=== PATIENT | female | born 1940 | race Caucasian/White ===

== ENCOUNTER 2017-02-16 09:29 | Emergency (ER) | payer MEDICARE, OTHER ==
[~2017-02-16] VITALS: Ht 162.6 cm; Wt 69.8 kg
[~2017-02-16 09:29] MED LIST: ACID CONTROL75 MG; ALLOPURINOL100 MG PO; ASPIRIN EC325 MG PO; ASPIRIN EC81 MG PO; ASPIRIN325 MG PO; AUGMENTIN 875-1 EACH PO; BACLOFEN10 MG PO; BENAZEPRIL HCL20 MG PO; BENAZEPRIL HCL40 MG PO; BENTYL10 MG PO; CALCIUM 600 +1 EAC7 PO; CALCIUM MAGNES1 EAC1 PO; CALCIUM-MAG-ZI1 EACH PO; CALCIUM500 MG PO; CARAFATE1 GM/10 ML; CARVEDILOL25 MG PO; CIPRO500 MG PO; CLONIDINE HCL0.1 MG PO; COREG25 MG PO; DIGOX125 MCG PO; ELIQUIS5 MG PO; FLAGYL500 MG PO; FLONASE2 SPRAY NS; FUROSEMIDE20 MG PO; FUROSEMIDE40 MG PO; HYDROCHLOROTHIA25 MG PO; HYDROCODON-ACE1 EA10 PO; HYDROCODON-ACE1 EA11 PO; JANUVIA100 MG PO; KLOR-CON 1010 MEQ PO; KLOR-CON M2020 MEQ PO; LOTENSIN40 MG PO; LOVASTATIN20 MG PO; MAGNESIUM400 MG PO; METFORMIN HCL1000 MG PO; NEOMYCIN-POLY-7.5 ML AD; NITROGLYCERIN0.4 MG SL; NORCO 5-325 TA1 EACH PO; POTASSIUM CHLO20 ME1 PO; PROBIOTIC1 EAC7 PO; PROTONIX40 MG PO; SERTRALINE HCL25 MG PO; SERTRALINE HCL50 MG PO; VANCOMYCIN HCL125 MG PO; VERAPAMIL ER120 MG PO; VERAPAMIL ER180 MG PO; VERAPAMIL ER240 M1 PO; VERAPAMIL HCL120 MG PO; VERAPAMIL HCL80 MG PO; VICODIN 5-5001 EACH PO; [UNRECOGNIZED DRUG - OTHER] PO
[2017-02-16] MEDS ORDERED: LASIX20 MG PO (09:41)
[2017-02-16] MEDS ORDERED: LOVASTATIN10 MG PO (09:41)
--- NOTE | 2017-02-16 12:28 | EKG ---
[facility] [address] [facility] [address] [place] [address] Signed Marked sinus bradycardia Abnormal ECG When compared with ECG of 11-JAN-2017 11:04, Sinus rhythm has replaced Atrial fibrillation Confirmed by LISA GARDNER MD ([id number]) on 02/16/2017 12:28:09 PM Electronically Signed By: LISA GARDNER MD 02/16/17 1228 PATIENT NAME: DIANELYS POLLARD Electrocardiogram DATE OF : 44 PHYSICIAN: LISA GARDNER MD REPORT #: [id number] REPORT IS CONFIDENTIAL AND NOT TO BE RELEASED WITHOUT AUTHORIZATION
== END 2017-02-16 11:41 | disposition home or self-care (01) ==
LOC: ED 09:29
DX: R07.9 Chest pain, unspecified (principal); I10 Essential (primary) hypertension; E11.9 Type 2 diabetes mellitus without complications; I48.91 Unspecified atrial fibrillation; K52.89 Other specified noninfective gastroenteritis and colitis; Z90.49 Acquired absence of other specified parts of digestive tract; Z90.710 Acquired absence of both cervix and uterus; Z88.2 Allergy status to sulfonamides; Z88.5 Allergy status to narcotic agent; Z88.1 Allergy status to other antibiotic agents; Z88.8 Allergy status to other drugs, medicaments and biological substances; Z79.899 Other long term (current) drug therapy; Z79.2 Long term (current) use of antibiotics; Z79.84 Long term (current) use of oral hypoglycemic drugs
CPT/HCPCS: 71010; 80053; 84484; 85025; 85610; 93005; 93010; 96361; 96374; 99284; J2405; J7030

== ENCOUNTER 2017-07-26 19:20 | Emergency (ER) | payer MEDICARE, OTHER ==
[~2017-07-26] VITALS: Ht 162.6 cm; Wt 69.9 kg
[~2017-07-26 19:20] MED LIST changes: +LASIX20 MG PO; +LOVASTATIN10 MG PO
[2017-07-26] MEDS ORDERED: PREDNISONE20 MG PO (21:12)
[2017-07-26] MEDS ORDERED: PROVENTIL HFA6.7 GM INH (21:12)
== END 2017-07-26 21:23 | disposition home or self-care (01) ==
LOC: ED 19:20
DX: T54.1X1A Toxic effect of other corrosive organic compounds, accidental (unintentional), initial encounter (principal); J68.0 Bronchitis and pneumonitis due to chemicals, gases, fumes and vapors; I10 Essential (primary) hypertension; E11.9 Type 2 diabetes mellitus without complications; I48.91 Unspecified atrial fibrillation; Z90.49 Acquired absence of other specified parts of digestive tract; Z90.710 Acquired absence of both cervix and uterus; Z88.2 Allergy status to sulfonamides; Z88.5 Allergy status to narcotic agent; Z88.1 Allergy status to other antibiotic agents; Z88.8 Allergy status to other drugs, medicaments and biological substances; Z79.84 Long term (current) use of oral hypoglycemic drugs; Z79.899 Other long term (current) drug therapy
CPT/HCPCS: 71010; 94640; 99283; J7512

== ENCOUNTER 2017-09-12 10:20 | Emergency (ER) | payer MEDICARE, OTHER ==
[~2017-09-12] VITALS: Ht 157.5 cm; Wt 150.0 kg
[~2017-09-12 10:20] MED LIST changes: +PREDNISONE20 MG PO; +PROVENTIL HFA6.7 GM INH
[2017-09-12] MEDS ORDERED: COREG12.5 MG PO (12:03)
[2017-09-12] MEDS ORDERED: COREG6.25 MG PO (12:03)
--- NOTE | 2017-09-12 14:30 | EKG ---
[facility] [address] [facility] [place] [address] Signed Atrial fibrillation with slow ventricular response Abnormal ECG When compared with ECG of 16-FEB-2017 09:46, Atrial fibrillation has replaced Sinus rhythm Confirmed by LISA GARDNER MD ([id number]) on 09/12/2017 2:30:38 PM Electronically Signed By: LISA GARDNER MD 09/12/17 1430 PATIENT NAME: DIANELYS POLLARD Electrocardiogram DATE OF : 44 PHYSICIAN: LISA GARDNER MD REPORT #: [id number] REPORT IS CONFIDENTIAL AND NOT TO BE RELEASED WITHOUT AUTHORIZATION
== END 2017-09-12 12:16 | disposition home or self-care (01) ==
LOC: ED 10:20
DX: R00.1 Bradycardia, unspecified (principal); I10 Essential (primary) hypertension; E11.9 Type 2 diabetes mellitus without complications; I48.91 Unspecified atrial fibrillation; Z88.2 Allergy status to sulfonamides; Z88.5 Allergy status to narcotic agent; Z88.1 Allergy status to other antibiotic agents; Z88.8 Allergy status to other drugs, medicaments and biological substances; Z79.899 Other long term (current) drug therapy; Z79.52 Long term (current) use of systemic steroids; Z79.84 Long term (current) use of oral hypoglycemic drugs
CPT/HCPCS: 71045; 80053; 83880; 84484; 85025; 85610; 85730; 93005; 93010; 99284; J7030

== ENCOUNTER 2017-11-24 04:56 | Emergency (ER) | payer MEDICARE, OTHER ==
[~2017-11-24] VITALS: Ht 157.5 cm; Wt 72.1 kg
--- OUTSIDE RECORDS SUMMARY | ~2017-11-24 | XMS | Encounter Summary ---
Demographics + + + | Address | [address] | | | [place] [address] | + + + | Home Phone | | + + + | Preferred Language | Unknown | + + + | Marital Status | | + + + | Taoist Affiliation | Unknown | + + + | Race | Unknown | + + + | Ethnic Group | Unknown | + + + Author + + + | Author | [employer] | + + + | Organization | [facility] | + + + | Address | Unknown | + + + | Phone | Unavailable | + + + Support + + +---------+ + | Name | Relationship | Address | Phone | + + +---------+ + | Migel Doll | ECON | Unknown | | + + +---------+ + | Masha Massey | ECON | Unknown | | + + +---------+ + | Marivel Richard | ECON | Unknown | | + + +---------+ + Care Team Providers + +------+ + | Care Collar Tailor Name | Role | Phone | + +------+ + | Ld John DO | PCP | | + +------+ + Reason for Visit +--------+ + | Reason | Comments | +--------+ + | Other | EKG | +--------+ + Encounter Details +--------+ + + + + | Date | Type | Department | Care Team | Description | +--------+ + + + + | 10/25/ | Documentati | [facility] | [facility] | Other (EKG) | | 2017 | on Only | Cardiology Rolanda | TYRESE Hickman | | | | | [address] | | | | | | [place] | | | | | | [address] | | | | | | [phone] | | | +--------+ + + + + Social History + +-------+ +--------+------+ | Tobacco Use | Types | Packs/Day | Years | Date | | | | | Used | | + +-------+ +--------+------+ | Never Smoker | | | | | + +-------+ +--------+------+ + +---+---+---+ | Smokeless Tobacco: | | | | | Never Used | | | | + +---+---+---+ + + + | Sex Assigned at | Date Recorded | | | | + + + | Not on file | | + + + as of this encounter Plan of Treatment +--------+---------+ + + + | Date | Type | Specialty | Care Team | Description | +--------+---------+ + + + | 12/05/ | Office | Cardiology | Jonatan Patel, | | | 2017 | Visit | | MD Tomás Salamanca | | | | | | Dr [address], | | | | | | [place] [address] | | | | | | [phone] | | | | | | | | +--------+---------+ + + + as of this encounter Visit Diagnoses Not on filein this encounter"
--- OUTSIDE RECORDS SUMMARY | ~2017-11-24 | XMS | Encounter Summary ---
Demographics + + + | Address | [address] | | | [place] [address] | + + + | Home Phone | | + + + | Preferred Language | Unknown | + + + | Marital Status | | + + + | Sabianism Affiliation | Unknown | + + + | Race | Unknown | + + + | Ethnic Group | Unknown | + + + Author + + + | Author | [employer] | + + + | Organization [...] + + +---------+ + | Marivel Richard ECON | Unknown | | + + +---------+ + Care Team Providers + +------+ + | Care Big Data Hadoop Developer Name | Role | Phone | + +------+ + | Ld John DO | PCP | | + +------+ + Encounter Details +--------+ + + + + | Date | Type | Department | Care Team | Description | +--------+ + + + + | 10/12/ | Telephone | [facility] | [facility] Multani | | | 2018 | | Cardiology Rolanda Hickman CMA | | | | | [address] | | | | | | [place] | | | | | | [address] | | | | | | [phone] | | | +--------+ + + + [...] | | | | | | [place] [address] | | | | | | [phone] | | | | | | | | +--------+---------+ + + + as of this encounter Visit Diagnoses Not on filein this encounter"
--- OUTSIDE RECORDS SUMMARY | ~2017-11-24 | XMS | Encounter Summary ---
Demographics + + + | Address | [address] | | | [place] [address] | + + + | Home Phone | | + + + | Preferred Language | Unknown | + + + | Marital Status | | + + + | Sabianism Affiliation | Unknown | + + + | Race | Unknown | + + + | Ethnic Group | Unknown | + + + Author + + + | Author | [employer] | + + + | Organization [...] Team Providers + +------+ + | Care Department Clerk Name | Role | Phone | + [...] [place] | | | | | | [address] | | | | | | [phone] | | | +--------+ + + + [...] | | | | | | [place] [address] | | | | | | [phone] | | | | | | | | +--------+---------+ + + + as of this encounter Visit Diagnoses Not on filein this encounter"
--- OUTSIDE RECORDS SUMMARY | ~2017-11-24 | XMS | Encounter Summary ---
Demographics + + + | Address | [address] | | | [place] [address] | + + + | Home Phone | | + + + | Preferred Language | Unknown | + + + | Marital Status | | + + + | Rastafari Affiliation | Unknown | + + + | Race | Unknown | + + + | Ethnic Group | Unknown | + + + Author + + + | Author | [employer] | + + + | Organization [...] Team Providers + +------+ + | Care Freelance Photographer Name | Role | Phone | + +------+ + | Vibha Bustos DO | PCP | | + +------+ + Reason for Visit + + + | Reason | Comments | + + + | Atrial Fibrillation | | + + + Encounter Details +--------+---------+ + + + | Date | Type | Department | Care Team | Description | +--------+---------+ + + + | 10/24/ | Office | [facility] | Jonatan Snell, | Essential | | 2018 | Visit | Cardiology [place] | [address] | hypertension | | | | [address] | [address] Fern[address], | (Primary Dx); | | | | [address] | [place] [address] | Paroxysmal atrial | | | | [place] [address] | [phone] | fibrillation (HCC); | | | | [phone] | | Mixed hyperlipidemia | +--------+---------+ + + + Social History + +-------+ [...] + + + as of this encounter Last Filed Vital Signs + + + + | Vital Sign | Reading | Time Taken | + + + + | Blood Pressure | 128/76 | 10/24/2017 1:29 PM PDT | + + + + | Pulse | 81 | 10/24/2017 1:29 PM PDT | + + + + | Temperature | - | - | + + + + | Respiratory Rate | - | - | + + + + | Oxygen Saturation | 97% | 10/24/2017 1:29 PM PDT | + + + + | Inhaled Oxygen | - | - | | Concentration | | | + + + + | Weight | 71.4 kg (157 lb 4.8 | 10/24/2017 1:29 PM PDT | | | oz) | | + + + + | Height | 156.2 cm (5' 1.5") | 10/24/2017 1:29 PM PDT | + + + + | Body Mass Index | 29.24 | 10/24/2017 1:29 PM PDT | + + + + in this encounter Progress Notes Jonatan Snell MD - 10/24/2017 1:30 PM PDTFormatting of this note may be different fro m the original. Date of visit: 10/24/2017 Primary Care Physician: VIBHA BUSTOS CHIEF COMPLAINT: Chief Complaint Patient presents with Atrial Fibrillation HISTORY OF PRESENT ILLNESS: La Nena is 77 y.o. here for follow-up visit. Earlier than scheduled. Has been complaining of upper respiratory tract infection probably viral. Has productive co ugh with dry sputum. Denies any fever or chills. Patient called The office complaining of shortness of breath and now he knows his most last secondary to her flu like symptoms. But pressure has been fairly controlled. Previously was evaluated in September 2017 in [facility] secondary to lightheadedn ess. Patient did check her pulse at home and was running between 30-40 and 50. EKG was done and [facility] and showed atrial fibrillation with controlled ventricular rat e. At that time her carvedilol dose was decreased from 25 mg bid to 18.5 mg bid. Patient has history of paroxysmal atrial fibrillation. Has been trying to walk. Her activity is limited by severe back pain she had a prior back s urgery. On anticoagulation with Apixaban and tolerating that well. Past medical history, SH, FH, and medications were reviewed in the chart. Medications: Outpatient Encounter Prescriptions as of 10/24/2017 Medication Sig Dispense Refill allopurinol (ZYLOPRIM) 100 MG tablet Take 100 mg by mouth daily. apixaban (ELIQUIS) 5 MG tablet Take 5 mg by mouth 2 (two) times daily. benazepril (LOTENSIN) 40 MG tablet Take 40 mg by mouth daily. carvedilol (COREG) 25 MG tablet Take 12.5 mg by mouth 2 (two) times daily with meals. furosemide (LASIX) 40 MG tablet Take 1 tablet by mouth 2 (two) times daily. (Patient sherri becerra differently: Take 40 mg by mouth daily.) 60 tablet 11 loperamide (IMODIUM) 2 MG capsule Take 2 mg by mouth 4 (four) times daily as needed for Diarrhea. lovastatin (MEVACOR) 20 MG tablet Take 20 mg by mouth nightly. nitroGLYCERIN (NITROSTAT) 0.[address] 1 tablet under the tongue every 5 (fiv e) minutes as needed for Chest pain. 25 tablet 11 Mrockwaqlhzvi-QAOY-Nsnzbyqcbvq (MUCINEX SINUS-MAX PO) Take by mouth as needed. potassium chloride SA (K-DUR,KLOR-CON) 20 MEQ tablet Take 1 tablet by mouth 2 (two) kuldip es daily. 60 tablet 11 Probiotic Product (PROBIOTIC ACIDOPHILUS) CAPS Take by mouth. sertraline (ZOLOFT) 50 MG tablet Take 50 mg by mouth daily. sitagliptan (JANUVIA) 100 MG tablet Take 100 mg by mouth every morning. carvedilol (COREG) 6.25 MG tablet Take 6.25 mg by mouth 2 (two) times daily with meals. metFORMIN (GLUCOPHAGE) 1000 MG tablet Take 1,000 mg by mouth 2 (two) times daily with m eals. [DISCONTINUED] hydrALAZINE (APRESOLINE) 50 MG tablet Take 1 tablet by mouth 2 (two) kuldip es daily. (Patient not taking: Reported on 10/24/2017) 60 tablet 2 No facility-administered encounter medications on file as of 10/24/2017. Allergies Allergies Allergen Reactions Codeine Hives Macrobid [Nitrofurantoin] Hives and Rash Motrin [Ibuprofen] Hives Sulfa Antibiotics Anaphylaxis REVIEW OF SYSTEMS: Constitutional: Positive for minimal fatigue. HEENT: Negative for nosebleeds, ear discharge, nasal congestion or soar throat. Eyes: Negative for visual disturbance, redness, or secretion. Respiratory: Positive for cough and wheezing. Cardiovascular: As HPI. Gastrointestinal: Negative for nausea, vomiting, diarrhea, abdominal pain and blood in stoo l. Genitourinary: Negative for dysuria or hematuria. Musculoskeletal: chronic back pain. Skin: Negative for rash. Neurological: Negative for dizziness. No numbness. No recent falls. No slurred speech. Hematological: No significant bruising. Psychiatric/Behavioral: No depression or anxiety. PHYSICAL EXAM Vital Signs: BP 128/76 (BP Location: Left upper arm, Patient Position: Sitting) | Pulse 81 | Ht 1.562 m (5' 1.5") | Wt 71.4 kg (157 lb 4.8 oz) | SpO2 97% | BMI 29.24 kg/m GENERAL APPEARANCE: Alert, oriented, cooperative, no distress, appears stated age. HEENT: Extraocular movements were intact. No jaundice. Pupiles round and reactive. NECK: No JVD, lymphadenopathy. Carotid upstrokes normal. No carotid bruit heard. CARDIAC: Regular rhythm and rate. There is normal S1 and S2. Soft systolic murmur on the left lower sternal border. CHEST: Normal effort, minimally expiratory wheezing. ABDOMEN: Soft.No tenderness or guarding. No palpable organs. Active bowel sounds. EXTREMITIES: No lower extremities edema, cyanosis or clubbing. NEURO: Alert and oriented times three with no focal deficit. Cranial nerves are grossly no rmal. SKIN: Warm and dry. No rash. Psych: Normal affect and mood. DATA 02/21/2017 WBC 6.3, hemoglobin 11.5, platelets 304, sodium 135, potassium 3.8, chloride 98, bicarbonat e 25, BUN 17, creatinine 1.13. GFR 47. Glucose 57, AST 14, AST 10, alk phos 59, hemoglobin A1c 5.7, TSH 4.0. Total cholesterol 128 , triglycerides 150, HDL 55, LDL 43. Lab Results Component Value Date/Time NA 138 08/28/2016 12:25 PM K 4.3 08/28/2016 12:25 PM CO2 21 08/28/2016 12:25 PM BUN 14 08/28/2016 12:25 PM CREATININE 1.01 08/28/2016 12:25 PM No results found for: WBC, HGB, HCT, MCV, PLT Lab Results Component Value Date CHOL 180 08/28/2016 TRIG 165 (A) 08/28/2016 HDL 53.6 08/28/2016 LDL 93 08/28/2016 GLUF 121 (A) 08/28/2016 EC01/22/2017 Last Cath: Last US carotid: Last Echo,October 30, 2016 Normal LV size and function EF 6065%. Grade 1 diastolic dysfunction. Mild left ventricular hypertrophy. Mild enlarged RV with normal systolic function. Mild tricuspid regurgitation with mild pulmonary hypertension. 08/13/2015: Borderline concentric LVH, biplane LVEF 66%, mild LAE, trace AI, mild MR, trace TR, trace P I, est systolic PAP 27-32mmHg. Last Stress Test, ([facility]): 6:52min Migel, no chest pain, ECG (-) for ischemia, occ PVC's, Hardy Treadmill Score 7, low risk. ASSESSMENT: Patient is 77 y.o. female with the following medical problems. 1. Paroxysmal atrial fibrillation currently in normal sinus rhythm. CHADSVASc score of 4 on anticoagulation. 2. Upper respiratory tract infection. 3. Episodes of bradycardia that were symptomatic. 4. Hypertension currently blood pressures fairly controlled. 5. Diastolic dysfunction is more euvolemic at this time. 6. History of diarrhea secondary to C. difficile. Plan: Patient symptoms are likely secondary to upper respiratory infection. She has mild expirato ry wheezing and productive cough however no fever or chills. 1. An tenuous furosemide 40 mg once daily. 2. Previously stop verapamil and now will continue with carvedilol 25 mg bid. 3. Continue with benazepril 40 mg po q day. 4. Continue with anticoagulation with Apixaban. 5. Continue with daily walks. 6. Follow-up in 6 months or earlier if needed. *This report has been prepared using a voice recognition system. The report was reviewed fo r accuracy, however, sound-alike word errors, addition and/or deletions may occur. If there is any question about this report please contact me. Jonatan Snell MD, MPHin this encounter Plan of Treatment +--------+---------+ + + + | Date | Type | Specialty | Care Team | Description | +--------+---------+ + + + | 12/05/ | Office | Cardiology | Jonatan Snell, | | | 2017 | Visit | | MD Tom[facility] | | | | | | Dr Fernandez, | | | | | | [place] [address] | | | | | | [phone] | | | | | | | | +--------+---------+ + + + as of this encounter Visit Diagnoses + + | Diagnosis | + + | Essential hypertension - Primary | + + | Unspecified essential hypertension | + + | Paroxysmal atrial fibrillation (HCC) | + + | Atrial fibrillation | + + | Mixed hyperlipidemia | + +
--- OUTSIDE RECORDS SUMMARY | ~2017-11-24 | XMS | Encounter Summary ---
Demographics + + + | Address | [address] | | | [place] [address] | + + + | Home Phone | | + + + | Preferred Language | Unknown | + + + | Marital Status | | + + + | Presybeterian Affiliation | Unknown | + + + | Race | Unknown | + + + | Ethnic Group | Unknown | + + + Author + + + | Author | [employer] | + + + | Organization [...] Team Providers + +------+ + | Care Brazing Machine Operator Automatic Name | Role | Phone | + +------+ + | Ld John DO | PCP | | + +------+ + Reason for Visit +--------+ + | Reason | Comments | +--------+ + | Other | [facility] | +--------+ + Encounter Details +--------+ + + + + | Date | Type | Department | Care Team | Description | +--------+ + + + + | 10/25/ | [facility] | [facility] | [facility] | Other ([facility] | | 2017 | on Only | Cardiology Rol[facility] | TYRESE Hickman | x-ray) | | | | [address] | | | | | | [place] | | | | | | [address] | | | | | | [phone] | | | +--------+ + + + [...] | | | | | | [place] [address] | | | | | | [phone] | | | | | | | | +--------+---------+ + + + as of this encounter Visit Diagnoses Not on filein this encounter"
--- OUTSIDE RECORDS SUMMARY | ~2017-11-24 | XMS | Clinical Summary ---
Demographics + + + | Address | [address] [place] [address] | | | [place] [address] | + + + | Home Phone | | + + + | Preferred Language | Unknown | + + + | Marital Status | | + + + | Zoroastrianism Affiliation | Unknown | + + + | Race | Unknown | + + + | Ethnic Group | Unknown | + + + Author + + + | Author | [employer] | + + + | Organization [...] Team Providers + +------+ + | Care Executive Sales Manager Name | Role | Phone | + +------+ + | Ld John DO | PP | | + +------+ + Allergies + + + + + + | Active Allergy | Reactions | Severity | Noted | Comments | | | | | Date | | + + + + + + | Codeine | Hives | High | 08/11/19 | | | | | | 16 | | + + + + + + | Nitrofurantoin | Hives, Rash | High | 08/11/19 | | | | | | 16 | | + + + + + + | Ibuprofen | Hives | High | 08/11/19 | | | | | | 16 | | + + + + + + | Sulfa Antibiotics | Anaphylaxis | High | 08/11/19 | | | | | | 16 | | + + + + + + Current Medications + + +--------+---------+------+------+-------+ | Prescription | Sig. | Disp. | Refills | Star | End | Statu | | | | | | t | Date | s | | | | | | Date | | | + + +--------+---------+------+------+-------+ | sitagliptan | Take 100 mg by mouth | | | | | Activ | | (JANUVIA) 100 MG | every morning. | | | | | e | | tablet | | | | | | | + + +--------+---------+------+------+-------+ | allopurinol | Take 100 mg by mouth | | | | | Activ | | (ZYLOPRIM) 100 MG | daily. | | | | | e | | tablet | | | | | | | + + +--------+---------+------+------+-------+ | sertraline | Take 50 mg by mouth | | | | | Activ | | (ZOLOFT) 50 MG | daily. | | | | | e | | tablet | | | | | | | + + +--------+---------+------+------+-------+ | benazepril | Take 40 mg by mouth | | | | | Activ | | (LOTENSIN) 40 MG | daily. | | | | | e | | tablet | | | | | | | + + +--------+---------+------+------+-------+ | metFORMIN | Take 1,000 mg by | | | | | Activ | | (GLUCOPHAGE) 1000 MG | mouth 2 (two) times | | | | | e | | tablet | daily with meals. | | | | | | + + +--------+---------+------+------+-------+ | apixaban (ELIQUIS) | Take 5 mg by mouth 2 | | | | | Activ | | 5 MG tablet | (two) times daily. | | | | | e | + + +--------+---------+------+------+-------+ | carvedilol (COREG) | Take 12.5 mg by | | | | | Activ | | 25 MG tablet | mouth 2 (two) times | | | | | e | | | daily with meals. | | | | | | + + +--------+---------+------+------+-------+ | loperamide | Take 2 mg by mouth 4 | | | | | Activ | | (IMODIUM) 2 MG | (four) times daily | | | | | e | | capsule | as needed for | | | | | | | | Diarrhea. | | | | | | + + +--------+---------+------+------+-------+ | Probiotic Product | Take by mouth. | | | | | Activ | | (PROBIOTIC | | | | | | e | | ACIDOPHILUS) CAPS | | | | | | | + + +--------+---------+------+------+-------+ | furosemide (LASIX) | Take 1 tablet by | 60 | 11 | 09/1 | 09/1 | Activ | | 40 MG tablet | mouth 2 (two) times | tablet | | 2/20 | 2/20 | e | | | daily. | | | 17 | 18 | | + + +--------+---------+------+------+-------+ | potassium chloride | Take 1 tablet by | 60 | 11 | 09/1 | | Activ | | SA ([place]) | mouth 2 (two) times | tablet | | 2/20 | | e | | 20 MEQ tablet | daily. | | | 17 | | | + + +--------+---------+------+------+-------+ | nitroGLYCERIN | Place 1 tablet under | 25 | 11 | 01/1 | | Activ | | (NITROSTAT) 0.4 MG | the tongue every 5 | tablet | | 7/20 | | e | | SL tablet | (five) minutes as | | | 18 | | | | | needed for Chest | | | | | | | | pain. | | | | | | + + +--------+---------+------+------+-------+ | carvedilol (COREG) | Take 6.25 mg by | | | | | Activ | | 6.25 MG tablet | mouth 2 (two) times | | | | | e | | | daily with meals. | | | | | | + + +--------+---------+------+------+-------+ | lovastatin | Take 20 mg by mouth | | | | | Activ | | (MEVACOR) 20 MG | nightly. | | | | | e | | tablet | | | | | | | + + +--------+---------+------+------+-------+ | | Take by mouth as | | | | | Activ | | Zypfxagenwlqb-IXWD-C | needed. | | | | | e | | uaifenesin (MUCINEX | | | | | | | | SINUS-MAX PO) | | | | | | | + + +--------+---------+------+------+-------+ | | Take 1 tablet by | 30 | 1 | 11/04 | 11/04 | Activ | | hydrochlorothiazide | mouth daily. | tablet | | 02/22 | 02/22 | e | | (HYDRODIURIL) 12.5 | | | | 18 | 19 | | | MG tablet | | | | | | | + + +--------+---------+------+------+-------+ Active Problems + + + | Problem | Noted Date | + + + | Spondylolisthesis | 09/13/2016 | + + + | Essential hypertension | 08/11/2015 | + + + + + | Last Assessment & Plan: Hypertension, controlled, continue | | current meds at current dose (benazepril, clonidine, furosemide, | | verapamil). Labs, 10/13/2015: K: 4.3, BUN/Cr: 19/1.0 (GFR 53), | | glu: 115 WBC: 7.1, H/H: 12.5/39.0, plt: | | 319 | + + + + + | HLD (hyperlipidemia) | 08/11/2015 | + + + + + | Last Assessment & Plan: History hyperlipidemia, continue | | current meds at current dose (lovastatin). | + + + + + | Paroxysmal atrial fibrillation (HCC) | 08/11/2015 | + + + + + | Last Assessment & Plan: P Jonnie fib, CHADS2 Score 2 (HTN, DM), | | currently in sinus rhythm. 75yo WF, with history of | | atrial fibrillation. Since last visit emergency room, no | | recurrent palpitations. She continues to be modestly active, no | | significant shortness of breath or chest discomfort. Her | | echocardiogram shows preserved ejection fraction. Her recent | | stress test was benign, low risk. Labs reviewed. Patient given | | reassurance, she is encouraged to get into a regular exercise | | routine. Tolerating medications. No changes in therapy at this | | time. Will follow clinically.Hx CABG: noHx PCI/stent: noHx | | ICD/Pacemaker: noLast Cath: naLast Echo, 08/13/2015: borderline | | concentric LVH, biplane LVEF 66%, mild LAE, trace AI, mild MR, | | trace TR, trace PI, est systolic PAP 27-32mmHg.Last Stress Test, | | ([facility]): 6:52min Migel, no chest pain, ECG (-) | | for ischemia, occ PVC's, Hardy Treadmill Score 7, low risk.ECG, | | 07/20/2015: sinus rhythm, 79bpm, PRWP. | + + + + + | Type 2 diabetes mellitus (HCC) | 08/06/2008 | + + + Resolved Problems + + + + | Problem | Noted | Resolved | | | Date | Date | + + + + | Diarrhea | 08/21/19 | | | | 17 | 7 | + + + + Encounters +--------+ + + + + | Date | Type | Specialty | Care Team | Description | +--------+ + + + + | 11/20/ | Telephone | | [facility] | | | 2017 | | | TYRESE Hickman | | +--------+ + + + + | 11/20/ | Refill | | Jonatan Patel, | | | 2017 | | | MD | | +--------+ + + + + | 11/20/ | Documentati | | Christina Zayas Only | | 2017 | on Only | | SHASHI Ovalle | | +--------+ + + + + | 10/25/ | Documentati | | [facility] | Other ([facility] | 2017 | on Only | | J, DRYWALL STRIPPER | Records) | +--------+ + + + + | 10/25/ | Documentati | | [facility] | Other ([facility] | 2017 | on Only | | J, TYRESE | x-ray) | +--------+ + + + + | 10/25/ | Documentati | | [facility]ena [facility]ani | Other ([facility]) | | 2018 | on Only | | TYRESE Hickman | | +--------+ + + + + | 10/24/ | Office | | Jonatan Patel, | Essential | | 2018 | Visit | | MD | hypertension | | | | | | (Primary Dx); | | | | | | Paroxysmal atrial | | | | | | fibrillation (HCC); | | | | | | Mixed hyperlipidemia | +--------+ + + + + | 10/18/ | Telephone | | [facility]ena [facility] | | | 2018 | | | TYRESE Hickman | | +--------+ + + + + | 10/16/ | Documentati | | Selena Multani | Other ([facility] | | 2018 | on Only | | TYRESE Hickman | records) | +--------+ + + + + | 10/12/ | Telephone | | [facility] | | | 2017 | | | TYRESE Hickman | | +--------+ + + + + | 10/09/ | Office | | Jonatan Patel, | Paroxysmal atrial | | 2017 | Visit | | MD | fibrillation (HCC) | | | | | | (Primary Dx); | | | | | | Essential | | | | | | hypertension; Mixed | | | | | | hyperlipidemia | +--------+ + + + + from Last 3 Months Immunizations + + + + | Name | Dates Previously Given | Next Due | + + + + | Influenza, | 06/13/2017 | | | Injectable, Mdck, | | | | Preservative Free, | | | | Quadrivalent | | | + + + + Family History + + +------+ + | Medical History | Relation | Name | Comments | + + +------+ + | Cancer | Mother | | | + + +------+ + + +------+ + + | Relation | Name | Status | Comments | + +------+ + + | Father | | | MVA | | | | (Age | | | | | 72) | | + +------+ + + | Mother | | | Leukemia | | | | (Age | | | | | 43) | | + +------+ + + Social History + +-------+ +--------+------+ [...] on file | | + + + Last Filed Vital Signs + + + [...] + + + | Respiratory Rate | 18 | 08/21/2016 1:47 PM PST | + + + + | Oxygen [...] PM PDT | + + + + Plan of Treatment +--------+---------+ + + + | Date | Type | Specialty | Care Team | Description | +--------+---------+ + + + | 12/05/ | Office | | Jonatan Patel, | | | 2018 | Visit | | MD Tomás Salamanca | | | | | | Dr [address], | | | | | | [place] [address] | | | | | | [phone] | | | | | | | | +--------+---------+ + + + + + + + + | Health Maintenance | Due Date | Last Done | Comments | + + + + + | Diabetic Eye Exam | | | | | | 2 | | | + + + + + | Diabetic Foot Exam | | | | | | 2 | | | + + + + + | Hemoglobin A1c | | | | | | 2 | | | + + + + + | Microalbumin | | | | | Screening | 2 | | | + + + + + | Vaccine: | | | | | Dtap/Tdap/Td (1 - | 1 | | | | Tdap) | | | | + + + + + | Colon Cancer | | | | | Screening | 2 | | | | (Colonoscopy) | | | | + + + + + | DEXA SCAN SCREENING | | | | | | 7 | | | + + + + + | Vaccine: | | | | | Pneumococcal 65+ | 7 | | | | Low/Medium Risk (1 | | | | | of 2 - PCV13) | | | | + + + + + | Vaccine: Influenza | Completed | 06/13/2017 | | + + + + + Results Not on filefrom Last 3 Months Insurance + +--------+ +--------+-------+ + | Payer | Benefi | Subscriber | Type | Phone | Address | | | t Plan | ID | | | | | | / | | | | | | | Group | | | | | + +--------+ +--------+-------+ + | [place] - PREMIERCARE | [place]-PRE | xxxxxxxxxx | Medica | | | | FAMILY | [place] | | re | | | | | RE | | | | | | | FAMILY | | | | | + +--------+ +--------+-------+ + | MEDICARE | MEDICA | xxxxxxxxxx | | | [address] | | | RE | | | | [place] [phone] | | | IP-OP | | | | | + +--------+ +--------+-------+ + | COMMERCIAL OTHER | COMMER | [id number] | | | | | | CIAL | | | | | | | GENERI | | | | | | | C PLAN | | | | | + +--------+ +--------+-------+ + + +--------+ +--------+ + + | Guarantor Name | Accoun | Relation to | Date | Phone | Billing Address | | | t Type | Patient | of | | | | | | | | | | + +--------+ +--------+ + + | DIANELYS DOLL | Person | Self [birth year] | Home: | [address] | | | al/Fam | | 1940 | [phone] | [place] | | | [place] | | | [phone] | [phone] | + +--------+ +--------+ + +
--- OUTSIDE RECORDS SUMMARY | ~2017-11-24 | XMS | Encounter Summary ---
Demographics + + + | Address | [address] | | | [place] [address] | + + + | Home Phone | | + + + | Preferred Language | Unknown | + + + | Marital Status | | + + + | Voodoo Affiliation | Unknown | + + + | Race | Unknown | + + + | Ethnic Group | Unknown | + + + Author + + + | Author | [employer] | + + + | Organization | [facility] | + + + | Address | Unknown | + + + | Phone | Unavailable | + + + Support + + +---------+ + | Name | Relationship | Address | Phone | + + +---------+ + | Migel Doll | ECON | Unknown | | + + +---------+ + | Masah Massey | ECON | Unknown | | + + +---------+ + | Marivel Richard | ECON | Unknown | | + + +---------+ + Care Team Providers + +------+ + | Care Bottle House Cleaners Supervisor Name | Role | Phone | + +------+ + | Ld John DO | PCP | | + +------+ + Reason for Visit +--------+ + | Reason | Comments | +--------+ + | Other | [facility] Records | +--------+ + Encounter Details +--------+ + + + + | Date | Type | Department | Care Team | Description | +--------+ + + + + | 10/25/ | Henry | [facility] | Selean Multani | Other ([facility] | | 2018 | on Only | Cardiology Rolanda | TYRESE Hickman | Records) | | | | [address] | | | | | | [place] | | | | | | [address] | | | | | | [phone] | | | +--------+ + + + [...] | | | | | | [place] [address] | | | | | | [phone] | | | | | | | | +--------+---------+ + + + as of this encounter Visit Diagnoses Not on filein this encounter"
--- OUTSIDE RECORDS SUMMARY | ~2017-11-24 | XMS | Encounter Summary ---
Demographics + + + | Address | [address] | | | [place] [address] | + + + | Home Phone | | + + + | Preferred Language | Unknown | + + + | Marital Status | | + + + | Roman Catholic Affiliation | Unknown | + + + | Race | Unknown | + + + | Ethnic Group | Unknown | + + + Author + + + | Author | [employer] | + + + | Organization [...] Team Providers + +------+ + | Care Lease Analyst Name | Role | Phone | + [...] [place] | | | | | | [address] | | | | | | [phone] | | | +--------+ + + + [...] | | | | | | [place] [address] | | | | | | [phone] | | | | | | | | +--------+---------+ + + + as of this encounter Visit Diagnoses Not on filein this encounter"
--- OUTSIDE RECORDS SUMMARY | ~2017-11-24 | XMS | Clinical Summary ---
Demographics + + + | Address | [address] | | | [place] [address] | + + + | Home Phone | | + + + | Preferred Language | Unknown | + + + | Marital Status | | + + + | Protestant Affiliation | 1077 | + + + | Race | Unknown | + + + | Ethnic Group | Unknown | + + + Author + + + | Author | [facility] | | | and [place] | + + + | Organization | [facility] | | | and [place] | + + + | Address | Unknown | + + + | Phone | Unavailable | + + + Support + + +---------+ + | Name | Relationship | Address | Phone | + + +---------+ + | Migel Doll | ECON | Unknown | | + + +---------+ + | Michelle Richard | ECON | Unknown | | + + +---------+ + Care Team Providers + +------+ + | Care Drug Abuse Technician Name | Role | Phone | + +------+ + | Ld John DO | PP | | + +------+ + Allergies + + + + + + | Active Allergy | Reactions | Severity | Noted | Comments | | | | | Date | | + + + + + + | Codeine | Rash | Low | 09/13/19 | | | | | | 17 | | + + + + + + | Diltiazem | Rash | Low | 02/08/20 | | | | | | 17 | | + + + + + + | Ibuprofen | Rash | Low | 02/08/20 | | | | | | 17 | | + + + + + + | Nitrofuran | Rash | Low | 02/08/20 | | | Derivatives | | | 17 | | + + + + + + | Nitrofurantoin | Rash | Low | 02/08/20 | | | | | | 17 | | + + + + + + | Sulfa Antibiotics | Rash | Low | 02/08/20 | | | | | | 17 | | + + + + + + Current Medications + + +-------+---------+------+------+-------+ | Prescription | Sig. | Disp. | Refills | Star | End | Statu | | | | | | t | Date | s | | | | | | Date | | | + + +-------+---------+------+------+-------+ | | Take 1 tablet by | | | | | Activ | | HYDROcodone-acetamin | mouth EVERY 4 TO 6 | | | | | e | | ophen (NORCO) | HOURS NEEDED. | | | | | | | 7.5-325 mg per | | | | | | | | tablet | | | | | | | + + +-------+---------+------+------+-------+ | allopurinol | Take 1 tablet by | | | | | Activ | | (ZYLOPRIM) 100 mg | mouth Daily. | | | | | e | | tablet | | | | | | | + + +-------+---------+------+------+-------+ | apixaban (ELIQUIS) | Take 1 tablet by | | | | | Activ | | 5 mg tablet | mouth 2 times daily. | | | | | e | + + +-------+---------+------+------+-------+ | benazepril | Take 1 tablet by | | | | | Activ | | (LOTENSIN) 40 MG | mouth every morning. | | | | | e | | tablet | | | | | | | + + +-------+---------+------+------+-------+ | | Take 1 tablet by | | | | | Activ | | Lzuskgx-Pqvfobuvo-Im | mouth Daily. | | | | | e | | nadia Parker | | | | | | | | 400-166.7-133.3 | | | | | | | | MG-MG-UNIT TABS | | | | | | | + + +-------+---------+------+------+-------+ | carvedilol (COREG) | Take 1 tablet by | | | | | Activ | | 25 mg tablet | mouth 2 times daily. | | | | | e | + + +-------+---------+------+------+-------+ | metFORMIN | Take 1 tablet by | | | | | Activ | | (GLUCOPHAGE) 1000 MG | mouth 2 times daily | | | | | e | | tablet | (with breakfast & | | | | | | | | dinner). | | | | | | + + +-------+---------+------+------+-------+ | potassium chloride | Take 1 tablet by | | | | | Activ | | (KLOR-CON M20) 20 | mouth 2 times daily. | | | | | e | | mEq ER tablet | | | | | | | + + +-------+---------+------+------+-------+ | nitroglycerin | | | | | | Activ | | (NITROSTAT) 0.4 mg | | | | | | e | | SL tablet | | | | | | | + + +-------+---------+------+------+-------+ | sertraline | Take 1 tablet by | | | | | Activ | | (ZOLOFT) 50 mg | mouth Daily. | | | | | e | | tablet | | | | | | | + + +-------+---------+------+------+-------+ | SITagliptin | Take 100 mg by mouth | | | | | Activ | | (JANUVIA) 100 mg | Daily. | | | | | e | | tablet | | | | | | | + + +-------+---------+------+------+-------+ | Cyanocobalamin | Inject 1 mL as | | | | | Activ | | (VITAMIN B-12 IJ) | directed Every 30 | | | | | e | | | days. | | | | | | + + +-------+---------+------+------+-------+ | verapamil (CALAN) | Take 80 mg by mouth | | | | | Activ | | 80 mg tablet | 3 times daily. | | | | | e | + + +-------+---------+------+------+-------+ | loperamide | Take 2 mg by mouth 4 | | | | | Activ | | (IMODIUM) 2 mg | times daily as | | | | | e | | capsule | needed for Diarrhea. | | | | | | + + +-------+---------+------+------+-------+ | Probiotic Product | Take by mouth 2 | | | | | Activ | | ([employer] ADV PROBIOTIC | times daily. | | | | | e | | GUMMIES) CHEW | | | | | | | + + +-------+---------+------+------+-------+ | furosemide (LASIX) | Take 20 mg by mouth | | | | | Activ | | 20 mg tablet | 2 times daily. | | | | | e | + + +-------+---------+------+------+-------+ | lovastatin | Take 20 mg by mouth | | | | | Activ | | (MEVACOR) 20 mg | nightly. | | | | | e | | tablet | | | | | | | + + +-------+---------+------+------+-------+ Active Problems + + + | Problem | Noted Date | + + + | Generalized abdominal pain | 12/28/2016 | + + + | Diarrhea | 12/28/2016 | + + + | Acid reflux | 12/28/2016 | + + + | Vitamin B12 deficiency without anemia | 09/13/2016 | + + + | Upper respiratory tract infection | 09/13/2016 | + + + | Spondylolisthesis | 09/13/2016 | + + + | Type 2 diabetes mellitus (HCC) | 08/06/2008 | + + + | Tachycardia | 08/06/2008 | + + + Family History + + +------+ + | Medical History | Relation | Name | Comments | + + +------+ + | Coronary artery | Other | | | | disease | | | | + + +------+ + | Diabetes | Other | | | + + +------+ + | Lung cancer | Other | | | + + +------+ + | Other (see comment) | Other | | Respiratory Disease/Respiratory Disease | + + +------+ + | Stroke | Other | | | + + +------+ + + +------+ + + | Relation | Name | Status | Comments | + +------+ + + | Father | | | | + +------+ + + | Mother | | | | + +------+ + + | Other | | | | + +------+ + + Social [...] | | | + +---+---+---+ + + +---------+ + | Alcohol Use | Drinks/We | oz/Week | Comments | | | ek | | | + + +---------+ + | No | 0 | 0.0 | | | | Standard | | | | | drinks or | | | | | | | | | | equivalen | | | | | t | | | + + +---------+ + + + + | Sex Assigned at | Date Recorded | | | | + + + | Not on file | | + + + Last Filed Vital Signs + + + + | Vital Sign | Reading | Time Taken | + + + + | Blood Pressure | 112/70 | 02/01/20171140 PDT | + + + + | Pulse | 71 | 02/01/20171140 PDT | + + + + | Temperature | 37.3 C (99.1 F) | 02/01/20171140 PDT | + + + + | Respiratory Rate | 18 | 02/01/20171140 PDT | + + + + | Oxygen Saturation | 98% | 02/01/20171140 PDT | + + + + | Inhaled Oxygen | - | - | | Concentration | | | + + + + | Weight | 69.9 kg (154 lb) | 02/01/20171140 PDT | + + + + | Height | 154.9 cm (5' 1") | 02/01/20171140 PDT | + + + + | Body Mass Index | 29.1 | 02/01/20171140 PDT | + + + + Plan of Treatment + + + + + | Health Maintenance | Due Date | Last Done | Comments | + + + + + | Diabetic Eye Exam | | | | | (Bi-Annually) | 0 | | | + + + + + | Diabetic Foot Exam | | | | | | 0 | | | + + + + + | Vaccine: | | | | | Dtap/Tdap/Td (1 - | 1 | | | | Tdap) | | | | + + + + + | Vaccine: Zoster (#1) | | | | | | 2 | | | + + + + + | Vaccine: | | | | | Pneumococcal 65+ | 7 | | | | Low/Medium Risk (1 | | | | | of 2 - PCV13) | | | | + + + + + | Hemoglobin A1c Q3 | | 07/20/2016 | | | Months | 7 | | | + + + + + | Vaccine: Influenza | | | | | (Season Ended) | 8 | | | + + + + + | COLON CANCER | | 12/29/2016 | | | SCREENING | 7 | | | | (COLONOSCOPY EVERY | | | | | 10 YEARS 50-75) | | | | + + + + + Results Not on filefrom Last 3 Months Insurance + +--------+ +--------+ +---------+ | Payer | Benefi | Subscriber | Type | Phone | Address | | | t Plan | ID | | | | | | / | | | | | | | Group | | | | | + +--------+ +--------+ +---------+ | MEDICARE | MEDICA | xxxxxxxxxx | Medica | [phone] | | | RE | | re | [phone] | | | | PART A | | | | | | | AND B | | | | | + +--------+ +--------+ +---------+ | INDIVIDUAL ASSURANCE | INDIVI | xxxxxxx | Indemn | | | | COMPANY | DUAL | | ity | | | | | ASSURA | | | | | | | NCE [place] | | | | | | | MDCR | | | | | | | SUPPL | | | | | + +--------+ +--------+ +---------+ + +--------+ +--------+ + + | Guarantor Name | Accoun | Relation to | Date | Phone | Billing Address | | | t Type | Patient | of | | | | | | | | | | + +--------+ +--------+ + + | DIANELYS DOLL | Person | Self [birth year] | Home: | [address] | | | al/Fam | | 1940 | [phone] | [place] [address] | | | [place] | | | [phone] | | + +--------+ +--------+ + +
--- OUTSIDE RECORDS SUMMARY | ~2017-11-24 | XMS | Encounter Summary ---
Demographics + + + | Address | [address] | | | [place] [address] | + + + | Home Phone | | + + + | Preferred Language | Unknown | + + + | Marital Status | | + + + | Anabaptism Affiliation | Unknown | + + + | Race | Unknown | + + + | Ethnic Group | Unknown | + + + Author + + + | Author | [facility] [employer] [facility] | + + + | [...] Team Providers + +------+ + | Care Vat Washer Name | Role | Phone | + +------+ + | Ld John DO | PCP | | + +------+ + Encounter Details +--------+--------+ + + + | Date | Type | Department | Care Team | Description | +--------+--------+ + + + | 11/20/ | Refill | [facility] | Jonatan Patel, | | | 2018 | | [place] | [address] | | | | | [address] | [address], | | | | | [place], [place] | [place] [address] | | | | | [address] | [phone] | | | | | [phone] | | | +--------+--------+ + + + Social History + +-------+ [...] | | | | | | [place] [address] | | | | | | [phone] | | | | | | | | +--------+---------+ + + + as of this encounter Visit Diagnoses Not on filein this encounter"
--- OUTSIDE RECORDS SUMMARY | ~2017-11-24 | XMS | Clinical Summary ---
Demographics + + + | Address | [address] | | | [place] [address] | + + + | Home Phone | | + + + | Preferred Language | Unknown | + + + | Marital Status | | + + + | Advent Affiliation | 1077 | + + + | Race | Unknown | + + + | Ethnic Group | Unknown | + + + Author + + + | Author | [facility] | | | and [place] | + + + | Organization | [facility] | | | and [...] Team Providers + +------+ + | Care Band Edger Name | Role | Phone | + [...] | | | | Activ | | Awvmbex-Nrrzvdfql-Zm | mouth Daily. | | | | [...] | [birth year] | Home: | [address] | | | al/Fam | | 1940 | [phone] | [place] [address] | | | [place] | | | [phone] | | + +--------+ +--------+ + +
--- OUTSIDE RECORDS SUMMARY | ~2017-11-24 | XMS | Encounter Summary ---
Demographics + + + | Address | [address] | | | [place] [address] | + + + | Home Phone | | + + + | Preferred Language | Unknown | + + + | Marital Status | | + + + | Synagogue Affiliation | Unknown | + + + | Race | Unknown | + + + | Ethnic Group | Unknown | + + + Author + + + | Author | [employer] | + + + | Organization [...] Team Providers + +------+ + | Care Skid Adzer Name | Role | Phone | + +------+ + | Ld [place] DO | PCP | | + +------+ + Reason for Visit +--------+ + | Reason | Comments | +--------+ + | Other | [facility] records | +--------+ + Encounter Details +--------+ + + + + | Date | Type | Department | Care Team | Description | +--------+ + + + + | 10/16/ | [facility] | [facility] | Selena Multani | Other ([facility] | | 2018 | on Only | Cardiology Moe | TYRESE Hickman | records) | | | | [address] | | | | | | [place] | | | | | | [address] | | | | | | [phone] | | | +--------+ + + + [...] Cardiology | Jonatan Patel, | | | 2018 | Visit | | MD Tomás Salamanca | | | | | | Dr Fernandez, | | | | | | [place] [address] | | | | | | [phone] | | | | | | | | +--------+---------+ + + + as of this encounter Visit Diagnoses Not on filein this encounter"
--- OUTSIDE RECORDS SUMMARY | ~2017-11-24 | XMS | Encounter Summary ---
Demographics + + + | Address | [address] | | | [place] [address] | + + + | Home Phone | | + + + | Preferred Language | Unknown | + + + | Marital Status | | + + + | Adventist Affiliation | Unknown | + + + | Race | Unknown | + + + | Ethnic Group | Unknown | + + + Author + + + | Author | [facility] [employer] | + + + | Organization [...] Team Providers + +------+ + | Care Gas Plumbing Inspector Name | Role | Phone | + [...] + + | 10/24/ | Office | [facility] | Jonatan Snell, | Essential | | 2018 | Visit | Cardiology [place] | [address] | hypertension | | | | [address] | Dr Fernandez, | (Primary Dx); | | | | [address] | [place] [address] | Paroxysmal atrial | | | | [place] [address] | [phone] | fibrillation (HCC); | | | | [phone] | | Mixed hyperlipidemia | +--------+---------+ + [...] Previously was evaluated in September 2017 in [facility] secondary to lightheadedn ess. Patient did check her pulse at home and was running between 30-40 and 50. EKG was done and [place] and showed atrial fibrillation with controlled ventricular [...] needed for Chest pain. 25 tablet 11 Whslmtnvbrldl-JCHA-Agafaaniplv (MUCINEX SINUS-MAX PO) Take by mouth as [...] | | | | | | [place] [address] | | | | | | [phone] | | | | | | | [...]
--- OUTSIDE RECORDS SUMMARY | ~2017-11-24 | XMS | Encounter Summary ---
Demographics + + + | Address | [address] | | | [place] [address] | + + + | Home Phone | | + + + | Preferred Language | Unknown | + + + | Marital Status | | + + + | Episcopal Affiliation | Unknown | + + + | Race | Unknown | + + + | Ethnic Group | Unknown | + + + Author + + + | Author | [facility] [employer] | + + + | Organization [...] Team Providers + +------+ + | Care Animal Bounty Hunter Name | Role | Phone | + [...] 10/25/ | Henry | [facility] | Selena Multani | Other ([facility] | | 2018 | on Only | Cardiology Rolanda | TYRESE Hickman | Records) | | | | [address] | | | | | | [place] | | | | | | [address] | | | | | | [phone] | | | +--------+ + + + [...] | | | | | | [place] [address] | | | | | | [phone] | | | | | | | | +--------+---------+ + + + as of this encounter Visit Diagnoses Not on filein this encounter"
--- OUTSIDE RECORDS SUMMARY | ~2017-11-24 | XMS | Encounter Summary ---
Demographics + + + | Address | [address] | | | [place] [address] | + + + | Home Phone | | + + + | Preferred Language | Unknown | + + + | Marital Status | | + + + | Episcopalian Affiliation | Unknown | + + + | Race | Unknown | + + + | Ethnic Group | Unknown | + + + Author + + + | Author | [facility] [employer] | + + + | [...] Team Providers + +------+ + | Care Cosmetologist Name | Role | Phone | + +------+ + | Ld [place] DO | PCP | | + +------+ + Encounter Details +--------+ + + + + | Date | Type | Department | Care Team | Description | +--------+ + + + + | 10/18/ | Telephone | [facility] | Selena Multani | | | 2018 | | Cardiology Ashlyn Hickman CMA | | | | | [address] | | | | | | [address] | | | | | | [place] [address] | | | | | | [phone] | | | +--------+ + + + [...] | | | | | | [place] [address] | | | | | | [phone] | | | | | | | | +--------+---------+ + + + as of this encounter Visit Diagnoses Not on filein this encounter"
--- OUTSIDE RECORDS SUMMARY | ~2017-11-24 | XMS | Encounter Summary ---
Demographics + + + | Address | [address] | | | [place] [address] | + + + | Home Phone | | + + + | Preferred Language | Unknown | + + + | Marital Status | | + + + | Restoration Affiliation | Unknown | + + + | Race | Unknown | + + + | Ethnic Group | Unknown | + + + Author + + + | Author | [facility] [employer] | + + + | Organization [...] Team Providers + +------+ + | Care Tobacco Blender Name | Role | Phone | + +------+ + | Ld [place] DO | PCP | | + +------+ + Reason for Visit + + + | Reason | Comments | + + + | Labs Only | | + + + Encounter Details +--------+ + + + + | Date | Type | Department | Care Team | Description | +--------+ + + + + | 11/20/ | Documentati | [facility] | Marquez, | Labs Only | | 2018 | on Only | Cardiology Rolanda | SHASHI Ovalle | | | | | [address] | | | | | | [place] | | | | | | [address] | | | | | | [phone] | | | +--------+ + + + [...] 12/05/ | Office | Cardiology | Jonatan Paetl, | | | 2017 | Visit | | MD Tomás Salamanca | | | | | | Dr Fernandez, | | | | | | [place] [address] | | | | | | [phone] | | | | | | | | +--------+---------+ + + + as of this encounter Visit Diagnoses Not on filein this encounter"
--- OUTSIDE RECORDS SUMMARY | ~2017-11-24 | XMS | Encounter Summary ---
Demographics + + + | Address | [address] | | | [place] [address] | + + + | Home Phone | | + + + | Preferred Language | Unknown | + + + | Marital Status | | + + + | Adventism Affiliation | Unknown | + + + | Race | Unknown | + + + | Ethnic Group | Unknown | + + + Author + + + | Author | [employer] [employer] | + + + | Organization [...] Team Providers + +------+ + | Care Speech Pathology Supervisor Name | Role | Phone | + +------+ + | Ld [place] DO | PCP | | + +------+ + Encounter Details +--------+ + + + + | Date | Type | Department | Care Team | Description | +--------+ + + + + | 11/20/ | Telephone | [facility] | Selena Multani | | | 2018 | | Cardiology Moe Hickman CMA | | | | | [address] | | | | | | [place] | | | | | | [address] | | | | | | [phone] | | | +--------+ + + + [...] | | | | | | [place] [address] | | | | | | [phone] | | | | | | | | +--------+---------+ + + + as of this encounter Visit Diagnoses Not on filein this encounter"
--- OUTSIDE RECORDS SUMMARY | ~2017-11-24 | XMS | Encounter Summary ---
Demographics + + + | Address | [address] | | | [place] [address] | + + + | Home Phone | | + + + | Preferred Language | Unknown | + + + | Marital Status | | + + + | Episcopalian Affiliation | Unknown | + + + | Race | Unknown | + + + | Ethnic Group | Unknown | + + + Author + + + | Author | [employer] | + + + | Organization [...] Team Providers + +------+ + | Care Inspector Outside Steam Distribution Name | Role | Phone | + [...] Description | +--------+---------+ + + + | 10/09/ | Office | [facility] | Jonatan Snell, | Paroxysmal atrial | | 2018 | Visit | Cardiology Moe | [address] | fibrillation (HCC) | | | | [address] | Dr Fernandez, | (Primary Dx); | | | | [place] | [place] [address] | Essential | | | | [address] | [phone] | hypertension; Mixed | | | | [phone] | | hyperlipidemia | +--------+---------+ + + + Social [...] + + + | Blood Pressure | 136/70 | 10/09/2017 4:02 PM PST | + + + + | Pulse | 73 | 10/09/2017 4:02 PM PST | + + + + | Temperature | - | - | + + + + | Respiratory Rate | - | - | + + + + | Oxygen Saturation | 97% | 10/09/2017 4:02 PM PST | + + + + | Inhaled Oxygen | - | - | | Concentration | | | + + + + | Weight | 71.5 kg (157 lb 9.6 | 10/09/2017 4:02 PM PST | | | oz) | | + + + + | Height | 154.9 cm (5' 1") | 10/09/2017 4:02 PM PST | + + + + | Body Mass Index | 29.78 | 10/09/2017 4:02 PM PST | + + + + in this encounter Progress Notes Jonatan Snell MD - 10/09/2017 4:00 PM PSTFormatting of this note may be different fro m the original. Date of visit: 10/09/2017 Primary Care Physician: VIBHA BUSTOS CHIEF COMPLAINT: Chief Complaint Patient presents with Atrial Fibrillation HISTORY OF PRESENT ILLNESS: La Nena is 77 y.o. here for follow-up visit. Was evaluated in September 2017 in [facility] secondary to lightheadedness. Xander mclaughlin did check her pulse at home and was running between 30-40 and 50. EKG was done and [place] and showed atrial fibrillation with controlled ventricular rat e. At that time her carvedilol dose was decreased from 25 mg bid to 18.5 mg bid. Has been mo nitoring her blood pressure at home and has been elevated lately. Patient has history of paroxysmal atrial fibrillation. Has been trying to walk. Her activity is limited by severe back pain she had a prior back s urgery. On anticoagulation with Apixaban and tolerating that well. Past medical history, SH, FH, and medications were reviewed in the chart. Medications: Outpatient Encounter Prescriptions as of 10/09/2017 Medication Sig Dispense Refill allopurinol (ZYLOPRIM) 100 MG tablet Take 100 mg by mouth daily. apixaban (ELIQUIS) 5 MG tablet Take 5 mg by mouth 2 (two) times daily. benazepril (LOTENSIN) 40 MG tablet Take 40 mg by mouth daily. carvedilol (COREG) 25 MG tablet Take 12.5 mg by mouth 2 (two) times daily with meals. carvedilol (COREG) 6.25 MG tablet Take 6.25 mg by mouth 2 (two) times daily with meals. furosemide (LASIX) 40 MG tablet Take 1 tablet by mouth 2 (two) times daily. 60 tablet 1 1 lovastatin (MEVACOR) 20 MG tablet Take 20 mg by mouth nightly. metFORMIN (GLUCOPHAGE) 1000 MG tablet Take 1,000 mg by mouth 2 (two) times daily with m eals. nitroGLYCERIN (NITROSTAT) 0.[address] 1 tablet under the tongue every 5 (fiv e) minutes as needed for Chest pain. 25 tablet 11 potassium chloride SA (K-DUR,KLOR-CON) 20 MEQ tablet Take 1 tablet by mouth 2 (two) kuldip es daily. 60 tablet 11 Probiotic Product (PROBIOTIC ACIDOPHILUS) CAPS Take by mouth. sertraline (ZOLOFT) 50 MG tablet Take 50 mg by mouth daily. sitagliptan (JANUVIA) 100 MG tablet Take 100 mg by mouth every morning. [DISCONTINUED] verapamil (CALAN) 80 MG tablet Take 80 mg by mouth 2 (two) times daily. hydrALAZINE (APRESOLINE) 50 MG tablet Take 1 tablet by mouth 2 (two) times daily. 60 ta blet 2 loperamide (IMODIUM) 2 MG capsule Take 2 mg by mouth 4 (four) times daily as needed for Diarrhea. No facility-administered encounter medications on file as of 10/09/2017. Allergies Allergies Allergen Reactions Codeine Hives Macrobid [Nitrofurantoin] Hives and Rash Motrin [Ibuprofen] Hives Sulfa Antibiotics Anaphylaxis Diltiazem Rash REVIEW OF SYSTEMS: Constitutional: Positive for minimal fatigue. HEENT: Negative for nosebleeds, ear discharge, nasal congestion or soar throat. Eyes: Negative for visual disturbance, redness, or secretion. Respiratory: Negative for cough, sputum production, hemoptysis, wheezing. Cardiovascular: As HPI. Gastrointestinal: Negative for nausea, vomiting, diarrhea, abdominal pain and blood in stoo l. Genitourinary: Negative for dysuria or hematuria. Musculoskeletal: chronic back pain. Skin: Negative for rash. Neurological: Negative for dizziness. No numbness. No recent falls. No slurred speech. Hematological: No significant bruising. Psychiatric/Behavioral: No depression or anxiety. PHYSICAL EXAM Vital Signs: BP 136/70 (BP Location: Left upper arm, Patient Position: Sitting) | Pulse 73 | Ht 1.549 m (5' 1") | Wt 71.5 kg (157 lb 9.6 oz) | SpO2 97% | BMI 29.78 kg/m GENERAL APPEARANCE: Alert, oriented, cooperative, no distress, appears stated age. HEENT: Extraocular movements were intact. No jaundice. Pupiles round and reactive. NECK: No JVD, lymphadenopathy. Carotid upstrokes normal. No carotid bruit heard. CARDIAC: Regular rhythm and rate. There is normal S1 and S2. Soft systolic murmur on the left lower sternal border CHEST: Normal bilateral symmetrical chest excursion.ackles or wheezing. No evidence of dull ness. ABDOMEN: Soft.No tenderness or guarding. No palpable [...] CHADSVASc score of 4 on anticoagulation. 2. Episodes of bradycardia that were symptomatic. 3. Hypertension currently blood pressures still elevated. 4. Diastolic dysfunction is more euvolemic at this time. 5. History of diarrhea secondary to C. difficile. Plan: 1. At this time continue with furosemide 40 mg bid, will be decreasing to 40 once a day. 2. *Verapamil and add hydralazine 50 mg bid. 3. Continue with carvedilol 18.5 mg bid. 4. Continue with anticoagulation with Apixaban. 5. [...] Cardiology | Jonatan Snell, | | | 2018 | Visit | | MD Tomás Salamanca | | | | | | Dr Fernandez, | | | | | | [place] [address] | | | | | | [phone] | | | | | | | | +--------+---------+ + + + as of this encounter Visit Diagnoses + + | Diagnosis | + + | Paroxysmal atrial fibrillation (HCC) - Primary | + + | Atrial fibrillation | + + | Essential hypertension | + + | Unspecified essential hypertension | + + | Mixed hyperlipidemia | + +
--- OUTSIDE RECORDS SUMMARY | ~2017-11-24 | XMS | Encounter Summary ---
Demographics + + + | Address | [address] | | | [place] [address] | + + + | Home Phone | | + + + | Preferred Language | Unknown | + + + | Marital Status | | + + + | Sikhism Affiliation | Unknown | + + + | Race | Unknown | + + + | Ethnic Group | Unknown | + + + Author + + + | Author | [facility] [employer] | + + + | Organization [...] Team Providers + +------+ + | Care Visual Education Director Name | Role | Phone | + [...] [place] | | | | | | [address] | | | | | | [phone] | | | +--------+ + + + [...] | | | | | | [place] [address] | | | | | | [phone] | | | | | | | | +--------+---------+ + + + as of this encounter Visit Diagnoses Not on filein this encounter"
--- OUTSIDE RECORDS SUMMARY | ~2017-11-24 | XMS | Encounter Summary ---
Demographics + + + | Address | [address] | | | [place] [address] | + + + | Home Phone | | + + + | Preferred Language | Unknown | + + + | Marital Status | | + + + | Restorationist Affiliation | Unknown | + + + | Race | Unknown | + + + | Ethnic Group | Unknown | + + + Author + + + | Author | [facility] [employer] | + + + | [...] Team Providers + +------+ + | Care Form Tamper Operator Name | Role | Phone | + [...] | | | | | [place] [address] | | | | | | [phone] | | | +--------+ + + + [...] | | | | | | [place] [address] | | | | | | [phone] | | | | | | | | +--------+---------+ + + + as of this encounter Visit Diagnoses Not on filein this encounter"
--- OUTSIDE RECORDS SUMMARY | ~2017-11-24 | XMS | Encounter Summary ---
Demographics + + + | Address | [address] | | | [place] [address] | + + + | Home Phone | | + + + | Preferred Language | Unknown | + + + | Marital Status | | + + + | Muslim Affiliation | Unknown | + + + | Race | Unknown | + + + | Ethnic Group | Unknown | + + + Author + + + | Author | [facility] [employer] | + + + | Organization [...] Team Providers + +------+ + | Care Category Development Analyst Name | Role | Phone | [...] [place] | | | | | | [address] | | | | | | [phone] | | | +--------+ + + + [...] | | | | | | [place] [address] | | | | | | [phone] | | | | | | | | +--------+---------+ + + + as of this encounter Visit Diagnoses Not on filein this encounter"
--- OUTSIDE RECORDS SUMMARY | ~2017-11-24 | XMS | Encounter Summary ---
Demographics + + + | Address | [address] | | | [place] [address] | + + + | Home Phone | | + + + | Preferred Language | Unknown | + + + | Marital Status | | + + + | Judaism Affiliation | Unknown | + + + | Race | Unknown | + + + | Ethnic Group | Unknown | + + + Author + + + | Author | [facility] [employer] | + + + | Organization [...] Team Providers + +------+ + | Care Scrap Collector Name | Role | Phone | + [...] [place] | | | | | | [address] | | | | | | [phone] | | | +--------+ + + + [...] | | | | | | [place] [address] | | | | | | [phone] | | | | | | | | +--------+---------+ + + + as of this encounter Visit Diagnoses Not on filein this encounter"
--- OUTSIDE RECORDS SUMMARY | ~2017-11-24 | XMS | Encounter Summary ---
Demographics + + + | Address | [address] | | | [place] [address] | + + + | Home Phone | | + + + | Preferred Language | Unknown | + + + | Marital Status | | + + + | Sabianist Affiliation | Unknown | + + + | Race | Unknown | + + + | Ethnic Group | Unknown | + + + Author + + + | Author | [facility] [employer] | + + + | Organization [...] Team Providers + +------+ + | Care Training Associate Name | Role | Phone | + [...] + + | 10/09/ | Office | [facility] | Jonatan Snell, | Paroxysmal atrial | | 2018 | Visit | Cardiology Moe | [address] | fibrillation (HCC) | | | | [address] | Dr Fernandez, | (Primary Dx); | | | | [place] | [place] [address] | Essential | | | | [address] | [phone] | hypertension; Mixed | | | | [phone] | | hyperlipidemia | +--------+---------+ + + [...] visit. Was evaluated in September 2017 in [facility] secondary to lightheadedness. Xander mclaughlin did check her pulse at home and was running between 30-40 and 50. EKG was done and [place] and showed atrial fibrillation with controlled ventricular [...] | | | | | | [place] [address] | | | | | | [phone] | | | | | | | [...]
--- OUTSIDE RECORDS SUMMARY | ~2017-11-24 | XMS | Encounter Summary ---
Demographics + + + | Address | [address] | | | [place] [address] | + + + | Home Phone | | + + + | Preferred Language | Unknown | + + + | Marital Status | | + + + | Sabianist Affiliation | Unknown | + + + | Race | Unknown | + + + | Ethnic Group | Unknown | + + + Author + + + | Author | [facility] [employer] | + + + | Organization [...] Team Providers + +------+ + | Care Head Host/Hostess Name | Role | Phone | + [...] Dr Fernandez, | | | | | [place], [place] | [place] [address] | | | | | [address] | [phone] | | | | | [phone] | | | +--------+--------+ + + + [...] | | | | | | [place] [address] | | | | | | [phone] | | | | | | | | +--------+---------+ + + + as of this encounter Visit Diagnoses Not on filein this encounter"
--- OUTSIDE RECORDS SUMMARY | ~2017-11-24 | XMS | Clinical Summary ---
Demographics + + + | Address | [address] [place] [address] | | | [place] [address] | + + + | Home Phone | | + + + | Preferred Language | Unknown | + + + | Marital Status | | + + + | Taoism Affiliation | Unknown | + + + | Race | Unknown | + + + | Ethnic Group | Unknown | + + + Author + + + | Author | [facility] [employer] | + + + | Organization [...] Team Providers + +------+ + | Care Watchstander Name | Role | Phone | + [...] | | | | Activ | | [id number] | needed. | | | | | [...] 2017 | on Only | | J, LODGE OFFICER | Records) | +--------+ + + + + | 10/25/ | Documentati | | Selena Multani | Other ([facility] | 2017 | on Only | | J, TYRESE | x-ray) | +--------+ + + + + | 10/25/ | Documentati | | Selena Multani | Other ([facility]) | | 2018 | on Only | [...] Documentati | | Selena Multani | Other ([facility] | | 2018 | on [...] | | | | | | [place] [address] | | | | | | [phone] | | | | | | | [...] | [id number] | | | [address] | | | RE | | | | [place] [address] | | | IP-OP | | | [...] | [birth year] | Home: | [address] | | | al/Fam | | 1940 | [phone] | [place] | | | [place]ardo | | | [address][birth year] | [address] | + +--------+ +--------+ + +
--- OUTSIDE RECORDS SUMMARY | ~2017-11-24 | XMS | Encounter Summary ---
Demographics + + + | Address | [address] | | | [place] [address] | + + + | Home Phone | | + + + | Preferred Language | Unknown | + + + | Marital Status | | + + + | Tenriism Affiliation | Unknown | + + + | Race | Unknown | + + + | Ethnic Group | Unknown | + + + Author + + + | Author | [facility] [employer] | + + + | [...] Team Providers + +------+ + | Care Experience Planning Strategist Name | Role | Phone | + [...] + | 11/20/ | Documentati | [facility] [place] | [facility], | Labs Only | | 2018 | on Only | Cardiology Rolanda | SHASHI Ovalle | | | | | [address] | | | | | | [place] | | | | | | [address] | | | | | | [phone] | | | +--------+ + + + [...] | | | | | | [place] [address] | | | | | | [phone] | | | | | | | | +--------+---------+ + + + as of this encounter Visit Diagnoses Not on filein this encounter"
[~2017-11-24 04:56] MED LIST changes: +COREG12.5 MG PO; +COREG6.25 MG PO
[2017-11-24] MEDS ORDERED: SYMBICORT 80-10.2 GM INH ×2 (05:19→05:23)
[2017-11-24] MEDS ORDERED: HYDROCHLOROTH12.5 M1 PO (05:21)
[2017-11-24] MEDS ORDERED: CORICIDIN COLD1 EACH PO (05:22)
== END 2017-11-24 06:15 | disposition home or self-care (01) ==
LOC: ED 04:56
DX: I11.0 Hypertensive heart disease with heart failure (principal); I50.9 Heart failure, unspecified; E11.9 Type 2 diabetes mellitus without complications; Z88.2 Allergy status to sulfonamides; Z88.5 Allergy status to narcotic agent; Z79.899 Other long term (current) drug therapy
CPT/HCPCS: 99282

== ENCOUNTER 2019-10-04 19:03 | Emergency (ER) | payer MEDICARE, OTHER ==
[~2019-10-04] VITALS: Ht 157.5 cm; Wt 75.7 kg
[~2019-10-04 19:03] MED LIST changes: +CORICIDIN COLD1 EACH PO; +HYDROCHLOROTH12.5 M1 PO; +SYMBICORT 80-10.2 GM INH
--- OUTSIDE RECORDS SUMMARY | 2019-10-04 19:06 | XMS ---
PreManage Notification: DIANELYS POLLARD Security Head Mva Reactor Operator Events No recent Security Events currently on file CRITERIA MET - [facility] - 2 Visits in 30 Days CARE PROVIDERS VIBHA BUSTOS Primary Care 08/06/2009-Current PHONE: Unknown Other Current PHONE: Unknown [facility] has no Care Guidelines for this patient. [place] VISIT COUNT (12 MO.) Enid Matamoros [address] TOTAL 2 NOTE: Visits indicate total known visits. ED/UCC VISIT TRACKING (12 MO.) 10/04/2019 19:04 CARROL [place] TYPE: Emergency COMPLAINT: - SHORTNESS OF BREATH 09/23/2019 13:52 Enid LOPEZ TYPE: Emergency COMPLAINT: - ARM PAIN - PAIN IN LEFT ARM DIAGNOSES: 0. Pain in left arm 1. Pain in left arm 3. Palpitations 4. Unspecified atrial fibrillation 5. longterm (current) use of anticoagulants INPATIENT VISIT TRACKING (12 MO.) No inpatient visits to display in this time frame [email or web address]
[2019-10-04] MEDS ORDERED: AMLODIPINE BESYL5 MG PO (19:26)
[2019-10-04] MEDS ORDERED: OMEPRAZOLE20 MG PO (20:09)
--- NOTE | 2019-10-05 13:10 | EKG ---
[facility] [address] [place] [address] Signed Atrial fibrillation Low voltage QRS Cannot rule out Anterior infarct , age undetermined Abnormal ECG When compared with ECG of 12-SEP-2017 10:42, Minimal criteria for Anterior infarct are now present Confirmed by LISA GARDNER MD ([id number]) on 10/05/2019 1:10:24 PM Electronically Signed By: LISA GARDNER MD 10/05/19 1310 PATIENT NAME: DIANELYS POLLARD Electrocardiogram DATE OF : 44 PHYSICIAN: LISA GARDNER MD REPORT #: [id number] REPORT IS CONFIDENTIAL AND NOT TO BE RELEASED WITHOUT AUTHORIZATION
== END 2019-10-04 20:50 | disposition home or self-care (01) ==
LOC: ED 19:03
DX: R07.9 Chest pain, unspecified (principal); E11.9 Type 2 diabetes mellitus without complications; I11.0 Hypertensive heart disease with heart failure; I48.91 Unspecified atrial fibrillation; I50.9 Heart failure, unspecified; Z88.2 Allergy status to sulfonamides; Z88.5 Allergy status to narcotic agent; Z79.899 Other long term (current) drug therapy
CPT/HCPCS: 71045; 80053; 83735; 84484; 85025; 93005; 93010; 96374; 96375; 99285-25; C9113; J2405

== ENCOUNTER 2020-02-22 12:29 | Emergency (ER) | payer MEDICARE, OTHER ==
[~2020-02-22] VITALS: Ht 157.5 cm; Wt 77.1 kg
[~2020-02-22 12:29] MED LIST changes: +AMLODIPINE BESYL5 MG PO; +OMEPRAZOLE20 MG PO
--- OUTSIDE RECORDS SUMMARY | 2020-02-22 12:32 | XMS ---
PreManage Notification: DIANELYS POLLARD Security Form Drafter Events No recent Security Events currently on file CRITERIA MET - [facility] - Has Care Guidelines CARE PROVIDERS There are no care providers on record at this time. [place] has no Care Guidelines for this patient. Care History Medical/Surgical 10/06/2019 [facility] - Patient is currently established with [facility]. If patient is seen in the ED during business hours. Please contact CHWs at [facility]. Care Recommendation: If this patient has had 5 or more Emergency Department visits in the last 12 months.\T\nbsp; Patient will require education on the scope and purpose of the ED as an acute care provider not a Primary Care Provider and should not be utilized for chronic conditions.\T\nbsp; These are guidelines and the provider should exercise clinical judgment when providing care. E.D. VISIT COUNT (12 MO.) 1 Enid Matamoros HChucky 2 [facility] TOTAL 3 NOTE: Visits indicate total known visits. ED/UCC VISIT TRACKING (12 MO.) 02/22/2020 12:30 [facility] TYPE: Emergency COMPLAINT: - CHEST PAIN, NAUSEA, 10/04/2019 19:04 [facility] TYPE: Emergency COMPLAINT: - SHORTNESS OF BREATH DIAGNOSES: - Chest pain, unspecified - Allergy status to narcotic agent status - Other meterman (current) drug therapy - Type 2 diabetes mellitus without complications - Allergy status to sulfonamides status - Hypertensive heart disease with heart failure - Heart failure, unspecified - Unspecified atrial fibrillation 09/23/2019 13:52 En[place] LOPEZ TYPE: Emergency COMPLAINT: - ARM PAIN - PAIN IN LEFT ARM DIAGNOSES: 0. Pain in left arm 1. Pain in left arm 3. Palpitations 4. Unspecified atrial fibrillation 5. shelter (current) use of anticoagulants INPATIENT VISIT TRACKING (12 MO.) No inpatient visits to display in this time frame [email or web address]
[2020-02-22] MEDS ORDERED: TORSEMIDE20 MG PO (12:51)
[2020-02-22] MEDS ORDERED: POTASSIUM CHLO10 MEQ PO (12:51)
[2020-02-22] MEDS ORDERED: FAMOTIDINE40 MG PO (12:57)
--- NOTE | 2020-02-23 10:20 | EKG ---
[facility] [address] [facility] [facility] [place], [place] [address] Signed Atrial fibrillation Low voltage QRS Cannot rule out Anteroseptal infarct (cited on or before 04-OCT-2019) Abnormal ECG When compared with ECG of 04-OCT-2019 19:10, No significant change was found Confirmed by TORSTEN ZIEGLER MD ([id number]) on 02/23/2020 10:20:05 AM Electronically Signed By: TORSTEN ZIEGLER MD 02/23/20 1020 PATIENT NAME: DIANELYS POLLARD Electrocardiogram DATE OF : 44 PHYSICIAN: TORSTEN ZIEGLER MD REPORT #: [id number] REPORT IS CONFIDENTIAL AND NOT TO BE RELEASED WITHOUT AUTHORIZATION
== END 2020-02-22 16:15 | disposition home or self-care (01) ==
LOC: ED 12:29
DX: K21.9 Gastro-esophageal reflux disease without esophagitis (principal); I11.0 Hypertensive heart disease with heart failure; I50.9 Heart failure, unspecified; E11.9 Type 2 diabetes mellitus without complications; I48.91 Unspecified atrial fibrillation; Z88.2 Allergy status to sulfonamides; Z88.5 Allergy status to narcotic agent; Z88.6 Allergy status to analgesic agent; Z88.0 Allergy status to penicillin; Z88.8 Allergy status to other drugs, medicaments and biological substances; Z79.899 Other long term (current) drug therapy; Z79.01 Long term (current) use of anticoagulants
CPT/HCPCS: 71045; 80053; 83735; 84484; 85025; 93005; 93010; 96374; 99285-25; J2405

== ENCOUNTER 2020-07-26 20:06 | Emergency (ER) | payer MEDICARE, OTHER ==
[~2020-07-26] VITALS: Ht 157.5 cm; Wt 77.1 kg
[~2020-07-26 20:06] MED LIST changes: +FAMOTIDINE40 MG PO; +POTASSIUM CHLO10 MEQ PO; +TORSEMIDE20 MG PO
--- OUTSIDE RECORDS SUMMARY | 2020-07-26 20:10 | XMS ---
PreManage Notification: DIANELYS POLLARD Security Dispensing And Measuring Optician Events No recent Security Events currently on file CRITERIA MET - [facility] - Has Care Guidelines CARE PROVIDERS There are no care providers on record at this time. [place] has no Care Guidelines for this patient. Care History Medical/Surgical 10/06/2019 [facility] - Patient is currently established with [facility]. If patient is seen in the ED during business hours. Please contact CHWs at [facility]. Care Recommendation: If this patient has had [...] E.D. VISIT COUNT (12 MO.) 1 Enid Tee 3 [facility] TOTAL 4 NOTE: Visits indicate total known visits. 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 - Gastro-esophageal reflux disease without esophagitis - Hypertensive heart disease with heart failure - Allergy status to other drugs, medicaments and biological substances - Allergy status to analgesic agent - Other terminologist (current) drug therapy - Chest pain, unspecified - Type 2 diabetes mellitus without complications - Heart failure, unspecified - Allergy status to penicillin - Unspecified atrial fibrillation - Allergy status to narcotic agent - Allergy status to sulfonamides 10/04/2019 19:04 [facility] [place] TYPE: Emergency COMPLAINT: - SHORTNESS OF BREATH DIAGNOSES: - Chest pain, unspecified - Allergy status to narcotic agent - Other [facility] (current) drug therapy - Type 2 diabetes mellitus without complications - Allergy status to sulfonamides - Hypertensive heart disease with heart failure - Heart failure, unspecified - Unspecified atrial fibrillation 09/23/2019 13:52 [place] LOPEZ TYPE: Emergency COMPLAINT: - ARM PAIN - PAIN IN LEFT ARM DIAGNOSES: 0. Pain in left arm 1. Pain in left arm 3. Palpitations 4. Unspecified atrial fibrillation 5. intermediate (current) use of anticoagulants INPATIENT VISIT TRACKING (12 MO.) No inpatient visits to display in this time frame [email or web address]
[2020-07-26] MEDS ORDERED: SPIRONOLACTONE25 MG PO (20:24)
--- NOTE | 2020-07-26 21:35 | EKG ---
[facility] [address] [facility] [place] [address] Signed Atrial fibrillation Low voltage QRS Cannot rule out Anterior infarct (cited on or before 04-OCT-2019) Abnormal ECG When compared with ECG of 22-FEB-2020 12:38, QT has shortened Confirmed by TORSTEN ZIEGLER MD ([id number]) on 07/26/2020 9:35:41 PM Electronically Signed By: TORSTEN ZIEGLER MD 07/26/20 2135 PATIENT NAME: DIANELYS POLLARD Electrocardiogram DATE OF : 44 PHYSICIAN: TORSTEN ZIEGLER MD REPORT #: [id number] REPORT IS CONFIDENTIAL AND NOT TO BE RELEASED WITHOUT AUTHORIZATION
== END 2020-07-26 23:28 | disposition home or self-care (01) ==
LOC: ED 20:06
DX: R07.89 Other chest pain (principal); E11.9 Type 2 diabetes mellitus without complications; I48.91 Unspecified atrial fibrillation; I50.9 Heart failure, unspecified; I11.0 Hypertensive heart disease with heart failure; Z88.2 Allergy status to sulfonamides; Z88.5 Allergy status to narcotic agent; Z88.0 Allergy status to penicillin; Z79.899 Other long term (current) drug therapy
CPT/HCPCS: 71045; 80053; 83735; 83880; 84484; 85025; 85610; 85730; 93005; 93010; 96374; 96375; 99285-25; C9803; J1885; J2405; U0003

== ENCOUNTER 2020-08-04 13:38 | Inpatient (IN) | payer MEDICARE, OTHER ==
[~2020-08-04] VITALS: Ht 157.5 cm; Wt 80.0 kg
[~2020-08-04 13:38] MED LIST changes: -LOVASTATIN10 MG PO; +SPIRONOLACTONE25 MG PO
--- OUTSIDE RECORDS SUMMARY | 2020-08-04 13:42 | XMS ---
PreManage Notification: DIANELYS POLLARD Security Cane Stripper Events No recent Security Events currently on file CRITERIA MET - [facility] - Has Care Guidelines - [facility] - 2 Visits in 30 Days CARE PROVIDERS EDGAR SALGUERO [facility] 07/27/2020-Current PHONE: [phone] [place] has no Care Guidelines for this patient. Care History Medical/Surgical 10/06/2019 [facility] - Patient is currently established with [facility]. If patient is seen in the ED during business hours. Please contact CHWs at [facility]. Care Recommendation: If this patient has had [...] VISIT COUNT (12 MO.) 1 Enid Tee 4 [facility] TOTAL 5 NOTE: Visits indicate total known visits. ED/UCC VISIT TRACKING (12 MO.) 08/04/2020 13:40 [facility] [place] TYPE: Emergency COMPLAINT: - CHEST PAIN, WHEEZING, WEAKNESS 07/26/2020 20:07 [facility] [place] TYPE: Emergency COMPLAINT: - CHEST PAIN DIAGNOSES: - Other intermediate frame tender (current) drug therapy - Allergy status to penicillin - Heart failure, unspecified - Allergy status to sulfonamides - Unspecified atrial fibrillation - Allergy status to narcotic agent - Type 2 diabetes mellitus without complications - Hypertensive heart disease with heart failure - Other chest pain 02/22/2020 12:30 [facility] TYPE: Emergency COMPLAINT: - CHEST PAIN, NAUSEA, DIAGNOSES: - intermediate frame tender (current) use of anticoagulants - Gastro-esophageal reflux disease without esophagitis - Hypertensive heart disease with heart failure - Allergy status to other drugs, medicaments and biological substances - Allergy status to analgesic agent - Other intermediate frame tender (current) drug therapy - Chest pain, unspecified - Type 2 diabetes mellitus without complications - Heart failure, unspecified - Allergy status to penicillin - Unspecified atrial fibrillation - Allergy status to narcotic agent - Allergy status to sulfonamides 10/04/2019 19:04 CARROL Folyd TYPE: Emergency COMPLAINT: - SHORTNESS OF BREATH DIAGNOSES: - Chest pain, unspecified - Allergy status to narcotic agent - Other intermediate frame tender (current) drug therapy - Type 2 diabetes mellitus without complications - Allergy status to sulfonamides - Hypertensive heart disease with heart failure - Heart failure, unspecified - Unspecified atrial fibrillation 09/23/2019 13:52 [place] LOEPZ TYPE: Emergency COMPLAINT: - ARM PAIN - PAIN IN LEFT ARM DIAGNOSES: 0. Pain in left arm 1. Pain in left arm 3. Palpitations 4. Unspecified atrial fibrillation 5. long-term (current) use of anticoagulants INPATIENT VISIT TRACKING (12 MO.) No inpatient visits to display in this time frame [email or web address]
[2020-08-04] MEDS ORDERED: SUCRALFATE1 GM/10 ML PO (15:46)
[2020-08-04] MEDS ORDERED: OMEPRAZOLE40 MG PO (15:46)
--- NOTE | 2020-08-04 21:17 | EKG ---
[facility] [address] [facility] [place], [place] [address] Signed Atrial fibrillation Low voltage QRS Cannot rule out Anterior infarct (cited on or before 04-OCT-2019) Abnormal ECG When compared with ECG of 26-JUL-2020 20:14, No significant change was found Confirmed by NATY DELEON DO ([id number]) on 08/04/2020 9:17:00 PM Electronically Signed By: NATY DELEON DO 08/04/20 2117 PATIENT NAME: DIANELYS POLLARD Electrocardiogram DATE OF : 44 PHYSICIAN: NATY DELEON DO REPORT #: [id number] REPORT IS CONFIDENTIAL AND NOT TO BE RELEASED WITHOUT AUTHORIZATION
[2020-08-05] MEDS ORDERED: POTASSIUM CHLO10 ME1 PO (07:26)
[2020-08-05] MEDS ORDERED: BETAMETHASONE V15 GM TOP (07:27)
[2020-08-05] MEDS ORDERED: GABAPENTIN300 MG PO (07:28)
[2020-08-05] MEDS ORDERED: ALDACTONE25 MG PO (07:29)
[2020-08-05] MEDS ORDERED: OMEPRAZOLE20 MG PO (07:31)
[2020-08-05] MEDS ORDERED: TORSEMIDE20 MG PO (07:32)
[2020-08-06] MEDS ORDERED: CARVEDILOL6.25 MG PO (10:41)
[2020-08-06] MEDS ORDERED: NYSTATIN100000 UN1 PO (10:41)
[2020-08-06] MEDS ORDERED: BENAZEPRIL HCL10 MG PO (10:42)
== END 2020-08-06 12:35 | disposition home or self-care (01) | DRG 641 ==
LOC: ED 13:38 → CCU 20:25 → MS 08-05 12:29
PROVIDERS: ADMIT Student in an Organized Health Care Education/Training Program; ATTEND Student in an Organized Health Care Education/Training Program
DX: E87.1 Hypo-osmolality and hyponatremia (principal); B37.81 Candidal esophagitis; Z20.828 Contact with and (suspected) exposure to other viral communicable diseases; I48.91 Unspecified atrial fibrillation; I11.0 Hypertensive heart disease with heart failure; I50.9 Heart failure, unspecified; E79.0 Hyperuricemia without signs of inflammatory arthritis and tophaceous disease; Z79.01 Long term (current) use of anticoagulants; Z79.899 Other long term (current) drug therapy; Z88.2 Allergy status to sulfonamides; Z88.5 Allergy status to narcotic agent; Z88.0 Allergy status to penicillin; Z88.1 Allergy status to other antibiotic agents
CPT/HCPCS: 36415; 71045; 80048; 80053; 81001; 83735; 83935; 84100; 84295; 84300; 84484; 85025; 93005; 93010; 96374; 99284-25; C9803; J2405; J3475; J7030; J7040; J7070; J7131; U0003

== ENCOUNTER 2020-08-21 10:11 | Emergency (ER) | payer MEDICARE, OTHER ==
[~2020-08-21] VITALS: Ht 165.1 cm; Wt 73.4 kg
[~2020-08-21 10:11] MED LIST changes: +ALDACTONE25 MG PO; +BENAZEPRIL HCL10 MG PO; +BETAMETHASONE V15 GM TOP; +CARVEDILOL6.25 MG PO; +GABAPENTIN300 MG PO; +NYSTATIN100000 UN1 PO; +OMEPRAZOLE40 MG PO; +POTASSIUM CHLO10 ME1 PO; +SUCRALFATE1 GM/10 ML PO
--- OUTSIDE RECORDS SUMMARY | 2020-08-21 10:16 | XMS ---
PreManage Notification: DIANELYS POLLARD Security Sand Miller Events No recent Security Events currently on file CRITERIA MET - [facility] - Has Care Guidelines - [facility] - 2 Visits in 30 Days CARE PROVIDERS EDGAR SALGUERO [facility] 07/27/2020-Current PHONE: [phone] [place] has no Care Guidelines for this patient. Care History Medical/Surgical 10/06/2019 [facility] - Patient is currently established with [...] VISIT COUNT (12 MO.) 1 Enid Matamoros Chucky 5 [facility] TOTAL 6 NOTE: Visits indicate total known visits. ED/UCC VISIT TRACKING (12 MO.) 08/21/2020 10:[address] [facility] [facility] [place] TYPE: Emergency COMPLAINT: - URINE PROBLEMS AND DIARRHEA 08/04/2020 13:[address] [facility] [place] TYPE: Emergency COMPLAINT: - CHEST PAIN, WHEEZING, WEAKNESS 07/26/2020 20:07 [facility] [place] TYPE: Emergency COMPLAINT: - CHEST PAIN DIAGNOSES: - Other penitentiary (current) drug therapy - Allergy status to penicillin - Heart failure, unspecified - Allergy status to sulfonamides - Unspecified atrial fibrillation - Contact with and (suspected) exposure to other viral communicable diseases - Allergy status to narcotic agent - Type 2 diabetes mellitus without complications - Hypertensive heart disease with heart failure - Allergy status to sulfonamides - Other chest pain - Allergy status to narcotic agent 02/22/2020 12:30 [facility] [place] TYPE: Emergency COMPLAINT: - CHEST PAIN, NAUSEA, DIAGNOSES: - detention (current) use of anticoagulants - Gastro-esophageal reflux disease without esophagitis - Hypertensive heart disease with heart failure - Allergy status to other drugs, medicaments and biological substances - Allergy status to analgesic agent - Other long term care phlebotomist (current) drug therapy - Chest pain, unspecified - Type 2 diabetes mellitus without complications - Heart failure, unspecified - Allergy status to penicillin - Unspecified atrial fibrillation - Allergy status to narcotic agent - Allergy status to sulfonamides 10/04/2019 19:04 [facility] [place] TYPE: Emergency COMPLAINT: - SHORTNESS OF BREATH DIAGNOSES: - Chest pain, unspecified - Allergy status to narcotic agent - Other long term care phlebotomist (current) drug therapy - Type 2 diabetes mellitus without complications - Allergy status to sulfonamides - Hypertensive heart disease with heart failure - Heart failure, unspecified - Unspecified atrial fibrillation 09/23/2019 13:52 [place] LOPEZ TYPE: Emergency COMPLAINT: - ARM PAIN - PAIN IN LEFT ARM DIAGNOSES: 0. Pain in left arm 1. Pain in left arm 3. Palpitations 4. Unspecified atrial fibrillation 5. 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
[2020-08-21] MEDS ORDERED: METRONIDAZOLE500 MG PO (10:29)
[2020-08-21] MEDS ORDERED: SPIRONOLACTONE25 MG PO (10:29)
[2020-08-21] MEDS ORDERED: COREG25 MG PO (10:30)
[2020-08-21] MEDS ORDERED: NORVASC5 MG PO (10:30)
[2020-08-21] MEDS ORDERED: CEPHALEXIN500 MG PO (11:52)
[2020-08-21] MEDS ORDERED: VANCOMYCIN HCL125 MG PO (11:52)
== END 2020-08-21 12:11 | disposition home or self-care (01) ==
LOC: ED 10:11
DX: N39.0 Urinary tract infection, site not specified (principal); A04.72 Enterocolitis due to Clostridium difficile, not specified as recurrent; E11.9 Type 2 diabetes mellitus without complications; I48.91 Unspecified atrial fibrillation; I50.9 Heart failure, unspecified; I11.0 Hypertensive heart disease with heart failure; Z88.2 Allergy status to sulfonamides; Z88.5 Allergy status to narcotic agent; Z88.8 Allergy status to other drugs, medicaments and biological substances; Z88.0 Allergy status to penicillin; Z79.899 Other long term (current) drug therapy
CPT/HCPCS: 80053; 81001; 85025; 96374; 99283-25; J2405; J7040

== ENCOUNTER 2020-08-30 06:00 | Emergency (ER) | payer MEDICARE, OTHER ==
[~2020-08-30] VITALS: Ht 157.5 cm; Wt 73.5 kg
[~2020-08-30 06:00] MED LIST changes: +CEPHALEXIN500 MG PO; +METRONIDAZOLE500 MG PO; +NORVASC5 MG PO
--- OUTSIDE RECORDS SUMMARY | 2020-08-30 06:04 | XMS ---
PreManage Notification: DIANELYS POLLARD Security First Sampler Events No recent Security Events currently on file CRITERIA MET - [facility] - Has Care Guidelines - [facility] - 2 Visits in 30 Days CARE PROVIDERS EDGAR AZAR [facility] 07/27/2020-Current PHONE: [phone] [place]isset has no Care Guidelines for this patient. Care History Medical/Surgical 08/23/2020 [facility] Patient has scheduled visit with Dr. Azar on 08/26/2020. 10/06/2019 [facility] - Patient is currently established with [facility]. If patient is seen in the ED during business hours. Please contact CHWs at [facility]. Care Recommendation: If this patient [...] care. E.D. VISIT COUNT (12 MO.) 1 [place] Villatorocharlene H. 6 CARR[facility] Garcia TOTAL 7 NOTE: Visits indicate total known visits. ED/UCC VISIT TRACKING (12 MO.) 08/30/2020 06:01 [facility] [place] TYPE: Emergency COMPLAINT: - DIZZINESS 08/21/2020 10:13 [facility] [place] TYPE: Emergency COMPLAINT: - URINE PROBLEMS AND DIARRHEA DIAGNOSES: - Allergy status to narcotic agent - Heart failure, unspecified - Allergy status to penicillin - Type 2 diabetes mellitus without complications - Enterocolitis due to Clostridium difficile, not specified as recurrent - Unspecified atrial fibrillation - Allergy status to sulfonamides - Other medical terminologist (current) drug therapy - Urinary tract infection, site not specified - Hypertensive heart disease with heart failure - Frequency of micturition - Allergy status to other drugs, medicaments and biological substances 08/04/2020 13:40 [facility] [place] TYPE: Emergency COMPLAINT: - CHEST PAIN, WHEEZING, WEAKNESS 07/26/2020 20:07 [facility] [place] TYPE: Emergency COMPLAINT: - CHEST PAIN DIAGNOSES: - Other group home (current) drug therapy - Allergy status to [...] COMPLAINT: - CHEST PAIN, NAUSEA, DIAGNOSES: - care home (current) use of anticoagulants - Gastro-esophageal reflux disease without esophagitis - Hypertensive heart disease with heart failure - Allergy status to other drugs, medicaments and biological substances - Allergy status to analgesic agent - Other group home (current) drug therapy - Chest pain, unspecified - Type 2 diabetes mellitus without complications - Heart failure, unspecified - Allergy status to penicillin - Unspecified atrial fibrillation - Allergy status to narcotic agent - Allergy status to sulfonamides 10/04/2019 19:04 [facility] TYPE: Emergency COMPLAINT: - SHORTNESS OF BREATH DIAGNOSES: - Chest pain, unspecified - Allergy status to narcotic agent - Other medical terminologist (current) drug therapy - Type 2 diabetes mellitus without complications - Allergy status to sulfonamides - Hypertensive heart disease with heart failure - Heart failure, unspecified - Unspecified atrial fibrillation 09/23/2019 13:52 [place] LOPEZ TYPE: Emergency COMPLAINT: - ARM PAIN - PAIN IN LEFT ARM DIAGNOSES: 0. Pain in left arm 1. Pain in left arm 3. Palpitations 4. Unspecified atrial fibrillation 5. 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 INPATIENT VISIT TRACKING (12 MO.) 08/04/2020 20:25 [facility] [place] TYPE: Medical Surgical COMPLAINT: - HYPONATREMIA DIAGNOSES: - Other medical terminologist (current) drug therapy - Hyperuricemia without signs of inflammatory arthritis and tophaceous disease - Candidal esophagitis - Hypertensive heart disease with heart failure - Hypo-osmolality and hyponatremia - Allergy status to narcotic agent - Allergy status to sulfonamides - Unspecified atrial fibrillation - Contact with and (suspected) exposure to other viral communicable diseases - 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
[2020-08-30] MEDS ORDERED: SODIUM CHLORIDE1 GM PO (09:01)
[2020-08-30] MEDS ORDERED: MEDI-MECLIZINE25 MG PO (09:01)
--- NOTE | 2020-08-31 12:06 | EKG ---
[facility] [address] [facility] [place], [place] [address] Signed Atrial fibrillation Low voltage QRS Cannot rule out Anterior infarct (cited on or before 04-OCT-2019) Abnormal ECG When compared with ECG of 04-AUG-2020 16:15, No significant change was found Confirmed by LISA GARDNER MD ([id number]) on 08/31/2020 12:06:10 PM Electronically Signed By: LISA GARDNER MD 08/31/20 1206 PATIENT NAME: DIANELYS POLLARD Electrocardiogram DATE OF : 44 PHYSICIAN: LISA GARDNER MD REPORT #: [id number] REPORT IS CONFIDENTIAL AND NOT TO BE RELEASED WITHOUT AUTHORIZATION
== END 2020-08-30 09:14 | disposition home or self-care (01) ==
LOC: ED 06:00
DX: E87.1 Hypo-osmolality and hyponatremia (principal); R35.0 Frequency of micturition; I10 Essential (primary) hypertension; E11.9 Type 2 diabetes mellitus without complications; I48.91 Unspecified atrial fibrillation; I50.9 Heart failure, unspecified; Z88.2 Allergy status to sulfonamides; Z88.5 Allergy status to narcotic agent; Z79.899 Other long term (current) drug therapy
CPT/HCPCS: 80053; 81001; 84484; 85025; 93005; 93010; 96374; 99284-25; J2405; J7030

== ENCOUNTER 2020-10-20 17:37 | Emergency (ER) | payer MEDICARE, OTHER ==
[~2020-10-20] VITALS: Ht 157.5 cm; Wt 73.5 kg
[~2020-10-20 17:37] MED LIST changes: +MEDI-MECLIZINE25 MG PO; +SODIUM CHLORIDE1 GM PO
--- OUTSIDE RECORDS SUMMARY | 2020-10-20 17:40 | XMS ---
PreManage Notification: DIANELYS POLLARD Security Mattress Spring Encaser Events No recent Security Events currently on file CRITERIA MET - [facility] - Has Care Guidelines CARE PROVIDERS EDGAR AZAR [facility] 07/27/2020-Current PHONE: [phone] Lisset has no Care Guidelines for this patient. Care History Medical/Surgical 08/23/2020 [facility] Patient has scheduled visit with Dr. Azar on 08/26/2020. 10/06/2019 [facility] - Patient is currently established with [facility]. If patient is seen in the ED during business hours. Please contact CHWs at [facility]. Care Recommendation: If this patient has had [...] providing care. E.D. VISIT COUNT (12 MO.) [address] TOTAL 6 NOTE: Visits indicate total known visits. ED/UCC VISIT TRACKING (12 MO.) 10/20/2020 17:38 [facility] [place] TYPE: Emergency COMPLAINT: - HEART PALPITATIONS, LIGHTHEADED 08/30/2020 06:01 [facility] [place] TYPE: Emergency COMPLAINT: - DIZZINESS DIAGNOSES: - Essential (primary) hypertension - Allergy status to narcotic agent - Frequency of micturition - Allergy status to sulfonamides - Unspecified atrial fibrillation - Other senior living (current) drug therapy - Dizziness and giddiness - Heart failure, unspecified - Type 2 diabetes mellitus without complications - Hypo-osmolality and hyponatremia 08/21/2020 10:13 [facility] [place] TYPE: Emergency COMPLAINT: - URINE PROBLEMS AND DIARRHEA DIAGNOSES: - Allergy status to narcotic agent - Heart failure, unspecified - Allergy status to penicillin - Type 2 diabetes mellitus without complications - Enterocolitis due to Clostridium difficile, not specified as recurrent - Unspecified atrial fibrillation - Allergy status to sulfonamides - Other senior living (current) drug therapy - Urinary tract infection, site not specified - Hypertensive heart disease with heart failure - Frequency of micturition - Allergy status to other drugs, medicaments and biological substances 08/04/2020 13:40 [facility] [place] TYPE: Emergency COMPLAINT: - CHEST PAIN, WHEEZING, WEAKNESS 07/26/2020 20:07 [facility] [place] TYPE: Emergency COMPLAINT: - CHEST PAIN DIAGNOSES: - Other senior living (current) drug therapy - Allergy status to [...] Allergy status to narcotic agent 02/22/2020 12:30 [facility] [place] TYPE: Emergency COMPLAINT: - CHEST PAIN, NAUSEA, DIAGNOSES: - alf (current) use of anticoagulants - Gastro-esophageal reflux disease without esophagitis - Hypertensive heart disease with heart failure - Allergy status to other drugs, medicaments and biological substances - Allergy status to analgesic agent - Other senior living (current) drug therapy - Chest pain, unspecified - Type 2 diabetes mellitus without complications - Heart failure, unspecified - Allergy status to penicillin - Unspecified atrial fibrillation - Allergy status to narcotic agent - Allergy status to sulfonamides INPATIENT VISIT TRACKING (12 MO.) 08/04/2020 20:25 [facility] [place] TYPE: Medical Surgical COMPLAINT: - HYPONATREMIA DIAGNOSES: - Other senior living (current) drug therapy - Hyperuricemia without signs of inflammatory arthritis and tophaceous disease - Candidal esophagitis - Hypertensive heart disease with heart failure - Hypo-osmolality and hyponatremia - Allergy status to narcotic agent - Allergy status to narcotic agent - Allergy status to sulfonamides - Allergy status to other antibiotic agents - Allergy status to sulfonamides - Unspecified atrial fibrillation - Contact with and (suspected) exposure to other viral communicable diseases - alf (current) use of anticoagulants - Allergy status to other antibiotic agents - Heart failure, unspecified - Allergy status to penicillin [email or web address]
[2020-10-20] MEDS ORDERED: OXYBUTYNIN CHLO15 MG PO (17:52)
[2020-10-20] MEDS ORDERED: BETAMETHASONE V15 GM TOP (17:53)
--- NOTE | 2020-10-21 07:37 | EKG ---
[facility] [address] [facility] [place] [address] Signed Atrial fibrillation with premature ventricular or aberrantly conducted complexes Low voltage QRS Cannot rule out Anterior infarct (cited on or before 04-OCT-2019) Abnormal ECG When compared with ECG of 30-AUG-2020 06:18, Serial changes of Anterior infarct present Confirmed by TORSTEN ZIEGLER MD ([id number]) on 10/21/2020 7:36:45 AM Electronically Signed By: TORSTEN ZIEGLER MD 10/21/20 0737 PATIENT NAME: DIANELYS POLLARD Electrocardiogram DATE OF : 44 PHYSICIAN: TORSTEN ZIEGLER MD REPORT #: [id number] REPORT IS CONFIDENTIAL AND NOT TO BE RELEASED WITHOUT AUTHORIZATION
== END 2020-10-20 21:50 | disposition home or self-care (01) ==
LOC: ED 17:37
DX: R00.2 Palpitations (principal); E87.1 Hypo-osmolality and hyponatremia; I11.0 Hypertensive heart disease with heart failure; E11.9 Type 2 diabetes mellitus without complications; I48.91 Unspecified atrial fibrillation; I50.9 Heart failure, unspecified; Z88.2 Allergy status to sulfonamides; Z88.5 Allergy status to narcotic agent; Z88.8 Allergy status to other drugs, medicaments and biological substances; Z88.0 Allergy status to penicillin; Z79.899 Other long term (current) drug therapy
CPT/HCPCS: 80048; 81001; 84484; 85025; 93005; 93010; 99285-25; J7040; U0003

== ENCOUNTER 2021-03-15 15:54 | Emergency (ER) | payer MEDICARE, OTHER ==
[~2021-03-15] VITALS: Ht 157.5 cm; Wt 73.8 kg
[~2021-03-15 15:54] MED LIST changes: +OXYBUTYNIN CHLO15 MG PO
--- OUTSIDE RECORDS SUMMARY | 2021-03-15 15:58 | XMS ---
PreManage Notification: DIANELYS POLLARD Security Machine Silk Screen Printer Events No recent Security Events currently on file CRITERIA MET - [facility] - Has Care Guidelines CARE PROVIDERS EDGAR AZAR [facility] 07/27/2020-Current PHONE: [phone] [place] has no Care Guidelines for this patient. Care History Medical/Surgical 08/23/2020 [facility] Patient has scheduled visit with Dr. Azar on 08/26/2020. 10/06/2019 [facility] - Patient is currently established with [facility]. If patient is seen in the ED during business hours. Please contact CHWs at [facility]. Care Recommendation: If this patient [...] care. E.D. VISIT COUNT (12 MO.) 6 [facility] Garcia TOTAL 6 NOTE: Visits indicate total known visits. ED/UCC VISIT TRACKING (12 MO.) 03/15/2021 15:55 [facility] [place] TYPE: Emergency COMPLAINT: - CHEST PAIN 10/20/2020 17:38 [facility] [place] TYPE: Emergency COMPLAINT: - HEART PALPITATIONS DIAGNOSES: - Allergy status to narcotic agent - Palpitations - Allergy status to other drugs, medicaments and biological substances - Dizziness and giddiness - Allergy status to penicillin - Heart failure, unspecified - Unspecified atrial fibrillation - Other mcfp (current) drug therapy - Type 2 diabetes mellitus without complications - Palpitations - Allergy status to sulfonamides - Hypertensive heart disease with heart failure - Hypo-osmolality and hyponatremia 08/30/2020 06:01 [facility] [place] TYPE: Emergency COMPLAINT: - DIZZINESS DIAGNOSES: - Essential (primary) hypertension - Allergy status to narcotic agent - Frequency of micturition - Allergy status to sulfonamides - Unspecified atrial fibrillation - Other buttermaker helper (current) drug therapy - Dizziness and giddiness - Heart failure, unspecified - Type 2 diabetes mellitus without complications - Hypo-osmolality and hyponatremia 08/21/2020 10:13 [facility] [place] TYPE: Emergency COMPLAINT: - URINE PROBLEMS AND DIARRHEA DIAGNOSES: - Allergy status to narcotic agent - Heart failure, unspecified - Allergy status to penicillin - Type 2 diabetes mellitus without complications - Enterocolitis due to Clostridium difficile, not specified as recurrent - Unspecified atrial fibrillation - Allergy status to sulfonamides - Other buttermaker helper (current) drug therapy - Urinary tract infection, site not specified - Hypertensive heart disease with heart failure - Frequency of micturition - Allergy status to other drugs, medicaments and biological substances 08/04/2020 13:40 [facility] [place] TYPE: Emergency COMPLAINT: - CHEST PAIN, WHEEZING, WEAKNESS 07/26/2020 20:07 [facility] [place] TYPE: Emergency COMPLAINT: - CHEST PAIN DIAGNOSES: - Other mcfp (current) drug therapy - Allergy status to [...] pain - Allergy status to narcotic agent INPATIENT VISIT TRACKING (12 MO.) 08/04/2020 20:25 [facility] [place] TYPE: Medical Surgical COMPLAINT: - HYPONATREMIA DIAGNOSES: - Other mcfp (current) drug therapy - Hyperuricemia without signs [...] exposure to other viral communicable diseases - half-way (current) use of anticoagulants - Allergy status to other antibiotic agents - Heart failure, unspecified - Allergy status to penicillin [email or web address]
--- NOTE | 2021-03-15 18:46 | EKG ---
[facility] [address] [facility] [place], [place] [address] Signed Atrial fibrillation Low voltage QRS Cannot rule out Anterior infarct (cited on or before 04-OCT-2019) Abnormal ECG When compared with ECG of 20-OCT-2020 17:47, Nonspecific T wave abnormality now evident in Anterior leads Confirmed by NATY DELEON DO ([id number]) on 03/15/2021 6:46:45 PM Electronically Signed By: NATY DELEON DO 03/15/21 1846 PATIENT NAME: DIANELYS POLLARD Electrocardiogram DATE OF : 44 PHYSICIAN: NATY DELEON DO REPORT #: [id number] REPORT IS CONFIDENTIAL AND NOT TO BE RELEASED WITHOUT AUTHORIZATION
== END 2021-03-15 18:33 | disposition home or self-care (01) ==
LOC: ED 15:54
DX: K21.9 Gastro-esophageal reflux disease without esophagitis (principal); I11.0 Hypertensive heart disease with heart failure; I50.9 Heart failure, unspecified; E11.9 Type 2 diabetes mellitus without complications; I48.91 Unspecified atrial fibrillation; Z88.2 Allergy status to sulfonamides; Z88.5 Allergy status to narcotic agent; Z88.8 Allergy status to other drugs, medicaments and biological substances; Z79.899 Other long term (current) drug therapy
CPT/HCPCS: 71045; 80053; 83735; 84484; 85025; 93005; 93010; 99285-25

== ENCOUNTER 2021-05-24 18:13 | Emergency (ER) | payer MEDICARE, OTHER ==
[~2021-05-24] VITALS: Ht 157.5 cm; Wt 70.3 kg
--- OUTSIDE RECORDS SUMMARY | 2021-05-24 18:33 | XMS ---
PreManage Notification: DIANELYS POLLARD Security Photo Editor Events No recent Security Events currently on file CRITERIA MET - [facility] - Has Care Guidelines CARE PROVIDERS EDGAR AZAR [facility] 07/27/2020-Current PHONE: [phone] [place] has no Care Guidelines for this patient. Care History Medical/Surgical 08/23/2020 [facility] Patient has scheduled visit with Dr. Azar on 08/26/2020. 10/06/2019 [facility] - Patient is currently established with [facility]. If patient is seen in the ED during business hours. Please contact CHWs at [facility]. Care Recommendation: If this patient has had [...] providing care. E.D. VISIT COUNT (12 MO.) [address] [facility] TOTAL 7 NOTE: Visits indicate total known visits. ED/UCC VISIT TRACKING (12 MO.) 05/24/2021 18:14 [facility] [place] TYPE: Emergency COMPLAINT: - CHEST PAIN 03/15/2021 15:55 [facility] [place] TYPE: Emergency COMPLAINT: - CHEST PAIN DIAGNOSES: - Allergy status to other drugs, medicaments and biological substances - Type 2 diabetes mellitus without complications - Allergy status to narcotic agent - Heart failure, unspecified - Allergy status to sulfonamides - Hypertensive heart disease with heart failure - Unspecified atrial fibrillation - Other assisted (current) drug therapy - Gastro-esophageal reflux disease without esophagitis - Other chest pain 10/20/2020 17:38 [facility] [place] TYPE: Emergency COMPLAINT: - HEART PALPITATIONS DIAGNOSES: - Allergy status to narcotic agent - Palpitations - Allergy status to other drugs, medicaments and biological substances - Dizziness and giddiness - Allergy status to penicillin - Heart failure, unspecified - Unspecified atrial fibrillation - Other assisted (current) drug therapy - Type 2 diabetes [...] sulfonamides - Unspecified atrial fibrillation - Other assisted (current) drug therapy - Dizziness and giddiness [...] - Allergy status to sulfonamides - Other rodent exterminator (current) drug therapy - Urinary tract infection, site not specified - Hypertensive heart disease with heart failure - Frequency of micturition - Allergy status to other drugs, medicaments and biological substances 08/04/2020 13:40 [facility] [place] TYPE: Emergency COMPLAINT: - CHEST PAIN, WHEEZING, WEAKNESS 07/26/2020 20:07 [facility] [place] TYPE: Emergency COMPLAINT: - CHEST PAIN DIAGNOSES: - Other rodent exterminator (current) drug therapy - Allergy status to [...] Surgical COMPLAINT: - HYPONATREMIA DIAGNOSES: - Other rodent exterminator (current) drug therapy - Hyperuricemia without signs [...] exposure to other viral communicable diseases - prison (current) use of anticoagulants - Allergy status to other antibiotic agents - Heart failure, unspecified - Allergy status to penicillin [email or web address]
--- NOTE | 2021-05-26 18:13 | EKG ---
[facility] [address] [facility] [place] [address] Signed Atrial fibrillation Low voltage QRS Septal infarct (cited on or before 04-OCT-2019) Abnormal ECG When compared with ECG of 15-MAR-2021 16:06, Questionable change in initial forces of Anterior leads Nonspecific T wave abnormality no longer evident in Anterior leads Confirmed by LISA GARDNER MD ([id number]) on 05/26/2021 6:13:13 PM Electronically Signed By: LISA GARDNER MD 05/26/211812 PATIENT NAME: DIANELYS POLLARD Electrocardiogram DATE OF : 44 PHYSICIAN: LISA GARDNER MD REPORT #: [id number] REPORT IS CONFIDENTIAL AND NOT TO BE RELEASED WITHOUT AUTHORIZATION
== END 2021-05-24 21:11 | disposition home or self-care (01) ==
LOC: ED 18:13
DX: I48.20 Chronic atrial fibrillation, unspecified (principal); K21.9 Gastro-esophageal reflux disease without esophagitis; E11.9 Type 2 diabetes mellitus without complications; I11.0 Hypertensive heart disease with heart failure; I50.9 Heart failure, unspecified; Z88.2 Allergy status to sulfonamides; Z88.5 Allergy status to narcotic agent; Z88.6 Allergy status to analgesic agent; Z88.0 Allergy status to penicillin; Z88.8 Allergy status to other drugs, medicaments and biological substances; Z79.01 Long term (current) use of anticoagulants; Z79.899 Other long term (current) drug therapy
CPT/HCPCS: 70450; 71045; 80053; 83735; 84484; 85025; 93005; 93010; 99285-25

== ENCOUNTER 2021-05-27 21:46 | Emergency (ER) | payer MEDICARE, OTHER ==
[~2021-05-27] VITALS: Ht 152.4 cm; Wt 73.0 kg
--- OUTSIDE RECORDS SUMMARY | 2021-05-27 21:48 | XMS ---
PreManage Notification: DIANELYS POLLARD Security Road Freight Conductor Events No recent Security Events currently on file CRITERIA MET - [facility] - 2 Visits in 30 Days - [facility] - Has Care Guidelines CARE PROVIDERS EDGAR AZAR [facility] 07/27/2020-Current PHONE: [phone] [place] has no Care Guidelines for this patient. Care History Medical/Surgical 05/25/2021 [facility] Patient advised by PCP, Dr. Azar, to go to ER for chest pain. Follow visit on 06/02/2021. 08/23/2020 [facility] Patient has scheduled visit with Dr. Azar on 08/26/2020. 10/06/2019 [facility] - Patient is currently established with [facility]. If patient is seen in the ED during business hours. Please contact CHWs at [facility]. Care Recommendation: If this patient has [...] providing care. E.D. VISIT COUNT (12 MO.) 8 C[facility] Lieberman. TOTAL 8 NOTE: Visits indicate total known visits. ED/UCC VISIT TRACKING (12 MO.) 05/27/2021 21:47 [facility] [place] TYPE: Emergency COMPLAINT: - VAGINAL BLEEDING,RECTAL BLEEDING 05/24/2021 18:14 [facility] [place] TYPE: Emergency COMPLAINT: - CHEST PAIN DIAGNOSES: - Allergy status to analgesic agent - assisted (current) use of anticoagulants - Allergy status to sulfonamides - Heart failure, unspecified - Type 2 diabetes mellitus without complications - Allergy status to penicillin - Gastro-esophageal reflux disease without esophagitis - Other fdc (current) drug therapy - Hypertensive heart disease with heart failure - Allergy status to narcotic agent - Allergy status to other drugs, medicaments and biological substances - Other chest pain - Chronic atrial fibrillation, unspecified 03/15/2021 15:55 [facility] [place] TYPE: Emergency COMPLAINT: - CHEST PAIN DIAGNOSES: - Allergy status to other drugs, medicaments and biological substances - Type 2 diabetes mellitus without complications - Allergy status to narcotic agent - Heart failure, unspecified - Allergy status to sulfonamides - Hypertensive heart disease with heart failure - Unspecified atrial fibrillation - Other oil heaterman (current) drug therapy - Gastro-esophageal reflux disease without esophagitis - Other chest pain 10/20/2020 17:38 [facility] [place] TYPE: Emergency COMPLAINT: - HEART PALPITATIONS DIAGNOSES: - Allergy status to narcotic agent - Palpitations - Allergy status to other drugs, medicaments and biological substances - Dizziness and giddiness - Allergy status to penicillin - Heart failure, unspecified - Unspecified atrial fibrillation - Other fdc (current) drug therapy - Type 2 diabetes [...] sulfonamides - Unspecified atrial fibrillation - Other oil heaterman (current) drug therapy - Dizziness and giddiness [...] - Allergy status to sulfonamides - Other oil heaterman (current) drug therapy - Urinary tract infection, site not specified - Hypertensive heart disease with heart failure - Frequency of micturition - Allergy status to other drugs, medicaments and biological substances 08/04/2020 13:40 [facility] [place] TYPE: Emergency COMPLAINT: - CHEST PAIN, WHEEZING, WEAKNESS 07/26/2020 20:07 [facility] [place] TYPE: Emergency COMPLAINT: - CHEST PAIN DIAGNOSES: - Other oil heaterman (current) drug therapy - Allergy status to [...] Surgical COMPLAINT: - HYPONATREMIA DIAGNOSES: - Other fdc (current) drug therapy - Hyperuricemia without signs [...] exposure to other viral communicable diseases - terminologist (current) use of anticoagulants - Allergy status to other antibiotic agents - Heart failure, unspecified - Allergy status to penicillin [email or web address]
[2021-05-27] MEDS ORDERED: CIPRO500 MG PO (22:14)
[2021-05-27] MEDS ORDERED: COREG25 MG PO (22:14)
[2021-05-27] MEDS ORDERED: ANUSOL-HC25 MG PR (23:56)
== END 2021-05-28 00:20 | disposition home or self-care (01) ==
LOC: ED 21:46
DX: N39.0 Urinary tract infection, site not specified (principal); I11.0 Hypertensive heart disease with heart failure; I50.9 Heart failure, unspecified; E11.9 Type 2 diabetes mellitus without complications; I48.91 Unspecified atrial fibrillation; Z88.2 Allergy status to sulfonamides; Z88.8 Allergy status to other drugs, medicaments and biological substances; Z88.5 Allergy status to narcotic agent; Z88.0 Allergy status to penicillin; Z88.1 Allergy status to other antibiotic agents; Z79.899 Other long term (current) drug therapy
CPT/HCPCS: 80048; 84443; 85025; 99284

== ENCOUNTER 2021-08-06 16:30 | Emergency (ER) | payer MEDICARE, OTHER ==
[~2021-08-06] VITALS: Ht 152.4 cm; Wt 73.0 kg
[~2021-08-06 16:30] MED LIST changes: +ANUSOL-HC25 MG PR
--- OUTSIDE RECORDS SUMMARY | 2021-08-06 16:32 | XMS ---
PreManage Notification: DIANELYS POLLARD Security Site Promotion Agent Events No recent Security Events currently on file CRITERIA MET - [facility] - Has Care Guidelines CARE PROVIDERS EDGAR AZAR [facility] 07/27/2020-Current PHONE: [phone] [place] has no Care Guidelines for this patient. Care History Medical/Surgical 05/25/2021 [facility] Patient advised by PCP, Dr. Azar, to go to ER for chest pain. Follow visit on 06/02/2021. 08/23/2020 [facility] Patient has scheduled visit with Dr. Azar on 08/26/2020. 10/06/2019 [facility] - Patient is currently established with [facility]. If patient is seen in the ED during business hours. Please contact CHWs at [facility]. Care Recommendation: If this patient has [...] care. E.D. VISIT COUNT (12 MO.) [address] [facility] TOTAL 7 NOTE: Visits indicate total known visits. ED/UCC VISIT TRACKING (12 MO.) 08/06/2021 16:31 [facility] [place] TYPE: Emergency COMPLAINT: - DIARRHEA, VOMITING,NAUSEA 05/27/2021 21:47 [facility] [place] TYPE: Emergency COMPLAINT: - VAGINAL BLEEDING,RECTAL BLEEDING DIAGNOSES: - Allergy status to other antibiotic agents - Allergy status to penicillin - Allergy status to other drugs, medicaments and biological substances - Allergy status to sulfonamides - Allergy status to narcotic agent - Unspecified atrial fibrillation - Urinary tract infection, site not specified - Other half-way (current) drug therapy - Hypertensive heart disease with heart failure - Type 2 diabetes mellitus without complications - Heart failure, unspecified 05/24/2021 18:14 [facility] [place] TYPE: Emergency COMPLAINT: - CHEST PAIN DIAGNOSES: - Allergy status to analgesic agent - care home (current) use of anticoagulants - Allergy status to sulfonamides - Heart failure, unspecified - Type 2 diabetes mellitus without complications - Allergy status to penicillin - Gastro-esophageal reflux disease without esophagitis - Other intermodal customer service (current) drug therapy - Hypertensive heart disease [...] failure - Unspecified atrial fibrillation - Other intermodal customer service (current) drug therapy - Gastro-esophageal reflux disease without esophagitis - Other chest pain 10/20/2020 17:38 [facility] [place] TYPE: Emergency COMPLAINT: - HEART PALPITATIONS DIAGNOSES: - Allergy status to narcotic agent - Palpitations - Allergy status to other drugs, medicaments and biological substances - Dizziness and giddiness - Allergy status to penicillin - Heart failure, unspecified - Unspecified atrial fibrillation - Other half-way (current) drug therapy - Type 2 diabetes [...] sulfonamides - Unspecified atrial fibrillation - Other intermodal customer service (current) drug therapy - Dizziness and giddiness [...] - Allergy status to sulfonamides - Other half-way (current) drug therapy - Urinary tract infection, site not specified - Hypertensive heart disease with heart failure - Frequency of micturition - Allergy status to other drugs, medicaments and biological substances INPATIENT VISIT TRACKING (12 MO.) No inpatient visits to display in this time frame [email or web address]
[2021-08-06] MEDS ORDERED: ZOFRAN4 MG PO (23:42)
== END 2021-08-07 00:21 | disposition home or self-care (01) ==
LOC: ED 16:30
DX: K52.9 Noninfective gastroenteritis and colitis, unspecified (principal); I11.0 Hypertensive heart disease with heart failure; I50.9 Heart failure, unspecified; E11.9 Type 2 diabetes mellitus without complications; Z88.2 Allergy status to sulfonamides; Z88.5 Allergy status to narcotic agent; Z88.0 Allergy status to penicillin; Z88.8 Allergy status to other drugs, medicaments and biological substances; Z79.899 Other long term (current) drug therapy
CPT/HCPCS: 80048; 80053; 81001; 83690; 83735; 85025; 85610; 96374; 99284-25; A9270; J2405; J7040

== ENCOUNTER 2021-10-30 12:38 | Emergency (ER) | payer MEDICARE, OTHER ==
[~2021-10-30] VITALS: Ht 152.4 cm; Wt 73.0 kg
--- NOTE | ~2021-10-30 | EKG ---
[facility] [address] [facility] [place], [place] [address] Draft EK completed, results pending confirmation PATIENT NAME: DIANELYS POLLARD Electrocardiogram DATE OF : 44 PHYSICIAN: PRELIMINARY REPORT #: [id number] REPORT IS CONFIDENTIAL AND NOT TO BE RELEASED WITHOUT AUTHORIZATION
[~2021-10-30 12:38] MED LIST changes: +ZOFRAN4 MG PO
--- OUTSIDE RECORDS SUMMARY | 2021-10-30 12:40 | XMS ---
PreManage Notification: DIANELYS POLLARD Security Residential Program Director Events No recent Security Events currently on file CRITERIA MET - [facility] - Has Care Guidelines CARE PROVIDERS EDGAR SALGUERO [facility] 07/27/2020-Current PHONE: [phone] [place] has no Care Guidelines for this patient. Care History Medical/Surgical 08/09/2021 [facility] Patient spoke with Clinic nurse item repair manager, Patricio Valladares, on 08/05/2021 about nausea and diarrhea. Reported feeling better. Next follow up with PCP is 202105/25/2021 [facility] Patient advised by PCP, Dr. Salguero, to go to ER for chest pain. Follow visit on 06/02/2021. 08/23/2020 [facility] Patient has scheduled visit with Dr. Salguero on 08/26/2020. E.D. VISIT COUNT (12 MO.) 5 [facility]. TOTAL 5 NOTE: Visits indicate total known visits. ED/UCC VISIT TRACKING (12 MO.) 10/30/2021 12:[address] [facility] [place] TYPE: Emergency COMPLAINT: - IRREGULAR HEART BEAT 08/06/2021 16:31 [facility] [place] TYPE: Emergency COMPLAINT: - DIARRHEA, VOMITING,NAUSEA DIAGNOSES: - Other terminal computer operator (current) drug therapy - Allergy status to penicillin - Allergy status to narcotic agent - Noninfective gastroenteritis and colitis, unspecified - Type 2 diabetes mellitus without complications - Allergy status to other drugs, medicaments and biological substances - Diarrhea, unspecified - Allergy status to sulfonamides - Hypertensive heart disease with heart failure - Heart failure, unspecified 05/27/2021 21:47 [facility] [place] TYPE: Emergency COMPLAINT: - VAGINAL BLEEDING,RECTAL BLEEDING DIAGNOSES: - Allergy status to other antibiotic agents - Allergy status to penicillin - Allergy status to other drugs, medicaments and biological substances - Allergy status to sulfonamides - Allergy status to narcotic agent - Unspecified atrial fibrillation - Urinary tract infection, site not specified - Other intermediate (current) drug therapy - Hypertensive heart disease [...] Gastro-esophageal reflux disease without esophagitis - Other intermediate (current) drug therapy - Hypertensive heart disease [...] failure - Unspecified atrial fibrillation - Other terminal computer operator (current) drug therapy - Gastro-esophageal reflux disease without esophagitis - Other chest pain INPATIENT VISIT TRACKING (12 MO.) No inpatient visits to display in this time frame [email or web address]
== END 2021-10-30 17:41 | disposition home or self-care (01) ==
LOC: ED 12:38
DX: I48.91 Unspecified atrial fibrillation (principal); E87.6 Hypokalemia; E83.42 Hypomagnesemia; I10 Essential (primary) hypertension; E11.9 Type 2 diabetes mellitus without complications; I11.0 Hypertensive heart disease with heart failure; I50.9 Heart failure, unspecified; Z88.2 Allergy status to sulfonamides; Z88.5 Allergy status to narcotic agent; Z88.0 Allergy status to penicillin; Z88.8 Allergy status to other drugs, medicaments and biological substances; Z79.899 Other long term (current) drug therapy; Z79.01 Long term (current) use of anticoagulants
CPT/HCPCS: 36415; 71045; 80053; 83735; 83880; 84484; 85025; 93005; 93010; 96374; 99285-25; A9270; J3475

== ENCOUNTER 2022-03-08 00:25 | Emergency (ER) | payer MEDICARE, OTHER ==
[~2022-03-08] VITALS: Ht 152.4 cm; Wt 70.7 kg
--- OUTSIDE RECORDS SUMMARY | 2022-03-08 00:32 | XMS ---
PreManage Notification: DIANELYS POLLARD Security Insurance Verification Clerk Events No recent Security Events currently on file CRITERIA MET - [facility] - Has Care Guidelines CARE PROVIDERS EDGAR SALGUERO [facility] 07/27/2020-Current PHONE: Unknown [place] has no Care Guidelines for this patient. Care History Medical/Surgical 08/09/2021 [facility] Patient spoke with Clinic nurse ranch manager, Patricio Valladares, on 08/05/2021 about nausea and diarrhea. Reported feeling better. Next follow up with PCP is 202105/25/2021 [facility] Patient advised by PCP, Dr. Salguero, to go to ER for chest pain. Follow visit on 06/02/2021. 08/23/2020 [facility] Patient has scheduled visit with Dr. Salguero on 08/26/2020. E.D. VISIT COUNT (12 MO.) 6 [facility]. TOTAL 6 NOTE: Visits indicate total known visits. ED/UCC VISIT TRACKING (12 MO.) 03/08/2022 00:[address] [facility] [place] TYPE: Emergency COMPLAINT: - LLIGHT HEADED 10/30/2021 12:[address] [facility] [place] TYPE: Emergency COMPLAINT: - IRREGULAR HEART BEAT DIAGNOSES: - Allergy status to other drugs, medicaments and biological substances - Type 2 diabetes mellitus without complications - Hypokalemia - Hypomagnesemia - Allergy status to penicillin - Palpitations - Other longterm (current) drug therapy - Allergy status to sulfonamides - Allergy status to narcotic agent - Hypertensive heart disease with heart failure - Heart failure, unspecified - Essential (primary) hypertension - long term (current) use of anticoagulants - Unspecified atrial fibrillation 08/06/2021 16:31 [facility] [place] TYPE: Emergency COMPLAINT: - DIARRHEA, VOMITING,NAUSEA DIAGNOSES: - Other extermination supervisor (current) drug therapy - Allergy status to [...] tract infection, site not specified - Other extermination supervisor (current) drug therapy - Hypertensive heart disease with heart failure - Type 2 diabetes mellitus without complications - Heart failure, unspecified 05/24/2021 18:14 [facility] [place] TYPE: Emergency COMPLAINT: - CHEST PAIN DIAGNOSES: - Allergy status to analgesic agent - long-term (current) use of anticoagulants - Allergy status to sulfonamides - Heart failure, unspecified - Type 2 diabetes mellitus without complications - Allergy status to penicillin - Gastro-esophageal reflux disease without esophagitis - Other longterm (current) drug therapy - Hypertensive heart disease with heart failure - Allergy status to narcotic agent - Allergy status to other drugs, medicaments and biological substances - Other chest pain - Chronic atrial fibrillation, unspecified 03/15/2021 15:[address] [facility] [place] TYPE: Emergency COMPLAINT: - CHEST PAIN DIAGNOSES: - Allergy status to other drugs, medicaments and biological substances - Type 2 diabetes mellitus without complications - Allergy status to narcotic agent - Heart failure, unspecified - Allergy status to sulfonamides - Hypertensive heart disease with heart failure - Unspecified atrial fibrillation - Other extermination supervisor (current) drug therapy - Gastro-esophageal reflux disease without esophagitis - Other chest pain INPATIENT VISIT TRACKING (12 MO.) No inpatient visits to display in this time frame [email or web address]
[2022-03-08] MEDS ORDERED: MECLIZINE HCL25 MG PO (02:11)
--- NOTE | 2022-03-08 20:40 | EKG ---
[facility] [address] [facility] [place] [address] Signed Atrial fibrillation Low voltage QRS Cannot rule out Anterior infarct (cited on or before 04-OCT-2019) Abnormal ECG When compared with ECG of 30-OCT-2021 13:04, Nonspecific T wave abnormality, improved in Inferior leads Nonspecific T wave abnormality no longer evident in Lateral leads QT has lengthened Confirmed by LISA GARDNER MD ([id number]) on 03/08/2022 8:40:22 PM Electronically Signed By: LISA GARDNER MD 03/08/222039 PATIENT NAME: DIANELYS POLLARD Electrocardiogram DATE OF : 44 PHYSICIAN: LISA GARDNER MD REPORT #: [id number] REPORT IS CONFIDENTIAL AND NOT TO BE RELEASED WITHOUT AUTHORIZATION
== END 2022-03-08 02:35 | disposition home or self-care (01) ==
LOC: ED 00:25
DX: I11.0 Hypertensive heart disease with heart failure (principal); I50.9 Heart failure, unspecified; R42 Dizziness and giddiness; I48.91 Unspecified atrial fibrillation; E11.9 Type 2 diabetes mellitus without complications; Z88.2 Allergy status to sulfonamides; Z88.5 Allergy status to narcotic agent; Z88.8 Allergy status to other drugs, medicaments and biological substances; Z88.0 Allergy status to penicillin; Z79.899 Other long term (current) drug therapy
CPT/HCPCS: 36415; 70450; 80053; 81001; 83880; 85025; 93005; 93010; 96374; 99284-25; A9270; J2405

== ENCOUNTER 2022-09-27 19:46 | Emergency (ER) | payer MEDICARE, OTHER ==
[~2022-09-27] VITALS: Ht 152.4 cm; Wt 68.5 kg
[~2022-09-27 19:46] MED LIST changes: +MECLIZINE HCL25 MG PO
--- OUTSIDE RECORDS SUMMARY | 2022-09-27 19:48 | XMS ---
PreManage Notification: DIANELYS POLLARD Security Exhaust And Muffler Fitter Events No recent Security Events currently on file CRITERIA MET - PDMP - [facility] - Has Care Guidelines CARE PROVIDERS TO[place] Emergency Medicine Current PHONE: [phone] EDGAR AZAR [facility] 07/27/2020-Current PHONE: Unknown Lisset has no Care Guidelines for this patient. Care History Medical/Surgical 08/09/2021 [facility] Patient spoke with Clinic nurse software project manager, Patricio Valladares, on 08/05/2021 about nausea and diarrhea. Reported feeling better. Next follow up with PCP is 202105/25/2021 [facility] Patient advised by PCP, Dr. Azar, to go to ER for chest pain. Follow visit on 06/02/2021. 08/23/2020 [facility] Patient has scheduled visit with Dr. Azar on 08/26/2020. E.D. VISIT COUNT (12 MO.) 3 [facility] TOTAL 3 NOTE: Visits indicate total known visits. ED/UCC VISIT TRACKING (12 MO.) 09/27/2022 19:47 [facility] [place] TYPE: Emergency COMPLAINT: - DIFFICULTY BREATHING 03/08/2022 00:25 [facility] [place] TYPE: Emergency COMPLAINT: - LIGHT HEADED DIAGNOSES: - Allergy status to sulfonamides - Dizziness and giddiness - Type 2 diabetes mellitus without complications - Hypertensive heart disease with heart failure - Unspecified atrial fibrillation - Allergy status to other drugs, medicaments and biological substances - Allergy status to penicillin - Heart failure, unspecified - Allergy status to narcotic agent - Other shelter (current) drug therapy 10/30/2021 12:39 [facility] Floyd TYPE: Emergency COMPLAINT: - IRREGULAR HEART BEAT DIAGNOSES: - Hypokalemia - Hypertensive heart disease with heart failure - Allergy status to other drugs, medicaments and biological substances - Allergy status to sulfonamides - Palpitations - longterm (current) use of anticoagulants - Hypomagnesemia - Heart failure, unspecified - Type 2 diabetes mellitus without complications - Allergy status to narcotic agent - Other emt intermediate (current) drug therapy - Unspecified atrial fibrillation - Allergy status to penicillin - Essential (primary) hypertension INPATIENT VISIT TRACKING (12 MO.) 04/17/2022 11:49 [place] TYPE: Surgical Services DIAGNOSES: - Unilateral primary osteoarthritis, right knee [email or web address]
[2022-09-27] MEDS ORDERED: JARDIANCE25 MG PO (23:33)
== END 2022-09-28 01:54 | disposition home or self-care (01) ==
LOC: ED 19:46
DX: J20.9 Acute bronchitis, unspecified (principal); I11.0 Hypertensive heart disease with heart failure; I50.9 Heart failure, unspecified; E11.9 Type 2 diabetes mellitus without complications; I48.91 Unspecified atrial fibrillation; Z20.822 Contact with and (suspected) exposure to COVID-19; Z88.2 Allergy status to sulfonamides; Z88.5 Allergy status to narcotic agent; Z88.6 Allergy status to analgesic agent; Z88.0 Allergy status to penicillin; Z88.7 Allergy status to serum and vaccine; Z79.899 Other long term (current) drug therapy; Z79.01 Long term (current) use of anticoagulants
CPT/HCPCS: 36415; 71046; 80053; 81003; 83690; 85025; 87502; 99284-25; U0003

== ENCOUNTER 2022-10-05 12:36 | Emergency (ER) | payer MEDICARE, OTHER ==
[~2022-10-05] VITALS: Ht 152.4 cm; Wt 67.5 kg
[~2022-10-05 12:36] MED LIST changes: +JARDIANCE25 MG PO
--- OUTSIDE RECORDS SUMMARY | 2022-10-05 12:38 | XMS ---
PreManage Notification: DIANELYS POLLARD Security Apparel Embroidery Digitizer Events No recent Security Events currently on file CRITERIA MET - PDMP - [facility] - Has Care Guidelines - [facility] - 2 Visits in 30 Days CARE PROVIDERS TOYA [place] Emergency [facility] Current PHONE: [phone] EDGAR AZAR [facility] 07/27/2020-Current PHONE: Unknown Lisset has no Care Guidelines for this patient. Care History Medical/Surgical 08/09/2021 [facility] Patient spoke with Clinic nurse fleet manager/dispatch, Patricio Valladares, on 08/05/2021 about nausea and diarrhea. Reported feeling better. Next follow up with PCP is 202105/25/2021 [facility] Patient advised by PCP, Dr. Azar, to go to ER for chest pain. Follow visit on 06/02/2021. 08/23/2020 [facility] Patient has scheduled visit with Dr. Azar on 08/26/2020. E.D. VISIT COUNT (12 MO.) [address] [facility] TOTAL 4 NOTE: Visits indicate total known visits. ED/UCC VISIT TRACKING (12 MO.) 10/05/2022 12:[address] [facility] [place] TYPE: Emergency COMPLAINT: - ABD PAIN, CHEST PAIN, DEHYDRATED, DIARRHEA 09/27/2022 19:47 [facility] [place] TYPE: Emergency COMPLAINT: - DIFFICULTY BREATHING DIAGNOSES: - Allergy status to serum and vaccine - Hypertensive heart disease with heart failure - Allergy status to narcotic agent - Acute bronchitis, unspecified - intermediate school teacher (current) use of anticoagulants - Allergy status to sulfonamides - Heart failure, unspecified - Allergy status to analgesic agent - Contact with and (suspected) exposure to COVID-19 - Unspecified atrial fibrillation - Other terminal system operator (current) drug therapy - Type 2 diabetes mellitus without complications - Allergy status to penicillin - Cough, unspecified 03/08/2022 00:25 [facility] [place] TYPE: Emergency COMPLAINT: - LIGHT HEADED DIAGNOSES: - Allergy status to other drugs, medicaments and biological substances - Allergy status to penicillin - Heart failure, unspecified - Allergy status to narcotic agent - Other assisted (current) drug therapy - Allergy status to sulfonamides - Dizziness and giddiness - Type 2 diabetes mellitus without complications - Hypertensive heart disease with heart failure - Unspecified atrial fibrillation 10/30/2021 12:39 [facility] [place] TYPE: Emergency COMPLAINT: - IRREGULAR HEART BEAT DIAGNOSES: - FDC (current) use of anticoagulants - Hypomagnesemia - Heart failure, unspecified - Type 2 diabetes mellitus without complications - Allergy status to narcotic agent - Other terminal system operator (current) drug therapy - Unspecified atrial fibrillation - Allergy status to penicillin - Essential (primary) hypertension - Hypokalemia - Hypertensive heart disease with heart failure - Allergy status to other drugs, medicaments and biological substances - Allergy status to sulfonamides - Palpitations INPATIENT VISIT TRACKING (12 MO.) 04/17/2022 11:[address] Christa LOPEZ TYPE: Surgical Services DIAGNOSES: - Unilateral primary osteoarthritis, right knee [id number]
[2022-10-05] MEDS ORDERED: VANCOMYCIN HCL125 MG PO (13:02)
[2022-10-05] MEDS ORDERED: AZITHROMYCIN250 MG PO (13:03)
[2022-10-05] MEDS ORDERED: DICLOFENAC SOD100 G1 TOP (13:03)
[2022-10-05] MEDS ORDERED: BENAZEPRIL HCL20 MG PO (13:04)
[2022-10-05] MEDS ORDERED: VENTOLIN HFA18 GM INH (14:13)
--- NOTE | 2022-10-07 13:28 | EKG ---
[facility] [address] [place] [address] Signed Atrial fibrillation Septal infarct (cited on or before 04-OCT-2019) Abnormal ECG When compared with ECG of 08-MAR-2022 01:08, No significant change was found Confirmed by LISA GARDNER MD ([id number]) on 10/07/2022 1:28:18 PM Electronically Signed By: LISA GARDNER MD 10/07/22 1328 PATIENT NAME: DIANELYS POLLARD Electrocardiogram DATE OF : 44 PHYSICIAN: LISA GARDNER MD REPORT #: [id number] REPORT IS CONFIDENTIAL AND NOT TO BE RELEASED WITHOUT AUTHORIZATION
== END 2022-10-05 14:29 | disposition home or self-care (01) ==
LOC: ED 12:36
DX: J20.9 Acute bronchitis, unspecified (principal); I11.0 Hypertensive heart disease with heart failure; E11.9 Type 2 diabetes mellitus without complications; I48.91 Unspecified atrial fibrillation; I50.9 Heart failure, unspecified; Z88.8 Allergy status to other drugs, medicaments and biological substances; Z88.5 Allergy status to narcotic agent; Z88.0 Allergy status to penicillin; Z88.2 Allergy status to sulfonamides; Z79.899 Other long term (current) drug therapy
CPT/HCPCS: 36415; 71045; 80053; 81003; 83690; 83880; 84484; 85025; 87502; 93005; 93010; 94640; 96361; 96374; 99285-25; J2930; J7121; U0003

== ENCOUNTER 2022-10-27 21:54 | Emergency (ER) | payer MEDICARE, OTHER ==
[~2022-10-27] VITALS: Ht 152.4 cm; Wt 70.4 kg
[~2022-10-27 21:54] MED LIST changes: +AZITHROMYCIN250 MG PO; +DICLOFENAC SOD100 G1 TOP; +VENTOLIN HFA18 GM INH
--- OUTSIDE RECORDS SUMMARY | 2022-10-27 21:57 | XMS ---
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 Care History Medical/Surgical 08/09/2021 [facility] Patient spoke with Clinic nurse commercial account manager, Patricio Valladares, on 08/05/2021 about nausea and diarrhea. Reported feeling better. Next follow up with PCP is 202105/25/2021 [facility] Patient advised by PCP, Dr. Azar, to go to ER for chest pain. Follow visit on 06/02/2021. 08/23/2020 [facility] Patient has scheduled visit with Dr. Azar on 08/26/2020. E.D. VISIT COUNT (12 MO.) [address] [facility] TOTAL 5 NOTE: Visits indicate total known visits. ED/UCC VISIT TRACKING (12 MO.) 10/27/2022 21:54 [facility] [place] TYPE: Emergency COMPLAINT: - DIFFICULTY BREATHING 10/05/2022 12:37 [facility] [place] TYPE: Emergency COMPLAINT: - ABD PAIN, CHEST PAIN, DEHYDRATED, DIARRHEA DIAGNOSES: - Unspecified abdominal pain - Allergy status to penicillin - Unspecified atrial fibrillation - Allergy status to narcotic agent - Allergy status to sulfonamides - Allergy status to other drugs, medicaments and biological substances - Hypertensive heart disease with heart failure - Type 2 diabetes mellitus without complications - Acute bronchitis, unspecified - Other intermediate teacher (current) drug therapy - Heart failure, unspecified - Contact with and (suspected) exposure to COVID-19 09/27/2022 19:47 [facility] [place] TYPE: Emergency COMPLAINT: - DIFFICULTY BREATHING DIAGNOSES: - Cough, unspecified - Allergy status to serum and vaccine - Hypertensive heart disease with heart failure - Allergy status to narcotic agent - Acute bronchitis, unspecified - intermediate (current) use of anticoagulants - Allergy status to sulfonamides - Heart failure, unspecified - Allergy status to analgesic agent - Contact with and (suspected) exposure to COVID-19 - Unspecified atrial fibrillation - Other detention (current) drug therapy - Type 2 diabetes mellitus without complications - Allergy status to penicillin 03/08/2022 00:25 [facility] [place] TYPE: Emergency COMPLAINT: - LIGHT HEADED DIAGNOSES: - Unspecified atrial fibrillation - Allergy status to other drugs, medicaments and biological substances - Allergy status to penicillin - Heart failure, unspecified - Allergy status to narcotic agent - Other intermediate teacher (current) drug therapy - Allergy status to sulfonamides - Dizziness and giddiness - Type 2 diabetes mellitus without complications - Hypertensive heart disease with heart failure 10/30/2021 12:39 [facility] [place] TYPE: Emergency COMPLAINT: - IRREGULAR HEART BEAT DIAGNOSES: - Palpitations - intermodal customer service (current) use of anticoagulants - Hypomagnesemia - Heart failure, unspecified - Type 2 diabetes mellitus without complications - Allergy status to narcotic agent - Other detention (current) drug therapy - Unspecified atrial fibrillation - Allergy status to penicillin - Essential (primary) hypertension - Hypokalemia - Hypertensive heart disease with heart failure - Allergy status to other drugs, medicaments and biological substances - Allergy status to sulfonamides INPATIENT VISIT TRACKING (12 MO.) 04/17/2022 11:[address] Christa LOPEZ TYPE: Surgical Services DIAGNOSES: - Unilateral primary osteoarthritis, right knee [id number]
== END 2022-10-27 23:11 | disposition home or self-care (01) ==
LOC: ED 21:54
DX: R06.02 Shortness of breath (principal); I11.0 Hypertensive heart disease with heart failure; I50.9 Heart failure, unspecified; E11.9 Type 2 diabetes mellitus without complications; I48.91 Unspecified atrial fibrillation; Z88.5 Allergy status to narcotic agent; Z88.8 Allergy status to other drugs, medicaments and biological substances; Z88.0 Allergy status to penicillin; Z88.2 Allergy status to sulfonamides; Z79.899 Other long term (current) drug therapy
CPT/HCPCS: 36415; 71046; 80053; 83880; 85025; 99285-25

== ENCOUNTER 2022-12-01 11:51 | Emergency (ER) | payer MEDICARE, OTHER ==
[~2022-12-01] VITALS: Ht 152.4 cm; Wt 69.4 kg
--- OUTSIDE RECORDS SUMMARY | 2022-12-01 11:54 | XMS ---
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 - Has Care Guidelines CARE PROVIDERS TOYA [facility] Medicine Current PHONE: [phone] EDGAR AZAR [facility] 07/27/2020-Current PHONE: Unknown Lisset has no Care Guidelines for this patient. Care History Medical/Surgical 08/09/2021 [facility] Patient spoke with Clinic nurse manager fast food, Patricio Valladares, on 08/05/2021 about nausea and diarrhea. Reported feeling better. Next follow up with PCP is 202105/25/2021 [facility] Patient advised by PCP, Dr. Azar, to go to ER for chest pain. Follow visit on 06/02/2021. 08/23/2020 [facility] Patient has scheduled visit with Dr. Azar on 08/26/2020. E.D. VISIT COUNT (12 MO.) 5 [facility] Garcia TOTAL 5 NOTE: Visits indicate total known visits. ED/UCC VISIT TRACKING (12 MO.) 12/01/2022 11:52 [facility] [place] TYPE: Emergency COMPLAINT: - HEART RATE ISSUE 10/27/2022 21:54 [facility] [place] TYPE: Emergency COMPLAINT: - DIFFICULTY BREATHING DIAGNOSES: - Allergy status to narcotic agent - Allergy status to other drugs, medicaments and biological substances - Allergy status to penicillin - Allergy status to sulfonamides - Heart failure, unspecified - Hypertensive heart disease with heart failure - Other long term care pharmacist (current) drug therapy - Shortness of breath - Type 2 diabetes mellitus without complications - Unspecified atrial fibrillation 10/05/2022 12:37 [facility] [place] TYPE: Emergency COMPLAINT: - ABD PAIN, CHEST PAIN, DEHYDRATED, DIARRHEA DIAGNOSES: - Acute bronchitis, unspecified - Allergy status to narcotic agent - Allergy status to other drugs, medicaments and biological substances - Allergy status to penicillin - Allergy status to sulfonamides - Contact with and (suspected) exposure to COVID-19 - Heart failure, unspecified - Hypertensive heart disease with heart failure - Other intermediate (current) drug therapy - Type 2 diabetes mellitus without complications - Unspecified abdominal pain - Unspecified atrial fibrillation 09/27/2022 19:47 [facility] [place] TYPE: Emergency COMPLAINT: - DIFFICULTY BREATHING DIAGNOSES: - Acute bronchitis, unspecified - Allergy status to analgesic agent - Allergy status to narcotic agent - Allergy status to penicillin - Allergy status to serum and vaccine - Allergy status to sulfonamides - Contact with and (suspected) exposure to COVID-19 - Cough, unspecified - Heart failure, unspecified - Hypertensive heart disease with heart failure - residential (current) use of anticoagulants - Other long term care pharmacist (current) drug therapy - Type 2 diabetes mellitus without complications - Unspecified atrial fibrillation 03/08/2022 00:25 [facility] [place] TYPE: Emergency COMPLAINT: - LIGHT HEADED DIAGNOSES: - Allergy status to narcotic agent - Allergy status to other drugs, medicaments and biological substances - Allergy status to penicillin - Allergy status to sulfonamides - Dizziness and giddiness - Heart failure, unspecified - Hypertensive heart disease with heart failure - Other intermediate (current) drug therapy - Type 2 diabetes mellitus without complications - Unspecified atrial fibrillation INPATIENT VISIT TRACKING (12 MO.) 04/17/2022 11:49 [place] TYPE: Surgical Services DIAGNOSES: - Unilateral primary osteoarthritis, right knee [id number]
[2022-12-01] MEDS ORDERED: METHOCARBAMOL750 MG PO (13:38)
[2022-12-01 14:00] VITALS: BP 122/68
--- NOTE | 2022-12-03 16:42 | EKG ---
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
== END 2022-12-01 14:00 | disposition home or self-care (01) ==
LOC: ED 11:51
DX: M79.605 Pain in left leg (principal); M79.604 Pain in right leg; E11.9 Type 2 diabetes mellitus without complications; I11.0 Hypertensive heart disease with heart failure; I50.9 Heart failure, unspecified; Z88.2 Allergy status to sulfonamides; Z88.5 Allergy status to narcotic agent; Z88.8 Allergy status to other drugs, medicaments and biological substances; Z88.0 Allergy status to penicillin; Z79.899 Other long term (current) drug therapy; Z79.01 Long term (current) use of anticoagulants
CPT/HCPCS: 36415; 80053; 83735; 85025; 93005; 93010; 99283-25

== ENCOUNTER 2023-01-12 19:43 | Emergency (ER) | payer MEDICARE, OTHER ==
[~2023-01-12] VITALS: Ht 152.4 cm; Wt 69.4 kg
[~2023-01-12 19:43] MED LIST changes: +METHOCARBAMOL750 MG PO
--- OUTSIDE RECORDS SUMMARY | 2023-01-12 19:46 | XMS ---
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 - Has Care Guidelines CARE PROVIDERS TOYA [place] Emergency Medicine Current PHONE: [phone] EDGAR AZAR [facility] 07/27/2020-Current PHONE: Unknown Lisset has no Care Guidelines for this patient. Care History Medical/Surgical 08/09/2021 [facility] Patient spoke with Clinic nurse clinical applications manager, Patricio Valladares, on 08/05/2021 about nausea and diarrhea. Reported feeling better. Next follow up with PCP is 202105/25/2021 [facility] Patient advised by PCP, Dr. Azar, to go to ER for chest pain. Follow visit on 06/02/2021. 08/23/2020 [facility] Patient has scheduled visit with Dr. Azar on 08/26/2020. E.D. VISIT COUNT (12 MO.) [address] [facility] TOTAL 6 NOTE: Visits indicate total known visits. ED/UCC VISIT TRACKING (12 MO.) 01/12/2023 19:45 [facility] [place] TYPE: Emergency COMPLAINT: - BACK PAIN 12/01/2022 11:52 [facility] [place] TYPE: Emergency COMPLAINT: - HEART RATE ISSUE DIAGNOSES: - Allergy status to narcotic agent - Allergy status to other drugs, medicaments and biological substances - Allergy status to penicillin - Allergy status to sulfonamides - Heart failure, unspecified - Hypertensive heart disease with heart failure - senior living (current) use of anticoagulants - Other exterminator termite (current) drug therapy - Pain in left leg - Pain in right leg - Type 2 diabetes mellitus without complications 10/27/2022 21:54 [facility] [place] TYPE: Emergency COMPLAINT: - DIFFICULTY BREATHING DIAGNOSES: - Allergy status to narcotic agent - Allergy status to other drugs, medicaments and biological substances - Allergy status to penicillin - Allergy status to sulfonamides - Heart failure, unspecified - Hypertensive heart disease with heart failure - Other exterminator termite (current) drug therapy - Shortness of breath [...] heart disease with heart failure - Other exterminator termite (current) drug therapy - Type 2 diabetes [...] Hypertensive heart disease with heart failure - extermination inspector (current) use of anticoagulants - Other skilled nursing (current) drug therapy - Type 2 diabetes [...] heart disease with heart failure - Other exterminator termite (current) drug therapy - Type 2 diabetes mellitus without complications - Unspecified atrial fibrillation INPATIENT VISIT TRACKING (12 MO.) 04/17/2022 11:49 Rachel LOPEZ TYPE: Surgical Services DIAGNOSES: - Unilateral primary osteoarthritis, right knee [email or web address]
[2023-01-12] MEDS ORDERED: HYDROCODON-ACE1 EA10 PO (21:26)
[2023-01-12 21:55] VITALS: BP 132/69
== END 2023-01-12 21:55 | disposition home or self-care (01) ==
LOC: ED 19:43
DX: M48.061 Spinal stenosis, lumbar region without neurogenic claudication (principal); I11.0 Hypertensive heart disease with heart failure; I50.9 Heart failure, unspecified; E11.9 Type 2 diabetes mellitus without complications; I48.91 Unspecified atrial fibrillation; Z79.01 Long term (current) use of anticoagulants; Z79.899 Other long term (current) drug therapy; Z88.2 Allergy status to sulfonamides; Z88.5 Allergy status to narcotic agent; Z88.0 Allergy status to penicillin; Z88.8 Allergy status to other drugs, medicaments and biological substances
CPT/HCPCS: 36415; 80053; 81003; 84443; 85025; 85651; 86140; 99283; A9270

== ENCOUNTER 2023-02-14 20:37 | Emergency (ER) | payer MEDICARE, OTHER ==
[~2023-02-14] VITALS: Ht 152.4 cm; Wt 74.8 kg
--- OUTSIDE RECORDS SUMMARY | ~2023-02-14 | XMS | Continuity of Care Document ---
Demographics + + + | Address | [address] | | | [place] [address] | + + + | Preferred Language | Unknown | + + + | Marital Status | | + + + | Mosque Affiliation | Unknown | + + + | Race | White | + + + | Ethnic Group | Not or | + + + Author + + + | Author | [facility] | + + + | Organization | [facility] | + + + | Address | [address] | | | [place] [address] | + + + | Phone | | + + + Care Team Providers + + + + | Care Hoop Maker Machine Name | Role | Phone | + + + + Unavailable | Unavailable | + + + + Unavailable | Unavailable | + + + + Allergies and Intolerances + + + + + + | date | description | facility | reaction | severity | + + + + + + | (no date) | Codeine | [facility] | (no reaction) | (no severity) | [facility] | | | + + + + + + | (no date) | codeine | [facility] | (no reaction) | (no severity) | [facility] | | | + + + + + + | (no date) | Rash | [facility] | (no reaction) | (no severity) | [facility] | | | + + + + + + | (no date) | Diltiazem | [facility] | (no reaction) | (no severity) | [facility] | | | + + + + + + | (no date) | diltiazem | [facility] | (no reaction) | (no severity) | [facility] | | | + + + + + + | (no date) | Diltiazem | [facility] | (no reaction) | (no severity) | | [facility] | | | + + + + + + | (no date) | Ibuprofen | [facility] | (no reaction) | (no severity) | | [facility] | | | + + + + + + | (no date) | Codeine | [facility] | (no reaction) | (no severity) | | [facility] | | | + + + + + + | (no date) | Ibuprofen | [facility] | (no reaction) | (no severity) | | [facility] | | | + + + + + + | (no date) | ibuprofen | [facility] | (no reaction) | (no severity) | | [facility] | | | + + + + + + | (no date) | Diltiazem | [facility] | (no reaction) | (no severity) | | [facility] | | | + + + + + + | (no date) | amoxicillin | [facility] | (no reaction) | (no severity) | | | trihydrate | | | | + + + + + + | (no date) | Sulfa | [facility] | (no reaction) | (no severity) | | | (Sulfonamide | | | | | | Antibiotics) | | | | + + + + + + | (no date) | codeine | [facility] | (no reaction) | (no severity) | + + + + + + | (no date) | ibuprofen | [facility] | (no reaction) | (no severity) | + + + + + + | (no date) | diltiazem | [facility] | (no reaction) | (no severity) | + + + + + + | (no date) | Codeine | [facility] | (no reaction) | (no severity) | | [facility] | | | + + + + + + | (no date) | Ibuprofen | [facility] | (no reaction) | (no severity) | | [facility] | | | + + + + + + Encounters No information. Functional Status No information. Immunizations No information. Medications + + + + | date | description | facility | + + + + | 2022-02-11 00:00 | CALCIUM CARB/MAG OXIDE/VIT | [facility] | | | D3 | | + + + + | 2022-03-10 00:00 | CALCIUM CARB/MAG OXIDE/VIT | [facility] | | | D3 | | + + + + | 2022-09-28 00:00 | CALCIUM CARB/MAG OXIDE/VIT | [facility] | | | D3 | | + + + + | 2022-10-05 00:00 | CALCIUM CARB/MAG OXIDE/VIT | [facility] | | | D3 | | + + + + | 2022-10-27 00:00 | CALCIUM CARB/MAG OXIDE/VIT | [facility] | | | D3 | | + + + + | 2022-12-01 00:00 | CALCIUM CARB/MAG OXIDE/VIT | [facility] | | | D3 | | + + + + | 2023-01-12 00:00 | CALCIUM CARB/MAG OXIDE/VIT | [facility] | | | D3 | | + + + + | 2023-01-30 00:00 | CALCIUM CARB/MAG OXIDE/VIT | [facility] | | | D3 | | + + + + | 2021-08-06 00:00 | ONDANSETRON HCL | [facility] | + + + + | 2022-02-11 00:00 | DIGOXIN | [facility] | + + + + | 2022-03-10 00:00 | DIGOXIN | [facility] | + + + + | 2022-09-28 00:00 | DIGOXIN | [facility] | + + + + | 2022-10-05 00:00 | DIGOXIN | [facility] | + + + + | 2022-10-27 00:00 | DIGOXIN | [facility] | + + + + | 2022-12-01 00:00 | DIGOXIN | [facility] | + + + + | 2023-01-12 00:00 | DIGOXIN | [facility] | + + + + | 2023-01-30 00:00 | DIGOXIN | [facility] | + + + + | 2022-02-11 00:00 | BUDESONIDE/FORMOTEROL | [facility] | | | FUMARATE | | + + + + | 2022-03-10 00:00 | BUDESONIDE/FORMOTEROL | [facility] | | | FUMARATE | | + + + + | 2022-09-28 00:00 | BUDESONIDE/FORMOTEROL | [facility] | | | FUMARATE | | + + + + | 2022-10-05 00:00 | BUDESONIDE/FORMOTEROL | [facility] | | | FUMARATE | | + + + + | 2022-10-27 00:00 | BUDESONIDE/FORMOTEROL | [facility] | | | FUMARATE | | + + + + | 2022-12-01 00:00 | BUDESONIDE/FORMOTEROL | [facility] | | | FUMARATE | | + + + + | 2023-01-12 00:00 | BUDESONIDE/FORMOTEROL | [facility] | | | FUMARATE | | + + + + | 2023-01-30 00:00 | BUDESONIDE/FORMOTEROL | [facility] | | | FUMARATE | | + + + + | 2021-05-27 00:00 | HYDROCORTISONE ACETATE | [facility] | + + + + | 2022-02-11 00:00 | APIXABAN | [facility] | + + + + | 2022-03-10 00:00 | APIXABAN | [facility] | + + + + | 2022-09-28 00:00 | APIXABAN | [facility] | + + + + | 2022-10-05 00:00 | APIXABAN | [facility] | + + + + | 2022-10-27 00:00 | APIXABAN | [facility] | + + + + | 2022-12-01 00:00 | APIXABAN | [facility] | + + + + | 2023-01-12 00:00 | APIXABAN | [facility] | + + + + | 2023-01-30 00:00 | APIXABAN | [facility] | + + + + | 2022-09-28 00:00 | EMPAGLIFLOZIN | [facility] | + + + + | 2022-10-05 00:00 | EMPAGLIFLOZIN | [facility] | + + + + | 2022-10-27 00:00 | EMPAGLIFLOZIN | [facility] | + + + + | 2022-12-01 00:00 | EMPAGLIFLOZIN | [facility] | + + + + | 2023-01-12 00:00 | EMPAGLIFLOZIN | [facility] | + + + + | 2023-01-30 00:00 | EMPAGLIFLOZIN | [facility] | + + + + | 2022-02-11 00:00 | Bacillus Coagulans | [facility] | + + + + | 2022-03-10 00:00 | Bacillus Coagulans | [facility] | + + + + | 2022-09-28 00:00 | Bacillus Coagulans | [facility] | + + + + | 2022-10-05 00:00 | Bacillus Coagulans | [facility] | + + + + | 2022-10-27 00:00 | Bacillus Coagulans | [facility] | + + + + | 2022-12-01 00:00 | Bacillus Coagulans | [facility] | + + + + | 2023-01-12 00:00 | Bacillus Coagulans | [facility] | + + + + | 2023-01-30 00:00 | Bacillus Coagulans | [facility] | + + + + | 2022-02-11 00:00 | FLUTICASONE PROPIONATE 50 | [facility] | | | MCG | | + + + + | 2022-03-10 00:00 | FLUTICASONE PROPIONATE 50 | [facility] | | | MCG | | + + + + | 2022-09-28 00:00 | FLUTICASONE PROPIONATE 50 | [facility] | | | MCG | | + + + + | 2022-10-05 00:00 | FLUTICASONE PROPIONATE 50 | [facility] | | | MCG | | + + + + | 2022-10-27 00:00 | FLUTICASONE PROPIONATE 50 | [facility] | | | MCG | | + + + + | 2022-12-01 00:00 | FLUTICASONE PROPIONATE 50 | [facility] | | | MCG | | + + + + | 2023-01-12 00:00 | FLUTICASONE PROPIONATE 50 | [facility] | | | MCG | | + + + + | 2023-01-30 00:00 | FLUTICASONE PROPIONATE 50 | [facility] | | | MCG | | + + + + | 2022-02-11 00:00 | POTASSIUM CHLORIDE | [facility] | + + + + | 2022-03-10 00:00 | POTASSIUM CHLORIDE | [facility] | + + + + | 2022-09-28 00:00 | POTASSIUM CHLORIDE | [facility] | + + + + | 2022-10-05 00:00 | POTASSIUM CHLORIDE | [facility] | + + + + | 2022-10-27 00:00 | POTASSIUM CHLORIDE | [facility] | + + + + | 2022-12-01 00:00 | POTASSIUM CHLORIDE | [facility] | + + + + | 2023-01-12 00:00 | POTASSIUM CHLORIDE | [facility] | + + + + | 2023-01-30 00:00 | POTASSIUM CHLORIDE | [facility] | + + + + | 2022-02-11 00:00 | POTASSIUM CHLORIDE | [facility] | + + + + | 2022-03-10 00:00 | POTASSIUM CHLORIDE | [facility] | + + + + | 2022-09-28 00:00 | POTASSIUM CHLORIDE | [facility] | + + + + | 2022-10-05 00:00 | POTASSIUM CHLORIDE | [facility] | + + + + | 2022-10-27 00:00 | POTASSIUM CHLORIDE | [facility] | + + + + | 2022-12-01 00:00 | POTASSIUM CHLORIDE | [facility] | + + + + | 2023-01-12 00:00 | POTASSIUM CHLORIDE | [facility] | + + + + | 2023-01-30 00:00 | POTASSIUM CHLORIDE | [facility] | + + + + | 2022-02-11 00:00 | ALLOPURINOL | [facility] | + + + + | 2022-03-10 00:00 | ALLOPURINOL | [facility] | + + + + | 2022-09-28 00:00 | ALLOPURINOL | [facility] | + + + + | 2022-10-05 00:00 | ALLOPURINOL | [facility] | + + + + | 2022-10-27 00:00 | ALLOPURINOL | [facility] | + + + + | 2022-12-01 00:00 | ALLOPURINOL | [facility] | + + + + | 2023-01-12 00:00 | ALLOPURINOL | [facility] | + + + + | 2023-01-30 00:00 | ALLOPURINOL | [facility] | + + + + | 2022-02-11 00:00 | AMLODIPINE BESYLATE | [facility] | + + + + | 2022-03-10 00:00 | AMLODIPINE BESYLATE | [facility] | + + + + | 2022-09-28 00:00 | AMLODIPINE BESYLATE | [facility] | + + + + | 2022-10-05 00:00 | AMLODIPINE BESYLATE | [facility] | + + + + | 2022-10-27 00:00 | AMLODIPINE BESYLATE | [facility] | + + + + | 2022-12-01 00:00 | AMLODIPINE BESYLATE | [facility] | + + + + | 2023-01-12 00:00 | AMLODIPINE BESYLATE | [facility] | + + + + | 2023-01-30 00:00 | AMLODIPINE BESYLATE | [facility] | + + + + | 2022-02-11 00:00 | BACLOFEN | [facility] | + + + + | 2022-03-10 00:00 | BACLOFEN | [facility] | + + + + | 2022-09-28 00:00 | BACLOFEN | [facility] | + + + + | 2022-10-05 00:00 | BACLOFEN | [facility] | + + + + | 2022-10-27 00:00 | BACLOFEN | [facility] | + + + + | 2022-12-01 00:00 | BACLOFEN | [facility] | + + + + | 2023-01-12 00:00 | BACLOFEN | [facility] | + + + + | 2023-01-30 00:00 | BACLOFEN | [facility] | + + + + | 2022-02-11 00:00 | BETAMETHASONE VALERATE | [facility] | + + + + | 2022-03-10 00:00 | BETAMETHASONE VALERATE | [facility] | + + + + | 2022-09-28 00:00 | BETAMETHASONE VALERATE | [facility] | + + + + | 2022-10-05 00:00 | BETAMETHASONE VALERATE | [facility] | + + + + | 2022-10-27 00:00 | BETAMETHASONE VALERATE | [facility] | + + + + | 2022-12-01 00:00 | BETAMETHASONE VALERATE | [facility] | + + + + | 2023-01-12 00:00 | BETAMETHASONE VALERATE | [facility] | + + + + | 2023-01-30 00:00 | BETAMETHASONE VALERATE | [facility] | + + + + | 2022-02-11 00:00 | LOVASTATIN | [facility] | + + + + | 2022-03-10 00:00 | LOVASTATIN | [facility] | + + + + | 2022-09-28 00:00 | LOVASTATIN | [facility] | + + + + | 2022-10-05 00:00 | LOVASTATIN | [facility] | + + + + | 2022-10-27 00:00 | LOVASTATIN | [facility] | + + + + | 2022-12-01 00:00 | LOVASTATIN | [facility] | + + + + | 2023-01-12 00:00 | LOVASTATIN | [facility] | + + + + | 2023-01-30 00:00 | LOVASTATIN | [facility] | + + + + | 2022-12-01 00:00 | METHOCARBAMOL | [facility] | + + + + | 2022-02-11 00:00 | NITROGLYCERIN | [facility] | + + + + | 2022-03-10 00:00 | NITROGLYCERIN | [facility] | + + + + | 2022-09-28 00:00 | NITROGLYCERIN | [facility] | + + + + | 2022-10-05 00:00 | NITROGLYCERIN | [facility] | + + + + | 2022-10-27 00:00 | NITROGLYCERIN | [facility] | + + + + | 2022-12-01 00:00 | NITROGLYCERIN | [facility] | + + + + | 2023-01-12 00:00 | NITROGLYCERIN | [facility] | + + + + | 2023-01-30 00:00 | NITROGLYCERIN | [facility] | + + + + | 2019-10-04 00:00 | OMEPRAZOLE | [facility] | + + + + | 2022-02-11 00:00 | TORSEMIDE | [facility] | + + + + | 2022-03-10 00:00 | TORSEMIDE | [facility] | + + + + | 2022-09-28 00:00 | TORSEMIDE | [facility] | + + + + | 2022-10-05 00:00 | TORSEMIDE | [facility] | + + + + | 2022-10-27 00:00 | TORSEMIDE | [facility] | + + + + | 2022-12-01 00:00 | TORSEMIDE | [facility] | + + + + | 2023-01-12 00:00 | TORSEMIDE | [facility] | + + + + | 2023-01-30 00:00 | TORSEMIDE | [facility] | + + + + | 2022-02-11 00:00 | ASPIRIN | [facility] | + + + + | 2022-03-10 00:00 | ASPIRIN | [facility] | + + + + | 2022-09-28 00:00 | ASPIRIN | [facility] | + + + + | 2022-10-05 00:00 | ASPIRIN | [facility] | + + + + | 2022-10-27 00:00 | ASPIRIN | [facility] | + + + + | 2022-12-01 00:00 | ASPIRIN | [facility] | + + + + | 2023-01-12 00:00 | ASPIRIN | [facility] | + + + + | 2023-01-30 00:00 | ASPIRIN | [facility] | + + + + | 2022-02-11 00:00 | HYDROCHLOROTHIAZIDE | [facility] | + + + + | 2022-03-10 00:00 | HYDROCHLOROTHIAZIDE | [facility] | + + + + | 2022-09-28 00:00 | HYDROCHLOROTHIAZIDE | [facility] | + + + + | 2022-10-05 00:00 | HYDROCHLOROTHIAZIDE | [facility] | + + + + | 2022-10-27 00:00 | HYDROCHLOROTHIAZIDE | [facility] | + + + + | 2022-12-01 00:00 | HYDROCHLOROTHIAZIDE | [facility] | + + + + | 2023-01-12 00:00 | HYDROCHLOROTHIAZIDE | [facility] | + + + + | 2023-01-30 00:00 | HYDROCHLOROTHIAZIDE | [facility] | + + + + | 2020-08-06 00:00 | CARVEDILOL | [facility] | + + + + | 2022-02-11 00:00 | CARVEDILOL | [facility] | + + + + | 2022-03-10 00:00 | CARVEDILOL | [facility] | + + + + | 2022-09-28 00:00 | CARVEDILOL | [facility] | + + + + | 2022-10-05 00:00 | CARVEDILOL | [facility] | + + + + | 2022-10-27 00:00 | CARVEDILOL | [facility] | + + + + | 2022-12-01 00:00 | CARVEDILOL | [facility] | + + + + | 2023-01-12 00:00 | CARVEDILOL | [facility] | + + + + | 2023-01-30 00:00 | CARVEDILOL | [facility] | + + + + | 2022-02-11 00:00 | OMEPRAZOLE | [facility] | + + + + | 2022-03-10 00:00 | OMEPRAZOLE | [facility] | + + + + | 2022-09-28 00:00 | OMEPRAZOLE | [facility] | + + + + | 2022-10-05 00:00 | OMEPRAZOLE | [facility] | + + + + | 2022-10-27 00:00 | OMEPRAZOLE | [facility] | + + + + | 2022-12-01 00:00 | OMEPRAZOLE | [facility] | + + + + | 2023-01-12 00:00 | OMEPRAZOLE | [facility] | + + + + | 2023-01-30 00:00 | OMEPRAZOLE | [facility] | + + + + | 2022-02-11 00:00 | FUROSEMIDE | [facility] | + + + + | 2022-03-10 00:00 | FUROSEMIDE | [facility] | + + + + | 2022-09-28 00:00 | FUROSEMIDE | [facility] | + + + + | 2022-10-05 00:00 | FUROSEMIDE | [facility] | + + + + | 2022-10-27 00:00 | FUROSEMIDE | [facility] | + + + + | 2022-12-01 00:00 | FUROSEMIDE | [facility] | + + + + | 2023-01-12 00:00 | FUROSEMIDE | [facility] | + + + + | 2023-01-30 00:00 | FUROSEMIDE | [facility] | + + + + | 2022-02-11 00:00 | SPIRONOLACTONE | [facility] | + + + + | 2022-03-10 00:00 | SPIRONOLACTONE | [facility] | + + + + | 2022-09-28 00:00 | SPIRONOLACTONE | [facility] | + + + + | 2022-10-05 00:00 | SPIRONOLACTONE | [facility] | + + + + | 2022-10-27 00:00 | SPIRONOLACTONE | [facility] | + + + + | 2022-12-01 00:00 | SPIRONOLACTONE | [facility] | + + + + | 2023-01-12 00:00 | SPIRONOLACTONE | [facility] | + + + + | 2023-01-30 00:00 | SPIRONOLACTONE | [facility] | + + + + | 2022-02-11 00:00 | NEOMYCIN/POLYMYXIN B | [facility] | | | SULF/HC | | + + + + | 2022-03-10 00:00 | NEOMYCIN/POLYMYXIN B | [facility] | | | SULF/HC | | + + + + | 2022-09-28 00:00 | NEOMYCIN/POLYMYXIN B | [facility] | | | SULF/HC | | + + + + | 2022-10-05 00:00 | NEOMYCIN/POLYMYXIN B | [facility] | | | SULF/HC | | + + + + | 2022-10-27 00:00 | NEOMYCIN/POLYMYXIN B | [facility] | | | SULF/HC | | + + + + | 2022-12-01 00:00 | NEOMYCIN/POLYMYXIN B | [facility] | | | SULF/HC | | + + + + | 2023-01-12 00:00 | NEOMYCIN/POLYMYXIN B | [facility] | | | SULF/HC | | + + + + | 2023-01-30 00:00 | NEOMYCIN/POLYMYXIN B | [facility] | | | SULF/HC | | + + + + | 2013-09-09 00:00 | CIPROFLOXACIN HCL | [facility] | + + + + | 2022-02-11 00:00 | CIPROFLOXACIN HCL | [facility] | + + + + | 2022-03-10 00:00 | CIPROFLOXACIN HCL | [facility] | + + + + | 2022-09-28 00:00 | CIPROFLOXACIN HCL | [facility] | + + + + | 2022-10-05 00:00 | CIPROFLOXACIN HCL | [facility] | + + + + | 2022-10-27 00:00 | CIPROFLOXACIN HCL | [facility] | + + + + | 2022-12-01 00:00 | CIPROFLOXACIN HCL | [facility] | + + + + | 2023-01-12 00:00 | CIPROFLOXACIN HCL | [facility] | + + + + | 2023-01-30 00:00 | CIPROFLOXACIN HCL | [facility] | + + + + | 2013-09-09 00:00 | METRONIDAZOLE | [facility] | + + + + | 2022-02-11 00:00 | METRONIDAZOLE | [facility] | + + + + | 2022-03-10 00:00 | METRONIDAZOLE | [facility] | + + + + | 2022-09-28 00:00 | METRONIDAZOLE | [facility] | + + + + | 2022-10-05 00:00 | METRONIDAZOLE | [facility] | + + + + | 2022-10-27 00:00 | METRONIDAZOLE | [facility] | + + + + | 2022-12-01 00:00 | METRONIDAZOLE | [facility] | + + + + | 2023-01-12 00:00 | METRONIDAZOLE | [facility] | + + + + | 2023-01-30 00:00 | METRONIDAZOLE | [facility] | + + + + | 2022-02-11 00:00 | SUCRALFATE | [facility] | + + + + | 2022-03-10 00:00 | SUCRALFATE | [facility] | + + + + | 2022-09-28 00:00 | SUCRALFATE | [facility] | + + + + | 2022-10-05 00:00 | SUCRALFATE | [facility] | + + + + | 2022-10-27 00:00 | SUCRALFATE | [facility] | + + + + | 2022-12-01 00:00 | SUCRALFATE | [facility] | + + + + | 2023-01-12 00:00 | SUCRALFATE | [facility] | + + + + | 2023-01-30 00:00 | SUCRALFATE | [facility] | + + + + | 2022-02-11 00:00 | ASPIRIN | [facility] | + + + + | 2022-03-10 00:00 | ASPIRIN | [facility] | + + + + | 2022-09-28 00:00 | ASPIRIN | [facility] | + + + + | 2022-10-05 00:00 | ASPIRIN | [facility] | + + + + | 2022-10-27 00:00 | ASPIRIN | [facility] | + + + + | 2022-12-01 00:00 | ASPIRIN | [facility] | + + + + | 2023-01-12 00:00 | ASPIRIN | [facility] | + + + + | 2023-01-30 00:00 | ASPIRIN | [facility] | + + + + | 2017-09-12 00:00 | CARVEDILOL | [facility] | + + + + | 2017-09-12 00:00 | CARVEDILOL | [facility] | + + + + | 2022-02-11 00:00 | CARVEDILOL | [facility] | + + + + | 2022-03-10 00:00 | CARVEDILOL | [facility] | + + + + | 2022-09-28 00:00 | CARVEDILOL | [facility] | + + + + | 2022-10-05 00:00 | CARVEDILOL | [facility] | + + + + | 2022-10-27 00:00 | CARVEDILOL | [facility] | + + + + | 2022-12-01 00:00 | CARVEDILOL | [facility] | + + + + | 2023-01-12 00:00 | CARVEDILOL | [facility] | + + + + | 2023-01-30 00:00 | CARVEDILOL | [facility] | + + + + | 2022-02-11 00:00 | AMLODIPINE BESYLATE | [facility] | + + + + | 2022-03-10 00:00 | AMLODIPINE BESYLATE | [facility] | + + + + | 2022-09-28 00:00 | AMLODIPINE BESYLATE | [facility] | + + + + | 2022-10-05 00:00 | AMLODIPINE BESYLATE | [facility] | + + + + | 2022-10-27 00:00 | AMLODIPINE BESYLATE | [facility] | + + + + | 2022-12-01 00:00 | AMLODIPINE BESYLATE | [facility] | + + + + | 2023-01-12 00:00 | AMLODIPINE BESYLATE | [facility] | + + + + | 2023-01-30 00:00 | AMLODIPINE BESYLATE | [facility] | + + + + | 2022-02-11 00:00 | MAGNESIUM OXIDE | [facility] | + + + + | 2022-03-10 00:00 | MAGNESIUM OXIDE | [facility] | + + + + | 2022-09-28 00:00 | MAGNESIUM OXIDE | [facility] | + + + + | 2022-10-05 00:00 | MAGNESIUM OXIDE | [facility] | + + + + | 2022-10-27 00:00 | MAGNESIUM OXIDE | [facility] | + + + + | 2022-12-01 00:00 | MAGNESIUM OXIDE | [facility] | + + + + | 2023-01-12 00:00 | MAGNESIUM OXIDE | [facility] | + + + + | 2023-01-30 00:00 | MAGNESIUM OXIDE | [facility] | + + + + | 2022-02-11 00:00 | CALCIUM CARBONATE | [facility] | + + + + | 2022-03-10 00:00 | CALCIUM CARBONATE | [facility] | + + + + | 2022-09-28 00:00 | CALCIUM CARBONATE | [facility] | + + + + | 2022-10-05 00:00 | CALCIUM CARBONATE | [facility] | + + + + | 2022-10-27 00:00 | CALCIUM CARBONATE | [facility] | + + + + | 2022-12-01 00:00 | CALCIUM CARBONATE | [facility] | + + + + | 2023-01-12 00:00 | CALCIUM CARBONATE | [facility] | + + + + | 2023-01-30 00:00 | CALCIUM CARBONATE | [facility] | + + + + | 2014-05-19 00:00 | PANTOPRAZOLE SODIUM | [facility] | + + + + | 2022-02-11 00:00 | ASPIRIN | [facility] | + + + + | 2022-03-10 00:00 | ASPIRIN | [facility] | + + + + | 2022-09-28 00:00 | ASPIRIN | [facility] | + + + + | 2022-10-05 00:00 | ASPIRIN | [facility] | + + + + | 2022-10-27 00:00 | ASPIRIN | [facility] | + + + + | 2022-12-01 00:00 | ASPIRIN | [facility] | + + + + | 2023-01-12 00:00 | ASPIRIN | [facility] | + + + + | 2023-01-30 00:00 | ASPIRIN | [facility] | + + + + | 2022-10-05 00:00 | AZITHROMYCIN | [facility] | + + + + | 2022-10-27 00:00 | AZITHROMYCIN | [facility] | + + + + | 2020-08-21 00:00 | CEPHALEXIN | [facility] | + + + + | 2022-02-11 00:00 | FUROSEMIDE | [facility] | + + + + | 2022-03-10 00:00 | FUROSEMIDE | [facility] | + + + + | 2022-09-28 00:00 | FUROSEMIDE | [facility] | + + + + | 2022-10-05 00:00 | FUROSEMIDE | [facility] | + + + + | 2022-10-27 00:00 | FUROSEMIDE | [facility] | + + + + | 2022-12-01 00:00 | FUROSEMIDE | [facility] | + + + + | 2023-01-12 00:00 | FUROSEMIDE | [facility] | + + + + | 2023-01-30 00:00 | FUROSEMIDE | [facility] | + + + + | 2022-02-11 00:00 | METRONIDAZOLE | [facility] | + + + + | 2022-03-10 00:00 | METRONIDAZOLE | [facility] | + + + + | 2022-09-28 00:00 | METRONIDAZOLE | [facility] | + + + + | 2022-10-05 00:00 | METRONIDAZOLE | [facility] | + + + + | 2022-10-27 00:00 | METRONIDAZOLE | [facility] | + + + + | 2022-12-01 00:00 | METRONIDAZOLE | [facility] | + + + + | 2023-01-12 00:00 | METRONIDAZOLE | [facility] | + + + + | 2023-01-30 00:00 | METRONIDAZOLE | [facility] | + + + + | 2020-08-06 00:00 | NYSTATIN | [facility] | + + + + | 2017-07-26 00:00 | predniSONE | [facility] | + + + + | 2022-02-11 00:00 | RANITIDINE HCL | [facility] | + + + + | 2022-03-10 00:00 | RANITIDINE HCL | [facility] | + + + + | 2022-09-28 00:00 | RANITIDINE HCL | [facility] | + + + + | 2022-10-05 00:00 | RANITIDINE HCL | [facility] | + + + + | 2022-10-27 00:00 | RANITIDINE HCL | [facility] | + + + + | 2022-12-01 00:00 | RANITIDINE HCL | [facility] | + + + + | 2023-01-12 00:00 | RANITIDINE HCL | [facility] | + + + + | 2023-01-30 00:00 | RANITIDINE HCL | [facility] | + + + + | 2022-02-11 00:00 | SERTRALINE HCL | [facility] | + + + + | 2022-03-10 00:00 | SERTRALINE HCL | [facility] | + + + + | 2022-09-28 00:00 | SERTRALINE HCL | [facility] | + + + + | 2022-10-05 00:00 | SERTRALINE HCL | [facility] | + + + + | 2022-10-27 00:00 | SERTRALINE HCL | [facility] | + + + + | 2022-12-01 00:00 | SERTRALINE HCL | [facility] | + + + + | 2023-01-12 00:00 | SERTRALINE HCL | [facility] | + + + + | 2023-01-30 00:00 | SERTRALINE HCL | [facility] | + + + + | 2020-08-30 00:00 | SODIUM CHLORIDE | [facility] | + + + + | 2022-02-11 00:00 | SPIRONOLACTONE | [facility] | + + + + | 2022-03-10 00:00 | SPIRONOLACTONE | [facility] | + + + + | 2022-09-28 00:00 | SPIRONOLACTONE | [facility] | + + + + | 2022-10-05 00:00 | SPIRONOLACTONE | [facility] | + + + + | 2022-10-27 00:00 | SPIRONOLACTONE | [facility] | + + + + | 2022-12-01 00:00 | SPIRONOLACTONE | [facility] | + + + + | 2023-01-12 00:00 | SPIRONOLACTONE | [facility] | + + + + | 2023-01-30 00:00 | SPIRONOLACTONE | [facility] | + + + + | 2022-02-11 00:00 | SUCRALFATE | [facility] | + + + + | 2022-03-10 00:00 | SUCRALFATE | [facility] | + + + + | 2022-09-28 00:00 | SUCRALFATE | [facility] | + + + + | 2022-10-05 00:00 | SUCRALFATE | [facility] | + + + + | 2022-10-27 00:00 | SUCRALFATE | [facility] | + + + + | 2022-12-01 00:00 | SUCRALFATE | [facility] | + + + + | 2023-01-12 00:00 | SUCRALFATE | [facility] | + + + + | 2023-01-30 00:00 | SUCRALFATE | [facility] | + + + + | 2020-08-21 00:00 | VANCOMYCIN HCL | [facility] | + + + + | 2022-02-11 00:00 | VANCOMYCIN HCL | [facility] | + + + + | 2022-03-10 00:00 | VANCOMYCIN HCL | [facility] | + + + + | 2022-09-28 00:00 | VANCOMYCIN HCL | [facility] | + + + + | 2022-10-05 00:00 | VANCOMYCIN HCL | [facility] | + + + + | 2022-10-27 00:00 | VANCOMYCIN HCL | [facility] | + + + + | 2022-12-01 00:00 | VANCOMYCIN HCL | [facility] | + + + + | 2023-01-12 00:00 | VANCOMYCIN HCL | [facility] | + + + + | 2023-01-30 00:00 | VANCOMYCIN HCL | [facility] | + + + + | 2022-02-11 00:00 | POTASSIUM CHLORIDE | [facility] | + + + + | 2022-03-10 00:00 | POTASSIUM CHLORIDE | [facility] | + + + + | 2022-09-28 00:00 | POTASSIUM CHLORIDE | [facility] | + + + + | 2022-10-05 00:00 | POTASSIUM CHLORIDE | [facility] | + + + + | 2022-10-27 00:00 | POTASSIUM CHLORIDE | [facility] | + + + + | 2022-12-01 00:00 | POTASSIUM CHLORIDE | [facility] | + + + + | 2023-01-12 00:00 | POTASSIUM CHLORIDE | [facility] | + + + + | 2023-01-30 00:00 | POTASSIUM CHLORIDE | [facility] | + + + + | 2022-02-11 00:00 | SITAGLIPTIN PHOSPHATE | [facility] | + + + + | 2022-03-10 00:00 | SITAGLIPTIN PHOSPHATE | [facility] | + + + + | 2022-09-28 00:00 | SITAGLIPTIN PHOSPHATE | [facility] | + + + + | 2022-10-05 00:00 | SITAGLIPTIN PHOSPHATE | [facility] | + + + + | 2022-10-27 00:00 | SITAGLIPTIN PHOSPHATE | [facility] | + + + + | 2022-12-01 00:00 | SITAGLIPTIN PHOSPHATE | [facility] | + + + + | 2023-01-12 00:00 | SITAGLIPTIN PHOSPHATE | [facility] | + + + + | 2023-01-30 00:00 | SITAGLIPTIN PHOSPHATE | [facility] | + + + + | 2017-07-26 00:00 | ALBUTEROL SULFATE MDI | [facility] | | | (HFA) | | + + + + | 2022-10-05 00:00 | Diclofenac Sodium | [facility] | + + + + | 2022-10-27 00:00 | Diclofenac Sodium | [facility] | + + + + | 2022-12-01 00:00 | Diclofenac Sodium | [facility] | + + + + | 2023-01-12 00:00 | Diclofenac Sodium | [facility] | + + + + | 2023-01-30 00:00 | Diclofenac Sodium | [facility] | + + + + | 2022-02-11 00:00 | HYDROCODONE | [facility] | | | BIT/ACETAMINOPHEN | | + + + + | 2022-03-10 00:00 | HYDROCODONE | [facility] | | | BIT/ACETAMINOPHEN | | + + + + | 2022-09-28 00:00 | HYDROCODONE | [facility] | | | BIT/ACETAMINOPHEN | | + + + + | 2022-10-05 00:00 | HYDROCODONE | [facility] | | | BIT/ACETAMINOPHEN | | + + + + | 2022-10-27 00:00 | HYDROCODONE | [facility] | | | BIT/ACETAMINOPHEN | | + + + + | 2022-12-01 00:00 | HYDROCODONE | [facility] | | | BIT/ACETAMINOPHEN | | + + + + | 2023-01-12 00:00 | HYDROCODONE | [facility] | | | BIT/ACETAMINOPHEN | | + + + + | 2023-01-29 00:00 | HYDROCODONE | [facility] | | | BIT/ACETAMINOPHEN | | + + + + | 2023-01-30 00:00 | HYDROCODONE | [facility] | | | BIT/ACETAMINOPHEN | | + + + + | 2013-08-17 00:00 | HYDROCODONE | [facility] | | | BIT/ACETAMINOPHEN | | + + + + | 2022-10-05 00:00 | ALBUTEROL SULFATE | [facility] | + + + + | 2022-02-11 00:00 | METFORMIN HCL | [facility] | + + + + | 2022-03-10 00:00 | METFORMIN HCL | [facility] | + + + + | 2022-09-28 00:00 | METFORMIN HCL | [facility] | + + + + | 2022-10-05 00:00 | METFORMIN HCL | [facility] | + + + + | 2022-10-27 00:00 | METFORMIN HCL | [facility] | + + + + | 2022-12-01 00:00 | METFORMIN HCL | [facility] | + + + + | 2023-01-12 00:00 | METFORMIN HCL | [facility] | + + + + | 2023-01-30 00:00 | METFORMIN HCL | [facility] | + + + + | 2022-02-11 00:00 | OXYBUTYNIN CHLORIDE | [facility] | + + + + | 2022-03-10 00:00 | OXYBUTYNIN CHLORIDE | [facility] | + + + + | 2022-09-28 00:00 | OXYBUTYNIN CHLORIDE | [facility] | + + + + | 2022-10-05 00:00 | OXYBUTYNIN CHLORIDE | [facility] | + + + + | 2022-10-27 00:00 | OXYBUTYNIN CHLORIDE | [facility] | + + + + | 2022-12-01 00:00 | OXYBUTYNIN CHLORIDE | [facility] | + + + + | 2023-01-12 00:00 | OXYBUTYNIN CHLORIDE | [facility] | + + + + | 2023-01-30 00:00 | OXYBUTYNIN CHLORIDE | [facility] | + + + + | 2022-02-11 00:00 | CLONIDINE HCL | [facility] | + + + + | 2022-03-10 00:00 | CLONIDINE HCL | [facility] | + + + + | 2022-09-28 00:00 | CLONIDINE HCL | [facility] | + + + + | 2022-10-05 00:00 | CLONIDINE HCL | [facility] | + + + + | 2022-10-27 00:00 | CLONIDINE HCL | [facility] | + + + + | 2022-12-01 00:00 | CLONIDINE HCL | [facility] | + + + + | 2023-01-12 00:00 | CLONIDINE HCL | [facility] | + + + + | 2023-01-30 00:00 | CLONIDINE HCL | [facility] | + + + + | 2022-02-11 00:00 | VERAPAMIL HCL | [facility] | + + + + | 2022-03-10 00:00 | VERAPAMIL HCL | [facility] | + + + + | 2022-09-28 00:00 | VERAPAMIL HCL | [facility] | + + + + | 2022-10-05 00:00 | VERAPAMIL HCL | [facility] | + + + + | 2022-10-27 00:00 | VERAPAMIL HCL | [facility] | + + + + | 2022-12-01 00:00 | VERAPAMIL HCL | [facility] | + + + + | 2023-01-12 00:00 | VERAPAMIL HCL | [facility] | + + + + | 2023-01-30 00:00 | VERAPAMIL HCL | [facility] | + + + + | 2022-02-11 00:00 | VERAPAMIL HCL | [facility] | + + + + | 2022-03-10 00:00 | VERAPAMIL HCL | [facility] | + + + + | 2022-09-28 00:00 | VERAPAMIL HCL | [facility] | + + + + | 2022-10-05 00:00 | VERAPAMIL HCL | [facility] | + + + + | 2022-10-27 00:00 | VERAPAMIL HCL | [facility] | + + + + | 2022-12-01 00:00 | VERAPAMIL HCL | [facility] | + + + + | 2023-01-12 00:00 | VERAPAMIL HCL | [facility] | + + + + | 2023-01-30 00:00 | VERAPAMIL HCL | [facility] | + + + + | 2022-02-11 00:00 | VERAPAMIL HCL | [facility] | + + + + | 2022-03-10 00:00 | VERAPAMIL HCL | [facility] | + + + + | 2022-09-28 00:00 | VERAPAMIL HCL | [facility] | + + + + | 2022-10-05 00:00 | VERAPAMIL HCL | [facility] | + + + + | 2022-10-27 00:00 | VERAPAMIL HCL | [facility] | + + + + | 2022-12-01 00:00 | VERAPAMIL HCL | [facility] | + + + + | 2023-01-12 00:00 | VERAPAMIL HCL | [facility] | + + + + | 2023-01-30 00:00 | VERAPAMIL HCL | [facility] | + + + + | 2020-08-06 00:00 | BENAZEPRIL HCL | [facility] | + + + + | 2022-02-11 00:00 | BENAZEPRIL HCL | [facility] | + + + + | 2022-03-10 00:00 | BENAZEPRIL HCL | [facility] | + + + + | 2022-09-28 00:00 | BENAZEPRIL HCL | [facility] | + + + + | 2022-10-05 00:00 | BENAZEPRIL HCL | [facility] | + + + + | 2022-10-27 00:00 | BENAZEPRIL HCL | [facility] | + + + + | 2022-12-01 00:00 | BENAZEPRIL HCL | [facility] | + + + + | 2023-01-12 00:00 | BENAZEPRIL HCL | [facility] | + + + + | 2023-01-30 00:00 | BENAZEPRIL HCL | [facility] | + + + + | 2022-02-11 00:00 | BENAZEPRIL HCL | [facility] | + + + + | 2022-03-10 00:00 | BENAZEPRIL HCL | [facility] | + + + + | 2022-09-28 00:00 | BENAZEPRIL HCL | [facility] | + + + + | 2022-10-05 00:00 | BENAZEPRIL HCL | [facility] | + + + + | 2022-10-27 00:00 | BENAZEPRIL HCL | [facility] | + + + + | 2022-12-01 00:00 | BENAZEPRIL HCL | [facility] | + + + + | 2023-01-12 00:00 | BENAZEPRIL HCL | [facility] | + + + + | 2023-01-30 00:00 | BENAZEPRIL HCL | [facility] | + + + + | 2020-08-30 00:00 | MECLIZINE HCL | [facility] | + + + + | 2022-03-08 00:00 | MECLIZINE HCL | [facility] | + + + + Problems + + + + | date | description | facility | + + + + | 2014-05-19 00:00 | Abdominal pain | [facility] | + + + + | 2015-07-20 00:00 | Paroxysmal atrial | [facility] | | | fibrillation | | + + + + | 2015-07-24 00:00 | Benign hypertension | [facility] | + + + + | 2015-09-28 00:00 | Low back pain | [facility] | + + + + | 2016-07-13 00:00 | Gastrointestinal | [facility] | | | hemorrhage | | + + + + | 2016-11-01 00:00 | Adverse reaction to drug | [facility] | + + + + | 2016-11-02 00:00 | Adverse reaction to drug | [facility] | + + + + | 2017-01-11 00:00 | Diastolic congestive heart | [facility] | | | failure | | + + + + | 2017-02-16 00:00 | Nonspecific chest pain | [facility] | + + + + | 2017-07-26 00:00 | Acute bronchitis due to | [facility] | | | chemical | | + + + + | 2017-09-12 00:00 | Bradycardia | [facility] | + + + + | 2020-02-22 00:00 | Chest pain due to | [facility] | | | gastrointestinal reflux | | | | disease | | + + + + | 2020-08-04 00:00 | Hyponatremia | [facility] | + + + + | 2020-08-21 00:00 | Colitis due to | [facility] | | | Clostridioides difficile | | + + + + | 2020-08-21 00:00 | Urinary tract infection | [facility] | + + + + | 2020-08-30 00:00 | Increased frequency of | [facility] | | | urination | | + + + + | 2020-08-30 00:00 | Dizziness | [facility] | + + + + | 2020-10-20 00:00 | Palpitations | [facility] | + + + + | 2021-03-15 00:00 | Gastroesophageal reflux | [facility] | | | disease | | + + + + | 2021-03-15 00:00 | Chest pain | [facility] | + + + + | 2021-05-24 00:00 | Chronic atrial | [facility] | | | fibrillation | | + + + + | 2021-05-24 00:00 | Atrial fibrillation | [facility] | + + + + | 2021-05-24 00:00 | Chronic gastroesophageal | [facility] | | | reflux disease | | + + + + | 2021-08-06 00:00 | Gastroenteritis | [facility] | + + + + | 2021-10-30 00:00 | Hypomagnesemia | [facility] | + + + + | 2021-10-30 00:00 | Hypokalemia | [facility] | + + + + | 2022-03-08 00:00 | Congestive heart failure | [facility] | + + + + | 2022-03-08 00:00 | Vertigo | [facility] | + + + + | 2022-08-11 13:55 | UNILATERAL PRIMARY | [facility] | | | OSTEOARTHRITIS, RIGHT KNEE | | + + + + | 2022-08-11 13:55 | UNSP ROTATR-CUFF | [facility] | | | TEAR/RUPTR OF LEFT | | | | SHOULDER, NOT | | + + + + | 2022-09-28 00:00 | Acute bronchitis | [facility] | + + + + | 2022-12-01 00:00 | Pain in both lower | [facility] | | | extremities | | + + + + | 2022-12-08 11:00 | PAIN IN LEFT SHOULDER | [facility] | + + + + | 2022-12-08 11:00 | SPINAL STENOSIS, 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 CLA | | + + + + | 2022-12-08 11:00 | MUSCLE WEAKNESS | [facility] | | | (GENERALIZED) | | + + + + | 2023-01-04 09:56 | PAIN IN LEFT SHOULDER | [facility] | + + + + | 2023-01-04 09:56 | SPINAL STENOSIS, 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 | | | | CLAUDICATION | | + + + + | 2023-01-04 09:56 | MUSCLE WEAKNESS | [facility] | | | (GENERALIZED) | | + + + + | 2023-01-12 00:00 | Spinal stenosis of lumbar | [facility] | | | region at multiple levels | | + + + + | 2023-01-12 19:45 | 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[facility] | | | WITHOUT COMPLICATIONS | | + + + + | 2023-01-12 19:45 | HYPERTENSIVE HEART DISEASE | [facility] | | | WITH HEART FAILURE | | + + + + | 2023-01-12 19:45 | UNSPECIFIED ATRIAL | [facility] | | | FIBRILLATION | | + + + + | 2023-01-12 19:45 | HEART FAILURE, UNSPECIFIED | [facility] | | | | | + + + + | 2023-01-12 19:45 | SPINAL STENOSIS, 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 WITHOUT NEUROGENIC | | + + + + | 2023-01-12 19:45 | LOW BACK PAIN, UNSPECIFIED | [facility] | | | | | + + + + | 2023-01-12 19:45 | HALF-WAY (CURRENT) USE OF | [facility] | | | ANTICOAGULANTS | | + + + + | 2023-01-12 19:45 | OTHER HALF-WAY (CURRENT) | [facility] | | | DRUG THERAPY | | + + + + | 2023-01-12 19:45 | ALLERGY STATUS TO | [facility] | | | PENICILLIN | | + + + + | 2023-01-12 19:45 | ALLERGY STATUS TO | [facility] | | | SULFONAMIDES STATUS | | + + + + | 2023-01-12 19:45 | ALLERGY STATUS TO NARCOTIC | [facility] | | | AGENT STATUS | | + + + + | 2023-01-12 19:45 | ALLERGY STATUS TO OTH | [facility] | | | DRUG/MEDS/BIOL SUBST STATUS | | | | | | + + + + | 2023-01-29 00:00 | Back pain | [facility] | + + + + | 2023-01-29 22:19 | 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[facility] | | | WITHOUT COMPLICATIONS | | + + + + | 2023-01-29 22:19 | HYPERTENSIVE HEART DISEASE | [facility] | | | WITH HEART FAILURE | | + + + + | 2023-01-29 22:19 | UNSPECIFIED ATRIAL | [facility] | | | FIBRILLATION | | + + + + | 2023-01-29 22:19 | HEART FAILURE, UNSPECIFIED | [facility] | | | | | + + + + | 2023-01-29 22:19 | DORSALGIA, UNSPECIFIED | [facility] | + + + + | 2023-01-29 22:19 | HALF-WAY (CURRENT) USE OF | [facility] | | | ANTICOAGULANTS | | + + + + | 2023-01-29 22:19 | OTHER HALF-WAY (CURRENT) | [facility] | | | DRUG THERAPY | | + + + + | 2023-01-29 22:19 | ALLERGY STATUS TO | [facility] | | | SULFONAMIDES STATUS | | + + + + | 2023-01-29 22:19 | ALLERGY STATUS TO NARCOTIC | [facility] | | | AGENT STATUS | | + + + + | 2023-01-29 22:19 | ALLERGY STATUS TO OTH | [facility] | | | DRUG/MEDS/BIOL SUBST STATUS | | | | | | + + + + Procedures No information. Results/Labs +--------+--------+ +---------+--------+---------+ | test | date | facility | value | unit | notes | +--------+--------+ +---------+--------+---------+ + + | Result panel 1 | + + + + + +-------+ + + | | 2021-10-30 | [facility] | 8.7 | (missing) | (missing) | | (unavailable | 13:45 | [facility] | | | | + + + +-------+ + + + + | Result panel 2 | + + + + + +--------+ + + | | 2021-10-30 | [facility] | 4.41 | (missing) | (missing) | | (unavailable | 13:45 | [facility] | | | | + + + +--------+ + + + + | Result panel 3 | + + + + + +--------+ + + | | 2021-10-30 | [facility] | 13.9 | (missing) | (missing) | | (unavailable | 13:45 | [facility] | | | | + + + +--------+ + + + + | Result panel 4 | + + + + + +--------+ + + | | 2021-10-30 | [facility] | 41.9 | (missing) | (missing) | | (unavailable | 13:45 | [facility] | | | | + + + +--------+ + + + + | Result panel 5 | + + + + + +--------+ + + | | 2021-10-30 | [facility] | 94.9 | (missing) | (missing) | | (unavailable | 13:45 | [facility] | | | | + + + +--------+ + + + + | Result panel 6 | + + + + + +--------+ + + | | 2021-10-30 | [facility] | 31.5 | (missing) | (missing) | | (unavailable | 13:45 | [facility] | | | | + + + +--------+ + + + + | Result panel 7 | + + + + + +--------+ + + | | 2021-10-30 | [facility] | 33.2 | (missing) | (missing) | | (unavailable | 13:45 | [facility] | | | | + + + +--------+ + + + + | Result panel 8 | + + + + + +--------+ + + | | 2021-10-30 | [facility] | 13.7 | (missing) | (missing) | | (unavailable | 13:45 | [facility] | | | | + + + +--------+ + + + + | Result panel 9 | + + + + + +-------+ + + | | 2021-10-30 | [facility] | 258 | (missing) | (missing) | | (unavailable | 13:45 [facility] | | | | + + + +-------+ + + + + | Result panel 10 | + + + + + +--------+ + + | | 2021-10-30 | [facility] | 64.4 | (missing) | (missing) | | (unavailable | 13:45 | [facility] | | | | + + + +--------+ + + + + | Result panel 11 | + + + + + +--------+ + + | | 2021-10-30 | [facility] | 22.5 | (missing) | (missing) | | (unavailable | 13:45 | [facility] | | | | + + + +--------+ + + + + | Result panel 12 | + + + + + +-------+ + + | | 2021-10-30 | [facility] | 8.9 | (missing) | (missing) | | (unavailable | 13:45 | [facility] | | | | + + + +-------+ + + + + | Result panel 13 | + + + + + +-------+ + + | | 2021-10-30 | [facility] | 3.6 | (missing) | (missing) | | (unavailable | 13:45 | [facility] | | | | + + + +-------+ + + + + | Result panel 14 | + + + + + +-------+ + + | | 2021-10-30 | [facility] | 0.6 | (missing) | (missing) | | (unavailable | 13:45 | [facility] | | | | + + + +-------+ + + + + | Result panel 15 | + + + + + +-------+---------+ + | | 2021-10-30 | [facility] | 132 | mg/dL | (missing) | | (unavailable | 13:45 | [facility] | | | | + + + +-------+---------+ + + + | Result panel 16 | + + + + + +------+---------+ + | | 2021-10-30 | [facility] | 19 | mg/dL | (missing) | | (unavailable | 13:45 | [facility] | | | | + + + +------+---------+ + + + | Result panel 17 | + + + + + +--------+---------+ + | | 2021-10-30 | [facility] | 1.27 | mg/dL | (missing) | | (unavailable | 13:45 | [facility] | | | | + + + +--------+---------+ + + + | Result panel 18 | + + + + + +---------+ + + | | 2021-10-30 | [facility] | 40.59 | (missing) | (missing) | | (unavailable | 13:45 | [facility] | | | | + + + +---------+ + + + + | Result panel 19 | + + + + + +---------+ + + | | 2021-10-30 | [facility] | 14.96 | (missing) | (missing) | | (unavailable | 13:45 | [facility] | | | | + + + +---------+ + + + + | Result panel 20 | + + + + + +-------+ + + | | 2021-10-30 | [facility] | 137 | (missing) | (missing) | | (unavailable | 13:45 | [facility] | | | | + + + +-------+ + + + + | Result panel 21 | + + + + + +-------+ + + | | 2021-10-30 | [facility] | 3.2 | (missing) | (missing) | | (unavailable | 13:45 | [facility] | | | | + + + +-------+ + + + + | Result panel 22 | + + + + + +------+ + + | | 2021-10-30 | [facility] | 98 | (missing) | (missing) | | (unavailable | 13:45 [facility] | | | | + + + +------+ + + + + | Result panel 23 | + + + + + +------+ + + | | 2021-10-30 | [facility] | 30 | (missing) | (missing) | | (unavailable | 13:45 [facility] | | | | + + + +------+ + + + + | Result panel 24 | + + + + + +--------+ + + | | 2021-10-30 | [facility] | 12.2 | (missing) | (missing) | | (unavailable | 13:45 [facility] | | | | + + + +--------+ + + + + | Result panel 25 | + + + + + +-------+---------+ + | | 2021-10-30 | [facility] | 9.2 | mg/dL | (missing) | | (unavailable | 13:45 | [facility] | | | | + + + +-------+---------+ + + + | Result panel 26 | + + + + + +-------+---------+ + | | 2021-10-30 | [facility] | 1.5 | mg/dL | (missing) | | (unavailable | 13:45 | [facility] | | | | + + + +-------+---------+ + + + | Result panel 27 | + + + + + +-------+ + + | | 2021-10-30 | [facility] | 7.3 | (missing) | (missing) | | (unavailable | 13:45 [facility] | | | | + + + +-------+ + + + + | Result panel 28 | + + + + + +-------+ + + | | 2021-10-30 | [facility] | 3.7 | (missing) | (missing) | | (unavailable | 13:45 [facility] | | | | + + + +-------+ + + + + | Result panel 29 | + + + + + +-------+ + + | | 2021-10-30 | [facility] | 3.6 | (missing) | (missing) | | (unavailable | 13:45 [facility] | | | | + + + +-------+ + + + + | Result panel 30 | + + + + + +--------+ + + | | 2021-10-30 | [facility] | 1.03 | (missing) | (missing) | | (unavailable | 13:45 [facility] | | | | + + + +--------+ + + + + | Result panel 31 | + + + + + +-------+ + + | | 2021-10-30 | [facility] | 0.4 | (missing) | (missing) | | (unavailable | 13:45 [facility] | | | | + + + +-------+ + + + + | Result panel 32 | + + + + + +------+ + + | | 2021-10-30 | [facility] | 19 | (missing) | (missing) | | (unavailable | 13:45 [facility] | | | | + + + +------+ + + + + | Result panel 33 | + + + + + +------+ + + | | 2021-10-30 | [facility] | 22 | (missing) | (missing) | | (unavailable | 13:45 [facility] | | | | + + + +------+ + + + + | Result panel 34 | + + + + + +------+ + + | | 2021-10-30 | [facility] | 72 | (missing) | (missing) | | (unavailable | 13:45 [facility] | | | | + + + +------+ + + + + | Result panel 35 | + + + + + +-------+ + + | | 2021-10-30 | [facility] | 8.4 | (missing) | (missing) | | (unavailable | 13:45 | [facility] | | | | + + + +-------+ + + + + | Result panel 36 | + + + + + +-------+---------+ + | | 2021-10-30 | [facility] | 1.5 | mg/dL | (missing) | | (unavailable | 13:45 | [facility] | | | | + + + +-------+---------+ + + + | Result panel 37 | + + + + + +-------+ + + | | 2021-10-30 | [facility] | 8.4 | (missing) | (missing) | | (unavailable | 13:45 | [facility] | | | | + + + +-------+ + + + + | Result panel 38 | + + + + + +-------+ + + | | 2022-03-08 | [facility] | 8.1 | (missing) | (missing) | | (unavailable | 00:47 | [facility] | | | | + + + +-------+ + + + + | Result panel 39 | + + + + + +--------+ + + | | 2022-03-08 | [facility] | 4.40 | (missing) | (missing) | | (unavailable | 00:47 | [facility] | | | | + + + +--------+ + + + + | Result panel 40 | + + + + + +--------+ + + | | 2022-03-08 | [facility] | 13.8 | (missing) | (missing) | | (unavailable | 00:47 | [facility] | | | | + + + +--------+ + + + + | Result panel 41 | + + + + + +--------+ + + | | 2022-03-08 | [facility] | 41.3 | (missing) | (missing) | | (unavailable | 00:47 | [facility] | | | | + + + +--------+ + + + + | Result panel 42 | + + + + + +--------+ + + | | 2022-03-08 | [facility] | 93.7 | (missing) | (missing) | | (unavailable | 00:47 | [facility] | | | | + + + +--------+ + + + + | Result panel 43 | + + + + + +--------+ + + | | 2022-03-08 | [facility] | 31.3 | (missing) | (missing) | | (unavailable | 00:47 | [facility] | | | | + + + +--------+ + + + + | Result panel 44 | + + + + + +--------+ + + | | 2022-03-08 | [facility] | 33.4 | (missing) | (missing) | | (unavailable | 00:47 | [facility] | | | | + + + +--------+ + + + + | Result panel 45 | + + + + + +--------+ + + | | 2022-03-08 | [facility] | 14.1 | (missing) | (missing) | | (unavailable | 00:47 | [facility] | | | | + + + +--------+ + + + + | Result panel 46 | + + + + + +-------+ + + | | 2022-03-08 | [facility] | 279 | (missing) | (missing) | | (unavailable | 00:47 | [facility] | | | | + + + +-------+ + + + + | Result panel 47 | + + + + + +--------+ + + | | 2022-03-08 | [facility] | 53.8 | (missing) | (missing) | | (unavailable | 00:47 | [facility] | | | | + + + +--------+ + + + + | Result panel 48 | + + + + + +--------+ + + | | 2022-03-08 | [facility] | 32.2 | (missing) | (missing) | | (unavailable | 00:47 | [facility] | | | | + + + +--------+ + + + + | Result panel 49 | + + + + + +-------+ + + | | 2022-03-08 | [facility] | 8.6 | (missing) | (missing) | | (unavailable | 00:47 | [facility] | | | | + + + +-------+ + + + + | Result panel 50 | + + + + + +-------+ + + | | 2022-03-08 | [facility] [facility] | 4.3 | (missing) | (missing) | | (unavailable | 00:47 | [facility] | | | | + + + +-------+ + + + + | Result panel 51 | + + + + + +-------+ + + | | 2022-03-08 | [facility] | 1.1 | (missing) | (missing) | | (unavailable | 00:47 | [facility] | | | | + + + +-------+ + + + + | Result panel 52 | + + + + + +-------+---------+ + | | 2022-03-08 | [facility] | 114 | mg/dL | (missing) | | (unavailable | 00:47 | [facility] | | | + + + +-------+---------+ + + + | Result panel 53 | + + + + + +------+---------+ + | | 2022-03-08 | [facility] | 25 | mg/dL | (missing) | | (unavailable | 00:47 | [facility] | | | + + + +------+---------+ + + + | Result panel 54 | + + + + + +--------+---------+ + | | 2022-03-08 | [facility] | 1.12 | mg/dL | (missing) | | (unavailable | 00:47 | [facility] | | | + + + +--------+---------+ + + + | Result panel 55 | + + + + + +------+ + + | | 2022-03-08 | [facility] | 50 | (missing) | (missing) | | (unavailable | 00:47 | [facility] | | | + + + +------+ + + + + | Result panel 56 | + + + + + +---------+ + + | | 2022-03-08 | [facility] | 22.32 | (missing) | (missing) | | (unavailable | 00:47 | [facility] | | | + + + +---------+ + + + + | Result panel 57 | + + + + + +-------+ + + | | 2022-03-08 | [facility] | 136 | (missing) | (missing) | | (unavailable | 00:47 | [facility] | | | + + + +-------+ + + + + | Result panel 58 | + + + + + +-------+ + + | | 2022-03-08 | [facility] | 3.7 | (missing) | (missing) | | (unavailable | 00:47 | [facility] | | | + + + +-------+ + + + + | Result panel 59 | + + + + + +-------+ + + | | 2022-03-08 | [facility] | 101 | (missing) | (missing) | | (unavailable | 00:47 | [facility] | | | + + + +-------+ + + + + | Result panel 60 | + + + + + +------+ + + | | 2022-03-08 | [facility] | 28 | (missing) | (missing) | | (unavailable | 00:47 | [facility] | | | + + + +------+ + + + + | Result panel 61 | + + + + + +--------+ + + | | 2022-03-08 | [facility] | 10.7 | (missing) | (missing) | | (unavailable | 00:47 | [facility] | | | + + + +--------+ + + + + | Result panel 62 | + + + + + +-------+---------+ + | | 2022-03-08 | [facility] | 8.9 | mg/dL | (missing) | | (unavailable | 00:47 | [facility] | | | + + + +-------+---------+ + + + | Result panel 63 | + + + + + +-------+ + + | | 2022-03-08 | [facility] | 6.9 | (missing) | (missing) | | (unavailable | 00:47 | [facility] | | | + + + +-------+ + + + + | Result panel 64 | + + + + + +-------+ + + | | 2022-03-08 | [facility] | 3.5 | (missing) | (missing) | | (unavailable | 00:47 | [facility] | | | + + + +-------+ + + + + | Result panel 65 | + + + + + +-------+ + + | | 2022-03-08 | [facility] | 3.4 | (missing) | (missing) | | (unavailable | 00:47 | [facility] | | | + + + +-------+ + + + + | Result panel 66 | + + + + + +--------+ + + | | 2022-03-08 | [facility] | 1.03 | (missing) | (missing) | | (unavailable | 00:47 | [facility] | | | + + + +--------+ + + + + | Result panel 67 | + + + + + +-------+ + + | | 2022-03-08 | [facility] | 0.5 | (missing) | (missing) | | (unavailable | 00:47 | [facility] | | | + + + +-------+ + + + + | Result panel 68 | + + + + + +------+ + + | | 2022-03-08 | [facility] | 15 | (missing) | (missing) | | (unavailable | 00:47 | [facility] | | | | + + + +------+ + + + + | Result panel 69 | + + + + + +------+ + + | | 2022-03-08 | [facility] | 16 | (missing) | (missing) | | (unavailable | 00:47 | [facility] | | | + + + +------+ + + + + | Result panel 70 | + + + + + +------+ + + | | 2022-03-08 | [facility] | 65 | (missing) | (missing) | | (unavailable | 00:47 | [facility] | | | + + + +------+ + + + + | Result panel 71 | + + + + + + + + + | | 2022-03-08 | [facility] | YELLOW | (missing) | (missing) | | (unavailable | 00:50 | [facility] | | | | + + + + + + + + + | Result panel 72 | + + + + + +---------+ + + | | 2022-03-08 | [facility] | CLEAR | (missing) | (missing) | | (unavailable | 00:50 | [facility] | | | | + + + +---------+ + + + + | Result panel 73 | + + + + + + + + + | | 2022-03-08 | [facility] | >=1000 | (missing) | (missing) | | (unavailable | 00:50 | [facility] | | | | + + + + + + + + + | Result panel 74 | + + + + + + + + + | | 2022-03-08 | [facility] | NEGATIVE | (missing) | (missing) | | (unavailable | 00:50 | [facility] | | | | + + + + + + + + + | Result panel 75 | + + + + + + + + + | | 2022-03-08 | [facility] | NEGATIVE | (missing) | (missing) | | (unavailable | 00:50 | [facility] | | | | + + + + + + + + + | Result panel 76 | + + + + + + + + + | | 2022-03-08 | [facility] | <=1.005 | (missing) | (missing) | | (unavailable | 00:50 | [facility] | | | | + + + + + + + + + | Result panel 77 | + + + + + + + + + | | 2022-03-08 | [facility] | NEGATIVE | (missing) | (missing) | | (unavailable | 00:50 | [facility] | | | | + + + + + + + + + | Result panel 78 | + + + + + +-------+ + + | | 2022-03-08 | [facility] | 6.0 | (missing) | (missing) | | (unavailable | 00:50 | [facility] | | | | + + + +-------+ + + + + | Result panel 79 | + + + + + + + + + | | 2022-03-08 | [facility] | NEGATIVE | (missing) | (missing) | | (unavailable | 00:50 | [facility] | | | | + + + + + + + + + | Result panel 80 | + + + + + + + + + | | 2022-03-08 | [facility] | NORMAL | (missing) | (missing) | | (unavailable | 00:50 | [facility] | | | | + + + + + + + + + | Result panel 81 | + + + + + + + + + | | 2022-03-08 | [facility] | NEGATIVE | (missing) | (missing) | | (unavailable | 00:50 | [facility] | | | | + + + + + + + + + | Result panel 82 | + + + + + + + + + | | 2022-03-08 | [facility] | NEGATIVE | (missing) | (missing) | | (unavailable | 00:50 | [facility] | | | | + + + + + + + + + | Result panel 83 | + + + + + + + + + | | 2022-09-27 | [facility] | NEGATIVE | (missing) | (missing) | | (unavailable | 22:20:08 | [facility] | | | | + + + + + + + + + | Result panel 84 | + + + + + + + + + | | 2022-09-27 | [facility] | NEGATIVE | (missing) | (missing) | | (unavailable | ::08 | [facility] | | | | + + + + + + + + + | Result panel 85 | + + + + + + + + + | | 2022-09-27 | [facility] | NEGATIVE | (missing) | (missing) | | (unavailable | ::08 | [facility] | | | | + + + + + + + + + | Result panel 86 | + + + + + + + + + | | 2022-09-27 | [facility] | NEGATIVE | (missing) | (missing) | | (unavailable | 22:20:08 | [facility] | | | | + + + + + + + + + | Result panel 87 | + + + + + +--------+ + + | | 2022-09-28 | [facility] | 61.6 | (missing) | (missing) | | (unavailable | 00:45:07 | [facility] | | | + + + +--------+ + + + + | Result panel 88 | + + + + + +--------+ + + | | 2022-09-28 | [facility] | 16.6 | (missing) | (missing) | | (unavailable | 00:45:07 | [facility] | | | + + + +--------+ + + + + | Result panel 89 | + + + + + +--------+ + + | | 2022-09-28 | [facility] | 16.1 | (missing) | (missing) | | (unavailable | 00:45:07 | [facility] | | | + + + +--------+ + + + + | Result panel 90 | + + + + + +-------+ + + | | 2022-09-28 | [facility] | 4.9 | (missing) | (missing) | | (unavailable | 00:45:07 | [facility] | | | + + + +-------+ + + + + | Result panel 91 | + + + + + +-------+ + + | | 2022-09-28 | [facility] | 0.8 | (missing) | (missing) | | (unavailable | 00:45:07 [facility] | | | + + + +-------+ + + + + | Result panel 92 | + + + + + +--------+ + + | | 2022-09-28 | [facility] | 61.6 | (missing) | (missing) | | (unavailable | 00:45:08 | [facility] | | | + + + +--------+ + + + + | Result panel 93 | + + + + + +--------+ + + | | 2022-09-28 | [facility] | 16.6 | (missing) | (missing) | | (unavailable | 00:45:08 | [facility] | | | + + + +--------+ + + + + | Result panel 94 | + + + + + +--------+ + + | | 2022-09-28 | [facility] | 16.1 | (missing) | (missing) | | (unavailable | 00:45:08 [facility] | | | + + + +--------+ + + + + | Result panel 95 | + + + + + +-------+ + + | | 2022-09-28 | [facility] | 4.9 | (missing) | (missing) | | (unavailable | 00:45:08 [facility] | | | + + + +-------+ + + + + | Result panel 96 | + + + + + +-------+ + + | | 2022-09-28 | [facility] | 0.8 | (missing) | (missing) | | (unavailable | 00:45:08 | [facility] | | | + + + +-------+ + + + + | Result panel 97 | + + + + + +-------+ + + | | 2022-09-28 | [facility] | 6.8 | (missing) | (missing) | | (unavailable | 00:45:08 [facility] | | | + + + +-------+ + + + + | Result panel 98 | + + + + + +--------+ + + | | 2022-09-28 | [facility] | 4.36 | (missing) | (missing) | | (unavailable | 00:45:08 [facility] | | | + + + +--------+ + + + + | Result panel 99 | + + + + + +--------+ + + | | 2022-09-28 | [facility] | 13.4 | (missing) | (missing) | | (unavailable | 00:45:08 [facility] | | | + + + +--------+ + + + + | Result panel 100 | + + + + + +--------+ + + | | 2022-09-28 | [facility] | 40.4 | (missing) | (missing) | | (unavailable | 00:45:08 [facility] | | | + + + +--------+ + + + + | Result panel 101 | + + + + + +--------+ + + | | 2022-09-28 | [facility] | 92.5 | (missing) | (missing) | | (unavailable | 00:45:08 [facility] | | | + + + +--------+ + + + + | Result panel 102 | + + + + + +--------+ + + | | 2022-09-28 | [facility] | 30.7 | (missing) | (missing) | | (unavailable | 00:45:08 [facility] | | | + + + +--------+ + + + + | Result panel 103 | + + + + + +--------+ + + | | 2022-09-28 | [facility] | 33.2 | (missing) | (missing) | | (unavailable | 00:45:08 [facility] | | | + + + +--------+ + + + + | Result panel 104 | + + + + + +--------+ + + | | 2022-09-28 | [facility] | 15.3 | (missing) | (missing) | | (unavailable | 00:45:08 [facility] | | | + + + +--------+ + + + + | Result panel 105 | + + + + + +-------+ + + | | 2022-09-28 | [facility] | 214 | (missing) | (missing) | | (unavailable | 00:45:08 [facility] | | | + + + +-------+ + + + + | Result panel 106 | + + + + + +--------+ + + | | 2022-09-28 | [facility] | 61.6 | (missing) | (missing) | | (unavailable | 00:45:08 [facility] | | | + + + +--------+ + + + + | Result panel 107 | + + + + + +--------+ + + | | 2022-09-28 | [facility] | 16.6 | (missing) | (missing) | | (unavailable | 00:45:08 [facility] | | | + + + +--------+ + + + + | Result panel 108 | + + + + + +--------+ + + | | 2022-09-28 | [facility] | 16.1 | (missing) | (missing) | | (unavailable | 00:45:08 [facility] | | | + + + +--------+ + + + + | Result panel 109 | + + + + + +-------+ + + | | 2022-09-28 | [facility] | 4.9 | (missing) | (missing) | | (unavailable | 00:45:08 [facility] | | | + + + +-------+ + + + + | Result panel 110 | + + + + + +-------+ + + | | 2022-09-28 | [facility] | 0.8 | (missing) | (missing) | | (unavailable | 00:45:08 [facility] | | | + + + +-------+ + + + + | Result panel 111 | + + + + + +-------+---------+ + | | 2022-09-28 | [facility] | 117 | mg/dL | (missing) | | (unavailable | 00:45:08 | [facility] | | | + + + +-------+---------+ + + + | Result panel 112 | + + + + + +------+---------+ + | | 2022-09-28 | [facility] | 22 | mg/dL | (missing) | | (unavailable | 00:45:08 [facility] | | | | + + + +------+---------+ + + + | Result panel 113 | + + + + + +--------+---------+ + | | 2022-09-28 | [facility] | 1.18 | mg/dL | (missing) | | (unavailable | 00:45:08 [facility] | | | | + + + +--------+---------+ + + + | Result panel 114 | + + + + + +------+ + + | | 2022-09-28 | [facility] | 47 | (missing) | (missing) | | (unavailable | 00:45:08 [facility] | | | | + + + +------+ + + + + | Result panel 115 | + + + + + +---------+ + + | | 2022-09-28 | [facility] | 18.64 | (missing) | (missing) | | (unavailable | 00:45:08 [facility] | | | | + + + +---------+ + + + + | Result panel 116 | + + + + + +-------+ + + | | 2022-09-28 | [facility] | 139 | (missing) | (missing) | | (unavailable | 00:45:08 | [facility] | | | | + + + +-------+ + + + + | Result panel 117 | + + + + + +-------+ + + | | 2022-09-28 | [facility] | 3.7 | (missing) | (missing) | | (unavailable | 00:45:08 | [facility] | | | | + + + +-------+ + + + + | Result panel 118 | + + + + + +-------+ + + | | 2022-09-28 | [facility] | 103 | (missing) | (missing) | | (unavailable | 00:45:08 | [facility] | | | | + + + +-------+ + + + + | Result panel 119 | + + + + + +------+ + + | | 2022-09-28 | [facility] | 28 | (missing) | (missing) | | (unavailable | 00:45:08 [facility] | | | | + + + +------+ + + + + | Result panel 120 | + + + + + +--------+ + + | | 2022-09-28 | [facility] | 11.7 | (missing) | (missing) | | (unavailable | 00:45:08 [facility] | | | + + + +--------+ + + + + | Result panel 121 | + + + + + +-------+---------+ + | | 2022-09-28 | [facility] | 9.3 | mg/dL | (missing) | | (unavailable | 00:45:08 [facility] | | | | + + + +-------+---------+ + + + | Result panel 122 | + + + + + +-------+ + + | | 2022-09-28 | [facility] | 7.0 | (missing) | (missing) | | (unavailable | 00:45:08 [facility] | | | | + + + +-------+ + + + + | Result panel 123 | + + + + + +-------+ + + | | 2022-09-28 | [facility] | 3.4 | (missing) | (missing) | | (unavailable | 00:45:08 [facility] | | | | + + + +-------+ + + + + | Result panel 124 | + + + + + +-------+ + + | | 2022-09-28 | [facility] | 3.6 | (missing) | (missing) | | (unavailable | 00:45:08 [facility] | | | + + + +-------+ + + + + | Result panel 125 | + + + + + +--------+ + + | | 2022-09-28 | [facility] | 0.94 | (missing) | (missing) | | (unavailable | 00:45:08 [facility] | | | + + + +--------+ + + + + | Result panel 126 | + + + + + +-------+ + + | | 2022-09-28 | [facility] | 0.4 | (missing) | (missing) | | (unavailable | 00:45:08 [facility] | | | | + + + +-------+ + + + + | Result panel 127 | + + + + + +------+ + + | | 2022-09-28 | [facility] | 25 | (missing) | (missing) | | (unavailable | 00:45:08 [facility] | | | | + + + +------+ + + + + | Result panel 128 | + + + + + +------+ + + | | 2022-09-28 | [facility] | 21 | (missing) | (missing) | | (unavailable | 00:45:08 [facility] | | | | + + + +------+ + + + + | Result panel 129 | + + + + + +------+ + + | | 2022-09-28 | [facility] | 77 | (missing) | (missing) | | (unavailable | 00:45:08 [facility] | | | | + + + +------+ + + + + | Result panel 130 | + + + + + +-------+ + + | | 2022-09-28 | [facility] | 113 | (missing) | (missing) | | (unavailable | 00:45:08 | [facility] | | | | + + + +-------+ + + + + | Result panel 131 | + + + + + + + + + | | 2022-09-28 | [facility] | YELLOW | (missing) | (missing) | | (unavailable | 00:50:08 | [facility] | | | | + + + + + + + + + | Result panel 132 | + + + + + +---------+ + + | | 2022-09-28 | [facility] | CLEAR | (missing) | (missing) | | (unavailable | 00:50:08 | [facility] | | | | + + + +---------+ + + + + | Result panel 133 | + + + + + + + + + | | 2022-09-28 | [facility] | >=1000 | (missing) | (missing) | | (unavailable | 00:50:08 | [facility] | | | | + + + + + + + + + | Result panel 134 | + + + + + + + + + | | 2022-09-28 | [facility] | NEGATIVE | (missing) | (missing) | | (unavailable | 00:50:08 | [facility] | | | | + + + + + + + + + | Result panel 135 | + + + + + + + + + | | 2022-09-28 | [facility] | NEGATIVE | (missing) | (missing) | | (unavailable | 00:50:08 | [facility] | | | | + + + + + + + + + | Result panel 136 | + + + + + +---------+ + + | | 2022-09-28 | [facility] | 1.015 | (missing) | (missing) | | (unavailable | 00:50:08 | [facility] | | | | + + + +---------+ + + + + | Result panel 137 | + + + + + + + + + | | 2022-09-28 | [facility] | NEGATIVE | (missing) | (missing) | | (unavailable | 00:50:08 | [facility] | | | | + + + + + + + + + | Result panel 138 | + + + + + +-------+ + + | | 2022-09-28 | [facility] | 5.5 | (missing) | (missing) | | (unavailable | 00:50:08 | [facility] | | | | + + + +-------+ + + + + | Result panel 139 | + + + + + + + + + | | 2022-09-28 | [facility] | NEGATIVE | (missing) | (missing) | | (unavailable | 00:50:08 | [facility] | | | | + + + + + + + + + | Result panel 140 | + + + + + + + + + | | 2022-09-28 | [facility] | NORMAL | (missing) | (missing) | | (unavailable | 00:50:08 | [facility] | | | | + + + + + + + + + | Result panel 141 | + + + + + + + + + | | 2022-09-28 | [facility] | NEGATIVE | (missing) | (missing) | | (unavailable | 00:50:08 | [facility] | | | | + + + + + + + + + | Result panel 142 | + + + + + + + + + | | 2022-09-28 | [facility] | NEGATIVE | (missing) | (missing) | | (unavailable | 00:50:08 | [facility] | | | | + + + + + + + + + | Result panel 143 | + + + + + + + + + | | 2022-10-05 | [facility] | PRESENT | (missing) | (missing) | | (unavailable | 12:55:07 | [facility] | | | | + + + + + + + + + | Result panel 144 | + + + + + + + + + | | 2022-10-05 | [facility] | SEE | (missing) | (missing) | | (unavailable | 12:55:07 [facility] COM[facility] | | | | [facility] | | [facility] | | | | + + + + + + + + + | Result panel 145 | + + + + + +-------+ + + | | 2022-10-05 | [facility] | 116 | (missing) | (missing) | | (unavailable | 12:55:07 | [facility] | | | | + + + +-------+ + + + + | Result panel 146 | + + + + + +-------+ + + | | 2022-10-05 | [facility] | 7.8 | (missing) | (missing) | | (unavailable | 12:55:07 | [facility] | | | | + + + +-------+ + + + + | Result panel 147 | + + + + + +-------+ + + | | 2022-10-05 | [facility] | 7.8 | (missing) | (missing) | | (unavailable | 12:55:08 | [facility] | | | | + + + +-------+ + + + + | Result panel 148 | + + + + + +--------+ + + | | 2022-10-05 | [facility] | 4.87 | (missing) | (missing) | | (unavailable | 12:55:08 | [facility] | | | | + + + +--------+ + + + + | Result panel 149 | + + + + + +--------+ + + | | 2022-10-05 | [facility] | 14.8 | (missing) | (missing) | | (unavailable | 12:55:08 | [facility] | | | | + + + +--------+ + + + + | Result panel 150 | + + + + + +--------+ + + | | 2022-10-05 | [facility] | 45.3 | (missing) | (missing) | | (unavailable | 12:55:08 [facility] | | | | + + + +--------+ + + + + | Result panel 151 | + + + + + +--------+ + + | | 2022-10-05 | [facility] | 92.9 | (missing) | (missing) | | (unavailable | 12:55:08 [facility] | | | | + + + +--------+ + + + + | Result panel 152 | + + + + + +--------+ + + | | 2022-10-05 | [facility] | 30.3 | (missing) | (missing) | | (unavailable | 12:55:08 [facility] | | | | + + + +--------+ + + + + | Result panel 153 | + + + + + +--------+ + + | | 2022-10-05 | [facility] | 32.7 | (missing) | (missing) | | (unavailable | 12:55:08 [facility] | | | | + + + +--------+ + + + + | Result panel 154 | + + + + + +--------+ + + | | 2022-10-05 | [facility] | 15.3 | (missing) | (missing) | | (unavailable | 12:55:08 [facility] | | | | + + + +--------+ + + + + | Result panel 155 | + + + + + +-------+ + + | | 2022-10-05 | [facility] | 257 | (missing) | (missing) | | (unavailable | 12:55:08 | [facility] | | | | + + + +-------+ + + + + | Result panel 156 | + + + + + +------+ + + | | 2022-10-05 | [facility] | 66 | (missing) | (missing) | | (unavailable | 12:55:08 | [facility] | | | | + + + +------+ + + + + | Result panel 157 | + + + + + +------+ + + | | 2022-10-05 | [facility] | 23 | (missing) | (missing) | | (unavailable | 12:55:08 | [facility] | | | | + + + +------+ + + + + | Result panel 158 | + + + + + +-----+ + + | | 2022-10-05 | [facility] | 4 | (missing) | (missing) | | (unavailable | 12:55:08 | [facility] | | | | + + + +-----+ + + + + | Result panel 159 | + + + + + +-----+ + + | | 2022-10-05 | [facility] | 6 | (missing) | (missing) | | (unavailable | 12:55:08 [facility] | | | | + + + +-----+ + + + + | Result panel 160 | + + + + + +-----+ + + | | 2022-10-05 | [facility] | 1 | (missing) | (missing) | | (unavailable | 12:55:08 | [facility] | | | | + + + +-----+ + + + + | Result panel 161 | + + + + + + + + + | | 2022-10-05 | [facility] | PRESENT | (missing) | (missing) | | (unavailable | 12:55:08 | [facility] | | | | + + + + + + + + + | Result panel 162 | + + + + + + + + + | | 2022-10-05 | [facility] | SEE | (missing) | (missing) | | (unavailable | 12:55:08 | [facility] COMMENTS | | | | ) | | [facility] | | | | + + + + + + + + + | Result panel 163 | + + + + + +-------+---------+ + | | 2022-10-05 | [facility] | 141 | mg/dL | (missing) | | (unavailable | 12:55:08 | [facility] | | | | + + + +-------+---------+ + + + | Result panel 164 | + + + + + +------+---------+ + | | 2022-10-05 | [facility] | 19 | mg/dL | (missing) | | (unavailable | 12:55:08 | [facility] | | | | + + + +------+---------+ + + + | Result panel 165 | + + + + + +--------+---------+ + | | 2022-10-05 | [facility] | 1.10 | mg/dL | (missing) | | (unavailable | 12:55:08 [facility] | | | | + + + +--------+---------+ + + + | Result panel 166 | + + + + + +------+ + + | | 2022-10-05 | [facility] | 51 | (missing) | (missing) | | (unavailable | 12:55:08 [facility] | | | | + + + +------+ + + + + | Result panel 167 | + + + + + +---------+ + + | | 2022-10-05 | [facility] | 17.27 | (missing) | (missing) | | (unavailable | 12:55:08 | [facility] | | | | + + + +---------+ + + + + | Result panel 168 | + + + + + +-------+ + + | | 2022-10-05 | [facility] | 136 | (missing) | (missing) | | (unavailable | 12:55:08 | [facility] | | | | + + + +-------+ + + + + | Result panel 169 | + + + + + +-------+ + + | | 2022-10-05 | [facility] | 3.9 | (missing) | (missing) | | (unavailable | 12:55:08 | [facility] | | | | + + + +-------+ + + + + | Result panel 170 | + + + + + +-------+ + + | | 2022-10-05 | [facility] | 100 | (missing) | (missing) | | (unavailable | 12:55:08 | [facility] | | | | + + + +-------+ + + + + | Result panel 171 | + + + + + +------+ + + | | 2022-10-05 | [facility] | 26 | (missing) | (missing) | | (unavailable | 12:55:08 | [facility] | | | | + + + +------+ + + + + | Result panel 172 | + + + + + +--------+ + + | | 2022-10-05 | [facility] | 13.9 | (missing) | (missing) | | (unavailable | 12:55:08 | [facility] | | | | + + + +--------+ + + + + | Result panel 173 | + + + + + +-------+---------+ + | | 2022-10-05 | [facility] | 9.1 | mg/dL | (missing) | | (unavailable | 12:55:08 | [facility] | | | | + + + +-------+---------+ + + + | Result panel 174 | + + + + + +-------+ + + | | 2022-10-05 | [facility] | 7.5 | (missing) | (missing) | | (unavailable | 12:55:08 | [facility] | | | | + + + +-------+ + + + + | Result panel 175 | + + + + + +-------+ + + | | 2022-10-05 | [facility] | 3.5 | (missing) | (missing) | | (unavailable | 12:55:08 | [facility] | | | | + + + +-------+ + + + + | Result panel 176 | + + + + + +-------+ + + | | 2022-10-05 | [facility] | 4.0 | (missing) | (missing) | | (unavailable | 12:55:08 [facility] | | | | + + + +-------+ + + + + | Result panel 177 | + + + + + +--------+ + + | | 2022-10-05 | [facility] | 0.88 | (missing) | (missing) | | (unavailable | 12:55:08 [facility] | | | | + + + +--------+ + + + + | Result panel 178 | + + + + + +-------+ + + | | 2022-10-05 | [facility] | 0.8 | (missing) | (missing) | | (unavailable | 12:55:08 [facility] | | | + + + +-------+ + + + + | Result panel 179 | + + + + + +------+ + + | | 2022-10-05 | [facility] | 16 | (missing) | (missing) | | (unavailable | 12:55:08 [facility] | | | + + + +------+ + + + + | Result panel 180 | + + + + + +------+ + + | | 2022-10-05 | [facility] | 16 | (missing) | (missing) | | (unavailable | 12:55:08 [facility] | | | + + + +------+ + + + + | Result panel 181 | + + + + + +------+ + + | | 2022-10-05 | [facility] | 78 | (missing) | (missing) | | (unavailable | 12:55:08 [facility] | | | + + + +------+ + + + + | Result panel 182 | + + + + + +-------+ + + | | 2022-10-05 | [facility] | 116 | (missing) | (missing) | | (unavailable | 12:55:08 [facility] | | | + + + +-------+ + + + + | Result panel 183 | + + + + + +-------+ + + | | 2022-10-05 | [facility] | 7.8 | (missing) | (missing) | | (unavailable | 12:55:08 [facility] | | | + + + +-------+ + + + + | Result panel 184 | + + + + + + + + + | | 2022-10-05 | [facility] | NEGATIVE | (missing) | (missing) | | (unavailable | 13:11:07 [facility] | | | + + + + + + + + + | Result panel 185 | + + + + + + + + + | | 2022-10-05 | [facility] | NEGATIVE | (missing) | (missing) | | (unavailable | 13:11:07 [facility] | | | + + + + + + + + + | Result panel 186 | + + + + + + + + + | | 2022-10-05 | [facility] | NEGATIVE | (missing) | (missing) | | (unavailable | 13:11:07 [facility] | | | + + + + + + + + + | Result panel 187 | + + + + + + + + + | | 2022-10-05 | [facility] | NEGATIVE | (missing) | (missing) | | (unavailable | 13:11:07 [facility] | | | + + + + + + + + + | Result panel 188 | + + + + + + + + + | | 2022-10-05 | [facility] | NEGATIVE | (missing) | (missing) | | (unavailable | 13:11:08 [facility] | | | + + + + + + + + + | Result panel 189 | + + + + + + + + + | | 2022-10-05 | [facility] | NEGATIVE | (missing) | (missing) | | (unavailable | 13:11:08 [facility] | | | + + + + + + + + + | Result panel 190 | + + + + + + + + + | | 2022-10-05 | [facility] | NEGATIVE | (missing) | (missing) | | (unavailable | 13:11:08 [facility] | | | + + + + + + + + + | Result panel 191 | + + + + + + + + + | | 2022-10-05 | [facility] | NEGATIVE | (missing) | (missing) | | (unavailable | 13:11:08 [facility] | | | + + + + + + + + + | Result panel 192 | + + + + + + + + + | | 2022-10-05 | [facility] | YELLOW | (missing) | (missing) | | (unavailable | 13:48:07 [facility] | | | | + + + + + + + + + | Result panel 193 | + + + + + +---------+ + + | | 2022-10-05 | [facility] | CLEAR | (missing) | (missing) | | (unavailable | 13:48:07 [facility] | | | + + + +---------+ + + + + | Result panel 194 | + + + + + + + + + | | 2022-10-05 | [facility] | >=1000 | (missing) | (missing) | | (unavailable | 13:48:07 [facility] | | | + + + + + + + + + | Result panel 195 | + + + + + + + + + | | 2022-10-05 | [facility] | NEGATIVE | (missing) | (missing) | | (unavailable | 13:48:07 [facility] | | | + + + + + + + + + | Result panel 196 | + + + + + + + + + | | 2022-10-05 | [facility] | NEGATIVE | (missing) | (missing) | | (unavailable | 13:48:07 [facility] | | | + + + + + + + + + | Result panel 197 | + + + + + +---------+ + + | | 2022-10-05 | [facility] | 1.010 | (missing) | (missing) | | (unavailable | 13:48:07 [facility] | | | + + + +---------+ + + + + | Result panel 198 | + + + + + + + + + | | 2022-10-05 | [facility] | NEGATIVE | (missing) | (missing) | | (unavailable | 13:48:07 [facility] | | | + + + + + + + + + | Result panel 199 | + + + + + +-------+ + + | | 2022-10-05 | [facility] | 6.5 | (missing) | (missing) | | (unavailable | 13:48:07 [facility] | | | + + + +-------+ + + + + | Result panel 200 | + + + + + + + + + | | 2022-10-05 | [facility] | NEGATIVE | (missing) | (missing) | | (unavailable | 13:48:07 [facility] | | | + + + + + + + + + | Result panel 201 | + + + + + + + + + | | 2022-10-05 | [facility] | NORMAL | (missing) | (missing) | | (unavailable | 13:48:07 [facility] | | | + + + + + + + + + | Result panel 202 | + + + + + + + + + | | 2022-10-05 | [facility] | NEGATIVE | (missing) | (missing) | | (unavailable | 13:48:07 [facility] | | | + + + + + + + + + | Result panel 203 | + + + + + + + + + | | 2022-10-05 | [facility] | NEGATIVE | (missing) | (missing) | | (unavailable | 13:48:07 [facility] | | | + + + + + + + + + | Result panel 204 | + + + + + + + + + | | 2022-10-05 | [facility] | YELLOW | (missing) | (missing) | | (unavailable | 13:48:08 [facility] | | | + + + + + + + + + | Result panel 205 | + + + + + +---------+ + + | | 2022-10-05 | [facility] | CLEAR | (missing) | (missing) | | (unavailable | 13:48:08 [facility] | | | + + + +---------+ + + + + | Result panel 206 | + + + + + + + + + | | 2022-10-05 | [facility] | >=1000 | (missing) | (missing) | | (unavailable | 13:48:08 [facility] | | | + + + + + + + + + | Result panel 207 | + + + + + + + + + | | 2022-10-05 | [facility] | NEGATIVE | (missing) | (missing) | | (unavailable | 13:48:08 [facility] | | | | + + + + + + + + + | Result panel 208 | + + + + + + + + + | | 2022-10-05 | [facility] | NEGATIVE | (missing) | (missing) | | (unavailable | 13:48:08 [facility] | | | | + + + + + + + + + | Result panel 209 | + + + + + +---------+ + + | | 2022-10-05 | [facility] | 1.010 | (missing) | (missing) | | (unavailable | 13:48:08 [facility] | | | | + + + +---------+ + + + + | Result panel 210 | + + + + + + + + + | | 2022-10-05 | [facility] | NEGATIVE | (missing) | (missing) | | (unavailable | 13:48:08 [facility] | | | + + + + + + + + + | Result panel 211 | + + + + + +-------+ + + | | 2022-10-05 | [facility] | 6.5 | (missing) | (missing) | | (unavailable | 13:48:08 [facility] | | | + + + +-------+ + + + + | Result panel 212 | + + + + + + + + + | | 2022-10-05 | [facility] | NEGATIVE | (missing) | (missing) | | (unavailable | 13:48:08 [facility] | | | + + + + + + + + + | Result panel 213 | + + + + + + + + + | | 2022-10-05 | [facility] | NORMAL | (missing) | (missing) | | (unavailable | 13:48:08 [facility] | | | + + + + + + + + + | Result panel 214 | + + + + + + + + + | | 2022-10-05 | [facility] | NEGATIVE | (missing) | (missing) | | (unavailable | 13:48:08 [facility] | | | + + + + + + + + + | Result panel 215 | + + + + + + + + + | | 2022-10-05 | [facility] | NEGATIVE | (missing) | (missing) | | (unavailable | 13:48:08 [facility] | | | + + + + + + + + + | Result panel 216 | + + + + + +-------+ + + | | 2022-10-27 | [facility] | 5.0 | (missing) | (missing) | | (unavailable | 22:04:07 [facility] | | | + + + +-------+ + + + + | Result panel 217 | + + + + + +--------+ + + | | 2022-10-27 | [facility] | 4.56 | (missing) | (missing) | | (unavailable | :04:07 | [facility] | | | + + + +--------+ + + + + | Result panel 218 | + + + + + +--------+ + + | | 2022-10-27 | [facility] | 14.0 | (missing) | (missing) | | (unavailable | 22::07 | [facility] | | | + + + +--------+ + + + + | Result panel 219 | + + + + + +--------+ + + | | 2022-10-27 | [facility] | 43.1 | (missing) | (missing) | | (unavailable | :04:07 | [facility] | | | + + + +--------+ + + + + | Result panel 220 | + + + + + +--------+ + + | | 2022-10-27 | [facility] | 94.5 | (missing) | (missing) | | (unavailable | 22:04:07 [facility] | | | + + + +--------+ + + + + | Result panel 221 | + + + + + +--------+ + + | | 2022-10-27 | [facility] | 30.6 | (missing) | (missing) | | (unavailable | 22:04:07 [facility] | | | + + + +--------+ + + + + | Result panel 222 | + + + + + +--------+ + + | | 2022-10-27 | [facility] | 32.4 | (missing) | (missing) | | (unavailable | 22:04:07 [facility] | | | + + + +--------+ + + + + | Result panel 223 | + + + + + +--------+ + + | | 2022-10-27 | [facility] | 15.0 | (missing) | (missing) | | (unavailable | 22:04:07 [facility] | | | + + + +--------+ + + + + | Result panel 224 | + + + + + +-------+ + + | | 2022-10-27 | [facility] | 248 | (missing) | (missing) | | (unavailable | 22:04:07 [facility] | | | + + + +-------+ + + + + | Result panel 225 | + + + + + +------+ + + | | 2022-10-27 | [facility] | 64 | (missing) | (missing) | | (unavailable | 22:04:07 [facility] | | | + + + +------+ + + + + | Result panel 226 | + + + + + +------+ + + | | 2022-10-27 | [facility] | 26 | (missing) | (missing) | | (unavailable | 22:04:07 [facility] | | | + + + +------+ + + + + | Result panel 227 | + + + + + +-----+ + + | | 2022-10-27 | [facility] | 3 | (missing) | (missing) | | (unavailable | 22:04:07 [facility] | | | + + + +-----+ + + + + | Result panel 228 | + + + + + +-----+ + + | | 2022-10-27 | [facility] | 3 | (missing) | (missing) | | (unavailable | 22:04:07 [facility] | | | + + + +-----+ + + + + | Result panel 229 | + + + + + +-----+ + + | | 2022-10-27 | [facility] | 1 | (missing) | (missing) | | (unavailable | 22:04:07 [facility] | | | + + + +-----+ + + + + | Result panel 230 | + + + + + +-----+ + + | | 2022-10-27 | [facility] | 3 | (missing) | (missing) | | (unavailable | 22:04:07 [facility] | | | + + + +-----+ + + + + | Result panel 231 | + + + + + +-------+---------+ + | | 2022-10-27 | [facility] | 204 | mg/dL | (missing) | | (unavailable | 22:04:07 [facility] | | | + + + +-------+---------+ + + + | Result panel 232 | + + + + + +------+---------+ + | | 2022-10-27 | [facility] | 26 | mg/dL | (missing) | | (unavailable | 22:04:07 [facility] | | | + + + +------+---------+ + + + | Result panel 233 | + + + + + +--------+---------+ + | | 2022-10-27 | [facility] | 1.15 | mg/dL | (missing) | | (unavailable | 22:04:07 [facility] | | | + + + +--------+---------+ + + + | Result panel 234 | + + + + + +------+ + + | | 2022-10-27 | [facility] | 48 | (missing) | (missing) | | (unavailable | 22:04:07 [facility] | | | + + + +------+ + + + + | Result panel 235 | + + + + + +---------+ + + | | 2022-10-27 | [facility] | 22.60 | (missing) | (missing) | | (unavailable | 22:04:07 [facility] | | | + + + +---------+ + + + + | Result panel 236 | + + + + + +-------+ + + | | 2022-10-27 | [facility] | 142 | (missing) | (missing) | | (unavailable | 22:04:07 [facility] | | | + + + +-------+ + + + + | Result panel 237 | + + + + + +-------+ + + | | 2022-10-27 | [facility] | 3.8 | (missing) | (missing) | | (unavailable | 22:04:07 [facility] | | | + + + +-------+ + + + + | Result panel 238 | + + + + + +-------+ + + | | 2022-10-27 | [facility] | 103 | (missing) | (missing) | | (unavailable | 22:04:07 [facility] | | | + + + +-------+ + + + + | Result panel 239 | + + + + + +------+ + + | | 2022-10-27 | [facility] | 27 | (missing) | (missing) | | (unavailable | 22:04:07 [facility] | | | + + + +------+ + + + + | Result panel 240 | + + + + + +--------+ + + | | 2022-10-27 | [facility] | 15.8 | (missing) | (missing) | | (unavailable | 22:04:07 [facility] | | | + + + +--------+ + + + + | Result panel 241 | + + + + + +-------+---------+ + | | 2022-10-27 | [facility] | 8.7 | mg/dL | (missing) | | (unavailable | 22:04:07 [facility] | | | + + + +-------+---------+ + + + | Result panel 242 | + + + + + +-------+ + + | | 2022-10-27 | [facility] | 6.7 | (missing) | (missing) | | (unavailable | 22:04:07 [facility] | | | + + + +-------+ + + + + | Result panel 243 | + + + + + +-------+ + + | | 2022-10-27 | [facility] | 3.4 | (missing) | (missing) | | (unavailable | ::07 | [facility] | | | | + + + +-------+ + + + + | Result panel 244 | + + + + + +-------+ + + | | 2022-10-27 | [facility] | 3.3 | (missing) | (missing) | | (unavailable | :04:07 [facility] | | | | + + + +-------+ + + + + | Result panel 245 | + + + + + +--------+ + + | | 2022-10-27 | [facility] | 1.03 | (missing) | (missing) | | (unavailable | ::07 | [facility] | | | | + + + +--------+ + + + + | Result panel 246 | + + + + + +-------+ + + | | 2022-10-27 | [facility] | 0.3 | (missing) | (missing) | | (unavailable | ::07 | [facility] | | | | + + + +-------+ + + + + | Result panel 247 | + + + + + +------+ + + | | 2022-10-27 | [facility] | 12 | (missing) | (missing) | | (unavailable | ::07 | [facility] | | | | + + + +------+ + + + + | Result panel 248 | + + + + + +------+ + + | | 2022-10-27 | [facility] | 18 | (missing) | (missing) | | (unavailable | :04:07 | [facility] | | | + + + +------+ + + + + | Result panel 249 | + + + + + +------+ + + | | 2022-10-27 | [facility] | 81 | (missing) | (missing) | | (unavailable | 22:04:07 [facility] | | | + + + +------+ + + + + | Result panel 250 | + + + + + +-------+ + + | | 2022-12-01 | [facility] | 120 | (missing) | (missing) | | (unavailable | 12:03:07 [facility] | | | + + + +-------+ + + + + | Result panel 251 | + + + + + +--------+ + + | | 2022-12-01 | [facility] | 14.0 | (missing) | (missing) | | (unavailable | 12:17:07 [facility] | | | + + + +--------+ + + + + | Result panel 252 | + + + + + +--------+ + + | | 2022-12-01 | [facility] | 41.1 | (missing) | (missing) | | (unavailable | 12:17:07 [facility] | | | + + + +--------+ + + + + | Result panel 253 | + + + + + +--------+ + + | | 2022-12-01 | [facility] | 93.2 | (missing) | (missing) | | (unavailable | 12:17:07 [facility] | | | + + + +--------+ + + + + | Result panel 254 | + + + + + +--------+ + + | | 2022-12-01 | [facility] | 31.8 | (missing) | (missing) | | (unavailable | 12:17:07 [facility] | | | + + + +--------+ + + + + | Result panel 255 | + + + + + +--------+ + + | | 2022-12-01 | [facility] | 34.1 | (missing) | (missing) | | (unavailable | 12:17:07 [facility] | | | + + + +--------+ + + + + | Result panel 256 | + + + + + +--------+ + + | | 2022-12-01 | [facility] | 14.6 | (missing) | (missing) | | (unavailable | 12::07 [facility] | | | + + + +--------+ + + + + | Result panel 257 | + + + + + +-------+ + + | | 2022-12-01 | [facility] | 240 | (missing) | (missing) | | (unavailable | 12:17:07 [facility] | | | + + + +-------+ + + + + | Result panel 258 | + + + + + +------+ + + | | 2022-12-01 | [facility] | 61 | (missing) | (missing) | | (unavailable | 12:17:07 [facility] | | | + + + +------+ + + + + | Result panel 259 | + + + + + +------+ + + | | 2022-12-01 | [facility] | 23 | (missing) | (missing) | | (unavailable | 12:17:07 [facility] | | | | + + + +------+ + + + + | Result panel 260 | + + + + + +-----+ + + | | 2022-12-01 | [facility] | 9 | (missing) | (missing) | | (unavailable | 12:17:07 [facility] | | | | + + + +-----+ + + + + | Result panel 261 | + + + + + +-----+ + + | | 2022-12-01 | [facility] | 2 | (missing) | (missing) | | (unavailable | 12:17:07 [facility] | | | | + + + +-----+ + + + + | Result panel 262 | + + + + + +-----+ + + | | 2022-12-01 | [facility] | 2 | (missing) | (missing) | | (unavailable | 12:17:07 [facility] | | | | + + + +-----+ + + + + | Result panel 263 | + + + + + +-----+ + + | | 2022-12-01 | [facility] | 3 | (missing) | (missing) | | (unavailable | 12:17:07 [facility] | | | | + + + +-----+ + + + + | Result panel 264 | + + + + + +-------+---------+ + | | 2022-12-01 | [facility] | 130 | mg/dL | (missing) | | (unavailable | 12:17:07 [facility] | | | | + + + +-------+---------+ + + + | Result panel 265 | + + + + + +------+---------+ + | | 2022-12-01 | [facility] | 19 | mg/dL | (missing) | | (unavailable | 12:17:07 [facility] | | | | + + + +------+---------+ + + + | Result panel 266 | + + + + + +--------+---------+ + | | 2022-12-01 | [facility] | 0.96 | mg/dL | (missing) | | (unavailable | 12:17:07 [facility] | | | | + + + +--------+---------+ + + + | Result panel 267 | + + + + + +------+ + + | | 2022-12-01 | [facility] | 60 | (missing) | (missing) | | (unavailable | 12:17:07 [facility] | | | | + + + +------+ + + + + | Result panel 268 | + + + + + +---------+ + + | | 2022-12-01 | [facility] | 19.79 | (missing) | (missing) | | (unavailable | 12:17:07 [facility] | | | | + + + +---------+ + + + + | Result panel 269 | + + + + + +-------+ + + | | 2022-12-01 | [facility] | 138 | (missing) | (missing) | | (unavailable | 12:17:07 [facility] | | | | + + + +-------+ + + + + | Result panel 270 | + + + + + +-------+ + + | | 2022-12-01 | [facility] | 3.7 | (missing) | (missing) | | (unavailable | 12:17:07 [facility] | | | | + + + +-------+ + + + + | Result panel 271 | + + + + + +-------+ + + | | 2022-12-01 | [facility] | 102 | (missing) | (missing) | | (unavailable | 12:17:07 [facility] | | | | + + + +-------+ + + + + | Result panel 272 | + + + + + +------+ + + | | 2022-12-01 | [facility] | 26 | (missing) | (missing) | | (unavailable | 12:17:07 [facility] | | | | + + + +------+ + + + + | Result panel 273 | + + + + + +--------+ + + | | 2022-12-01 | [facility] | 13.7 | (missing) | (missing) | | (unavailable | 12:17:07 [facility] | | | | + + + +--------+ + + + + | Result panel 274 | + + + + + +-------+---------+ + | | 2022-12-01 | [facility] | 9.1 | mg/dL | (missing) | | (unavailable | 12:17:07 [facility] | | | | + + + +-------+---------+ + + + | Result panel 275 | + + + + + +-------+---------+ + | | 2022-12-01 | [facility] | 2.1 | mg/dL | (missing) | | (unavailable | | [facility] | | | | + + + +-------+---------+ + + + | Result panel 276 | + + + + + +-------+ + + | | 2022-12-01 | [facility] | 7.1 | (missing) | (missing) | | (unavailable | :07 | [facility] | | | | + + + +-------+ + + + + | Result panel 277 | + + + + + +-------+ + + | | 2022-12-01 | [facility] | 3.6 | (missing) | (missing) | | (unavailable | 12:17:07 [facility] | | | | + + + +-------+ + + + + | Result panel 278 | + + + + + +-------+ + + | | 2022-12-01 | [facility] | 3.5 | (missing) | (missing) | | (unavailable | 12:17:07 [facility] | | | | + + + +-------+ + + + + | Result panel 279 | + + + + + +--------+ + + | | 2022-12-01 | [facility] | 1.03 | (missing) | (missing) | | (unavailable | 12:17:07 [facility] | | | | + + + +--------+ + + + + | Result panel 280 | + + + + + +-------+ + + | | 2022-12-01 | [facility] | 0.6 | (missing) | (missing) | | (unavailable | 12:17:07 [facility] | | | | + + + +-------+ + + + + | Result panel 281 | + + + + + +------+ + + | | 2022-12-01 | [facility] | 23 | (missing) | (missing) | | (unavailable | 12:17:07 [facility] | | | | + + + +------+ + + + + | Result panel 282 | + + + + + +------+ + + | | 2022-12-01 | [facility] | 24 | (missing) | (missing) | | (unavailable | 12:17:07 [facility] | | | | + + + +------+ + + + + | Result panel 283 | + + + + + +------+ + + | | 2022-12-01 | [facility] | 76 | (missing) | (missing) | | (unavailable | 12::07 | [facility] | | | | + + + +------+ + + + + | Result panel 284 | + + + + + +-------+ + + | | 2022-12-01 | [facility] | 4.5 | (missing) | (missing) | | (unavailable | 12:17:07 [facility] | | | | + + + +-------+ + + + + | Result panel 285 | + + + + + +--------+ + + | | 2022-12-01 | [facility] | 4.41 | (missing) | (missing) | | (unavailable | 12:17:07 [facility] | | | | + + + +--------+ + + + + | Result panel 286 | + + + + + + + + + | | 2023-01-12 | [facility] | YELLOW | (missing) | (missing) | | (unavailable | 20:30:07 [facility] | | | | + + + + + + + + + | Result panel 287 | + + + + + +---------+ + + | | 2023-01-12 | [facility] | CLEAR | (missing) | (missing) | | (unavailable | 20:30:07 [facility] | | | | + + + +---------+ + + + + | Result panel 288 | + + + + + + + + + | | 2023-01-12 | [facility] | >=1000 | (missing) | (missing) | | (unavailable | 20:30:07 [facility] | | | | + + + + + + + + + | Result panel 289 | + + + + + + + + + | | 2023-01-12 | [facility] | NEGATIVE | (missing) | (missing) | | (unavailable | 20:30:07 [facility] | | | | + + + + + + + + + | Result panel 290 | + + + + + +---------+ + + | | 2023-01-12 | [facility] | TRACE | (missing) | (missing) | | (unavailable | 20:30:07 [facility] | | | | + + + +---------+ + + + + | Result panel 291 | + + + + + +---------+ + + | | 2023-01-12 | [facility] | 1.020 | (missing) | (missing) | | (unavailable | 20:30:07 [facility] | | | | + + + +---------+ + + + + | Result panel 292 | + + + + + + + + + | | 2023-01-12 | [facility] | NEGATIVE | (missing) | (missing) | | (unavailable | 20:30:07 [facility] | | | | + + + + + + + + + | Result panel 293 | + + + + + +-------+ + + | | 2023-01-12 | [facility] | 5.5 | (missing) | (missing) | | (unavailable | 20:30:07 [facility] | | | | + + + +-------+ + + + + | Result panel 294 | + + + + + +------+ + + | | 2023-01-12 | [facility] | 30 | (missing) | (missing) | | (unavailable | 20:30:07 [facility] | | | | + + + +------+ + + + + | Result panel 295 | + + + + + + + + + | | 2023-01-12 | [facility] | NORMAL | (missing) | (missing) | | (unavailable | 20:30:07 [facility] | | | | + + + + + + + + + | Result panel 296 | + + + + + + + + + | | 2023-01-12 | [facility] | NEGATIVE | (missing) | (missing) | | (unavailable | 20:30:07 [facility] | | | | + + + + + + + + + | Result panel 297 | + + + + + + + + + | | 2023-01-12 | [facility] | NEGATIVE | (missing) | (missing) | | (unavailable | 20:30:07 [facility] | | | | + + + + + + + + + | Result panel 298 | + + + + + + + + + | | 2023-01-12 | [facility] | YELLOW | (missing) | (missing) | | (unavailable | 20:30:07 [facility] | | | | + + + + + + + + + | Result panel 299 | + + + + + +---------+ + + | | 2023-01-12 | [facility] | CLEAR | (missing) | (missing) | | (unavailable | 20:30:07 [facility] | | | | + + + +---------+ + + + + | Result panel 300 | + + + + + + + + + | | 2023-01-12 | [facility] | >=1000 | (missing) | (missing) | | (unavailable | 20:30:07 [facility] | | | | + + + + + + + + + | Result panel 301 | + + + + + + + + + | | 2023-01-12 | [facility] | NEGATIVE | (missing) | (missing) | | (unavailable | 20:30:07 | [facility] | | | | + + + + + + + + + | Result panel 302 | + + + + + +---------+ + + | | 2023-01-12 | [facility] | TRACE | (missing) | (missing) | | (unavailable | 20:30:07 [facility] | | | | + + + +---------+ + + + + | Result panel 303 | + + + + + +---------+ + + | | 2023-01-12 | [facility] | 1.020 | (missing) | (missing) | | (unavailable | 20:30:07 [facility] | | | | + + + +---------+ + + + + | Result panel 304 | + + + + + + + + + | | 2023-01-12 | [facility] | NEGATIVE | (missing) | (missing) | | (unavailable | 20[facility]30:07 [facility] | | | + + + + + + + + + | Result panel 305 | + + + + + +-------+ + + | | 2023-01-12 | [facility] | 5.5 | (missing) | (missing) | | (unavailable | 20:30:07 [facility] | | | + + + +-------+ + + + + | Result panel 306 | + + + + + +------+ + + | | 2023-01-12 | [facility] | 30 | (missing) | (missing) | | (unavailable | 20:30:07 [facility] | | | + + + +------+ + + + + | Result panel 307 | + + + + + + + + + | | 2023-01-12 | [facility] | NORMAL | (missing) | (missing) | | (unavailable | 20:30:07 [facility] | | | + + + + + + + + + | Result panel 308 | + + + + + + + + + | | 2023-01-12 | [facility] | NEGATIVE | (missing) | (missing) | | (unavailable | 20:30:07 [facility] | | | + + + + + + + + + | Result panel 309 | + + + + + + + + + | | 2023-01-12 | [facility] | NEGATIVE | (missing) | (missing) | | (unavailable | 20:30:07 [facility] | | | + + + + + + + + + | Result panel 310 | + + + + + +-----+ + + | | 2023-01-12 | [facility] | 9 | (missing) | (missing) | | (unavailable | 20:36:07 [facility] | | | + + + +-----+ + + + + | Result panel 311 | + + + + + +---------+ + + | | 2023-01-12 | [facility] | 2.278 | (missing) | (missing) | | (unavailable | 20:36:07 [facility] | | | + + + +---------+ + + + + | Result panel 312 | + + + + + + + + + | | 2023-01-12 | [facility] | <0.2 mg/dL | (missing) | (missing) | | (unavailable | 20:36:07 [facility] | | | + + + + + + + + + | Result panel 313 | + + + + + +-------+ + + | | 2023-01-12 | [facility] | 4.9 | (missing) | (missing) | | (unavailable | 20:36:07 [facility] | | | + + + +-------+ + + + + | Result panel 314 | + + + + + +--------+ + + | | 2023-01-12 | [facility] | 4.60 | (missing) | (missing) | | (unavailable | 20:36:07 [facility] | | | + + + +--------+ + + + + | Result panel 315 | + + + + + +--------+ + + | | 2023-01-12 | [facility] | 14.7 | (missing) | (missing) | | (unavailable | 20:36:07 [facility] | | | + + + +--------+ + + + + | Result panel 316 | + + + + + +--------+ + + | | 2023-01-12 | [facility] | 43.3 | (missing) | (missing) | | (unavailable | 20:36:07 [facility] | | | + + + +--------+ + + + + | Result panel 317 | + + + + + +--------+ + + | | 2023-01-12 | [facility] | 94.1 | (missing) | (missing) | | (unavailable | 20:36:07 [facility] | | | + + + +--------+ + + + + | Result panel 318 | + + + + + +--------+ + + | | 2023-01-12 | [facility] | 31.9 | (missing) | (missing) | | (unavailable | 20:36:07 [facility] | | | + + + +--------+ + + + + | Result panel 319 | + + + + + +--------+ + + | | 2023-01-12 | [facility] | 33.9 | (missing) | (missing) | | (unavailable | 20:36:07 [facility] | | | + + + +--------+ + + + + | Result panel 320 | + + + + + +--------+ + + | | 2023-01-12 | [facility] | 13.9 | (missing) | (missing) | | (unavailable | 20:36:07 [facility] | | | + + + +--------+ + + + + | Result panel 321 | + + + + + +-------+ + + | | 2023-01-12 | [facility] | 293 | (missing) | (missing) | | (unavailable | 20:36:07 [facility] | | | + + + +-------+ + + + + | Result panel 322 | + + + + + +--------+ + + | | 2023-01-12 | [facility] | 60.9 | (missing) | (missing) | | (unavailable | 20:36:07 [facility] | | | + + + +--------+ + + + + | Result panel 323 | + + + + + +--------+ + + | | 2023-01-12 | [facility] | 20.6 | (missing) | (missing) | | (unavailable | 20:36:07 [facility] | | | + + + +--------+ + + + + | Result panel 324 | + + + + + +--------+ + + | | 2023-01-12 | [facility] | 13.7 | (missing) | (missing) | | (unavailable | 20[facility]36:07 [facility] | | | + + + +--------+ + + + + | Result panel 325 | + + + + + +-------+ + + | | 2023-01-12 | [facility] | 3.4 | (missing) | (missing) | | (unavailable | 20:36:07 [facility] | | | + + + +-------+ + + + + | Result panel 326 | + + + + + +-------+ + + | | 2023-01-12 | [facility] | 1.4 | (missing) | (missing) | | (unavailable | 20[facility]36:07 [facility] | | | + + + +-------+ + + + + | Result panel 327 | + + + + + +-----+ + + | | 2023-01-12 | [facility] | 9 | (missing) | (missing) | | (unavailable | 20[facility]36:07 [facility] | | | + + + +-----+ + + + + | Result panel 328 | + + + + + +-------+---------+ + | | 2023-01-12 | [facility] | 120 | mg/dL | (missing) | | (unavailable | 20:36:07 [facility] | | | + + + +-------+---------+ + + + | Result panel 329 | + + + + + +------+---------+ + | | 2023-01-12 | [facility] | 13 | mg/dL | (missing) | | (unavailable | 20:36:07 [facility] | | | + + + +------+---------+ + + + | Result panel 330 | + + + + + +--------+---------+ + | | 2023-01-12 | [facility] | 1.08 | mg/dL | (missing) | | (unavailable | 20:36:07 [facility] | | | + + + +--------+---------+ + + + | Result panel 331 | + + + + + +------+ + + | | 2023-01-12 | [facility] | 52 | (missing) | (missing) | | (unavailable | 20:36:07 [facility] | | | + + + +------+ + + + + | Result panel 332 | + + + + + +---------+ + + | | 2023-01-12 | [facility] | 12.03 | (missing) | (missing) | | (unavailable | 20:36:07 [facility] | | | + + + +---------+ + + + + | Result panel 333 | + + + + + +-------+ + + | | 2023-01-12 | [facility] | 138 | (missing) | (missing) | | (unavailable | 20:36:07 [facility] | | | + + + +-------+ + + + + | Result panel 334 | + + + + + +-------+ + + | | 2023-01-12 | [facility] | 3.5 | (missing) | (missing) | | (unavailable | 20:36:07 [facility] | | | + + + +-------+ + + + + | Result panel 335 | + + + + + +-------+ + + | | 2023-01-12 | [facility] | 101 | (missing) | (missing) | | (unavailable | 20:36:07 [facility] | | | + + + +-------+ + + + + | Result panel 336 | + + + + + +------+ + + | | 2023-01-12 | [facility] | 26 | (missing) | (missing) | | (unavailable | 20:36:07 [facility] | | | + + + +------+ + + + + | Result panel 337 | + + + + + +--------+ + + | | 2023-01-12 | [facility] | 14.5 | (missing) | (missing) | | (unavailable | 20:36:07 [facility] | | | + + + +--------+ + + + + | Result panel 338 | + + + + + +-------+---------+ + | | 2023-01-12 | [facility] | 9.0 | mg/dL | (missing) | | (unavailable | 20:36:07 [facility] | | | + + + +-------+---------+ + + + | Result panel 339 | + + + + + +-------+ + + | | 2023-01-12 | [facility] | 7.3 | (missing) | (missing) | | (unavailable | 20:36:07 [facility] | | | + + + +-------+ + + + + | Result panel 340 | + + + + + +-------+ + + | | 2023-01-12 | [facility] | 3.8 | (missing) | (missing) | | (unavailable | 20:36:07 [facility] | | | + + + +-------+ + + + + | Result panel 341 | + + + + + +-------+ + + | | 2023-01-12 | [facility] | 3.5 | (missing) | (missing) | | (unavailable | 20:36:07 [facility] | | | + + + +-------+ + + + + | Result panel 342 | + + + + + +--------+ + + | | 2023-01-12 | [facility] | 1.09 | (missing) | (missing) | | (unavailable | 20:36:07 [facility] | | | + + + +--------+ + + + + | Result panel 343 | + + + + + +-------+ + + | | 2023-01-12 | [facility] | 0.5 | (missing) | (missing) | | (unavailable | 20:36:07 [facility] | | | + + + +-------+ + + + + | Result panel 344 | + + + + + +------+ + + | | 2023-01-12 | [facility] | 25 | (missing) | (missing) | | (unavailable | 20:36:07 [facility] | | | + + + +------+ + + + + | Result panel 345 | + + + + + +------+ + + | | 2023-01-12 | [facility] | 25 | (missing) | (missing) | | (unavailable | 20:36:07 [facility] | | | + + + +------+ + + + + | Result panel 346 | + + + + + +------+ + + | | 2023-01-12 | [facility] | 76 | (missing) | (missing) | | (unavailable | 20:36:07 [facility] | | | + + + +------+ + + + + | Result panel 347 | + + + + + +---------+ + + | | 2023-01-12 | [facility] | 2.278 | (missing) | (missing) | | (unavailable | 20:36:07 [facility] | | | + + + +---------+ + + + + | Result panel 348 | + + + + + + + + + | | 2023-01-12 | [facility] | <0.2 mg/dL | (missing) | (missing) | | (unavailable | 20:36:07 [facility] | | | + + + + + + + + + | Result panel 349 | + + + + + +-------+ + + | | 2023-01-29 | [facility] | 3.4 | (missing) | (missing) | | (unavailable | 23:00:07 [facility] | | | + + + +-------+ + + + + | Result panel 350 | + + + + + +--------+ + + | | 2023-01-29 | [facility] | 47.8 | (missing) | (missing) | | (unavailable | ::07 | [facility] | | | + + + +--------+ + + + + | Result panel 351 | + + + + + +--------+ + + | | 2023-01-29 | [facility] | 25.0 | (missing) | (missing) | | (unavailable | 23::07 [facility] | | | + + + +--------+ + + + + | Result panel 352 | + + + + + +--------+ + + | | 2023-01-29 | [facility] | 17.0 | (missing) | (missing) | | (unavailable | 23::07 [facility] | | | + + + +--------+ + + + + | Result panel 353 | + + + + + +-------+ + + | | 2023-01-29 | [facility] | 8.7 | (missing) | (missing) | | (unavailable | 23:00:07 [facility] | | | + + + +-------+ + + + + | Result panel 354 | + + + + + +-------+ + + | | 2023-01-29 | [facility] | 1.5 | (missing) | (missing) | | (unavailable | 23:00:07 [facility] | | | + + + +-------+ + + + + | Result panel 355 | + + + + + +-------+---------+ + | | 2023-01-29 | [facility] | 109 | mg/dL | (missing) | | (unavailable | 23:00:07 [facility] | | | + + + +-------+---------+ + + + | Result panel 356 | + + + + + +------+---------+ + | | 2023-01-29 | [facility] | 18 | mg/dL | (missing) | | (unavailable | 23:00:07 [facility] | | | + + + +------+---------+ + + + | Result panel 357 | + + + + + +--------+---------+ + | | 2023-01-29 | [facility] | 1.19 | mg/dL | (missing) | | (unavailable | 23:00:07 [facility] | | | + + + +--------+---------+ + + + | Result panel 358 | + + + + + +------+ + + | | 2023-01-29 | [facility] | 46 | (missing) | (missing) | | (unavailable | 23:00:07 [facility] | | | + + + +------+ + + + + | Result panel 359 | + + + + + +---------+ + + | | 2023-01-29 | [facility] | 15.12 | (missing) | (missing) | | (unavailable | 23:00:07 [facility] | | | + + + +---------+ + + + + | Result panel 360 | + + + + + +--------+ + + | | 2023-01-29 | [facility] | 3.70 | (missing) | (missing) | | (unavailable | 23:00:07 [facility] | | | + + + +--------+ + + + + | Result panel 361 | + + + + + +-------+ + + | | 2023-01-29 | [facility] | 137 | (missing) | (missing) | | (unavailable | 23:00:07 [facility] | | | + + + +-------+ + + + + | Result panel 362 | + + + + + +-------+ + + | | 2023-01-29 | [facility] | 4.7 | (missing) | (missing) | | (unavailable | 23::07 [facility] | | | + + + +-------+ + + + + | Result panel 363 | + + + + + +-------+ + + | | 2023-01-29 | [facility] | 103 | (missing) | (missing) | | (unavailable | 23:00:07 [facility] | | | + + + +-------+ + + + + | Result panel 364 | + + + + + +------+ + + | | 2023-01-29 | [facility] | 28 | (missing) | (missing) | | (unavailable | 23:00:07 [facility] | | | + + + +------+ + + + + | Result panel 365 | + + + + + +--------+ + + | | 2023-01-29 | [facility] | 10.7 | (missing) | (missing) | | (unavailable | 23:00:07 [facility] | | | + + + +--------+ + + + + | Result panel 366 | + + + + + +-------+---------+ + | | 2023-01-29 | [facility] | 8.7 | mg/dL | (missing) | | (unavailable | 23:07 [facility] | | | + + + +-------+---------+ + + + | Result panel 367 | + + + + + +-------+---------+ + | | 2023-01-29 | [facility] | 1.8 | mg/dL | (missing) | | (unavailable | 23:00:07 [facility] | | | + + + +-------+---------+ + + + | Result panel 368 | + + + + + +-------+ + + | | 2023-01-29 | [facility] | 6.0 | (missing) | (missing) | | (unavailable | 23::07 [facility] | | | + + + +-------+ + + + + | Result panel 369 | + + + + + +-------+ + + | | 2023-01-29 | [facility] | 3.1 | (missing) | (missing) | | (unavailable | 23:00:07 [facility] | | | + + + +-------+ + + + + | Result panel 370 | + + + + + +-------+ + + | | 2023-01-29 | [facility] | 2.9 | (missing) | (missing) | | (unavailable | 23:00:07 [facility] | | | + + + +-------+ + + + + | Result panel 371 | + + + + + +--------+ + + | | 2023-01-29 | [facility] | 11.5 | (missing) | (missing) | | (unavailable | 23:00:07 [facility] | | | + + + +--------+ + + + + | Result panel 372 | + + + + + +--------+ + + | | 2023-01-29 | [facility] | 1.07 | (missing) | (missing) | | (unavailable | 23:00:07 [facility] | | | + + + +--------+ + + + + | Result panel 373 | + + + + + +-------+ + + | | 2023-01-29 | [facility] | 0.5 | (missing) | (missing) | | (unavailable | 23:00:07 [facility] | | | + + + +-------+ + + + + | Result panel 374 | + + + + + +------+ + + | | 2023-01-29 | [facility] | 22 | (missing) | (missing) | | (unavailable | 23:00:07 [facility] | | | + + + +------+ + + + + | Result panel 375 | + + + + + +------+ + + | | 2023-01-29 | [facility] | 23 | (missing) | (missing) | | (unavailable | 23:00:07 [facility] | | | + + + +------+ + + + + | Result panel 376 | + + + + + +------+ + + | | 2023-01-29 | [facility] | 60 | (missing) | (missing) | | (unavailable | 23:00:07 [facility] | | | + + + +------+ + + + + | Result panel 377 | + + + + + +--------+ + + | | 2023-01-29 | [facility] | 35.5 | (missing) | (missing) | | (unavailable | 23:00:07 [facility] | | | + + + +--------+ + + + + | Result panel 378 | + + + + + +--------+ + + | | 2023-01-29 | [facility] | 96.0 | (missing) | (missing) | | (unavailable | 23:00:07 [facility] | | | + + + +--------+ + + + + | Result panel 379 | + + + + + +--------+ + + | | 2023-01-29 | [facility] | 31.1 | (missing) | (missing) | | (unavailable | 23:00:07 [facility] | | | + + + +--------+ + + + + | Result panel 380 | + + + + + +--------+ + + | | 2023-01-29 | [facility] | 32.4 | (missing) | (missing) | | (unavailable | 23:00:07 [facility] | | | + + + +--------+ + + + + | Result panel 381 | + + + + + +--------+ + + | | 2023-01-29 | [facility] | 13.7 | (missing) | (missing) | | (unavailable | 23:00:07 [facility] | | | + + + +--------+ + + + + | Result panel 382 | + + + + + +-------+ + + | | 2023-01-29 | [facility] | 200 | (missing) | (missing) | | (unavailable | 23:00:07 [facility] | | | + + + +-------+ + + Social History No information. Vital Signs + + + +---------+ | date | measurement | value | units | + + + +---------+ | 2021-10-30 00:00 | BMI | 31.4 | kg/m2 | + + + +---------+ | 2021-10-30 00:00 | BP_diastolic | 71 | mmHg | + + + +---------+ | 2021-10-30 00:00 | BP_systolic | 118 | mmHg | + + + +---------+ | 2021-10-30 00:00 | heart_rate | 68 | /min | + + + +---------+ | 2021-10-30 00:00 | height_metric | 152.4 | cm | + + + +---------+ | 2021-10-30 00:00 | height_standard | 60 | in | + + + +---------+ | 2021-10-30 00:00 | o2_saturation | 97 | % | + + + +---------+ | 2021-10-30 00:00 | respiration_rate | 20 | /min | + + + +---------+ | 2021-10-30 00:00 | temperature_metric | 37 | C | | | | | | + + + +---------+ | 2021-10-30 00:00 | | 98.6 | F | | | temperature_standar | | | | | d | | | + + + +---------+ | 2021-10-30 00:00 | weight_metric | 73 | kg | + + + +---------+ | 2021-10-30 00:00 | weight_standard | 160.94 | lb | + + + +---------+ | 2022-03-08 00:00 | BMI | 30.5 | kg/m2 | + + + +---------+ | 2022-03-08 00:00 | BP_diastolic | 102 | mmHg | + + + +---------+ | 2022-03-08 00:00 | BP_systolic | 156 | mmHg | + + + +---------+ | 2022-03-08 00:00 | heart_rate | 53 | /min | + + + +---------+ | 2022-03-08 00:00 | height_metric | 152.4 | cm | + + + +---------+ | 2022-03-08 00:00 | height_standard | 60 | in | + + + +---------+ | 2022-03-08 00:00 | o2_saturation | 96 | % | + + + +---------+ | 2022-03-08 00:00 | respiration_rate | 16 | /min | + + + +---------+ | 2022-03-08 00:00 | temperature_metric | 36.67 | C | | | | | | + + + +---------+ | 2022-03-08 00:00 | | 98 | F | | | temperature_standar | | | | | d | | | + + + +---------+ | 2022-03-08 00:00 | weight_metric | 70.73 | kg | + + + +---------+ | 2022-03-08 00:00 | weight_standard | 155.93 | lb | + + + +---------+ | 2022-03-08 00:00 | weight_standard | 155.94 | lb | + + + +---------+ | 2022-09-27 00:00 | BMI | 29.5 | kg/m2 | + + + +---------+ | 2022-09-27 00:00 | height_metric | 152.4 | cm | + + + +---------+ | 2022-09-27 00:00 | height_standard | 60 | in | + + + +---------+ | 2022-09-27 00:00 | weight_metric | 68.46 | kg | + + + +---------+ | 2022-09-27 00:00 | weight_metric | 68.47 | kg | + + + +---------+ | 2022-09-27 00:00 | weight_standard | 150.93 | lb | + + + +---------+ | 2022-09-27 00:00 | weight_standard | 150.94 | lb | + + + +---------+ | 2022-09-28 00:00 | BP_diastolic | 72 | mmHg | + + + +---------+ | 2022-09-28 00:00 | BP_systolic | 132 | mmHg | + + + +---------+ | 2022-09-28 00:00 | heart_rate | 58 | /min | + + + +---------+ | 2022-09-28 00:00 | o2_saturation | 97 | % | + + + +---------+ | 2022-09-28 00:00 | respiration_rate | 18 | /min | + + + +---------+ | 2022-09-28 00:00 | temperature_metric | 36.89 | C | | | | | | + + + +---------+ | 2022-09-28 00:00 | | 98.4 | F | | | temperature_standar | | | | | d | | | + + + +---------+ | 2022-10-05 00:00 | BMI | 29.1 | kg/m2 | + + + +---------+ | 2022-10-05 00:00 | BP_diastolic | 64 | mmHg | + + + +---------+ | 2022-10-05 00:00 | BP_systolic | 124 | mmHg | + + + +---------+ | 2022-10-05 00:00 | heart_rate | 60 | /min | + + + +---------+ | 2022-10-05 00:00 | height_metric | 152.4 | cm | + + + +---------+ | 2022-10-05 00:00 | height_standard | 60 | in | + + + +---------+ | 2022-10-05 00:00 | o2_saturation | 97 | % | + + + +---------+ | 2022-10-05 00:00 | respiration_rate | 16 | /min | + + + +---------+ | 2022-10-05 00:00 | temperature_metric | 36.89 | C | | | | | | + + + +---------+ | 2022-10-05 00:00 | | 98.4 | F | | | temperature_standar | | | | | d | | | + + + +---------+ | 2022-10-05 00:00 | weight_metric | 67.5 | kg | + + + +---------+ | 2022-10-05 00:00 | weight_standard | 148.81 | lb | + + + +---------+ | 2022-10-27 00:00 | BMI | 30.3 | kg/m2 | + + + +---------+ | 2022-10-27 00:00 | BP_diastolic | 70 | mmHg | + + + +---------+ | 2022-10-27 00:00 | BP_systolic | 127 | mmHg | + + + +---------+ | 2022-10-27 00:00 | heart_rate | 70 | /min | + + + +---------+ | 2022-10-27 00:00 | height_metric | 152.4 | cm | + + + +---------+ | 2022-10-27 00:00 | height_standard | 60 | in | + + + +---------+ | 2022-10-27 00:00 | o2_saturation | 97 | % | + + + +---------+ | 2022-10-27 00:00 | respiration_rate | 17 | /min | + + + +---------+ | 2022-10-27 00:00 | temperature_metric | 36.94 | C | | | | | | + + + +---------+ | 2022-10-27 00:00 | | 98.5 | F | | | temperature_standar | | | | | d | | | + + + +---------+ | 2022-10-27 00:00 | weight_metric | 70.4 | kg | + + + +---------+ | 2022-10-27 00:00 | weight_standard | 155.21 | lb | + + + +---------+ | 2022-12-01 00:00 | BMI | 29.9 | kg/m2 | + + + +---------+ | 2022-12-01 00:00 | BP_diastolic | 68 | mmHg | + + + +---------+ | 2022-12-01 00:00 | BP_systolic | 122 | mmHg | + + + +---------+ | 2022-12-01 00:00 | heart_rate | 81 | /min | + + + +---------+ | 2022-12-01 00:00 | height_metric | 152.4 | cm | + + + +---------+ | 2022-12-01 00:00 | height_standard | 60 | in | + + + +---------+ | 2022-12-01 00:00 | o2_saturation | 99 | % | + + + +---------+ | 2022-12-01 00:00 | respiration_rate | 16 | /min | + + + +---------+ | 2022-12-01 00:00 | temperature_metric | 37 | C | | | | | | + + + +---------+ | 2022-12-01 00:00 | | 98.6 | F | | | temperature_standar | | | | | d | | | + + + +---------+ | 2022-12-01 00:00 | weight_metric | 69.4 | kg | + + + +---------+ | 2022-12-01 00:00 | weight_standard | 153 | lb | + + + +---------+ | 2023-01-12 00:00 | BMI | 29.9 | kg/m2 | + + + +---------+ | 2023-01-12 00:00 | BP_diastolic | 69 | mmHg | + + + +---------+ | 2023-01-12 00:00 | BP_systolic | 132 | mmHg | + + + +---------+ | 2023-01-12 00:00 | heart_rate | 59 | /min | + + + +---------+ | 2023-01-12 00:00 | height_metric | 152.4 | cm | + + + +---------+ | 2023-01-12 00:00 | height_standard | 60 | in | + + + +---------+ | 2023-01-12 00:00 | o2_saturation | 98 | % | + + + +---------+ | 2023-01-12 00:00 | respiration_rate | 16 | /min | + + + +---------+ | 2023-01-12 00:00 | temperature_metric | 37 | C | | | | | | + + + +---------+ | 2023-01-12 00:00 | | 98.6 | F | | | temperature_standar | | | | | d | | | + + + +---------+ | 2023-01-12 00:00 | weight_metric | 69.4 | kg | + + + +---------+ | 2023-01-12 00:00 | weight_standard | 153 | lb | + + + +---------+ | 2023-01-29 00:00 | BMI | 32.3 | kg/m2 | + + + +---------+ | 2023-01-29 00:00 | height_metric | 152.4 | cm | + + + +---------+ | 2023-01-29 00:00 | height_standard | 60 | in | + + + +---------+ | 2023-01-29 00:00 | weight_metric | 75 | kg | + + + +---------+ | 2023-01-29 00:00 | weight_standard | 165.35 | lb | + + + +---------+ | 2023-01-30 00:00 | BP_diastolic | 58 | mmHg | + + + +---------+ | 2023-01-30 00:00 | BP_systolic | 111 | mmHg | + + + +---------+ | 2023-01-30 00:00 | heart_rate | 54 | /min | + + + +---------+ | 2023-01-30 00:00 | o2_saturation | 94 | % | + + + +---------+ | 2023-01-30 00:00 | respiration_rate | 14 | /min | + + + +---------+ | 2023-01-30 00:00 | temperature_metric | 36.89 | C | | | | | | + + + +---------+ | 2023-01-30 00:00 | | 98.4 | F | | | temperature_standar | | | | | d | | | + + + +---------+"
--- OUTSIDE RECORDS SUMMARY | ~2023-02-14 | XMS | Continuity of Care Document ---
Demographics + + + | Address | [address] | | | [place] [address] | + + + | Preferred Language | Unknown | + + + | Marital Status | | + + + | Uatsdin Affiliation | Unknown | + + + | Race | White | + + + | Ethnic Group | Not or | + + + Author + + + | Author | [facility] | + + + | Organization | [facility] | + + + | Address | [address] | | | [place] [address] | + + + | Phone | | + + + Care Team Providers + + + + | Care Commodities Trader Name | Role | Phone | + [...] 2022-02-11 00:00 | CALCIUM CARB/MAG OXIDE/VIT | [facility] | | | D3 | | + + + + | 2022-03-10 00:00 | CALCIUM CARB/MAG OXIDE/VIT | [facility] | | | D3 | | + + + + | 2022-09-28 00:00 | CALCIUM CARB/MAG OXIDE/VIT | [facility] | | | D3 | | + + + + | 2022-10-05 00:00 | CALCIUM CARB/MAG OXIDE/VIT | [facility] | | | D3 | | + + + + | 2022-10-27 00:00 | CALCIUM CARB/MAG OXIDE/VIT | [facility] | | | D3 | | + + + + | 2022-12-01 00:00 | CALCIUM CARB/MAG OXIDE/VIT | [facility] | | | D3 | | + + + + | 2023-01-12 00:00 | CALCIUM CARB/MAG OXIDE/VIT | [facility] | | | D3 | | + + + + | 2023-01-30 00:00 | CALCIUM CARB/MAG OXIDE/VIT | [facility] | | | D3 | | + + + + | 2021-08-06 00:00 | ONDANSETRON HCL | [facility] | + + + + | 2022-02-11 00:00 | DIGOXIN | [facility] | + + + + | 2022-03-10 00:00 | DIGOXIN | [facility] | + + + + | 2022-09-28 00:00 | DIGOXIN | [facility] | + + + + | 2022-10-05 00:00 | DIGOXIN | [facility] | + + + + | 2022-10-27 00:00 | DIGOXIN | [facility] | + + + + | 2022-12-01 00:00 | DIGOXIN | [facility] | + + + + | 2023-01-12 00:00 | DIGOXIN | [facility] | + + + + | 2023-01-30 00:00 | DIGOXIN | [facility] | + + + + | 2022-02-11 00:00 | BUDESONIDE/FORMOTEROL | [facility] | | | FUMARATE | | + + + + | 2022-03-10 00:00 | BUDESONIDE/FORMOTEROL | [facility] | | | FUMARATE | | + + + + | 2022-09-28 00:00 | BUDESONIDE/FORMOTEROL | [facility] | | | FUMARATE | | + + + + | 2022-10-05 00:00 | BUDESONIDE/FORMOTEROL | [facility] | | | FUMARATE | | + + + + | 2022-10-27 00:00 | BUDESONIDE/FORMOTEROL | [facility] | | | FUMARATE | | + + + + | 2022-12-01 00:00 | BUDESONIDE/FORMOTEROL | [facility] | | | FUMARATE | | + + + + | 2023-01-12 00:00 | BUDESONIDE/FORMOTEROL | [facility] | | | FUMARATE | | + + + + | 2023-01-30 00:00 | BUDESONIDE/FORMOTEROL | [facility] | | | FUMARATE | | + + + + | 2021-05-27 00:00 | HYDROCORTISONE ACETATE | [facility] | + + + + | 2022-02-11 00:00 | APIXABAN | [facility] | + + + + | 2022-03-10 00:00 | APIXABAN | [facility] | + + + + | 2022-09-28 00:00 | APIXABAN | [facility] | + + + + | 2022-10-05 00:00 | APIXABAN | [facility] | + + + + | 2022-10-27 00:00 | APIXABAN | [facility] | + + + + | 2022-12-01 00:00 | APIXABAN | [facility] | + + + + | 2023-01-12 00:00 | APIXABAN | [facility] | + + + + | 2023-01-30 00:00 | APIXABAN | [facility] | + + + + | 2022-09-28 00:00 | EMPAGLIFLOZIN | [facility] | + + + + | 2022-10-05 00:00 | EMPAGLIFLOZIN | [facility] | + + + + | 2022-10-27 00:00 | EMPAGLIFLOZIN | [facility] | + + + + | 2022-12-01 00:00 | EMPAGLIFLOZIN | [facility] | + + + + | 2023-01-12 00:00 | EMPAGLIFLOZIN | [facility] | + + + + | 2023-01-30 00:00 | EMPAGLIFLOZIN | [facility] | + + + + | 2022-02-11 00:00 | Bacillus Coagulans | [facility] | + + + + | 2022-03-10 00:00 | Bacillus Coagulans | [facility] | + + + + | 2022-09-28 00:00 | Bacillus Coagulans | [facility] | + + + + | 2022-10-05 00:00 | Bacillus Coagulans | [facility] | + + + + | 2022-10-27 00:00 | Bacillus Coagulans | [facility] | + + + + | 2022-12-01 00:00 | Bacillus Coagulans | [facility] | + + + + | 2023-01-12 00:00 | Bacillus Coagulans | [facility] | + + + + | 2023-01-30 00:00 | Bacillus Coagulans | [facility] | + + + + | 2022-02-11 00:00 | FLUTICASONE PROPIONATE 50 | [facility] | | | MCG | | + + + + | 2022-03-10 00:00 | FLUTICASONE PROPIONATE 50 | [facility] | | | MCG | | + + + + | 2022-09-28 00:00 | FLUTICASONE PROPIONATE 50 | [facility] | | | MCG | | + + + + | 2022-10-05 00:00 | FLUTICASONE PROPIONATE 50 | [facility] | | | MCG | | + + + + | 2022-10-27 00:00 | FLUTICASONE PROPIONATE 50 | [facility] | | | MCG | | + + + + | 2022-12-01 00:00 | FLUTICASONE PROPIONATE 50 | [facility] | | | MCG | | + + + + | 2023-01-12 00:00 | FLUTICASONE PROPIONATE 50 | [facility] | | | MCG | | + + + + | 2023-01-30 00:00 | FLUTICASONE PROPIONATE 50 | [facility] | | | MCG | | + + + + | 2022-02-11 00:00 | POTASSIUM CHLORIDE | [facility] | + + + + | 2022-03-10 00:00 | POTASSIUM CHLORIDE | [facility] | + + + + | 2022-09-28 00:00 | POTASSIUM CHLORIDE | [facility] | + + + + | 2022-10-05 00:00 | POTASSIUM CHLORIDE | [facility] | + + + + | 2022-10-27 00:00 | POTASSIUM CHLORIDE | [facility] | + + + + | 2022-12-01 00:00 | POTASSIUM CHLORIDE | [facility] | + + + + | 2023-01-12 00:00 | POTASSIUM CHLORIDE | [facility] | + + + + | 2023-01-30 00:00 | POTASSIUM CHLORIDE | [facility] | + + + + | 2022-02-11 00:00 | POTASSIUM CHLORIDE | [facility] | + + + + | 2022-03-10 00:00 | POTASSIUM CHLORIDE | [facility] | + + + + | 2022-09-28 00:00 | POTASSIUM CHLORIDE | [facility] | + + + + | 2022-10-05 00:00 | POTASSIUM CHLORIDE | [facility] | + + + + | 2022-10-27 00:00 | POTASSIUM CHLORIDE | [facility] | + + + + | 2022-12-01 00:00 | POTASSIUM CHLORIDE | [facility] | + + + + | 2023-01-12 00:00 | POTASSIUM CHLORIDE | [facility] | + + + + | 2023-01-30 00:00 | POTASSIUM CHLORIDE | [facility] | + + + + | 2022-02-11 00:00 | ALLOPURINOL | [facility] | + + + + | 2022-03-10 00:00 | ALLOPURINOL | [facility] | + + + + | 2022-09-28 00:00 | ALLOPURINOL | [facility] | + + + + | 2022-10-05 00:00 | ALLOPURINOL | [facility] | + + + + | 2022-10-27 00:00 | ALLOPURINOL | [facility] | + + + + | 2022-12-01 00:00 | ALLOPURINOL | [facility] | + + + + | 2023-01-12 00:00 | ALLOPURINOL | [facility] | + + + + | 2023-01-30 00:00 | ALLOPURINOL | [facility] | + + + + | 2022-02-11 00:00 | AMLODIPINE BESYLATE | [facility] | + + + + | 2022-03-10 00:00 | AMLODIPINE BESYLATE | [facility] | + + + + | 2022-09-28 00:00 | AMLODIPINE BESYLATE | [facility] | + + + + | 2022-10-05 00:00 | AMLODIPINE BESYLATE | [facility] | + + + + | 2022-10-27 00:00 | AMLODIPINE BESYLATE | [facility] | + + + + | 2022-12-01 00:00 | AMLODIPINE BESYLATE | [facility] | + + + + | 2023-01-12 00:00 | AMLODIPINE BESYLATE | [facility] | + + + + | 2023-01-30 00:00 | AMLODIPINE BESYLATE | [facility] | + + + + | 2022-02-11 00:00 | BACLOFEN | [facility] | + + + + | 2022-03-10 00:00 | BACLOFEN | [facility] | + + + + | 2022-09-28 00:00 | BACLOFEN | [facility] | + + + + | 2022-10-05 00:00 | BACLOFEN | [facility] | + + + + | 2022-10-27 00:00 | BACLOFEN | [facility] | + + + + | 2022-12-01 00:00 | BACLOFEN | [facility] | + + + + | 2023-01-12 00:00 | BACLOFEN | [facility] | + + + + | 2023-01-30 00:00 | BACLOFEN | [facility] | + + + + | 2022-02-11 00:00 | BETAMETHASONE VALERATE | [facility] | + + + + | 2022-03-10 00:00 | BETAMETHASONE VALERATE | [facility] | + + + + | 2022-09-28 00:00 | BETAMETHASONE VALERATE | [facility] | + + + + | 2022-10-05 00:00 | BETAMETHASONE VALERATE | [facility] | + + + + | 2022-10-27 00:00 | BETAMETHASONE VALERATE | [facility] | + + + + | 2022-12-01 00:00 | BETAMETHASONE VALERATE | [facility] | + + + + | 2023-01-12 00:00 | BETAMETHASONE VALERATE | [facility] | + + + + | 2023-01-30 00:00 | BETAMETHASONE VALERATE | [facility] | + + + + | 2022-02-11 00:00 | LOVASTATIN | [facility] | + + + + | 2022-03-10 00:00 | LOVASTATIN | [facility] | + + + + | 2022-09-28 00:00 | LOVASTATIN | [facility] | + + + + | 2022-10-05 00:00 | LOVASTATIN | [facility] | + + + + | 2022-10-27 00:00 | LOVASTATIN | [facility] | + + + + | 2022-12-01 00:00 | LOVASTATIN | [facility] | + + + + | 2023-01-12 00:00 | LOVASTATIN | [facility] | + + + + | 2023-01-30 00:00 | LOVASTATIN | [facility] | + + + + | 2022-12-01 00:00 | METHOCARBAMOL | [facility] | + + + + | 2022-02-11 00:00 | NITROGLYCERIN | [facility] | + + + + | 2022-03-10 00:00 | NITROGLYCERIN | [facility] | + + + + | 2022-09-28 00:00 | NITROGLYCERIN | [facility] | + + + + | 2022-10-05 00:00 | NITROGLYCERIN | [facility] | + + + + | 2022-10-27 00:00 | NITROGLYCERIN | [facility] | + + + + | 2022-12-01 00:00 | NITROGLYCERIN | [facility] | + + + + | 2023-01-12 00:00 | NITROGLYCERIN | [facility] | + + + + | 2023-01-30 00:00 | NITROGLYCERIN | [facility] | + + + + | 2019-10-04 00:00 | OMEPRAZOLE | [facility] | + + + + | 2022-02-11 00:00 | TORSEMIDE | [facility] | + + + + | 2022-03-10 00:00 | TORSEMIDE | [facility] | + + + + | 2022-09-28 00:00 | TORSEMIDE | [facility] | + + + + | 2022-10-05 00:00 | TORSEMIDE | [facility] | + + + + | 2022-10-27 00:00 | TORSEMIDE | [facility] | + + + + | 2022-12-01 00:00 | TORSEMIDE | [facility] | + + + + | 2023-01-12 00:00 | TORSEMIDE | [facility] | + + + + | 2023-01-30 00:00 | TORSEMIDE | [facility] | + + + + | 2022-02-11 00:00 | ASPIRIN | [facility] | + + + + | 2022-03-10 00:00 | ASPIRIN | [facility] | + + + + | 2022-09-28 00:00 | ASPIRIN | [facility] | + + + + | 2022-10-05 00:00 | ASPIRIN | [facility] | + + + + | 2022-10-27 00:00 | ASPIRIN | [facility] | + + + + | 2022-12-01 00:00 | ASPIRIN | [facility] | + + + + | 2023-01-12 00:00 | ASPIRIN | [facility] | + + + + | 2023-01-30 00:00 | ASPIRIN | [facility] | + + + + | 2022-02-11 00:00 | HYDROCHLOROTHIAZIDE | [facility] | + + + + | 2022-03-10 00:00 | HYDROCHLOROTHIAZIDE | [facility] | + + + + | 2022-09-28 00:00 | HYDROCHLOROTHIAZIDE | [facility] | + + + + | 2022-10-05 00:00 | HYDROCHLOROTHIAZIDE | [facility] | + + + + | 2022-10-27 00:00 | HYDROCHLOROTHIAZIDE | [facility] | + + + + | 2022-12-01 00:00 | HYDROCHLOROTHIAZIDE | [facility] | + + + + | 2023-01-12 00:00 | HYDROCHLOROTHIAZIDE | [facility] | + + + + | 2023-01-30 00:00 | HYDROCHLOROTHIAZIDE | [facility] | + + + + | 2020-08-06 00:00 | CARVEDILOL | [facility] | + + + + | 2022-02-11 00:00 | CARVEDILOL | [facility] | + + + + | 2022-03-10 00:00 | CARVEDILOL | [facility] | + + + + | 2022-09-28 00:00 | CARVEDILOL | [facility] | + + + + | 2022-10-05 00:00 | CARVEDILOL | [facility] | + + + + | 2022-10-27 00:00 | CARVEDILOL | [facility] | + + + + | 2022-12-01 00:00 | CARVEDILOL | [facility] | + + + + | 2023-01-12 00:00 | CARVEDILOL | [facility] | + + + + | 2023-01-30 00:00 | CARVEDILOL | [facility] | + + + + | 2022-02-11 00:00 | OMEPRAZOLE | [facility] | + + + + | 2022-03-10 00:00 | OMEPRAZOLE | [facility] | + + + + | 2022-09-28 00:00 | OMEPRAZOLE | [facility] | + + + + | 2022-10-05 00:00 | OMEPRAZOLE | [facility] | + + + + | 2022-10-27 00:00 | OMEPRAZOLE | [facility] | + + + + | 2022-12-01 00:00 | OMEPRAZOLE | [facility] | + + + + | 2023-01-12 00:00 | OMEPRAZOLE | [facility] | + + + + | 2023-01-30 00:00 | OMEPRAZOLE | [facility] | + + + + | 2022-02-11 00:00 | FUROSEMIDE | [facility] | + + + + | 2022-03-10 00:00 | FUROSEMIDE | [facility] | + + + + | 2022-09-28 00:00 | FUROSEMIDE | [facility] | + + + + | 2022-10-05 00:00 | FUROSEMIDE | [facility] | + + + + | 2022-10-27 00:00 | FUROSEMIDE | [facility] | + + + + | 2022-12-01 00:00 | FUROSEMIDE | [facility] | + + + + | 2023-01-12 00:00 | FUROSEMIDE | [facility] | + + + + | 2023-01-30 00:00 | FUROSEMIDE | [facility] | + + + + | 2022-02-11 00:00 | SPIRONOLACTONE | [facility] | + + + + | 2022-03-10 00:00 | SPIRONOLACTONE | [facility] | + + + + | 2022-09-28 00:00 | SPIRONOLACTONE | [facility] | + + + + | 2022-10-05 00:00 | SPIRONOLACTONE | [facility] | + + + + | 2022-10-27 00:00 | SPIRONOLACTONE | [facility] | + + + + | 2022-12-01 00:00 | SPIRONOLACTONE | [facility] | + + + + | 2023-01-12 00:00 | SPIRONOLACTONE | [facility] | + + + + | 2023-01-30 00:00 | SPIRONOLACTONE | [facility] | + + + + | 2022-02-11 00:00 | NEOMYCIN/POLYMYXIN B | [facility] | | | SULF/HC | | + + + + | 2022-03-10 00:00 | NEOMYCIN/POLYMYXIN B | [facility] | | | SULF/HC | | + + + + | 2022-09-28 00:00 | NEOMYCIN/POLYMYXIN B | [facility] | | | SULF/HC | | + + + + | 2022-10-05 00:00 | NEOMYCIN/POLYMYXIN B | [facility] | | | SULF/HC | | + + + + | 2022-10-27 00:00 | NEOMYCIN/POLYMYXIN B | [facility] | | | SULF/HC | | + + + + | 2022-12-01 00:00 | NEOMYCIN/POLYMYXIN B | [facility] | | | SULF/HC | | + + + + | 2023-01-12 00:00 | NEOMYCIN/POLYMYXIN B | [facility] | | | SULF/HC | | + + + + | 2023-01-30 00:00 | NEOMYCIN/POLYMYXIN B | [facility] | | | SULF/HC | | + + + + | 2013-09-09 00:00 | CIPROFLOXACIN HCL | [facility] | + + + + | 2022-02-11 00:00 | CIPROFLOXACIN HCL | [facility] | + + + + | 2022-03-10 00:00 | CIPROFLOXACIN HCL | [facility] | + + + + | 2022-09-28 00:00 | CIPROFLOXACIN HCL | [facility] | + + + + | 2022-10-05 00:00 | CIPROFLOXACIN HCL | [facility] | + + + + | 2022-10-27 00:00 | CIPROFLOXACIN HCL | [facility] | + + + + | 2022-12-01 00:00 | CIPROFLOXACIN HCL | [facility] | + + + + | 2023-01-12 00:00 | CIPROFLOXACIN HCL | [facility] | + + + + | 2023-01-30 00:00 | CIPROFLOXACIN HCL | [facility] | + + + + | 2013-09-09 00:00 | METRONIDAZOLE | [facility] | + + + + | 2022-02-11 00:00 | METRONIDAZOLE | [facility] | + + + + | 2022-03-10 00:00 | METRONIDAZOLE | [facility] | + + + + | 2022-09-28 00:00 | METRONIDAZOLE | [facility] | + + + + | 2022-10-05 00:00 | METRONIDAZOLE | [facility] | + + + + | 2022-10-27 00:00 | METRONIDAZOLE | [facility] | + + + + | 2022-12-01 00:00 | METRONIDAZOLE | [facility] | + + + + | 2023-01-12 00:00 | METRONIDAZOLE | [facility] | + + + + | 2023-01-30 00:00 | METRONIDAZOLE | [facility] | + + + + | 2022-02-11 00:00 | SUCRALFATE | [facility] | + + + + | 2022-03-10 00:00 | SUCRALFATE | [facility] | + + + + | 2022-09-28 00:00 | SUCRALFATE | [facility] | + + + + | 2022-10-05 00:00 | SUCRALFATE | [facility] | + + + + | 2022-10-27 00:00 | SUCRALFATE | [facility] | + + + + | 2022-12-01 00:00 | SUCRALFATE | [facility] | + + + + | 2023-01-12 00:00 | SUCRALFATE | [facility] | + + + + | 2023-01-30 00:00 | SUCRALFATE | [facility] | + + + + | 2022-02-11 00:00 | ASPIRIN | [facility] | + + + + | 2022-03-10 00:00 | ASPIRIN | [facility] | + + + + | 2022-09-28 00:00 | ASPIRIN | [facility] | + + + + | 2022-10-05 00:00 | ASPIRIN | [facility] | + + + + | 2022-10-27 00:00 | ASPIRIN | [facility] | + + + + | 2022-12-01 00:00 | ASPIRIN | [facility] | + + + + | 2023-01-12 00:00 | ASPIRIN | [facility] | + + + + | 2023-01-30 00:00 | ASPIRIN | [facility] | + + + + | 2017-09-12 00:00 | CARVEDILOL | [facility] | + + + + | 2017-09-12 00:00 | CARVEDILOL | [facility] | + + + + | 2022-02-11 00:00 | CARVEDILOL | [facility] | + + + + | 2022-03-10 00:00 | CARVEDILOL | [facility] | + + + + | 2022-09-28 00:00 | CARVEDILOL | [facility] | + + + + | 2022-10-05 00:00 | CARVEDILOL | [facility] | + + + + | 2022-10-27 00:00 | CARVEDILOL | [facility] | + + + + | 2022-12-01 00:00 | CARVEDILOL | [facility] | + + + + | 2023-01-12 00:00 | CARVEDILOL | [facility] | + + + + | 2023-01-30 00:00 | CARVEDILOL | [facility] | + + + + | 2022-02-11 00:00 | AMLODIPINE BESYLATE | [facility] | + + + + | 2022-03-10 00:00 | AMLODIPINE BESYLATE | [facility] | + + + + | 2022-09-28 00:00 | AMLODIPINE BESYLATE | [facility] | + + + + | 2022-10-05 00:00 | AMLODIPINE BESYLATE | [facility] | + + + + | 2022-10-27 00:00 | AMLODIPINE BESYLATE | [facility] | + + + + | 2022-12-01 00:00 | AMLODIPINE BESYLATE | [facility] | + + + + | 2023-01-12 00:00 | AMLODIPINE BESYLATE | [facility] | + + + + | 2023-01-30 00:00 | AMLODIPINE BESYLATE | [facility] | + + + + | 2022-02-11 00:00 | MAGNESIUM OXIDE | [facility] | + + + + | 2022-03-10 00:00 | MAGNESIUM OXIDE | [facility] | + + + + | 2022-09-28 00:00 | MAGNESIUM OXIDE | [facility] | + + + + | 2022-10-05 00:00 | MAGNESIUM OXIDE | [facility] | + + + + | 2022-10-27 00:00 | MAGNESIUM OXIDE | [facility] | + + + + | 2022-12-01 00:00 | MAGNESIUM OXIDE | [facility] | + + + + | 2023-01-12 00:00 | MAGNESIUM OXIDE | [facility] | + + + + | 2023-01-30 00:00 | MAGNESIUM OXIDE | [facility] | + + + + | 2022-02-11 00:00 | CALCIUM CARBONATE | [facility] | + + + + | 2022-03-10 00:00 | CALCIUM CARBONATE | [facility] | + + + + | 2022-09-28 00:00 | CALCIUM CARBONATE | [facility] | + + + + | 2022-10-05 00:00 | CALCIUM CARBONATE | [facility] | + + + + | 2022-10-27 00:00 | CALCIUM CARBONATE | [facility] | + + + + | 2022-12-01 00:00 | CALCIUM CARBONATE | [facility] | + + + + | 2023-01-12 00:00 | CALCIUM CARBONATE | [facility] | + + + + | 2023-01-30 00:00 | CALCIUM CARBONATE | [facility] | + + + + | 2014-05-19 00:00 | PANTOPRAZOLE SODIUM | [facility] | + + + + | 2022-02-11 00:00 | ASPIRIN | [facility] | + + + + | 2022-03-10 00:00 | ASPIRIN | [facility] | + + + + | 2022-09-28 00:00 | ASPIRIN | [facility] | + + + + | 2022-10-05 00:00 | ASPIRIN | [facility] | + + + + | 2022-10-27 00:00 | ASPIRIN | [facility] | + + + + | 2022-12-01 00:00 | ASPIRIN | [facility] | + + + + | 2023-01-12 00:00 | ASPIRIN | [facility] | + + + + | 2023-01-30 00:00 | ASPIRIN | [facility] | + + + + | 2022-10-05 00:00 | AZITHROMYCIN | [facility] | + + + + | 2022-10-27 00:00 | AZITHROMYCIN | [facility] | + + + + | 2020-08-21 00:00 | CEPHALEXIN | [facility] | + + + + | 2022-02-11 00:00 | FUROSEMIDE | [facility] | + + + + | 2022-03-10 00:00 | FUROSEMIDE | [facility] | + + + + | 2022-09-28 00:00 | FUROSEMIDE | [facility] | + + + + | 2022-10-05 00:00 | FUROSEMIDE | [facility] | + + + + | 2022-10-27 00:00 | FUROSEMIDE | [facility] | + + + + | 2022-12-01 00:00 | FUROSEMIDE | [facility] | + + + + | 2023-01-12 00:00 | FUROSEMIDE | [facility] | + + + + | 2023-01-30 00:00 | FUROSEMIDE | [facility] | + + + + | 2022-02-11 00:00 | METRONIDAZOLE | [facility] | + + + + | 2022-03-10 00:00 | METRONIDAZOLE | [facility] | + + + + | 2022-09-28 00:00 | METRONIDAZOLE | [facility] | + + + + | 2022-10-05 00:00 | METRONIDAZOLE | [facility] | + + + + | 2022-10-27 00:00 | METRONIDAZOLE | [facility] | + + + + | 2022-12-01 00:00 | METRONIDAZOLE | [facility] | + + + + | 2023-01-12 00:00 | METRONIDAZOLE | [facility] | + + + + | 2023-01-30 00:00 | METRONIDAZOLE | [facility] | + + + + | 2020-08-06 00:00 | NYSTATIN | [facility] | + + + + | 2017-07-26 00:00 | predniSONE | [facility] | + + + + | 2022-02-11 00:00 | RANITIDINE HCL | [facility] | + + + + | 2022-03-10 00:00 | RANITIDINE HCL | [facility] | + + + + | 2022-09-28 00:00 | RANITIDINE HCL | [facility] | + + + + | 2022-10-05 00:00 | RANITIDINE HCL | [facility] | + + + + | 2022-10-27 00:00 | RANITIDINE HCL | [facility] | + + + + | 2022-12-01 00:00 | RANITIDINE HCL | [facility] | + + + + | 2023-01-12 00:00 | RANITIDINE HCL | [facility] | + + + + | 2023-01-30 00:00 | RANITIDINE HCL | [facility] | + + + + | 2022-02-11 00:00 | SERTRALINE HCL | [facility] | + + + + | 2022-03-10 00:00 | SERTRALINE HCL | [facility] | + + + + | 2022-09-28 00:00 | SERTRALINE HCL | [facility] | + + + + | 2022-10-05 00:00 | SERTRALINE HCL | [facility] | + + + + | 2022-10-27 00:00 | SERTRALINE HCL | [facility] | + + + + | 2022-12-01 00:00 | SERTRALINE HCL | [facility] | + + + + | 2023-01-12 00:00 | SERTRALINE HCL | [facility] | + + + + | 2023-01-30 00:00 | SERTRALINE HCL | [facility] | + + + + | 2020-08-30 00:00 | SODIUM CHLORIDE | [facility] | + + + + | 2022-02-11 00:00 | SPIRONOLACTONE | [facility] | + + + + | 2022-03-10 00:00 | SPIRONOLACTONE | [facility] | + + + + | 2022-09-28 00:00 | SPIRONOLACTONE | [facility] | + + + + | 2022-10-05 00:00 | SPIRONOLACTONE | [facility] | + + + + | 2022-10-27 00:00 | SPIRONOLACTONE | [facility] | + + + + | 2022-12-01 00:00 | SPIRONOLACTONE | [facility] | + + + + | 2023-01-12 00:00 | SPIRONOLACTONE | [facility] | + + + + | 2023-01-30 00:00 | SPIRONOLACTONE | [facility] | + + + + | 2022-02-11 00:00 | SUCRALFATE | [facility] | + + + + | 2022-03-10 00:00 | SUCRALFATE | [facility] | + + + + | 2022-09-28 00:00 | SUCRALFATE | [facility] | + + + + | 2022-10-05 00:00 | SUCRALFATE | [facility] | + + + + | 2022-10-27 00:00 | SUCRALFATE | [facility] | + + + + | 2022-12-01 00:00 | SUCRALFATE | [facility] | + + + + | 2023-01-12 00:00 | SUCRALFATE | [facility] | + + + + | 2023-01-30 00:00 | SUCRALFATE | [facility] | + + + + | 2020-08-21 00:00 | VANCOMYCIN HCL | [facility] | + + + + | 2022-02-11 00:00 | VANCOMYCIN HCL | [facility] [facility] | + + + + | 2022-03-10 00:00 | VANCOMYCIN HCL | [facility] | + + + + | 2022-09-28 00:00 | VANCOMYCIN HCL | [facility] | + + + + | 2022-10-05 00:00 | VANCOMYCIN HCL | [facility] | + + + + | 2022-10-27 00:00 | VANCOMYCIN HCL | [facility] | + + + + | 2022-12-01 00:00 | VANCOMYCIN HCL | [facility] | + + + + | 2023-01-12 00:00 | VANCOMYCIN HCL | [facility] | + + + + | 2023-01-30 00:00 | VANCOMYCIN HCL | [facility] | + + + + | 2022-02-11 00:00 | POTASSIUM CHLORIDE | [facility] | + + + + | 2022-03-10 00:00 | POTASSIUM CHLORIDE | [facility] | + + + + | 2022-09-28 00:00 | POTASSIUM CHLORIDE | [facility] | + + + + | 2022-10-05 00:00 | POTASSIUM CHLORIDE | [facility] | + + + + | 2022-10-27 00:00 | POTASSIUM CHLORIDE | [facility] | + + + + | 2022-12-01 00:00 | POTASSIUM CHLORIDE | [facility] | + + + + | 2023-01-12 00:00 | POTASSIUM CHLORIDE | [facility] | + + + + | 2023-01-30 00:00 | POTASSIUM CHLORIDE | [facility] | + + + + | 2022-02-11 00:00 | SITAGLIPTIN PHOSPHATE | [facility] | + + + + | 2022-03-10 00:00 | SITAGLIPTIN PHOSPHATE | [facility] | + + + + | 2022-09-28 00:00 | SITAGLIPTIN PHOSPHATE | [facility] | + + + + | 2022-10-05 00:00 | SITAGLIPTIN PHOSPHATE | [facility] | + + + + | 2022-10-27 00:00 | SITAGLIPTIN PHOSPHATE | [facility] | + + + + | 2022-12-01 00:00 | SITAGLIPTIN PHOSPHATE | [facility] | + + + + | 2023-01-12 00:00 | SITAGLIPTIN PHOSPHATE | [facility] | + + + + | 2023-01-30 00:00 | SITAGLIPTIN PHOSPHATE | [facility] | + + + + | 2017-07-26 00:00 | ALBUTEROL SULFATE MDI | [facility] | | | (HFA) | | + + + + | 2022-10-05 00:00 | Diclofenac Sodium | [facility] | + + + + | 2022-10-27 00:00 | Diclofenac Sodium | [facility] | + + + + | 2022-12-01 00:00 | Diclofenac Sodium | [facility] | + + + + | 2023-01-12 00:00 | Diclofenac Sodium | [facility] | + + + + | 2023-01-30 00:00 | Diclofenac Sodium | [facility] | + + + + | 2022-02-11 00:00 | HYDROCODONE | [facility] | | | BIT/ACETAMINOPHEN | | + + + + | 2022-03-10 00:00 | [facility] | [facility] | | | BIT/ACETAMINOPHEN | | + + + + | 2022-09-28 00:00 | HYDROCODONE | [facility] | | | BIT/ACETAMINOPHEN | | + + + + | 2022-10-05 00:00 | HYDROCODONE | [facility] | | | BIT/ACETAMINOPHEN | | + + + + | 2022-10-27 00:00 | HY[facility]OCODONE | [facility] | | | BIT/ACETAMINOPHEN | | + + + + | 2022-12-01 00:00 | HYDROCODONE | [facility] | | | BIT/ACETAMINOPHEN | | + + + + | 2023-01-12 00:00 | HYDROCODONE | [facility] | | | BIT/ACETAMINOPHEN | | + + + + | 2023-01-29 00:00 | HYDROCODONE | [facility] | | | BIT/ACETAMINOPHEN | | + + + + | 2023-01-30 00:00 | HYDROCODONE | [facility] | | | BIT/ACETAMINOPHEN | | + + + + | 2013-08-17 00:00 | HY[facility]OCODONE | [facility] | | | BIT/ACETAMINOPHEN | | + + + + | 2022-10-05 00:00 | ALBUTEROL SULFATE | [facility] | + + + + | 2022-02-11 00:00 | METFORMIN HCL | [facility] | + + + + | 2022-03-10 00:00 | METFORMIN HCL | [facility] | + + + + | 2022-09-28 00:00 | METFORMIN HCL | [facility] | + + + + | 2022-10-05 00:00 | METFORMIN HCL | [facility] | + + + + | 2022-10-27 00:00 | METFORMIN HCL | [facility] | + + + + | 2022-12-01 00:00 | METFORMIN HCL | [facility] | + + + + | 2023-01-12 00:00 | METFORMIN HCL | [facility] | + + + + | 2023-01-30 00:00 | METFORMIN HCL | [facility] | + + + + | 2022-02-11 00:00 | OXYBUTYNIN CHLORIDE | [facility] | + + + + | 2022-03-10 00:00 | OXYBUTYNIN CHLORIDE | [facility] | + + + + | 2022-09-28 00:00 | OXYBUTYNIN CHLORIDE | [facility] | + + + + | 2022-10-05 00:00 | OXYBUTYNIN CHLORIDE | [facility] | + + + + | 2022-10-27 00:00 | OXYBUTYNIN CHLORIDE | [facility] | + + + + | 2022-12-01 00:00 | OXYBUTYNIN CHLORIDE | [facility] | + + + + | 2023-01-12 00:00 | OXYBUTYNIN CHLORIDE | [facility] | + + + + | 2023-01-30 00:00 | OXYBUTYNIN CHLORIDE | [facility] | + + + + | 2022-02-11 00:00 | CLONIDINE HCL | [facility] | + + + + | 2022-03-10 00:00 | CLONIDINE HCL | [facility] | + + + + | 2022-09-28 00:00 | CLONIDINE HCL | [facility] | + + + + | 2022-10-05 00:00 | CLONIDINE HCL | [facility] | + + + + | 2022-10-27 00:00 | CLONIDINE HCL | [facility] | + + + + | 2022-12-01 00:00 | CLONIDINE HCL | [facility] | + + + + | 2023-01-12 00:00 | CLONIDINE HCL | [facility] | + + + + | 2023-01-30 00:00 | CLONIDINE HCL | [facility] | + + + + | 2022-02-11 00:00 | VERAPAMIL HCL | [facility] | + + + + | 2022-03-10 00:00 | VERAPAMIL HCL | [facility] | + + + + | 2022-09-28 00:00 | VERAPAMIL HCL | [facility] | + + + + | 2022-10-05 00:00 | VERAPAMIL HCL | [facility] | + + + + | 2022-10-27 00:00 | VERAPAMIL HCL | [facility] | + + + + | 2022-12-01 00:00 | VERAPAMIL HCL | [facility] | + + + + | 2023-01-12 00:00 | VERAPAMIL HCL | [facility] | + + + + | 2023-01-30 00:00 | VERAPAMIL HCL | [facility] | + + + + | 2022-02-11 00:00 | VERAPAMIL HCL | [facility] | + + + + | 2022-03-10 00:00 | VERAPAMIL HCL | [facility] | + + + + | 2022-09-28 00:00 | VERAPAMIL HCL | [facility] | + + + + | 2022-10-05 00:00 | VERAPAMIL HCL | [facility] | + + + + | 2022-10-27 00:00 | VERAPAMIL HCL | [facility] | + + + + | 2022-12-01 00:00 | VERAPAMIL HCL | [facility] | + + + + | 2023-01-12 00:00 | VERAPAMIL HCL | [facility] | + + + + | 2023-01-30 00:00 | VERAPAMIL HCL | [facility] | + + + + | 2022-02-11 00:00 | VERAPAMIL HCL | [facility] | + + + + | 2022-03-10 00:00 | VERAPAMIL HCL | [facility] | + + + + | 2022-09-28 00:00 | VERAPAMIL HCL | [facility] | + + + + | 2022-10-05 00:00 | VERAPAMIL HCL | [facility] | + + + + | 2022-10-27 00:00 | VERAPAMIL HCL | [facility] | + + + + | 2022-12-01 00:00 | VERAPAMIL HCL | [facility] | + + + + | 2023-01-12 00:00 | VERAPAMIL HCL | [facility] | + + + + | 2023-01-30 00:00 | VERAPAMIL HCL | [facility] | + + + + | 2020-08-06 00:00 | BENAZEPRIL HCL | [facility] | + + + + | 2022-02-11 00:00 | BENAZEPRIL HCL | [facility] | + + + + | 2022-03-10 00:00 | BENAZEPRIL HCL | [facility] | + + + + | 2022-09-28 00:00 | BENAZEPRIL HCL | [facility] | + + + + | 2022-10-05 00:00 | BENAZEPRIL HCL | [facility] | + + + + | 2022-10-27 00:00 | BENAZEPRIL HCL | [facility] | + + + + | 2022-12-01 00:00 | BENAZEPRIL HCL | [facility] | + + + + | 2023-01-12 00:00 | BENAZEPRIL HCL | [facility] | + + + + | 2023-01-30 00:00 | BENAZEPRIL HCL | [facility] | + + + + | 2022-02-11 00:00 | BENAZEPRIL HCL | [facility] | + + + + | 2022-03-10 00:00 | BENAZEPRIL HCL | [facility] | + + + + | 2022-09-28 00:00 | BENAZEPRIL HCL | [facility] | + + + + | 2022-10-05 00:00 | BENAZEPRIL HCL | [facility] | + + + + | 2022-10-27 00:00 | BENAZEPRIL HCL | [facility] | + + + + | 2022-12-01 00:00 | BENAZEPRIL HCL | [facility] | + + + + | 2023-01-12 00:00 | BENAZEPRIL HCL | [facility] | + + + + | 2023-01-30 00:00 | BENAZEPRIL HCL | [facility] | + + + + | 2020-08-30 00:00 | MECLIZINE HCL | [facility] | + + + + | 2022-03-08 00:00 | MECLIZINE HCL | [facility] | + + + + Problems + + + + | date | description | facility | + + + + | 2014-05-19 00:00 | Abdominal pain | [facility] | + + + + | 2015-07-20 00:00 | Paroxysmal atrial | [facility] | | | fibrillation | | + + + + | 2015-07-24 00:00 | Benign hypertension | [facility] | + + + + | 2015-09-28 00:00 | Low back pain | [facility] | + + + + | 2016-07-13 00:00 | Gastrointestinal | [facility] | | | hemorrhage | | + + + + | 2016-11-01 00:00 | Adverse reaction to drug | [facility] | + + + + | 2016-11-02 00:00 | Adverse reaction to drug | [facility] | + + + + | 2017-01-11 00:00 | Diastolic congestive heart | [facility] | | | failure | | + + + + | 2017-02-16 00:00 | Nonspecific chest pain | [facility] | + + + + | 2017-07-26 00:00 | Acute bronchitis due to | [facility] | | | chemical | | + + + + | 2017-09-12 00:00 | Bradycardia | [facility] | + + + + | 2020-02-22 00:00 | Chest pain due to | [facility] | | | gastrointestinal reflux | | | | disease | | + + + + | 2020-08-04 00:00 | Hyponatremia | [facility] | + + + + | 2020-08-21 00:00 | Colitis due to | [facility] | | | Clostridioides difficile | | + + + + | 2020-08-21 00:00 | Urinary tract infection | [facility] | + + + + | 2020-08-30 00:00 | Increased frequency of | [facility] | | | urination | | + + + + | 2020-08-30 00:00 | Dizziness | [facility] | + + + + | 2020-10-20 00:00 | Palpitations | [facility] | + + + + | 2021-03-15 00:00 | Gastroesophageal reflux | [facility] | | | disease | | + + + + | 2021-03-15 00:00 | Chest pain | [facility] | + + + + | 2021-05-24 00:00 | Chronic atrial | [facility] | | | fibrillation | | + + + + | 2021-05-24 00:00 | Atrial fibrillation | [facility] | + + + + | 2021-05-24 00:00 | Chronic gastroesophageal | [facility] | | | reflux disease | | + + + + | 2021-08-06 00:00 | Gastroenteritis | [facility] | + + + + | 2021-10-30 00:00 | Hypomagnesemia | [facility] | + + + + | 2021-10-30 00:00 | Hypokalemia | [facility] | + + + + | 2022-03-08 00:00 | Congestive heart failure | [facility] | + + + + | 2022-03-08 00:00 | Vertigo | [facility] | + + + + | 2022-08-11 13:55 | UNILATERAL PRIMARY | [facility] | | | OSTEOARTHRITIS, RIGHT KNEE | | + + + + | 2022-08-11 13:55 | UNSP ROTATR-CUFF | [facility] | | | TEAR/RUPTR OF LEFT | | | | SHOULDER, NOT | | + + + + | 2022-09-28 00:00 | Acute bronchitis | [facility] | + + + + | 2022-12-01 00:00 | Pain in both lower | [facility] | | | extremities | | [...] 00:00 | Spinal stenosis of lumbar | [facility] | | | region at multiple [...] + + + | 2023-01-12 19:45 | [facility] (CURRENT) USE OF | [facility] | | | ANTICOAGULANTS | | + + + + | 2023-01-12 19:45 | OTHER [facility] (CURRENT) | [facility] | | | DRUG [...] | 2023-01-29 00:00 | Back pain | [facility] | + + + + | [...] + + + | 2023-01-29 22:19 | [facility] (CURRENT) USE OF | [facility] | | | ANTICOAGULANTS | | + + + + | 2023-01-29 22:19 | OTHER [facility] (CURRENT) | [facility] | | | DRUG [...] (missing) | | (unavailable | 00:45:08 | [facility] | | | | | [...] (missing) | | (unavailable | 12:55:08 | [facility] | | | | | [...] (missing) | | (unavailable | 12:17:07 | [facility] | | | | | ) | [...]
--- OUTSIDE RECORDS SUMMARY | 2023-02-14 20:41 | XMS ---
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 Care History Medical/Surgical 08/09/2021 [facility] Patient spoke with Clinic nurse fund accounting manager, Patricio Valladares, on 08/05/2021 about nausea and diarrhea. Reported feeling better. Next follow up with PCP is 202105/25/2021 [facility] Patient advised by PCP, Dr. Azar, to go to ER for chest pain. Follow visit on 06/02/2021. 08/23/2020 [facility] Patient has scheduled visit with Dr. Azar on 08/26/2020. E.D. VISIT COUNT (12 MO.) [address] [facility] TOTAL 8 NOTE: Visits indicate total known visits. ED/UCC VISIT TRACKING (12 MO.) 02/14/2023 20:38 [facility] [place] TYPE: Emergency COMPLAINT: - FALL 01/29/2023 22:19 [facility] [place] TYPE: Emergency COMPLAINT: - LEG SWELLING DIAGNOSES: - Allergy status to narcotic agent - Allergy status to other drugs, medicaments and biological substances - Allergy status to sulfonamides - Dorsalgia, unspecified - Heart failure, unspecified - Hypertensive heart disease with heart failure - senior care (current) use of anticoagulants - Other moth exterminator (current) drug therapy - Type 2 diabetes mellitus without complications - Unspecified atrial fibrillation 01/12/2023 19:45 [facility] [place] TYPE: Emergency COMPLAINT: - BACK PAIN/ NO INJ DIAGNOSES: - Allergy status to narcotic agent - Allergy status to other drugs, medicaments and biological substances - Allergy status to penicillin - Allergy status to sulfonamides - Heart failure, unspecified - Hypertensive heart disease with heart failure - senior care (current) use of anticoagulants - Low back pain, unspecified - Other senior living (current) drug therapy - Spinal stenosis, lumbar region without neurogenic claudication - Type 2 diabetes mellitus without complications - Unspecified atrial fibrillation 12/01/2022 11:52 [facility] [place] TYPE: Emergency COMPLAINT: - HEART RATE ISSUE DIAGNOSES: - Allergy status to narcotic agent - Allergy status to other drugs, medicaments and biological substances - Allergy status to penicillin - Allergy status to sulfonamides - Heart failure, unspecified - Hypertensive heart disease with heart failure - senior care (current) use of anticoagulants - Other senior living (current) drug therapy - Pain in left [...] heart disease with heart failure - Other moth exterminator (current) drug therapy - Shortness of breath [...] heart disease with heart failure - Other senior living (current) drug therapy - Type 2 diabetes [...] heart disease with heart failure - senior care (current) use of anticoagulants - Other moth exterminator (current) drug therapy - Type 2 diabetes mellitus without complications - Unspecified atrial fibrillation 03/08/2022 00:25 [facility] TYPE: Emergency COMPLAINT: - LIGHT HEADED DIAGNOSES: - Allergy status to narcotic agent - Allergy status to other drugs, medicaments and biological substances - Allergy status to penicillin - Allergy status to sulfonamides - Dizziness and giddiness - Heart failure, unspecified - Hypertensive heart disease with heart failure - Other moth exterminator (current) drug therapy - Type 2 diabetes mellitus without complications - Unspecified atrial fibrillation INPATIENT VISIT TRACKING (12 MO.) 04/17/2022 11:[address] [facility] Christa LOPEZ TYPE: Surgical Services DIAGNOSES: - Unilateral primary osteoarthritis, right knee [email or web address]
[2023-02-14] MEDS ORDERED: DULOXETINE HCL60 MG PO (20:53)
[2023-02-14] MEDS ORDERED: CELECOXIB100 MG PO (20:53)
[2023-02-15 01:00] VITALS: BP 124/58
== END 2023-02-15 01:00 | disposition home or self-care (01) ==
LOC: ED 20:37
DX: S16.1XXA Strain of muscle, fascia and tendon at neck level, initial encounter (principal); S29.012A Strain of muscle and tendon of back wall of thorax, initial encounter; W19.XXXA Unspecified fall, initial encounter; E11.9 Type 2 diabetes mellitus without complications; I11.0 Hypertensive heart disease with heart failure; I50.9 Heart failure, unspecified; I48.91 Unspecified atrial fibrillation; Z88.2 Allergy status to sulfonamides; Z88.5 Allergy status to narcotic agent; Z88.6 Allergy status to analgesic agent; Z88.0 Allergy status to penicillin; Z88.8 Allergy status to other drugs, medicaments and biological substances; Z79.899 Other long term (current) drug therapy; Z79.01 Long term (current) use of anticoagulants
CPT/HCPCS: 70450; 72125; 72128; 99283 25

== ENCOUNTER 2023-04-09 20:31 | Emergency (ER) | payer MEDICARE, OTHER ==
[~2023-04-09] VITALS: Ht 152.4 cm; Wt 67.0 kg
--- OUTSIDE RECORDS SUMMARY | ~2023-04-09 | XMS | Continuity of Care Document ---
Demographics + + + | Address | [address] | | | [place] [address] | + + + | Preferred Language | Unknown | + + + | Marital Status | | + + + | Sabianist Affiliation | Unknown | + + + | Race | White | + + + | Ethnic Group | Not or | + + + Author + + + | Author | [facility] | + + + | Organization | [facility] | + + + | Address | [address] | | | [place] [address] | + + + | Phone | | + + + Care Team Providers + + + + | Care Mock Up Maker Name | Role | Phone | + [...] 2022-02-11 00:00 | CALCIUM CARB/MAG OXIDE/VIT | [facility] | | | D3 | | + + + + | 2022-03-10 00:00 | CALCIUM CARB/MAG OXIDE/VIT | [facility] | | | D3 | | + + + + | 2022-09-28 00:00 | CALCIUM CARB/MAG OXIDE/VIT | [facility] | | | D3 | | + + + + | 2022-10-05 00:00 | CALCIUM CARB/MAG OXIDE/VIT | [facility] | | | D3 | | + + + + | 2022-10-27 00:00 | CALCIUM CARB/MAG OXIDE/VIT | [facility] | | | D3 | | + + + + | 2022-12-01 00:00 | CALCIUM CARB/MAG OXIDE/VIT | [facility] | | | D3 | | + + + + | 2023-01-12 00:00 | CALCIUM CARB/MAG OXIDE/VIT | [facility] | | | D3 | | + + + + | 2023-01-30 00:00 | CALCIUM CARB/MAG OXIDE/VIT | [facility] | | | D3 | | + + + + | 2023-02-15 00:00 | CALCIUM CARB/MAG OXIDE/VIT | [facility] | | | D3 | | + + + + | 2023-03-06 00:00 | CALCIUM CARB/MAG OXIDE/VIT | [facility] | | | D3 | | + + + + | 2021-08-06 00:00 | ONDANSETRON HCL | [facility] | + + + + | 2022-02-11 00:00 | DIGOXIN | [facility] | + + + + | 2022-03-10 00:00 | DIGOXIN | [facility] | + + + + | 2022-09-28 00:00 | DIGOXIN | [facility] | + + + + | 2022-10-05 00:00 | DIGOXIN | [facility] | + + + + | 2022-10-27 00:00 | DIGOXIN | [facility] | + + + + | 2022-12-01 00:00 | DIGOXIN | [facility] | + + + + | 2023-01-12 00:00 | DIGOXIN | [facility] | + + + + | 2023-01-30 00:00 | DIGOXIN | [facility] | + + + + | 2023-02-15 00:00 | DIGOXIN | [facility] | + + + + | 2023-03-06 00:00 | DIGOXIN | [facility] | + + + + | 2022-02-11 00:00 | BUDESONIDE/FORMOTEROL | [facility] | | | FUMARATE | | + + + + | 2022-03-10 00:00 | BUDESONIDE/FORMOTEROL | [facility] | | | FUMARATE | | + + + + | 2022-09-28 00:00 | BUDESONIDE/FORMOTEROL | [facility] | | | FUMARATE | | + + + + | 2022-10-05 00:00 | BUDESONIDE/FORMOTEROL | [facility] | | | FUMARATE | | + + + + | 2022-10-27 00:00 | BUDESONIDE/FORMOTEROL | [facility] | | | FUMARATE | | + + + + | 2022-12-01 00:00 | BUDESONIDE/FORMOTEROL | [facility] | | | FUMARATE | | + + + + | 2023-01-12 00:00 | BUDESONIDE/FORMOTEROL | [facility] | | | FUMARATE | | + + + + | 2023-01-30 00:00 | BUDESONIDE/FORMOTEROL | [facility] | | | FUMARATE | | + + + + | 2023-02-15 00:00 | BUDESONIDE/FORMOTEROL | [facility] | | | FUMARATE | | + + + + | 2023-03-06 00:00 | BUDESONIDE/FORMOTEROL | [facility] | | | FUMARATE | | + + + + | 2021-05-27 00:00 | HYDROCORTISONE ACETATE | [facility] | + + + + | 2022-02-11 00:00 | APIXABAN | [facility] | + + + + | 2022-03-10 00:00 | APIXABAN | [facility] | + + + + | 2022-09-28 00:00 | APIXABAN | [facility] | + + + + | 2022-10-05 00:00 | APIXABAN | [facility] | + + + + | 2022-10-27 00:00 | APIXABAN | [facility] | + + + + | 2022-12-01 00:00 | APIXABAN | [facility] | + + + + | 2023-01-12 00:00 | APIXABAN | [facility] | + + + + | 2023-01-30 00:00 | APIXABAN | [facility] | + + + + | 2023-02-15 00:00 | APIXABAN | [facility] | + + + + | 2023-03-06 00:00 | APIXABAN | [facility] | + + + + | 2022-09-28 00:00 | EMPAGLIFLOZIN | [facility] | + + + + | 2022-10-05 00:00 | EMPAGLIFLOZIN | [facility] | + + + + | 2022-10-27 00:00 | EMPAGLIFLOZIN | [facility] | + + + + | 2022-12-01 00:00 | EMPAGLIFLOZIN | [facility] | + + + + | 2023-01-12 00:00 | EMPAGLIFLOZIN | [facility] | + + + + | 2023-01-30 00:00 | EMPAGLIFLOZIN | [facility] | + + + + | 2023-02-15 00:00 | EMPAGLIFLOZIN | [facility] | + + + + | 2023-03-06 00:00 | EMPAGLIFLOZIN | [facility] | + + + + | 2022-02-11 00:00 | Bacillus Coagulans | [facility] | + + + + | 2022-03-10 00:00 | Bacillus Coagulans | [facility] | + + + + | 2022-09-28 00:00 | Bacillus Coagulans | [facility] | + + + + | 2022-10-05 00:00 | Bacillus Coagulans | [facility] | + + + + | 2022-10-27 00:00 | Bacillus Coagulans | [facility] | + + + + | 2022-12-01 00:00 | Bacillus Coagulans | [facility] | + + + + | 2023-01-12 00:00 | Bacillus Coagulans | [facility] | + + + + | 2023-01-30 00:00 | Bacillus Coagulans | [facility] | + + + + | 2023-02-15 00:00 | Bacillus Coagulans | [facility] | + + + + | 2023-03-06 00:00 | Bacillus Coagulans | [facility] | + + + + | 2022-02-11 00:00 | FLUTICASONE PROPIONATE 50 | [facility] | | | MCG | | + + + + | 2022-03-10 00:00 | FLUTICASONE PROPIONATE 50 | [facility] | | | MCG | | + + + + | 2022-09-28 00:00 | FLUTICASONE PROPIONATE 50 | [facility] | | | MCG | | + + + + | 2022-10-05 00:00 | FLUTICASONE PROPIONATE 50 | [facility] | | | MCG | | + + + + | 2022-10-27 00:00 | FLUTICASONE PROPIONATE 50 | [facility] | | | MCG | | + + + + | 2022-12-01 00:00 | FLUTICASONE PROPIONATE 50 | [facility] | | | MCG | | + + + + | 2023-01-12 00:00 | FLUTICASONE PROPIONATE 50 | [facility] | | | MCG | | + + + + | 2023-01-30 00:00 | FLUTICASONE PROPIONATE 50 | [facility] | | | MCG | | + + + + | 2023-02-15 00:00 | FLUTICASONE PROPIONATE 50 | [facility] | | | MCG | | + + + + | 2023-03-06 00:00 | FLUTICASONE PROPIONATE 50 | [facility] | | | MCG | | + + + + | 2022-02-11 00:00 | POTASSIUM CHLORIDE | [facility] | + + + + | 2022-03-10 00:00 | POTASSIUM CHLORIDE | [facility] | + + + + | 2022-09-28 00:00 | POTASSIUM CHLORIDE | [facility] | + + + + | 2022-10-05 00:00 | POTASSIUM CHLORIDE | [facility] | + + + + | 2022-10-27 00:00 | POTASSIUM CHLORIDE | [facility] | + + + + | 2022-12-01 00:00 | POTASSIUM CHLORIDE | [facility] | + + + + | 2023-01-12 00:00 | POTASSIUM CHLORIDE | [facility] | + + + + | 2023-01-30 00:00 | POTASSIUM CHLORIDE | [facility] | + + + + | 2023-02-15 00:00 | POTASSIUM CHLORIDE | [facility] | + + + + | 2023-03-06 00:00 | POTASSIUM CHLORIDE | [facility] | + + + + | 2022-02-11 00:00 | POTASSIUM CHLORIDE | [facility] | + + + + | 2022-03-10 00:00 | POTASSIUM CHLORIDE | [facility] | + + + + | 2022-09-28 00:00 | POTASSIUM CHLORIDE | [facility] | + + + + | 2022-10-05 00:00 | POTASSIUM CHLORIDE | [facility] | + + + + | 2022-10-27 00:00 | POTASSIUM CHLORIDE | [facility] | + + + + | 2022-12-01 00:00 | POTASSIUM CHLORIDE | [facility] | + + + + | 2023-01-12 00:00 | POTASSIUM CHLORIDE | [facility] | + + + + | 2023-01-30 00:00 | POTASSIUM CHLORIDE | [facility] | + + + + | 2023-02-15 00:00 | POTASSIUM CHLORIDE | [facility] | + + + + | 2023-03-06 00:00 | POTASSIUM CHLORIDE | [facility] | + + + + | 2022-02-11 00:00 | ALLOPURINOL | [facility] | + + + + | 2022-03-10 00:00 | ALLOPURINOL | [facility] | + + + + | 2022-09-28 00:00 | ALLOPURINOL | [facility] | + + + + | 2022-10-05 00:00 | ALLOPURINOL | [facility] | + + + + | 2022-10-27 00:00 | ALLOPURINOL | [facility] | + + + + | 2022-12-01 00:00 | ALLOPURINOL | [facility] | + + + + | 2023-01-12 00:00 | ALLOPURINOL | [facility] | + + + + | 2023-01-30 00:00 | ALLOPURINOL | [facility] | + + + + | 2023-02-15 00:00 | ALLOPURINOL | [facility] | + + + + | 2023-03-06 00:00 | ALLOPURINOL | [facility] | + + + + | 2022-02-11 00:00 | AMLODIPINE BESYLATE | [facility] | + + + + | 2022-03-10 00:00 | AMLODIPINE BESYLATE | [facility] | + + + + | 2022-09-28 00:00 | AMLODIPINE BESYLATE | [facility] | + + + + | 2022-10-05 00:00 | AMLODIPINE BESYLATE | [facility] | + + + + | 2022-10-27 00:00 | AMLODIPINE BESYLATE | [facility] | + + + + | 2022-12-01 00:00 | AMLODIPINE BESYLATE | [facility] | + + + + | 2023-01-12 00:00 | AMLODIPINE BESYLATE | [facility] | + + + + | 2023-01-30 00:00 | AMLODIPINE BESYLATE | [facility] | + + + + | 2023-02-15 00:00 | AMLODIPINE BESYLATE | [facility] | + + + + | 2023-03-06 00:00 | AMLODIPINE BESYLATE | [facility] | + + + + | 2022-02-11 00:00 | BACLOFEN | [facility] | + + + + | 2022-03-10 00:00 | BACLOFEN | [facility] | + + + + | 2022-09-28 00:00 | BACLOFEN | [facility] | + + + + | 2022-10-05 00:00 | BACLOFEN | [facility] | + + + + | 2022-10-27 00:00 | BACLOFEN | [facility] | + + + + | 2022-12-01 00:00 | BACLOFEN | [facility] | + + + + | 2023-01-12 00:00 | BACLOFEN | [facility] | + + + + | 2023-01-30 00:00 | BACLOFEN | [facility] | + + + + | 2023-02-15 00:00 | BACLOFEN | [facility] | + + + + | 2023-03-06 00:00 | BACLOFEN | [facility] | + + + + | 2022-02-11 00:00 | BETAMETHASONE VALERATE | [facility] | + + + + | 2022-03-10 00:00 | BETAMETHASONE VALERATE | [facility] | + + + + | 2022-09-28 00:00 | BETAMETHASONE VALERATE | [facility] | + + + + | 2022-10-05 00:00 | BETAMETHASONE VALERATE | [facility] | + + + + | 2022-10-27 00:00 | BETAMETHASONE VALERATE | [facility] | + + + + | 2022-12-01 00:00 | BETAMETHASONE VALERATE | [facility] | + + + + | 2023-01-12 00:00 | BETAMETHASONE VALERATE | [facility] | + + + + | 2023-01-30 00:00 | BETAMETHASONE VALERATE | [facility] | + + + + | 2023-02-15 00:00 | BETAMETHASONE VALERATE | [facility] | + + + + | 2023-03-06 00:00 | BETAMETHASONE VALERATE | [facility] | + + + + | 2022-02-11 00:00 | LOVASTATIN | [facility] | + + + + | 2022-03-10 00:00 | LOVASTATIN | [facility] | + + + + | 2022-09-28 00:00 | LOVASTATIN | [facility] | + + + + | 2022-10-05 00:00 | LOVASTATIN | [facility] | + + + + | 2022-10-27 00:00 | LOVASTATIN | [facility] | + + + + | 2022-12-01 00:00 | LOVASTATIN | [facility] | + + + + | 2023-01-12 00:00 | LOVASTATIN | [facility] | + + + + | 2023-01-30 00:00 | LOVASTATIN | [facility] | + + + + | 2023-02-15 00:00 | LOVASTATIN | [facility] | + + + + | 2023-03-06 00:00 | LOVASTATIN | [facility] | + + + + | 2022-12-01 00:00 | METHOCARBAMOL | [facility] | + + + + | 2022-02-11 00:00 | NITROGLYCERIN | [facility] | + + + + | 2022-03-10 00:00 | NITROGLYCERIN | [facility] | + + + + | 2022-09-28 00:00 | NITROGLYCERIN | [facility] | + + + + | 2022-10-05 00:00 | NITROGLYCERIN | [facility] | + + + + | 2022-10-27 00:00 | NITROGLYCERIN | [facility] | + + + + | 2022-12-01 00:00 | NITROGLYCERIN | [facility] | + + + + | 2023-01-12 00:00 | NITROGLYCERIN | [facility] | + + + + | 2023-01-30 00:00 | NITROGLYCERIN | [facility] | + + + + | 2023-02-15 00:00 | NITROGLYCERIN | [facility] | + + + + | 2023-03-06 00:00 | NITROGLYCERIN | [facility] | + + + + | 2019-10-04 00:00 | OMEPRAZOLE | [facility] | + + + + | 2022-02-11 00:00 | TORSEMIDE | [facility] | + + + + | 2022-03-10 00:00 | TORSEMIDE | [facility] | + + + + | 2022-09-28 00:00 | TORSEMIDE | [facility] | + + + + | 2022-10-05 00:00 | TORSEMIDE | [facility] | + + + + | 2022-10-27 00:00 | TORSEMIDE | [facility] | + + + + | 2022-12-01 00:00 | TORSEMIDE | [facility] | + + + + | 2023-01-12 00:00 | TORSEMIDE | [facility] | + + + + | 2023-01-30 00:00 | TORSEMIDE | [facility] | + + + + | 2022-02-11 00:00 | ASPIRIN | [facility] | + + + + | 2022-03-10 00:00 | ASPIRIN | [facility] | + + + + | 2022-09-28 00:00 | ASPIRIN | [facility] | + + + + | 2022-10-05 00:00 | ASPIRIN | [facility] | + + + + | 2022-10-27 00:00 | ASPIRIN | [facility] | + + + + | 2022-12-01 00:00 | ASPIRIN | [facility] | + + + + | 2023-01-12 00:00 | ASPIRIN | [facility] | + + + + | 2023-01-30 00:00 | ASPIRIN | [facility] | + + + + | 2023-02-15 00:00 | ASPIRIN | [facility] | + + + + | 2023-03-06 00:00 | ASPIRIN | [facility] | + + + + | 2022-02-11 00:00 | HYDROCHLOROTHIAZIDE | [facility] | + + + + | 2022-03-10 00:00 | HYDROCHLOROTHIAZIDE | [facility] | + + + + | 2022-09-28 00:00 | HYDROCHLOROTHIAZIDE | [facility] | + + + + | 2022-10-05 00:00 | HYDROCHLOROTHIAZIDE | [facility] | + + + + | 2022-10-27 00:00 | HYDROCHLOROTHIAZIDE | [facility] | + + + + | 2022-12-01 00:00 | HYDROCHLOROTHIAZIDE | [facility] | + + + + | 2023-01-12 00:00 | HYDROCHLOROTHIAZIDE | [facility] | + + + + | 2023-01-30 00:00 | HYDROCHLOROTHIAZIDE | [facility] | + + + + | 2023-02-15 00:00 | HYDROCHLOROTHIAZIDE | [facility] | + + + + | 2023-03-06 00:00 | HYDROCHLOROTHIAZIDE | [facility] | + + + + | 2020-08-06 00:00 | CARVEDILOL | [facility] | + + + + | 2022-02-11 00:00 | CARVEDILOL | [facility] | + + + + | 2022-03-10 00:00 | CARVEDILOL | [facility] | + + + + | 2022-09-28 00:00 | CARVEDILOL | [facility] | + + + + | 2022-10-05 00:00 | CARVEDILOL | [facility] | + + + + | 2022-10-27 00:00 | CARVEDILOL | [facility] | + + + + | 2022-12-01 00:00 | CARVEDILOL | [facility] | + + + + | 2023-01-12 00:00 | CARVEDILOL | [facility] | + + + + | 2023-01-30 00:00 | CARVEDILOL | [facility] | + + + + | 2023-02-15 00:00 | CARVEDILOL | [facility] | + + + + | 2023-03-06 00:00 | CARVEDILOL | [facility] | + + + + | 2022-02-11 00:00 | OMEPRAZOLE | [facility] | + + + + | 2022-03-10 00:00 | OMEPRAZOLE | [facility] | + + + + | 2022-09-28 00:00 | OMEPRAZOLE | [facility] | + + + + | 2022-10-05 00:00 | OMEPRAZOLE | [facility] | + + + + | 2022-10-27 00:00 | OMEPRAZOLE | [facility] | + + + + | 2022-12-01 00:00 | OMEPRAZOLE | [facility] | + + + + | 2023-01-12 00:00 | OMEPRAZOLE | [facility] | + + + + | 2023-01-30 00:00 | OMEPRAZOLE | [facility] | + + + + | 2023-02-15 00:00 | OMEPRAZOLE | [facility] | + + + + | 2023-03-06 00:00 | OMEPRAZOLE | [facility] | + + + + | 2022-02-11 00:00 | FUROSEMIDE | [facility] | + + + + | 2022-03-10 00:00 | FUROSEMIDE | [facility] | + + + + | 2022-09-28 00:00 | FUROSEMIDE | [facility] | + + + + | 2022-10-05 00:00 | FUROSEMIDE | [facility] | + + + + | 2022-10-27 00:00 | FUROSEMIDE | [facility] | + + + + | 2022-12-01 00:00 | FUROSEMIDE | [facility] | + + + + | 2023-01-12 00:00 | FUROSEMIDE | [facility] | + + + + | 2023-01-30 00:00 | FUROSEMIDE | [facility] | + + + + | 2023-02-15 00:00 | FUROSEMIDE | [facility] | + + + + | 2023-03-06 00:00 | FUROSEMIDE | [facility] | + + + + | 2022-02-11 00:00 | SPIRONOLACTONE | [facility] | + + + + | 2022-03-10 00:00 | SPIRONOLACTONE | [facility] | + + + + | 2022-09-28 00:00 | SPIRONOLACTONE | [facility] | + + + + | 2022-10-05 00:00 | SPIRONOLACTONE | [facility] | + + + + | 2022-10-27 00:00 | SPIRONOLACTONE | [facility] | + + + + | 2022-12-01 00:00 | SPIRONOLACTONE | [facility] | + + + + | 2023-01-12 00:00 | SPIRONOLACTONE | [facility] | + + + + | 2023-01-30 00:00 | SPIRONOLACTONE | [facility] | + + + + | 2023-02-15 00:00 | SPIRONOLACTONE | [facility] | + + + + | 2023-03-06 00:00 | SPIRONOLACTONE | [facility] | + + + + | 2022-02-11 00:00 | NEOMYCIN/POLYMYXIN B | [facility] | | | SULF/HC | | + + + + | 2022-03-10 00:00 | NEOMYCIN/POLYMYXIN B | [facility] | | | SULF/HC | | + + + + | 2022-09-28 00:00 | NEOMYCIN/POLYMYXIN B | [facility] | | | SULF/HC | | + + + + | 2022-10-05 00:00 | NEOMYCIN/POLYMYXIN B | [facility] | | | SULF/HC | | + + + + | 2022-10-27 00:00 | NEOMYCIN/POLYMYXIN B | [facility] | | | SULF/HC | | + + + + | 2022-12-01 00:00 | NEOMYCIN/POLYMYXIN B | [facility] | | | SULF/HC | | + + + + | 2023-01-12 00:00 | NEOMYCIN/POLYMYXIN B | [facility] | | | SULF/HC | | + + + + | 2023-01-30 00:00 | NEOMYCIN/POLYMYXIN B | [facility] | | | SULF/HC | | + + + + | 2023-02-15 00:00 | NEOMYCIN/POLYMYXIN B | [facility] | | | SULF/HC | | + + + + | 2023-03-06 00:00 | NEOMYCIN/POLYMYXIN B | [facility] | | | SULF/HC | | + + + + | 2023-02-15 00:00 | CELECOXIB | [facility] | + + + + | 2023-03-06 00:00 | CELECOXIB | [facility] | + + + + | 2013-09-09 00:00 | CIPROFLOXACIN HCL | [facility] | + + + + | 2022-02-11 00:00 | CIPROFLOXACIN HCL | [facility] | + + + + | 2022-03-10 00:00 | CIPROFLOXACIN HCL | [facility] | + + + + | 2022-09-28 00:00 | CIPROFLOXACIN HCL | [facility] | + + + + | 2022-10-05 00:00 | CIPROFLOXACIN HCL | [facility] | + + + + | 2022-10-27 00:00 | CIPROFLOXACIN HCL | [facility] | + + + + | 2022-12-01 00:00 | CIPROFLOXACIN HCL | [facility] | + + + + | 2023-01-12 00:00 | CIPROFLOXACIN HCL | [facility] | + + + + | 2023-01-30 00:00 | CIPROFLOXACIN HCL | [facility] | + + + + | 2023-02-15 00:00 | CIPROFLOXACIN HCL | [facility] | + + + + | 2023-03-06 00:00 | CIPROFLOXACIN HCL | [facility] | + + + + | 2013-09-09 00:00 | METRONIDAZOLE | [facility] | + + + + | 2022-02-11 00:00 | METRONIDAZOLE | [facility] | + + + + | 2022-03-10 00:00 | METRONIDAZOLE | [facility] | + + + + | 2022-09-28 00:00 | METRONIDAZOLE | [facility] | + + + + | 2022-10-05 00:00 | METRONIDAZOLE | [facility] | + + + + | 2022-10-27 00:00 | METRONIDAZOLE | [facility] | + + + + | 2022-12-01 00:00 | METRONIDAZOLE | [facility] | + + + + | 2023-01-12 00:00 | METRONIDAZOLE | [facility] | + + + + | 2023-01-30 00:00 | METRONIDAZOLE | [facility] | + + + + | 2023-02-15 00:00 | METRONIDAZOLE | [facility] | + + + + | 2023-03-06 00:00 | METRONIDAZOLE | [facility] | + + + + | 2022-02-11 00:00 | SUCRALFATE | [facility] | + + + + | 2022-03-10 00:00 | SUCRALFATE | [facility] | + + + + | 2022-09-28 00:00 | SUCRALFATE | [facility] | + + + + | 2022-10-05 00:00 | SUCRALFATE | [facility] | + + + + | 2022-10-27 00:00 | SUCRALFATE | [facility] | + + + + | 2022-12-01 00:00 | SUCRALFATE | [facility] | + + + + | 2023-01-12 00:00 | SUCRALFATE | [facility] | + + + + | 2023-01-30 00:00 | SUCRALFATE | [facility] | + + + + | 2023-02-15 00:00 | SUCRALFATE | [facility] | + + + + | 2023-03-06 00:00 | SUCRALFATE | [facility] | + + + + | 2022-02-11 00:00 | ASPIRIN | [facility] | + + + + | 2022-03-10 00:00 | ASPIRIN | [facility] | + + + + | 2022-09-28 00:00 | ASPIRIN | [facility] | + + + + | 2022-10-05 00:00 | ASPIRIN | [facility] | + + + + | 2022-10-27 00:00 | ASPIRIN | [facility] | + + + + | 2022-12-01 00:00 | ASPIRIN | [facility] | + + + + | 2023-01-12 00:00 | ASPIRIN | [facility] | + + + + | 2023-01-30 00:00 | ASPIRIN | [facility] | + + + + | 2023-02-15 00:00 | ASPIRIN | [facility] | + + + + | 2023-03-06 00:00 | ASPIRIN | [facility] | + + + + | 2017-09-12 00:00 | CARVEDILOL | [facility] | + + + + | 2017-09-12 00:00 | CARVEDILOL | [facility] | + + + + | 2022-02-11 00:00 | CARVEDILOL | [facility] | + + + + | 2022-03-10 00:00 | CARVEDILOL | [facility] | + + + + | 2022-09-28 00:00 | CARVEDILOL | [facility] | + + + + | 2022-10-05 00:00 | CARVEDILOL | [facility] | + + + + | 2022-10-27 00:00 | CARVEDILOL | [facility] | + + + + | 2022-12-01 00:00 | CARVEDILOL | [facility] | + + + + | 2023-01-12 00:00 | CARVEDILOL | [facility] | + + + + | 2023-01-30 00:00 | CARVEDILOL | [facility] | + + + + | 2023-02-15 00:00 | CARVEDILOL | [facility] | + + + + | 2023-03-06 00:00 | CARVEDILOL | [facility] | + + + + | 2022-02-11 00:00 | AMLODIPINE BESYLATE | [facility] | + + + + | 2022-03-10 00:00 | AMLODIPINE BESYLATE | [facility] | + + + + | 2022-09-28 00:00 | AMLODIPINE BESYLATE | [facility] | + + + + | 2022-10-05 00:00 | AMLODIPINE BESYLATE | [facility] | + + + + | 2022-10-27 00:00 | AMLODIPINE BESYLATE | [facility] | + + + + | 2022-12-01 00:00 | AMLODIPINE BESYLATE | [facility] | + + + + | 2023-01-12 00:00 | AMLODIPINE BESYLATE | [facility] | + + + + | 2023-01-30 00:00 | AMLODIPINE BESYLATE | [facility] | + + + + | 2023-02-15 00:00 | AMLODIPINE BESYLATE | [facility] | + + + + | 2023-03-06 00:00 | AMLODIPINE BESYLATE | [facility] | + + + + | 2022-02-11 00:00 | MAGNESIUM OXIDE | [facility] | + + + + | 2022-03-10 00:00 | MAGNESIUM OXIDE | [facility] | + + + + | 2022-09-28 00:00 | MAGNESIUM OXIDE | [facility] | + + + + | 2022-10-05 00:00 | MAGNESIUM OXIDE | [facility] | + + + + | 2022-10-27 00:00 | MAGNESIUM OXIDE | [facility] | + + + + | 2022-12-01 00:00 | MAGNESIUM OXIDE | [facility] | + + + + | 2023-01-12 00:00 | MAGNESIUM OXIDE | [facility] | + + + + | 2023-01-30 00:00 | MAGNESIUM OXIDE | [facility] | + + + + | 2023-02-15 00:00 | MAGNESIUM OXIDE | [facility] | + + + + | 2023-03-06 00:00 | MAGNESIUM OXIDE | [facility] | + + + + | 2022-02-11 00:00 | CALCIUM CARBONATE | [facility] | + + + + | 2022-03-10 00:00 | CALCIUM CARBONATE | [facility] | + + + + | 2022-09-28 00:00 | CALCIUM CARBONATE | [facility] | + + + + | 2022-10-05 00:00 | CALCIUM CARBONATE | [facility] | + + + + | 2022-10-27 00:00 | CALCIUM CARBONATE | [facility] | + + + + | 2022-12-01 00:00 | CALCIUM CARBONATE | [facility] | + + + + | 2023-01-12 00:00 | CALCIUM CARBONATE | [facility] | + + + + | 2023-01-30 00:00 | CALCIUM CARBONATE | [facility] | + + + + | 2023-02-15 00:00 | CALCIUM CARBONATE | [facility] | + + + + | 2023-03-06 00:00 | CALCIUM CARBONATE | [facility] | + + + + | 2014-05-19 00:00 | PANTOPRAZOLE SODIUM | [facility] | + + + + | 2022-02-11 00:00 | ASPIRIN | [facility] | + + + + | 2022-03-10 00:00 | ASPIRIN | [facility] | + + + + | 2022-09-28 00:00 | ASPIRIN | [facility] | + + + + | 2022-10-05 00:00 | ASPIRIN | [facility] | + + + + | 2022-10-27 00:00 | ASPIRIN | [facility] | + + + + | 2022-12-01 00:00 | ASPIRIN | [facility] | + + + + | 2023-01-12 00:00 | ASPIRIN | [facility] | + + + + | 2023-01-30 00:00 | ASPIRIN | [facility] | + + + + | 2023-02-15 00:00 | ASPIRIN | [facility] | + + + + | 2023-03-06 00:00 | ASPIRIN | [facility] | + + + + | 2022-10-05 00:00 | AZITHROMYCIN | [facility] | + + + + | 2022-10-27 00:00 | AZITHROMYCIN | [facility] | + + + + | 2020-08-21 00:00 | CEPHALEXIN | [facility] | + + + + | 2022-02-11 00:00 | FUROSEMIDE | [facility] | + + + + | 2022-03-10 00:00 | FUROSEMIDE | [facility] | + + + + | 2022-09-28 00:00 | FUROSEMIDE | [facility] | + + + + | 2022-10-05 00:00 | FUROSEMIDE | [facility] | + + + + | 2022-10-27 00:00 | FUROSEMIDE | [facility] | + + + + | 2022-12-01 00:00 | FUROSEMIDE | [facility] | + + + + | 2023-01-12 00:00 | FUROSEMIDE | [facility] | + + + + | 2023-01-30 00:00 | FUROSEMIDE | [facility] | + + + + | 2023-02-15 00:00 | FUROSEMIDE | [facility] | + + + + | 2023-03-06 00:00 | FUROSEMIDE | [facility] | + + + + | 2022-02-11 00:00 | METRONIDAZOLE | [facility] | + + + + | 2022-03-10 00:00 | METRONIDAZOLE | [facility] | + + + + | 2022-09-28 00:00 | METRONIDAZOLE | [facility] | + + + + | 2022-10-05 00:00 | METRONIDAZOLE | [facility] | + + + + | 2022-10-27 00:00 | METRONIDAZOLE | [facility] | + + + + | 2022-12-01 00:00 | METRONIDAZOLE | [facility] | + + + + | 2023-01-12 00:00 | METRONIDAZOLE | [facility] | + + + + | 2023-01-30 00:00 | METRONIDAZOLE | [facility] | + + + + | 2023-02-15 00:00 | METRONIDAZOLE | [facility] | + + + + | 2023-03-06 00:00 | METRONIDAZOLE | [facility] | + + + + | 2020-08-06 00:00 | NYSTATIN | [facility] | + + + + | 2017-07-26 00:00 | predniSONE | [facility] | + + + + | 2022-02-11 00:00 | RANITIDINE HCL | [facility] | + + + + | 2022-03-10 00:00 | RANITIDINE HCL | [facility] | + + + + | 2022-09-28 00:00 | RANITIDINE HCL | [facility] | + + + + | 2022-10-05 00:00 | RANITIDINE HCL | [facility] | + + + + | 2022-10-27 00:00 | RANITIDINE HCL | [facility] | + + + + | 2022-12-01 00:00 | RANITIDINE HCL | [facility] | + + + + | 2023-01-12 00:00 | RANITIDINE HCL | [facility] | + + + + | 2023-01-30 00:00 | RANITIDINE HCL | [facility] | + + + + | 2023-02-15 00:00 | RANITIDINE HCL | [facility] | + + + + | 2023-03-06 00:00 | RANITIDINE HCL | [facility] | + + + + | 2022-02-11 00:00 | SERTRALINE HCL | [facility] | + + + + | 2022-03-10 00:00 | SERTRALINE HCL | [facility] | + + + + | 2022-09-28 00:00 | SERTRALINE HCL | [facility] | + + + + | 2022-10-05 00:00 | SERTRALINE HCL | [facility] | + + + + | 2022-10-27 00:00 | SERTRALINE HCL | [facility] | + + + + | 2022-12-01 00:00 | SERTRALINE HCL | [facility] | + + + + | 2023-01-12 00:00 | SERTRALINE HCL | [facility] | + + + + | 2023-01-30 00:00 | SERTRALINE HCL | [facility] | + + + + | 2023-02-15 00:00 | SERTRALINE HCL | [facility] | + + + + | 2023-03-06 00:00 | SERTRALINE HCL | [facility] | + + + + | 2020-08-30 00:00 | SODIUM CHLORIDE | [facility] | + + + + | 2022-02-11 00:00 | SPIRONOLACTONE | [facility] | + + + + | 2022-03-10 00:00 | SPIRONOLACTONE | [facility] | + + + + | 2022-09-28 00:00 | SPIRONOLACTONE | [facility] | + + + + | 2022-10-05 00:00 | SPIRONOLACTONE | [facility] | + + + + | 2022-10-27 00:00 | SPIRONOLACTONE | [facility] | + + + + | 2022-12-01 00:00 | SPIRONOLACTONE | [facility] | + + + + | 2023-01-12 00:00 | SPIRONOLACTONE | [facility] | + + + + | 2023-01-30 00:00 | SPIRONOLACTONE | [facility] | + + + + | 2023-02-15 00:00 | SPIRONOLACTONE | [facility] | + + + + | 2023-03-06 00:00 | SPIRONOLACTONE | [facility] | + + + + | 2022-02-11 00:00 | SUCRALFATE | [facility] | + + + + | 2022-03-10 00:00 | SUCRALFATE | [facility] | + + + + | 2022-09-28 00:00 | SUCRALFATE | [facility] | + + + + | 2022-10-05 00:00 | SUCRALFATE | [facility] | + + + + | 2022-10-27 00:00 | SUCRALFATE | [facility] | + + + + | 2022-12-01 00:00 | SUCRALFATE | [facility] | + + + + | 2023-01-12 00:00 | SUCRALFATE | [facility] | + + + + | 2023-01-30 00:00 | SUCRALFATE | [facility] | + + + + | 2023-02-15 00:00 | SUCRALFATE | [facility] | + + + + | 2023-03-06 00:00 | SUCRALFATE | [facility] | + + + + | 2020-08-21 00:00 | VANCOMYCIN HCL | [facility] | + + + + | 2022-02-11 00:00 | VANCOMYCIN HCL | [facility] | + + + + | 2022-03-10 00:00 | VANCOMYCIN HCL | [facility] | + + + + | 2022-09-28 00:00 | VANCOMYCIN HCL | [facility] | + + + + | 2022-10-05 00:00 | VANCOMYCIN HCL | [facility] | + + + + | 2022-10-27 00:00 | VANCOMYCIN HCL | [facility] | + + + + | 2022-12-01 00:00 | VANCOMYCIN HCL | [facility] | + + + + | 2023-01-12 00:00 | VANCOMYCIN HCL | [facility] | + + + + | 2023-01-30 00:00 | VANCOMYCIN HCL | [facility] | + + + + | 2023-02-15 00:00 | VANCOMYCIN HCL | [facility] | + + + + | 2023-03-06 00:00 | VANCOMYCIN HCL | [facility] | + + + + | 2023-02-15 00:00 | DULOXETINE HCL | [facility] | + + + + | 2023-03-06 00:00 | DULOXETINE HCL | [facility] | + + + + | 2022-02-11 00:00 | POTASSIUM CHLORIDE | [facility] | + + + + | 2022-03-10 00:00 | POTASSIUM CHLORIDE | [facility] | + + + + | 2022-09-28 00:00 | POTASSIUM CHLORIDE | [facility] | + + + + | 2022-10-05 00:00 | POTASSIUM CHLORIDE | [facility] | + + + + | 2022-10-27 00:00 | POTASSIUM CHLORIDE | [facility] | + + + + | 2022-12-01 00:00 | POTASSIUM CHLORIDE | [facility] | + + + + | 2023-01-12 00:00 | POTASSIUM CHLORIDE | [facility] | + + + + | 2023-01-30 00:00 | POTASSIUM CHLORIDE | [facility] | + + + + | 2023-02-15 00:00 | POTASSIUM CHLORIDE | [facility] | + + + + | 2023-03-06 00:00 | POTASSIUM CHLORIDE | [facility] | + + + + | 2022-02-11 00:00 | SITAGLIPTIN PHOSPHATE | [facility] | + + + + | 2022-03-10 00:00 | SITAGLIPTIN PHOSPHATE | [facility] | + + + + | 2022-09-28 00:00 | SITAGLIPTIN PHOSPHATE | [facility] | + + + + | 2022-10-05 00:00 | SITAGLIPTIN PHOSPHATE | [facility] | + + + + | 2022-10-27 00:00 | SITAGLIPTIN PHOSPHATE | [facility] | + + + + | 2022-12-01 00:00 | SITAGLIPTIN PHOSPHATE | [facility] | + + + + | 2023-01-12 00:00 | SITAGLIPTIN PHOSPHATE | [facility] | + + + + | 2023-01-30 00:00 | SITAGLIPTIN PHOSPHATE | [facility] | + + + + | 2023-02-15 00:00 | SITAGLIPTIN PHOSPHATE | [facility] | + + + + | 2023-03-06 00:00 | SITAGLIPTIN PHOSPHATE | [facility] | + + + + | 2017-07-26 00:00 | ALBUTEROL SULFATE MDI | [facility] | | | (HFA) | | + + + + | 2022-10-05 00:00 | Diclofenac Sodium | [facility] | + + + + | 2022-10-27 00:00 | Diclofenac Sodium | [facility] | + + + + | 2022-12-01 00:00 | Diclofenac Sodium | [facility] | + + + + | 2023-01-12 00:00 | Diclofenac Sodium | [facility] | + + + + | 2023-01-30 00:00 | Diclofenac Sodium | [facility] | + + + + | 2023-02-15 00:00 | Diclofenac Sodium | [facility] | + + + + | 2023-03-06 00:00 | Diclofenac Sodium | [facility] | + + + + | 2022-02-11 00:00 | HYDROCODONE | [facility] | | | BIT/ACETAMINOPHEN | | + + + + | 2022-03-10 00:00 | HYDROCODONE | [facility] | | | BIT/ACETAMINOPHEN | | + + + + | 2022-09-28 00:00 | HYDROCODONE | [facility] | | | BIT/ACETAMINOPHEN | | + + + + | 2022-10-05 00:00 | HYDROCODONE | [facility] | | | BIT/ACETAMINOPHEN | | + + + + | 2022-10-27 00:00 | HYDROCODONE | [facility] | | | BIT/ACETAMINOPHEN | | + + + + | 2022-12-01 00:00 | HYDROCODONE | [facility] | | | BIT/ACETAMINOPHEN | | + + + + | 2023-01-12 00:00 | HYDROCODONE | [facility] | | | BIT/ACETAMINOPHEN | | + + + + | 2023-01-29 00:00 | HYDROCODONE | [facility] | | | BIT/ACETAMINOPHEN | | + + + + | 2023-01-30 00:00 | HYDROCODONE | [facility] | | | BIT/ACETAMINOPHEN | | + + + + | 2023-02-15 00:00 | HYDROCODONE | [facility] | | | BIT/ACETAMINOPHEN | | + + + + | 2023-03-06 00:00 | HYDROCODONE | [facility] | | | BIT/ACETAMINOPHEN | | + + + + | 2013-08-17 00:00 | HYDROCODONE | [facility] | | | BIT/ACETAMINOPHEN | | + + + + | 2022-10-05 00:00 | ALBUTEROL SULFATE | [facility] | + + + + | 2022-02-11 00:00 | METFORMIN HCL | [facility] | + + + + | 2022-03-10 00:00 | METFORMIN HCL | [facility] | + + + + | 2022-09-28 00:00 | METFORMIN HCL | [facility] | + + + + | 2022-10-05 00:00 | METFORMIN HCL | [facility] | + + + + | 2022-10-27 00:00 | METFORMIN HCL | [facility] | + + + + | 2022-12-01 00:00 | METFORMIN HCL | [facility] | + + + + | 2023-01-12 00:00 | METFORMIN HCL | [facility] | + + + + | 2023-01-30 00:00 | METFORMIN HCL | [facility] | + + + + | 2023-02-15 00:00 | METFORMIN HCL | [facility] | + + + + | 2023-03-06 00:00 | METFORMIN HCL | [facility] | + + + + | 2022-02-11 00:00 | OXYBUTYNIN CHLORIDE | [facility] | + + + + | 2022-03-10 00:00 | OXYBUTYNIN CHLORIDE | [facility] | + + + + | 2022-09-28 00:00 | OXYBUTYNIN CHLORIDE | [facility] | + + + + | 2022-10-05 00:00 | OXYBUTYNIN CHLORIDE | [facility] | + + + + | 2022-10-27 00:00 | OXYBUTYNIN CHLORIDE | [facility] | + + + + | 2022-12-01 00:00 | OXYBUTYNIN CHLORIDE | [facility] | + + + + | 2023-01-12 00:00 | OXYBUTYNIN CHLORIDE | [facility] | + + + + | 2023-01-30 00:00 | OXYBUTYNIN CHLORIDE | [facility] | + + + + | 2023-02-15 00:00 | OXYBUTYNIN CHLORIDE | [facility] | + + + + | 2023-03-06 00:00 | OXYBUTYNIN CHLORIDE | [facility] | + + + + | 2022-02-11 00:00 | CLONIDINE HCL | [facility] | + + + + | 2022-03-10 00:00 | CLONIDINE HCL | [facility] | + + + + | 2022-09-28 00:00 | CLONIDINE HCL | [facility] | + + + + | 2022-10-05 00:00 | CLONIDINE HCL | [facility] | + + + + | 2022-10-27 00:00 | CLONIDINE HCL | [facility] | + + + + | 2022-12-01 00:00 | CLONIDINE HCL | [facility] | + + + + | 2023-01-12 00:00 | CLONIDINE HCL | [facility] | + + + + | 2023-01-30 00:00 | CLONIDINE HCL | [facility] | + + + + | 2023-02-15 00:00 | CLONIDINE HCL | [facility] | + + + + | 2023-03-06 00:00 | CLONIDINE HCL | [facility] | + + + + | 2022-02-11 00:00 | VERAPAMIL HCL | [facility] | + + + + | 2022-03-10 00:00 | VERAPAMIL HCL | [facility] | + + + + | 2022-09-28 00:00 | VERAPAMIL HCL | [facility] | + + + + | 2022-10-05 00:00 | VERAPAMIL HCL | [facility] | + + + + | 2022-10-27 00:00 | VERAPAMIL HCL | [facility] | + + + + | 2022-12-01 00:00 | VERAPAMIL HCL | [facility] | + + + + | 2023-01-12 00:00 | VERAPAMIL HCL | [facility] | + + + + | 2023-01-30 00:00 | VERAPAMIL HCL | [facility] | + + + + | 2023-02-15 00:00 | VERAPAMIL HCL | [facility] | + + + + | 2023-03-06 00:00 | VERAPAMIL HCL | [facility] | + + + + | 2022-02-11 00:00 | VERAPAMIL HCL | [facility] | + + + + | 2022-03-10 00:00 | VERAPAMIL HCL | [facility] | + + + + | 2022-09-28 00:00 | VERAPAMIL HCL | [facility] | + + + + | 2022-10-05 00:00 | VERAPAMIL HCL | [facility] | + + + + | 2022-10-27 00:00 | VERAPAMIL HCL | [facility] | + + + + | 2022-12-01 00:00 | VERAPAMIL HCL | [facility] | + + + + | 2023-01-12 00:00 | VERAPAMIL HCL | [facility] | + + + + | 2023-01-30 00:00 | VERAPAMIL HCL | [facility] | + + + + | 2023-02-15 00:00 | VERAPAMIL HCL | [facility] | + + + + | 2023-03-06 00:00 | VERAPAMIL HCL | [facility] | + + + + | 2022-02-11 00:00 | VERAPAMIL HCL | [facility] | + + + + | 2022-03-10 00:00 | VERAPAMIL HCL | [facility] | + + + + | 2022-09-28 00:00 | VERAPAMIL HCL | [facility] | + + + + | 2022-10-05 00:00 | VERAPAMIL HCL | [facility] | + + + + | 2022-10-27 00:00 | VERAPAMIL HCL | [facility] | + + + + | 2022-12-01 00:00 | VERAPAMIL HCL | [facility] | + + + + | 2023-01-12 00:00 | VERAPAMIL HCL | [facility] | + + + + | 2023-01-30 00:00 | VERAPAMIL HCL | [facility] | + + + + | 2023-02-15 00:00 | VERAPAMIL HCL | [facility] | + + + + | 2023-03-06 00:00 | VERAPAMIL HCL | [facility] | + + + + | 2020-08-06 00:00 | BENAZEPRIL HCL | [facility] | + + + + | 2022-02-11 00:00 | BENAZEPRIL HCL | [facility] | + + + + | 2022-03-10 00:00 | BENAZEPRIL HCL | [facility] | + + + + | 2022-09-28 00:00 | BENAZEPRIL HCL | [facility] | + + + + | 2022-10-05 00:00 | BENAZEPRIL HCL | [facility] | + + + + | 2022-10-27 00:00 | BENAZEPRIL HCL | [facility] | + + + + | 2022-12-01 00:00 | BENAZEPRIL HCL | [facility] | + + + + | 2023-01-12 00:00 | BENAZEPRIL HCL | [facility] | + + + + | 2023-01-30 00:00 | BENAZEPRIL HCL | [facility] | + + + + | 2023-02-15 00:00 | BENAZEPRIL HCL | [facility] | + + + + | 2023-03-06 00:00 | BENAZEPRIL HCL | [facility] | + + + + | 2022-02-11 00:00 | BENAZEPRIL HCL | [facility] | + + + + | 2022-03-10 00:00 | BENAZEPRIL HCL | [facility] | + + + + | 2022-09-28 00:00 | BENAZEPRIL HCL | [facility] | + + + + | 2022-10-05 00:00 | BENAZEPRIL HCL | [facility] | + + + + | 2022-10-27 00:00 | BENAZEPRIL HCL | [facility] | + + + + | 2022-12-01 00:00 | BENAZEPRIL HCL | [facility] | + + + + | 2023-01-12 00:00 | BENAZEPRIL HCL | [facility] | + + + + | 2023-01-30 00:00 | BENAZEPRIL HCL | [facility] | + + + + | 2023-02-15 00:00 | BENAZEPRIL HCL | [facility] | + + + + | 2023-03-06 00:00 | BENAZEPRIL HCL | [facility] | + + + + | 2020-08-30 00:00 | MECLIZINE HCL | [facility] | + + + + | 2022-03-08 00:00 | MECLIZINE HCL | [facility] | + + + + Problems + + + + | date | description | facility | + + + + | 2014-05-19 00:00 | Abdominal pain | [facility] | + + + + | 2015-07-20 00:00 | Paroxysmal atrial | [facility] | | | fibrillation | | + + + + | 2015-07-24 00:00 | Benign hypertension | [facility] | + + + + | 2015-09-28 00:00 | Low back pain | [facility] | + + + + | 2016-07-13 00:00 | Gastrointestinal | [facility] | | | hemorrhage | | + + + + | 2016-11-01 00:00 | Adverse reaction to drug | [facility] | + + + + | 2016-11-02 00:00 | Adverse reaction to drug | [facility] | + + + + | 2017-01-11 00:00 | Diastolic congestive heart | [facility] | | | failure | | + + + + | 2017-02-16 00:00 | Nonspecific chest pain | [facility] | + + + + | 2017-07-26 00:00 | Acute bronchitis due to | [facility] | | | chemical | | + + + + | 2017-09-12 00:00 | Bradycardia | [facility] | + + + + | 2020-02-22 00:00 | Chest pain due to | [facility] | | | gastrointestinal reflux | | | | disease | | + + + + | 2020-08-04 00:00 | Hyponatremia | [facility] | + + + + | 2020-08-21 00:00 | Colitis due to | [facility] | | | Clostridioides difficile | | + + + + | 2020-08-21 00:00 | Urinary tract infection | [facility] | + + + + | 2020-08-30 00:00 | Increased frequency of | [facility] | | | urination | | + + + + | 2020-08-30 00:00 | Dizziness | [facility] | + + + + | 2020-10-20 00:00 | Palpitations | [facility] | + + + + | 2021-03-15 00:00 | Gastroesophageal reflux | [facility] | | | disease | | + + + + | 2021-03-15 00:00 | Chest pain | [facility] | + + + + | 2021-05-24 00:00 | Chronic atrial | [facility] | | | fibrillation | | + + + + | 2021-05-24 00:00 | Atrial fibrillation | [facility] | + + + + | 2021-05-24 00:00 | Chronic gastroesophageal | [facility] | | | reflux disease | | + + + + | 2021-08-06 00:00 | Gastroenteritis | [facility] | + + + + | 2021-10-30 00:00 | Hypomagnesemia | [facility] | + + + + | 2021-10-30 00:00 | Hypokalemia | [facility] | + + + + | 2022-03-08 00:00 | Congestive heart failure | [facility] | + + + + | 2022-03-08 00:00 | Vertigo | [facility] | + + + + | 2022-03-08 00:25 | 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[facility] | | | WITHOUT COMPLICATIONS | | + + + + | 2022-03-08 00:25 | HYPERTENSIVE HEART DISEASE | [facility] | | | WITH HEART FAILURE | | + + + + | 2022-03-08 00:25 | UNSPECIFIED ATRIAL | [facility] | | | FIBRILLATION | | + + + + | 2022-03-08 00:25 | HEART FAILURE, UNSPECIFIED | [facility] | | | | | + + + + | 2022-03-08 00:25 | Dizziness and giddiness | [facility] | + + + + | 2022-03-08 00:25 | 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) | [facility] | | | DRUG THERAPY | | + + + + | 2022-03-08 00:25 | ALLERGY STATUS TO | [facility] | | | PENICILLIN | | + + + + | 2022-03-08 00:25 | ALLERGY STATUS TO | [facility] | | | SULFONAMIDES STATUS | | + + + + | 2022-03-08 00:25 | ALLERGY STATUS TO NARCOTIC | [facility] | | | AGENT STATUS | | + + + + | 2022-03-08 00:25 | ALLERGY STATUS TO OTH | [facility] [...] | | + + + + | 2022-09-06 00:01 | UNILATERAL PRIMARY | [facility] | | | OSTEOARTHRITIS, RIGHT KNEE | | + + + + | 2022-09-06 00:01 | UNSP ROTATR-CUFF | [facility] | | | TEAR/RUPTR OF LEFT | | | | SHOULDER, NOT | | + + + + | 2022-09-27 19:47 | 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[facility] | | | WITHOUT COMPLICATIONS | | + + + + | 2022-09-27 19:47 | HYPERTENSIVE HEART DISEASE | [facility] | | | WITH HEART FAILURE | | + + + + | 2022-09-27 19:47 | UNSPECIFIED ATRIAL | [facility] | | | FIBRILLATION | | + + + + | 2022-09-27 19:47 | HEART FAILURE, UNSPECIFIED | [facility] | | | | | + + + + | 2022-09-27 19:47 | ACUTE BRONCHITIS, | [facility] | | | UNSPECIFIED | | + + + + | 2022-09-27 19:47 | COUGH, UNSPECIFIED | [facility] | + + + + | 2022-09-27 19:47 | ALF (CURRENT) USE OF | [facility] | | | ANTICOAGULANTS | | + + + + | 2022-09-27 19:47 | 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) | [facility] | | | DRUG THERAPY | | + + + + | 2022-09-27 19:47 | ALLERGY STATUS TO | [facility] | | | PENICILLIN | | + + + + | 2022-09-27 19:47 | ALLERGY STATUS TO | [facility] | | | SULFONAMIDES STATUS | | + + + + | 2022-09-27 19:47 | ALLERGY STATUS TO NARCOTIC | [facility] | | | AGENT STATUS | | + + + + | 2022-09-27 19:47 | ALLERGY STATUS TO | [facility] | | | ANALGESIC AGENT STATUS | | + + + + | 2022-09-27 19:47 | ALLERGY STATUS TO SERUM | [facility] | | | AND VACCINE STATUS | | + + + + | 2022-09-28 00:00 | Acute bronchitis | [facility] | + + + + | 2022-10-05 12:37 | 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[facility] | | | WITHOUT COMPLICATIONS | | + + + + | 2022-10-05 12:37 | HYPERTENSIVE HEART DISEASE | [facility] | | | WITH HEART FAILURE | | + + + + | 2022-10-05 12:37 | UNSPECIFIED ATRIAL | [facility] | | | FIBRILLATION | | + + + + | 2022-10-05 12:37 | HEART FAILURE, UNSPECIFIED | [facility] | | | | | + + + + | 2022-10-05 12:37 | ACUTE BRONCHITIS, | [facility] | | | UNSPECIFIED | | + + + + | 2022-10-05 12:37 | UNSPECIFIED ABDOMINAL PAIN | [facility] | | | | | + + + + | 2022-10-05 12:37 | OTHER ALF (CURRENT) | [facility] | | | DRUG THERAPY | | + + + + | 2022-10-05 12:37 | ALLERGY STATUS TO | [facility] | | | PENICILLIN | | + + + + | 2022-10-05 12:37 | ALLERGY STATUS TO | [facility] | | | SULFONAMIDES STATUS | | + + + + | 2022-10-05 12:37 | ALLERGY STATUS TO NARCOTIC | [facility] | | | AGENT STATUS | | + + + + | 2022-10-05 12:37 | ALLERGY STATUS TO OTH | [facility] | | | DRUG/MEDS/BIOL SUBST STATUS | | | | | | + + + + | 2022-10-10 15:29 | OTH SPECIFIC | [facility] | | | ARTHROPATHIES, NEC, LEFT | | | | SHOULDER | | + + + + | 2022-10-10 15:29 | UNSP ROTATR-CUFF | [facility] | | | TEAR/RUPTR OF LEFT | | | | SHOULDER, NOT | | + + + + | 2022-10-10 15:29 | AFTERCARE FOLLOWING JOINT | [facility] | | | REPLACEMENT SURGERY | | + + + + | 2022-10-10 15:29 | 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 | | + + + + | 2022-10-27 21:54 | 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[facility] | | | WITHOUT COMPLICATIONS | | + + + + | 2022-10-27 21:54 | HYPERTENSIVE HEART DISEASE | [facility] | | | WITH HEART FAILURE | | + + + + | 2022-10-27 21:54 | UNSPECIFIED ATRIAL | [facility] | | | FIBRILLATION | | + + + + | 2022-10-27 21:54 | HEART FAILURE, UNSPECIFIED | [facility] | | | | | + + + + | 2022-10-27 21:54 | SHORTNESS OF BREATH | [facility] | + + + + | 2022-10-27 21:54 | 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) | [facility] | | | DRUG THERAPY | | + + + + | 2022-10-27 21:54 | ALLERGY STATUS TO | [facility] | | | PENICILLIN | | + + + + | 2022-10-27 21:54 | ALLERGY STATUS TO | [facility] | | | SULFONAMIDES STATUS | | + + + + | 2022-10-27 21:54 | ALLERGY STATUS TO NARCOTIC | [facility] | | | AGENT STATUS | | + + + + | 2022-10-27 21:54 | ALLERGY STATUS TO OTH | [facility] | | | DRUG/MEDS/BIOL SUBST STATUS | | | | | | + + + + | 2022-12-01 00:00 | Pain in both lower | [facility] | | | extremities | | + + + + | 2022-12-01 11:52 | 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[facility] | | | WITHOUT COMPLICATIONS | | + + + + | 2022-12-01 11:52 | HYPERTENSIVE HEART DISEASE | [facility] | | | WITH HEART FAILURE | | + + + + | 2022-12-01 11:52 | HEART FAILURE, UNSPECIFIED | [facility] | | | | | + + + + | 2022-12-01 11:52 | PAIN IN RIGHT LEG | [facility] | + + + + | 2022-12-01 11:52 | PAIN IN LEFT LEG | [facility] | + + + + | 2022-12-01 11:52 | ALF (CURRENT) USE OF | [facility] | | | ANTICOAGULANTS | | + + + + | 2022-12-01 11:52 | OTHER ALF (CURRENT) | [facility] | | | DRUG THERAPY | | + + + + | 2022-12-01 11:52 | ALLERGY STATUS TO | [facility] | | | PENICILLIN | | + + + + | 2022-12-01 11:52 | ALLERGY STATUS TO | [facility] | | | SULFONAMIDES STATUS | | + + + + | 2022-12-01 11:52 | ALLERGY STATUS TO NARCOTIC | [facility] | | | AGENT STATUS | | + + + + | 2022-12-01 11:52 | ALLERGY STATUS TO OTH | [facility] | | | DRUG/MEDS/BIOL SUBST STATUS | | | | | | + + + + | 2022-12-04 14:20 | SPONDYLOLISTHESIS, 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 | | + + + + | 2022-12-04 14:20 | 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, LUMBA | | + + + + | 2022-12-04 14:20 | 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, LUMBAR REG | | + + + + | 2022-12-04 14:20 | STRAIN OF MUSCLE, FASCIA | [facility] | | | AND TENDON OF LOWER BACK, | | | | SUBS | | + + + + | 2022-12-08 11:00 | PAIN IN LEFT SHOULDER | [facility] | + + + + | 2022-12-08 11:00 | SPINAL STENOSIS, 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 CLA | | + + + + | 2022-12-08 11:00 | MUSCLE WEAKNESS | [facility] | | | (GENERALIZED) | | + + + + | 2022-12-25 15:02 | OSTEOPHYTE, VERTEBRAE | [facility] | + + + + | 2022-12-25 15:02 | SPINAL STENOSIS, 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 WITHOUT NEUROGENIC | | + + + + | 2022-12-25 15:02 | 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, LUMBAR REGION | | | | | | + + + + | 2022-12-25 15:02 | ARTHRODESIS STATUS | [facility] | + + + + [...] 00:00 | Spinal stenosis of lumbar | [facility] | | | region at multiple [...] + + + | 2023-01-12 19:45 | ALF (CURRENT) USE OF | [facility] | | | ANTICOAGULANTS | | + + + + | 2023-01-12 19:45 | OTHER ALF (CURRENT) | [facility] | | | DRUG [...] | 2023-01-29 00:00 | Back pain | [facility] | + + + + | [...] + + + | 2023-01-29 22:19 | 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) USE OF | [facility] | | | ANTICOAGULANTS | | + + + + | 2023-01-29 22:19 | OTHER ALF (CURRENT) | [facility] | | | DRUG [...] | | + + + + | 2023-02-14 20:38 | 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[facility] | | | WITHOUT COMPLICATIONS | | + + + + | 2023-02-14 20:38 | HYPERTENSIVE HEART DISEASE | [facility] | | | WITH HEART FAILURE | | + + + + | 2023-02-14 20:38 | UNSPECIFIED ATRIAL | [facility] | | | FIBRILLATION | | + + + + | 2023-02-14 20:38 | HEART FAILURE, UNSPECIFIED | [facility] | | | | | + + + + | 2023-02-14 20:38 | CERVICALGIA | [facility] | + + + + | 2023-02-14 20:38 | STRAIN OF MUSCLE, FASCIA | [facility] | | | AND TENDON AT NECK LEVEL, | | + + + + | 2023-02-14 20:38 | STRAIN OF MUSCLE AND | [facility] | | | TENDON OF BACK WALL OF | | | | THORAX | | + + + + | 2023-02-14 20:38 | UNSPECIFIED FALL, INITIAL | [facility] | | | ENCOUNTER | | + + + + | 2023-02-14 20:38 | ALF (CURRENT) USE OF | [facility] | | | ANTICOAGULANTS | | + + + + | 2023-02-14 20:38 | OTHER ALF (CURRENT) | [facility] | | | DRUG THERAPY | | + + + + | 2023-02-14 20:38 | ALLERGY STATUS TO | [facility] | | | PENICILLIN | | + + + + | 2023-02-14 20:38 | ALLERGY STATUS TO | [facility] | | | SULFONAMIDES STATUS | | + + + + | 2023-02-14 20:38 | ALLERGY STATUS TO NARCOTIC | [facility] | | | AGENT STATUS | | + + + + | 2023-02-14 20:38 | ALLERGY STATUS TO | [facility] | | | ANALGESIC AGENT STATUS | | + + + + | 2023-02-14 20:38 | ALLERGY STATUS TO OTH | [facility] | | | DRUG/MEDS/BIOL SUBST STATUS | | | | | | + + + + | 2023-02-15 00:00 | Muscle strain | [facility] | + + + + Procedures No [...] mg/dL | (missing) | | (unavailable | ::07 [...] mg/dL | (missing) | | (unavailable | ::07 [...] 251 | + + + + + +-------+ [...] 257 | + + + + + +--------+ + + | | 2022-12-01 | [facility] | 34.1 | (missing) | (missing) | | (unavailable | [facility]17[facility] | | | | + + + +--------+ + + + + | Result panel 258 | + + + + + +--------+ + + | | 2022-12-01 | [facility] | 14.6 | (missing) | (missing) | | (unavailable | [facility]17:[facility] | | | | + + + +--------+ + + + + | Result panel 259 | + + + + + +-------+ + + | | 2022-12-01 | [facility] | 240 | (missing) | (missing) | | (unavailable | [facility]17:07 [facility] | | | | + + + +-------+ + + + + | Result panel 260 | + + + + + +------+ + + | | 2022-12-01 | [facility] | 61 | (missing) | (missing) | | (unavailable | [facility]17:[facility] | | | | + + + +------+ + + + + | Result panel 261 | + + + + + +------+ [...] 264 | + + + + + +-----+ + + | | 2022-12-01 | [facility] | 2 | (missing) | (missing) | | (unavailable | [facility]17:[facility] | | | | + + + +-----+ + + + + | Result panel 265 | + + + + + +-----+ + + | | 2022-12-01 | [facility] | 3 | (missing) | (missing) | | (unavailable | [facility]17:[facility] | | | | + + + +-----+ + + + + | Result panel 266 | + + + + + +-------+---------+ + | | 2022-12-01 | [facility] | 130 | mg/dL | (missing) | | (unavailable | [facility]17:[facility] | | | | + + + +-------+---------+ + + + | Result panel 267 | + + + + + +------+---------+ + | | 2022-12-01 | [facility] | 19 | mg/dL | (missing) | | (unavailable | [facility]17:07 [facility] | | | | + + + +------+---------+ + + + | Result panel 268 | + + + + + +--------+---------+ + | | 2022-12-01 | [facility] | 0.96 | mg/dL | (missing) | | (unavailable | 12::07 [facility] | | | | + + + +--------+---------+ + + + | Result panel 269 | + + + + + +------+ + + | | 2022-12-01 | [facility] | 60 | (missing) | (missing) | | (unavailable | [facility]17:07 [facility] | | | | + + + +------+ + + + + | Result panel 270 | + + + + + +---------+ [...] 272 | + + + + + +-------+ + + | | 2022-12-01 | [facility] | 3.7 | (missing) | (missing) | | (unavailable | [facility]17:[facility] | | | | + + + +-------+ + + + + | Result panel 273 | + + + + + +-------+ + + | | 2022-12-01 | [facility] | 102 | (missing) | (missing) | | (unavailable | [facility]17:07 [facility] | | | | + + + +-------+ + + + + | Result panel 274 | + + + + + +------+ + + | | 2022-12-01 | [facility] | 26 | (missing) | (missing) | | (unavailable | [facility]17:[facility] | | | | + + + +------+ + + + + | Result panel 275 | + + + + + +--------+ + + | | 2022-12-01 | [facility] | 13.7 | (missing) | (missing) | | (unavailable | [facility]17[facility] | | | | + + + +--------+ + + + + | Result panel 276 | + + + + + +-------+---------+ + | | 2022-12-01 | [facility] | 9.1 | mg/dL | (missing) | | (unavailable | [facility]17:07 [facility] | | | | + + + +-------+---------+ + + + | Result panel 277 | + + + + + +-------+---------+ + | | 2022-12-01 | [facility] | 2.1 | mg/dL | (missing) | | (unavailable | [facility]17:07 [facility] | | | | + + + +-------+---------+ + + + | Result panel 278 [...] 279 | + + + + + +-------+ [...] 281 | + + + + + +--------+ + + | | 2022-12-01 | [facility] | 1.03 | (missing) | (missing) | | (unavailable | [facility]17[facility] | | | + + + +--------+ + + + + | Result panel 282 | + + + + + +-------+ [...] 284 | + + + + + +------+ + + | | 2022-12-01 | [facility] | 24 | (missing) | (missing) | | (unavailable | [facility]17:[facility] | | | | + + + +------+ + + + + | Result panel 285 | + + + + + +------+ + + | | 2022-12-01 | [facility] | 76 | (missing) | (missing) | | (unavailable | [facility]17:07 [facility] | | | | + + + +------+ + + + + | Result panel 286 | + + + + + +---------+ + + | | 2023-01-12 | [facility] | CLEAR | (missing) | (missing) | | (unavailable | [facility]30:07 [facility] | | | | + + + +---------+ + + + + | Result panel 287 | + + + + + + [...] 289 | + + + + + +---------+ [...] 291 | + + + + + + + + + | | 2023-01-12 | [facility] | NEGATIVE | (missing) | (missing) | | (unavailable | [facility]30:07 [facility] | | | | + + + + + + + + + | Result panel 292 | + + + + + +-------+ + + | | 2023-01-12 | [facility] | 5.5 | (missing) | (missing) | | (unavailable | [facility]30:07 [facility] | | | | + + + +-------+ + + + + | Result panel 293 | + + + + + +------+ + + | | 2023-01-12 | [facility] | 30 | (missing) | (missing) | | (unavailable | [facility]30:07 [facility] | | | + + + +------+ + + + + | Result panel 294 | + + + + + + [...] 298 | + + + + + +---------+ + + | | 2023-01-12 | [facility] | CLEAR | (missing) | (missing) | | (unavailable | [facility]30:07 [facility] | | | | + + + +---------+ + + + + | Result panel 299 | + + + + + + [...] 301 | + + + + + +---------+ [...] 303 | + + + + + + + + + | | 2023-01-12 | [facility] | NEGATIVE | (missing) | (missing) | | (unavailable | [facility]30:07 [facility] | | | | + + + + + + + + + | Result panel 304 | + + + + + +-------+ + + | | 2023-01-12 | [facility] | 5.5 | (missing) | (missing) | | (unavailable | [facility]30:07 [facility] | | | | + + + +-------+ + + + + | Result panel 305 | + + + + + +------+ + + | | 2023-01-12 | [facility] | 30 | (missing) | (missing) | | (unavailable | [facility]30:07 [facility] | | | + + + +------+ + + + + | Result panel 306 | + + + + + + [...] 310 | + + + + + +-------+---------+ + | | 2023-01-12 | [facility] | 120 | mg/dL | (missing) | | (unavailable | 20[facility]36:07 [facility] | | | | + + + +-------+---------+ + + + | Result panel 311 | + + + + + +------+---------+ + | | 2023-01-12 | [facility] | 13 | mg/dL | (missing) | | (unavailable | 20[facility]36:07 [facility] | | | | + + + +------+---------+ + + + | Result panel 312 | + + + + + +--------+---------+ + | | 2023-01-12 | [facility] | 1.08 | mg/dL | (missing) | | (unavailable | 20[facility]36:07 [facility] | | | + + + +--------+---------+ + + + | Result panel 313 | + + + + + +------+ + + | | 2023-01-12 | [facility] | 52 | (missing) | (missing) | | (unavailable | [facility]36:07 [facility] | | | + + + +------+ + + + + | Result panel 314 | + + + + + +---------+ + + | | 2023-01-12 | [facility] | 12.03 | (missing) | (missing) | | (unavailable | [facility]36:[facility] | | | | + + + +---------+ + + + + | Result panel 315 | + + + + + +-------+ + + | | 2023-01-12 | [facility] | 138 | (missing) | (missing) | | (unavailable | [facility]36:07 [facility] | | | | + + + +-------+ + + + + | Result panel 316 | + + + + + +-------+ + + | | 2023-01-12 | [facility] | 3.5 | (missing) | (missing) | | (unavailable | [facility]36:07 [facility] | | | | + + + +-------+ + + + + | Result panel 317 | + + + + + +-------+ + + | | 2023-01-12 | [facility] | 101 | (missing) | (missing) | | (unavailable | 20[facility]36:07 [facility] | | | + + + +-------+ + + + + | Result panel 318 | + + + + + +------+ [...] 320 | + + + + + +-------+---------+ + | | 2023-01-12 | [facility] | 9.0 | mg/dL | (missing) | | (unavailable | [facility]36:07 [facility] | | | | + + + +-------+---------+ + + + | Result panel 321 [...] 322 | + + + + + +-------+ + + | | 2023-01-12 | [facility] | 3.8 | (missing) | (missing) | | (unavailable | [facility]36:07 [facility] | | | | + + + +-------+ + + + + | Result panel 323 | + + + + + +-------+ [...] 326 | + + + + + +------+ + + | | 2023-01-12 | [facility] | 25 | (missing) | (missing) | | (unavailable | [facility]36:07 [facility] | | | | + + + +------+ + + + + | Result panel 327 | + + + + + +------+ + + | | 2023-01-12 | [facility] | 25 | (missing) | (missing) | | (unavailable | 20[facility]36:07 [facility] | | | | + + + +------+ + + + + | Result panel 328 | + + + + + +------+ + + | | 2023-01-12 | [facility] | 76 | (missing) | (missing) | | (unavailable | [facility]36:07 [facility] | | | | + + + +------+ + + + + | Result panel 329 | + + + + + +---------+ + + | | 2023-01-12 | [facility] | 2.278 | (missing) | (missing) | | (unavailable | 20[facility]36:07 [facility] | | | | + + + +---------+ + + + + | Result panel 330 | + + + + + + + + + | | 2023-01-12 | [facility] | <0.2 mg/dL | (missing) | (missing) | | (unavailable | 20[facility]36:07 [facility] | | | + + + + + + + + + | Result panel 331 | + + + + + +-----+ [...] 333 | + + + + + + [...] 335 | + + + + + +--------+ + + | | 2023-01-12 | [facility] | 4.60 | (missing) | (missing) | | (unavailable | [facility]36[facility]07 [facility] | | | + + + +--------+ + + + + | Result panel 336 | + + + + + +--------+ [...] 338 | + + + + + +--------+ + + | | 2023-01-12 | [facility] | 94.1 | (missing) | (missing) | | (unavailable | [facility]36:07 [facility] | | | | + + + +--------+ + + + + | Result panel 339 | + + + + + +--------+ + + | | 2023-01-12 | [facility] | 31.9 | (missing) | (missing) | | (unavailable | [facility]36:07 [facility] | | | + + + +--------+ + + + + | Result panel 340 | + + + + + +--------+ + + | | 2023-01-12 | [facility] | 33.9 | (missing) | (missing) | | (unavailable | [facility]36:07 [facility] | | | + + + +--------+ + + + + | Result panel 341 | + + + + + +--------+ + + | | 2023-01-12 | [facility] | 13.9 | (missing) | (missing) | | (unavailable | [facility]36:07 [facility] | | | + + + +--------+ + + + + | Result panel 342 | + + + + + +-------+ + + | | 2023-01-12 | [facility] | 293 | (missing) | (missing) | | (unavailable | 20[facility]36:07 [facility] | | | + + + +-------+ + + + + | Result panel 343 | + + + + + +--------+ + + | | 2023-01-12 | [facility] | 60.9 | (missing) | (missing) | | (unavailable | 20[facility]36:07 [facility] | | | + + + +--------+ + + + + | Result panel 344 | + + + + + +--------+ + + | | 2023-01-12 | [facility] | 20.6 | (missing) | (missing) | | (unavailable | [facility]36[facility]07 [facility] | | | + + + +--------+ + + + + | Result panel 345 | + + + + + +--------+ + + | | 2023-01-12 | [facility] | 13.7 | (missing) | (missing) | | (unavailable | [facility]36:07 [facility] | | | | + + + +--------+ + + + + | Result panel 346 | + + + + + +-------+ + + | | 2023-01-12 | [facility] | 3.4 | (missing) | (missing) | | (unavailable | [facility]36[facility] | | | + + + +-------+ + + + + | Result panel 347 | + + + + + +-------+ + + | | 2023-01-12 | [facility] | 1.4 | (missing) | (missing) | | (unavailable | [facility]36[facility]07 [facility] | | | + + + +-------+ + + + + | Result panel 348 | + + + + + +-----+ [...] (missing) | (missing) | | (unavailable | : | [facility] | | | | [...] 377 | + + + + + +-------+ [...] 382 | + + + + + +--------+ + + | | 2023-01-29 | [facility] | 35.5 | (missing) | (missing) | | (unavailable | 23[facility]00:07 [facility] | | | | + + + +--------+ + + + + | Result panel 383 | + + + + + +--------+ + + | | 2023-01-29 | [facility] | 31.1 | (missing) | (missing) | | (unavailable | 23[facility]00:07 [facility] | | | | + + + +--------+ + + + + | Result panel 384 | + + + + + +--------+ + + | | 2023-01-29 | [facility] | 32.4 | (missing) | (missing) | | (unavailable | [facility]00:07 [facility] | | | | + + + +--------+ + + + + | Result panel 385 | + + + + + +--------+ + + | | 2023-01-29 | [facility] | 13.7 | (missing) | (missing) | | (unavailable | [facility]00:07 [facility] | | | | + + + +--------+ + + + + | Result panel 386 | + + + + + +-------+ + + | | 2023-01-29 | [facility] | 200 | (missing) | (missing) | | (unavailable | [facility]00:07 [facility] | | | | + + + +-------+ + + + + | Result panel 387 | + + + + + +--------+ + + | | 2023-01-29 | [facility] | 47.8 | (missing) | (missing) | | (unavailable | [facility]00:07 [facility] | | | + + + +--------+ + + + + | Result panel 388 | + + + + + +--------+ + + | | 2023-01-29 | [facility] | 25.0 | (missing) | (missing) | | (unavailable | 23::07 [facility] | | | | + + + +--------+ + + + + | Result panel 389 | + + + + + +--------+ + + | | 2023-01-29 | [facility] | 17.0 | (missing) | (missing) | | (unavailable | [facility]00:07 [facility] | | | | + + + +--------+ + + + + | Result panel 390 | + + + + + +-------+ + + | | 2023-01-29 | [facility] | 8.7 | (missing) | (missing) | | (unavailable | 23::07 [facility] | | | | + + + +-------+ + + + + | Result panel 391 | + + + + + +-------+ + + | | 2023-01-29 | [facility] | 1.5 | (missing) | (missing) | | (unavailable | 23::07 [facility] | | | | + + + +-------+ + + + + | Result panel 392 | + + + + + +-------+---------+ + | | 2023-01-29 | [facility] | 109 | mg/dL | (missing) | | (unavailable | 23[facility]00:07 [facility] | | | | + + + +-------+---------+ + + + | Result panel 393 | + + + + + +--------+ + + | | 2023-01-29 | [facility] | 96.0 | (missing) | (missing) | | (unavailable | 23[facility]00:07 [facility] | | | | + + + +--------+ + + + + | Result panel 394 | + + + + + +------+---------+ + | | 2023-01-29 | [facility] | 18 | mg/dL | (missing) | | (unavailable | 23[facility]00:07 [facility] | | | | + + + +------+---------+ + + + | Result panel 395 | + + + + + +--------+---------+ + | | 2023-01-29 | [facility] | 1.19 | mg/dL | (missing) | | (unavailable | 23[facility]00:07 [facility] | | | | + + + +--------+---------+ + + + | Result panel 396 | + + + + + +------+ + + | | 2023-01-29 | [facility] | 46 | (missing) | (missing) | | (unavailable | 23[facility]00:07 [facility] | | | | + + + +------+ + + + + | Result panel 397 | + + + + + +---------+ + + | | 2023-01-29 | [facility] | 15.12 | (missing) | (missing) | | (unavailable | [facility]00:07 [facility] | | | | + + + +---------+ + + + + | Result panel 398 | + + + + + +-------+ + + | | 2023-01-29 | [facility] | 137 | (missing) | (missing) | | (unavailable | 23[facility]00:07 [facility] | | | | + + + +-------+ + + + + | Result panel 399 | + + + + + +-------+ + + | | 2023-01-29 | [facility] | 4.7 | (missing) | (missing) | | (unavailable | [facility]00:07 [facility] | | | | + + + +-------+ + + + + | Result panel 400 | + + + + + +-------+ + + | | 2023-01-29 | [facility] | 103 | (missing) | (missing) | | (unavailable | 23[facility]00:07 [facility] | | | | + + + +-------+ + + + + | Result panel 401 | + + + + + +------+ + + | | 2023-01-29 | [facility] | 28 | (missing) | (missing) | | (unavailable | 23[facility]00:07 [facility] | | | | + + + +------+ + + + + | Result panel 402 | + + + + + +--------+ + + | | 2023-01-29 | [facility] | 10.7 | (missing) | (missing) | | (unavailable | 23::07 [facility] | | | | + + + +--------+ + + + + | Result panel 403 | + + + + + +-------+---------+ + | | 2023-01-29 | [facility] | 8.7 | mg/dL | (missing) | | (unavailable | 23[facility]00:07 [facility] | | | | + + + +-------+---------+ + + + | Result panel 404 | + + + + + +--------+ + + | | 2023-01-29 | [facility] | 31.1 | (missing) | (missing) | | (unavailable | 23[facility]00:07 [facility] | | | | + + + +--------+ + + + + | Result panel 405 | + + + + + +-------+---------+ + | | 2023-01-29 | [facility] | 1.8 | mg/dL | (missing) | | (unavailable | [facility]00:07 [facility] | | | | + + + +-------+---------+ + + + | Result panel 406 | + + + + + +-------+ + + | | 2023-01-29 | [facility] | 6.0 | (missing) | (missing) | | (unavailable | [facility]00:07 [facility] | | | | + + + +-------+ + + + + | Result panel 407 | + + + + + +-------+ + + | | 2023-01-29 | [facility] | 3.1 | (missing) | (missing) | | (unavailable | [facility]00:07 [facility] | | | | + + + +-------+ + + + + | Result panel 408 | + + + + + +-------+ + + | | 2023-01-29 | [facility] | 2.9 | (missing) | (missing) | | (unavailable | [facility]00:07 [facility] | | | | + + + +-------+ + + + + | Result panel 409 | + + + + + +--------+ + + | | 2023-01-29 | [facility] | 1.07 | (missing) | (missing) | | (unavailable | [facility]00:07 [facility] | | | | + + + +--------+ + + + + | Result panel 410 | + + + + + +-------+ + + | | 2023-01-29 | [facility] | 0.5 | (missing) | (missing) | | (unavailable | [facility]00:[facility] | | | | + + + +-------+ + + + + | Result panel 411 | + + + + + +------+ + + | | 2023-01-29 | [facility] | 22 | (missing) | (missing) | | (unavailable | 23[facility]00:07 [facility] | | | | + + + +------+ + + + + | Result panel 412 | + + + + + +------+ + + | | 2023-01-29 | [facility] | 23 | (missing) | (missing) | | (unavailable | 23[facility]00:07 [facility] | | | | + + + +------+ + + + + | Result panel 413 | + + + + + +------+ + + | | 2023-01-29 | [facility] | 60 | (missing) | (missing) | | (unavailable | 23[facility]00:07 [facility] | | | | + + + +------+ + + + + | Result panel 414 | + + + + + +--------+ + + | | 2023-01-29 | [facility] | 32.4 | (missing) | (missing) | | (unavailable | 23[facility]00:07 [facility] | | | | + + + +--------+ + + + + | Result panel 415 | + + + + + +--------+ + + | | 2023-01-29 | [facility] | 13.7 | (missing) | (missing) | | (unavailable | [facility]00:07 [facility] | | | | + + + +--------+ + + + + | Result panel 416 | + + + + + +-------+ [...] | | + + + +---------+ | 2023-02-14 00:00 | BMI | 32.2 | kg/m2 | + + + +---------+ | 2023-02-14 00:00 | height_metric | 152.4 | cm | + + + +---------+ | 2023-02-14 00:00 | height_standard | 60 | in | + + + +---------+ | 2023-02-14 00:00 | weight_metric | 74.84 | kg | + + + +---------+ | 2023-02-14 00:00 | weight_standard | 164.99 | lb | + + + +---------+ | 2023-02-14 00:00 | weight_standard | 165 | lb | + + + +---------+ | 2023-02-15 00:00 | BP_diastolic | 58 | mmHg | + + + +---------+ | 2023-02-15 00:00 | BP_systolic | 124 | mmHg | + + + +---------+ | 2023-02-15 00:00 | heart_rate | 57 | /min | + + + +---------+ | 2023-02-15 00:00 | o2_saturation | 94 | % | + + + +---------+ | 2023-02-15 00:00 | respiration_rate | 15 | /min | + + + +---------+ | 2023-02-15 00:00 | temperature_metric | 36.72 | C | | | | | | + + + +---------+ | 2023-02-15 00:00 | | 98.1 | F | | | temperature_standar | | | | | d | | | + + + +---------+"
--- OUTSIDE RECORDS SUMMARY | ~2023-04-09 | XMS | Continuity of Care Document ---
Demographics + + + | Address | [address] | | | [place] [address] | + + + | Preferred Language | Unknown | + + + | Marital Status | | + + + | Zoroastrianism Affiliation | Unknown | + + + | Race | White | + + + | Ethnic Group | Not or | + + + Author + + + | Author | [facility] | + + + | Organization | [facility] | + + + | Address | [address] | | | [place] [address] | + + + | Phone | | + + + Care Team Providers + + + + | Care Palliative Medicine Physician Name | Role | Phone | + [...] 2022-02-11 00:00 | CALCIUM CARB/MAG OXIDE/VIT | [facility] | | | D3 | | + + + + | 2022-03-10 00:00 | CALCIUM CARB/MAG OXIDE/VIT | [facility] | | | D3 | | + + + + | 2022-09-28 00:00 | CALCIUM CARB/MAG OXIDE/VIT | [facility] | | | D3 | | + + + + | 2022-10-05 00:00 | CALCIUM CARB/MAG OXIDE/VIT | [facility] | | | D3 | | + + + + | 2022-10-27 00:00 | CALCIUM CARB/MAG OXIDE/VIT | [facility] | | | D3 | | + + + + | 2022-12-01 00:00 | CALCIUM CARB/MAG OXIDE/VIT | [facility] | | | D3 | | + + + + | 2023-01-12 00:00 | CALCIUM CARB/MAG OXIDE/VIT | [facility] | | | D3 | | + + + + | 2023-01-30 00:00 | CALCIUM CARB/MAG OXIDE/VIT | [facility] | | | D3 | | + + + + | 2023-02-15 00:00 | CALCIUM CARB/MAG OXIDE/VIT | [facility] | | | D3 | | + + + + | 2023-03-06 00:00 | CALCIUM CARB/MAG OXIDE/VIT | [facility] | | | D3 | | + + + + | 2021-08-06 00:00 | ONDANSETRON HCL | [facility] | + + + + | 2022-02-11 00:00 | DIGOXIN | [facility] | + + + + | 2022-03-10 00:00 | DIGOXIN | [facility] | + + + + | 2022-09-28 00:00 | DIGOXIN | [facility] | + + + + | 2022-10-05 00:00 | DIGOXIN | [facility] | + + + + | 2022-10-27 00:00 | DIGOXIN | [facility] | + + + + | 2022-12-01 00:00 | DIGOXIN | [facility] | + + + + | 2023-01-12 00:00 | DIGOXIN | [facility] | + + + + | 2023-01-30 00:00 | DIGOXIN | [facility] | + + + + | 2023-02-15 00:00 | DIGOXIN | [facility] | + + + + | 2023-03-06 00:00 | DIGOXIN | [facility] | + + + + | 2022-02-11 00:00 | BUDESONIDE/FORMOTEROL | [facility] | | | FUMARATE | | + + + + | 2022-03-10 00:00 | BUDESONIDE/FORMOTEROL | [facility] | | | FUMARATE | | + + + + | 2022-09-28 00:00 | BUDESONIDE/FORMOTEROL | [facility] | | | FUMARATE | | + + + + | 2022-10-05 00:00 | BUDESONIDE/FORMOTEROL | [facility] | | | FUMARATE | | + + + + | 2022-10-27 00:00 | BUDESONIDE/FORMOTEROL | [facility] | | | FUMARATE | | + + + + | 2022-12-01 00:00 | BUDESONIDE/FORMOTEROL | [facility] | | | FUMARATE | | + + + + | 2023-01-12 00:00 | BUDESONIDE/FORMOTEROL | [facility] | | | FUMARATE | | + + + + | 2023-01-30 00:00 | BUDESONIDE/FORMOTEROL | [facility] | | | FUMARATE | | + + + + | 2023-02-15 00:00 | BUDESONIDE/FORMOTEROL | [facility] | | | FUMARATE | | + + + + | 2023-03-06 00:00 | BUDESONIDE/FORMOTEROL | [facility] | | | FUMARATE | | + + + + | 2021-05-27 00:00 | HYDROCORTISONE ACETATE | [facility] | + + + + | 2022-02-11 00:00 | APIXABAN | [facility] | + + + + | 2022-03-10 00:00 | APIXABAN | [facility] | + + + + | 2022-09-28 00:00 | APIXABAN | [facility] | + + + + | 2022-10-05 00:00 | APIXABAN | [facility] | + + + + | 2022-10-27 00:00 | APIXABAN | [facility] | + + + + | 2022-12-01 00:00 | APIXABAN | [facility] | + + + + | 2023-01-12 00:00 | APIXABAN | [facility] | + + + + | 2023-01-30 00:00 | APIXABAN | [facility] | + + + + | 2023-02-15 00:00 | APIXABAN | [facility] | + + + + | 2023-03-06 00:00 | APIXABAN | [facility] | + + + + | 2022-09-28 00:00 | EMPAGLIFLOZIN | [facility] | + + + + | 2022-10-05 00:00 | EMPAGLIFLOZIN | [facility] | + + + + | 2022-10-27 00:00 | EMPAGLIFLOZIN | [facility] | + + + + | 2022-12-01 00:00 | EMPAGLIFLOZIN | [facility] | + + + + | 2023-01-12 00:00 | EMPAGLIFLOZIN | [facility] | + + + + | 2023-01-30 00:00 | EMPAGLIFLOZIN | [facility] | + + + + | 2023-02-15 00:00 | EMPAGLIFLOZIN | [facility] | + + + + | 2023-03-06 00:00 | EMPAGLIFLOZIN | [facility] | + + + + | 2022-02-11 00:00 | Bacillus Coagulans | [facility] | + + + + | 2022-03-10 00:00 | Bacillus Coagulans | [facility] | + + + + | 2022-09-28 00:00 | Bacillus Coagulans | [facility] | + + + + | 2022-10-05 00:00 | Bacillus Coagulans | [facility] | + + + + | 2022-10-27 00:00 | Bacillus Coagulans | [facility] | + + + + | 2022-12-01 00:00 | Bacillus Coagulans | [facility] | + + + + | 2023-01-12 00:00 | Bacillus Coagulans | [facility] | + + + + | 2023-01-30 00:00 | Bacillus Coagulans | [facility] | + + + + | 2023-02-15 00:00 | Bacillus Coagulans | [facility] | + + + + | 2023-03-06 00:00 | Bacillus Coagulans | [facility] | + + + + | 2022-02-11 00:00 | FLUTICASONE PROPIONATE 50 | [facility] | | | [facility] | | + + + + | 2022-03-10 00:00 | FLUTICASONE PROPIONATE 50 | [facility] | | | [facility] | | + + + + | 2022-09-28 00:00 | FLUTICASONE PROPIONATE 50 | [facility] | | | [facility] | | + + + + | 2022-10-05 00:00 | FLUTICASONE PROPIONATE 50 | [facility] | | | [facility] | | + + + + | 2022-10-27 00:00 | FLUTICASONE PROPIONATE 50 | [facility] | | | [facility] | | + + + + | 2022-12-01 00:00 | FLUTICASONE PROPIONATE 50 | [facility] | | | [facility] | | + + + + | 2023-01-12 00:00 | FLUTICASONE PROPIONATE 50 | [facility] | | | [facility] | | + + + + | 2023-01-30 00:00 | FLUTICASONE PROPIONATE 50 | [facility] | | | [facility] | | + + + + | 2023-02-15 00:00 | FLUTICASONE PROPIONATE 50 | [facility] | | | [facility] | | + + + + | 2023-03-06 00:00 | FLUTICASONE PROPIONATE 50 | [facility] | | | [facility] | | + + + + | 2022-02-11 00:00 | POTASSIUM CHLORIDE | [facility] | + + + + | 2022-03-10 00:00 | POTASSIUM CHLORIDE | [facility] | + + + + | 2022-09-28 00:00 | POTASSIUM CHLORIDE | [facility] | + + + + | 2022-10-05 00:00 | POTASSIUM CHLORIDE | [facility] | + + + + | 2022-10-27 00:00 | POTASSIUM CHLORIDE | [facility] | + + + + | 2022-12-01 00:00 | POTASSIUM CHLORIDE | [facility] | + + + + | 2023-01-12 00:00 | POTASSIUM CHLORIDE | [facility] | + + + + | 2023-01-30 00:00 | POTASSIUM CHLORIDE | [facility] | + + + + | 2023-02-15 00:00 | POTASSIUM CHLORIDE | [facility] | + + + + | 2023-03-06 00:00 | POTASSIUM CHLORIDE | [facility] | + + + + | 2022-02-11 00:00 | POTASSIUM CHLORIDE | [facility] | + + + + | 2022-03-10 00:00 | POTASSIUM CHLORIDE | [facility] | + + + + | 2022-09-28 00:00 | POTASSIUM CHLORIDE | [facility] | + + + + | 2022-10-05 00:00 | POTASSIUM CHLORIDE | [facility] | + + + + | 2022-10-27 00:00 | POTASSIUM CHLORIDE | [facility] | + + + + | 2022-12-01 00:00 | POTASSIUM CHLORIDE | [facility] | + + + + | 2023-01-12 00:00 | POTASSIUM CHLORIDE | [facility] | + + + + | 2023-01-30 00:00 | POTASSIUM CHLORIDE | [facility] | + + + + | 2023-02-15 00:00 | POTASSIUM CHLORIDE | [facility] | + + + + | 2023-03-06 00:00 | POTASSIUM CHLORIDE | [facility] | + + + + | 2022-02-11 00:00 | ALLOPURINOL | [facility] | + + + + | 2022-03-10 00:00 | ALLOPURINOL | [facility] | + + + + | 2022-09-28 00:00 | ALLOPURINOL | [facility] | + + + + | 2022-10-05 00:00 | ALLOPURINOL | [facility] | + + + + | 2022-10-27 00:00 | ALLOPURINOL | [facility] | + + + + | 2022-12-01 00:00 | ALLOPURINOL | [facility] | + + + + | 2023-01-12 00:00 | ALLOPURINOL | [facility] | + + + + | 2023-01-30 00:00 | ALLOPURINOL | [facility] | + + + + | 2023-02-15 00:00 | ALLOPURINOL | [facility] | + + + + | 2023-03-06 00:00 | ALLOPURINOL | [facility] | + + + + | 2022-02-11 00:00 | AMLODIPINE BESYLATE | [facility] | + + + + | 2022-03-10 00:00 | AMLODIPINE BESYLATE | [facility] | + + + + | 2022-09-28 00:00 | AMLODIPINE BESYLATE | [facility] | + + + + | 2022-10-05 00:00 | AMLODIPINE BESYLATE | [facility] | + + + + | 2022-10-27 00:00 | AMLODIPINE BESYLATE | [facility] | + + + + | 2022-12-01 00:00 | AMLODIPINE BESYLATE | [facility] | + + + + | 2023-01-12 00:00 | AMLODIPINE BESYLATE | [facility] | + + + + | 2023-01-30 00:00 | AMLODIPINE BESYLATE | [facility] | + + + + | 2023-02-15 00:00 | AMLODIPINE BESYLATE | [facility] | + + + + | 2023-03-06 00:00 | AMLODIPINE BESYLATE | [facility] | + + + + | 2022-02-11 00:00 | BACLOFEN | [facility] | + + + + | 2022-03-10 00:00 | BACLOFEN | [facility] | + + + + | 2022-09-28 00:00 | BACLOFEN | [facility] | + + + + | 2022-10-05 00:00 | BACLOFEN | [facility] | + + + + | 2022-10-27 00:00 | BACLOFEN | [facility] | + + + + | 2022-12-01 00:00 | BACLOFEN | [facility] | + + + + | 2023-01-12 00:00 | BACLOFEN | [facility] | + + + + | 2023-01-30 00:00 | BACLOFEN | [facility] | + + + + | 2023-02-15 00:00 | BACLOFEN | [facility] | + + + + | 2023-03-06 00:00 | BACLOFEN | [facility] | + + + + | 2022-02-11 00:00 | BETAMETHASONE VALERATE | [facility] | + + + + | 2022-03-10 00:00 | BETAMETHASONE VALERATE | [facility] | + + + + | 2022-09-28 00:00 | BETAMETHASONE VALERATE | [facility] | + + + + | 2022-10-05 00:00 | BETAMETHASONE VALERATE | [facility] | + + + + | 2022-10-27 00:00 | BETAMETHASONE VALERATE | [facility] | + + + + | 2022-12-01 00:00 | BETAMETHASONE VALERATE | [facility] | + + + + | 2023-01-12 00:00 | BETAMETHASONE VALERATE | [facility] | + + + + | 2023-01-30 00:00 | BETAMETHASONE VALERATE | [facility] | + + + + | 2023-02-15 00:00 | BETAMETHASONE VALERATE | [facility] | + + + + | 2023-03-06 00:00 | BETAMETHASONE VALERATE | [facility] | + + + + | 2022-02-11 00:00 | LOVASTATIN | [facility] | + + + + | 2022-03-10 00:00 | LOVASTATIN | [facility] | + + + + | 2022-09-28 00:00 | LOVASTATIN | [facility] | + + + + | 2022-10-05 00:00 | LOVASTATIN | [facility] | + + + + | 2022-10-27 00:00 | LOVASTATIN | [facility] | + + + + | 2022-12-01 00:00 | LOVASTATIN | [facility] | + + + + | 2023-01-12 00:00 | LOVASTATIN | [facility] | + + + + | 2023-01-30 00:00 | LOVASTATIN | [facility] | + + + + | 2023-02-15 00:00 | LOVASTATIN | [facility] | + + + + | 2023-03-06 00:00 | LOVASTATIN | [facility] | + + + + | 2022-12-01 00:00 | METHOCARBAMOL | [facility] | + + + + | 2022-02-11 00:00 | NITROGLYCERIN | [facility] | + + + + | 2022-03-10 00:00 | NITROGLYCERIN | [facility] | + + + + | 2022-09-28 00:00 | NITROGLYCERIN | [facility] | + + + + | 2022-10-05 00:00 | NITROGLYCERIN | [facility] | + + + + | 2022-10-27 00:00 | NITROGLYCERIN | [facility] | + + + + | 2022-12-01 00:00 | NITROGLYCERIN | [facility] | + + + + | 2023-01-12 00:00 | NITROGLYCERIN | [facility] | + + + + | 2023-01-30 00:00 | NITROGLYCERIN | [facility] | + + + + | 2023-02-15 00:00 | NITROGLYCERIN | [facility] | + + + + | 2023-03-06 00:00 | NITROGLYCERIN | [facility] | + + + + | 2019-10-04 00:00 | OMEPRAZOLE | [facility] | + + + + | 2022-02-11 00:00 | TORSEMIDE | [facility] | + + + + | 2022-03-10 00:00 | TORSEMIDE | [facility] | + + + + | 2022-09-28 00:00 | TORSEMIDE | [facility] | + + + + | 2022-10-05 00:00 | TORSEMIDE | [facility] | + + + + | 2022-10-27 00:00 | TORSEMIDE | [facility] | + + + + | 2022-12-01 00:00 | TORSEMIDE | [facility] | + + + + | 2023-01-12 00:00 | TORSEMIDE | [facility] | + + + + | 2023-01-30 00:00 | TORSEMIDE | [facility] | + + + + | 2022-02-11 00:00 | ASPIRIN | [facility] | + + + + | 2022-03-10 00:00 | ASPIRIN | [facility] | + + + + | 2022-09-28 00:00 | ASPIRIN | [facility] | + + + + | 2022-10-05 00:00 | ASPIRIN | [facility] | + + + + | 2022-10-27 00:00 | ASPIRIN | [facility] | + + + + | 2022-12-01 00:00 | ASPIRIN | [facility] | + + + + | 2023-01-12 00:00 | ASPIRIN | [facility] | + + + + | 2023-01-30 00:00 | ASPIRIN | [facility] | + + + + | 2023-02-15 00:00 | ASPIRIN | [facility] | + + + + | 2023-03-06 00:00 | ASPIRIN | [facility] | + + + + | 2022-02-11 00:00 | HYDROCHLOROTHIAZIDE | [facility] | + + + + | 2022-03-10 00:00 | HYDROCHLOROTHIAZIDE | [facility] | + + + + | 2022-09-28 00:00 | HYDROCHLOROTHIAZIDE | [facility] | + + + + | 2022-10-05 00:00 | HYDROCHLOROTHIAZIDE | [facility] | + + + + | 2022-10-27 00:00 | HYDROCHLOROTHIAZIDE | [facility] | + + + + | 2022-12-01 00:00 | HYDROCHLOROTHIAZIDE | [facility] | + + + + | 2023-01-12 00:00 | HYDROCHLOROTHIAZIDE | [facility] | + + + + | 2023-01-30 00:00 | HYDROCHLOROTHIAZIDE | [facility] | + + + + | 2023-02-15 00:00 | HYDROCHLOROTHIAZIDE | [facility] | + + + + | 2023-03-06 00:00 | HYDROCHLOROTHIAZIDE | [facility] | + + + + | 2020-08-06 00:00 | CARVEDILOL | [facility] | + + + + | 2022-02-11 00:00 | CARVEDILOL | [facility] | + + + + | 2022-03-10 00:00 | CARVEDILOL | [facility] | + + + + | 2022-09-28 00:00 | CARVEDILOL | [facility] | + + + + | 2022-10-05 00:00 | CARVEDILOL | [facility] | + + + + | 2022-10-27 00:00 | CARVEDILOL | [facility] | + + + + | 2022-12-01 00:00 | CARVEDILOL | [facility] | + + + + | 2023-01-12 00:00 | CARVEDILOL | [facility] | + + + + | 2023-01-30 00:00 | CARVEDILOL | [facility] | + + + + | 2023-02-15 00:00 | CARVEDILOL | [facility] | + + + + | 2023-03-06 00:00 | CARVEDILOL | [facility] | + + + + | 2022-02-11 00:00 | OMEPRAZOLE | [facility] | + + + + | 2022-03-10 00:00 | OMEPRAZOLE | [facility] | + + + + | 2022-09-28 00:00 | OMEPRAZOLE | [facility] | + + + + | 2022-10-05 00:00 | OMEPRAZOLE | [facility] | + + + + | 2022-10-27 00:00 | OMEPRAZOLE | [facility] | + + + + | 2022-12-01 00:00 | OMEPRAZOLE | [facility] | + + + + | 2023-01-12 00:00 | OMEPRAZOLE | [facility] | + + + + | 2023-01-30 00:00 | OMEPRAZOLE | [facility] | + + + + | 2023-02-15 00:00 | OMEPRAZOLE | [facility] | + + + + | 2023-03-06 00:00 | OMEPRAZOLE | [facility] | + + + + | 2022-02-11 00:00 | FUROSEMIDE | [facility] | + + + + | 2022-03-10 00:00 | FUROSEMIDE | [facility] | + + + + | 2022-09-28 00:00 | FUROSEMIDE | [facility] | + + + + | 2022-10-05 00:00 | FUROSEMIDE | [facility] | + + + + | 2022-10-27 00:00 | FUROSEMIDE | [facility] | + + + + | 2022-12-01 00:00 | FUROSEMIDE | [facility] | + + + + | 2023-01-12 00:00 | FUROSEMIDE | [facility] | + + + + | 2023-01-30 00:00 | FUROSEMIDE | [facility] | + + + + | 2023-02-15 00:00 | FUROSEMIDE | [facility] | + + + + | 2023-03-06 00:00 | FUROSEMIDE | [facility] | + + + + | 2022-02-11 00:00 | SPIRONOLACTONE | [facility] | + + + + | 2022-03-10 00:00 | SPIRONOLACTONE | [facility] | + + + + | 2022-09-28 00:00 | SPIRONOLACTONE | [facility] | + + + + | 2022-10-05 00:00 | SPIRONOLACTONE | [facility] | + + + + | 2022-10-27 00:00 | SPIRONOLACTONE | [facility] | + + + + | 2022-12-01 00:00 | SPIRONOLACTONE | [facility] | + + + + | 2023-01-12 00:00 | SPIRONOLACTONE | [facility] | + + + + | 2023-01-30 00:00 | SPIRONOLACTONE | [facility] | + + + + | 2023-02-15 00:00 | SPIRONOLACTONE | [facility] | + + + + | 2023-03-06 00:00 | SPIRONOLACTONE | [facility] | + + + + | 2022-02-11 00:00 | NEOMYCIN/POLYMYXIN B | [facility] | | | [facility] | | + + + + | 2022-03-10 00:00 | NEOMYCIN/POLYMYXIN B | [facility] | | | [facility] | | + + + + | 2022-09-28 00:00 | NEOMYCIN/POLYMYXIN B | [facility] | | | [facility] | | + + + + | 2022-10-05 00:00 | NEOMYCIN/POLYMYXIN B | [facility] | | | [facility] | | + + + + | 2022-10-27 00:00 | NEOMYCIN/POLYMYXIN B | [facility] | | | S[facility] | | + + + + | 2022-12-01 00:00 | NEOMYCIN/POLYMYXIN B | [facility] | | | S[facility] | | + + + + | 2023-01-12 00:00 | NEOMYCIN/POLYMYXIN B | [facility] | | | S[facility] | | + + + + | 2023-01-30 00:00 | NEOMYCIN/POLYMYXIN B | [facility] | | | S[facility] | | + + + + | 2023-02-15 00:00 | NEOMYCIN/POLYMYXIN B | [facility] | | | S[facility] | | + + + + | 2023-03-06 00:00 | NEOMYCIN/POLYMYXIN B | [facility] | | | S[facility] | | + + + + | 2023-02-15 00:00 | CELECOXIB | [facility] | + + + + | 2023-03-06 00:00 | CELECOXIB | [facility] | + + + + | 2013-09-09 00:00 | CIPROFLOXACIN HCL | [facility] | + + + + | 2022-02-11 00:00 | CIPROFLOXACIN HCL | [facility] | + + + + | 2022-03-10 00:00 | CIPROFLOXACIN HCL | [facility] | + + + + | 2022-09-28 00:00 | CIPROFLOXACIN HCL | [facility] | + + + + | 2022-10-05 00:00 | CIPROFLOXACIN HCL | [facility] | + + + + | 2022-10-27 00:00 | CIPROFLOXACIN HCL | [facility] | + + + + | 2022-12-01 00:00 | CIPROFLOXACIN HCL | [facility] | + + + + | 2023-01-12 00:00 | CIPROFLOXACIN HCL | [facility] | + + + + | 2023-01-30 00:00 | CIPROFLOXACIN HCL | [facility] | + + + + | 2023-02-15 00:00 | CIPROFLOXACIN HCL | [facility] | + + + + | 2023-03-06 00:00 | CIPROFLOXACIN HCL | [facility] | + + + + | 2013-09-09 00:00 | METRONIDAZOLE | [facility] | + + + + | 2022-02-11 00:00 | METRONIDAZOLE | [facility] | + + + + | 2022-03-10 00:00 | METRONIDAZOLE | [facility] | + + + + | 2022-09-28 00:00 | METRONIDAZOLE | [facility] | + + + + | 2022-10-05 00:00 | METRONIDAZOLE | [facility] | + + + + | 2022-10-27 00:00 | METRONIDAZOLE | [facility] | + + + + | 2022-12-01 00:00 | METRONIDAZOLE | [facility] | + + + + | 2023-01-12 00:00 | METRONIDAZOLE | [facility] | + + + + | 2023-01-30 00:00 | METRONIDAZOLE | [facility] | + + + + | 2023-02-15 00:00 | METRONIDAZOLE | [facility] | + + + + | 2023-03-06 00:00 | METRONIDAZOLE | [facility] | + + + + | 2022-02-11 00:00 | SUCRALFATE | [facility] | + + + + | 2022-03-10 00:00 | SUCRALFATE | [facility] | + + + + | 2022-09-28 00:00 | SUCRALFATE | [facility] | + + + + | 2022-10-05 00:00 | SUCRALFATE | [facility] | + + + + | 2022-10-27 00:00 | SUCRALFATE | [facility] | + + + + | 2022-12-01 00:00 | SUCRALFATE | [facility] | + + + + | 2023-01-12 00:00 | SUCRALFATE | [facility] | + + + + | 2023-01-30 00:00 | SUCRALFATE | [facility] | + + + + | 2023-02-15 00:00 | SUCRALFATE | [facility] | + + + + | 2023-03-06 00:00 | SUCRALFATE | [facility] | + + + + | 2022-02-11 00:00 | ASPIRIN | [facility] | + + + + | 2022-03-10 00:00 | ASPIRIN | [facility] | + + + + | 2022-09-28 00:00 | ASPIRIN | [facility] | + + + + | 2022-10-05 00:00 | ASPIRIN | [facility] | + + + + | 2022-10-27 00:00 | ASPIRIN | [facility] | + + + + | 2022-12-01 00:00 | ASPIRIN | [facility] | + + + + | 2023-01-12 00:00 | ASPIRIN | [facility] | + + + + | 2023-01-30 00:00 | ASPIRIN | [facility] | + + + + | 2023-02-15 00:00 | ASPIRIN | [facility] | + + + + | 2023-03-06 00:00 | ASPIRIN | [facility] | + + + + | 2017-09-12 00:00 | CARVEDILOL | [facility] | + + + + | 2017-09-12 00:00 | CARVEDILOL | [facility] | + + + + | 2022-02-11 00:00 | CARVEDILOL | [facility] | + + + + | 2022-03-10 00:00 | CARVEDILOL | [facility] | + + + + | 2022-09-28 00:00 | CARVEDILOL | [facility] | + + + + | 2022-10-05 00:00 | CARVEDILOL | [facility] | + + + + | 2022-10-27 00:00 | CARVEDILOL | [facility] | + + + + | 2022-12-01 00:00 | CARVEDILOL | [facility] | + + + + | 2023-01-12 00:00 | CARVEDILOL | [facility] | + + + + | 2023-01-30 00:00 | CARVEDILOL | [facility] | + + + + | 2023-02-15 00:00 | CARVEDILOL | [facility] | + + + + | 2023-03-06 00:00 | CARVEDILOL | [facility] | + + + + | 2022-02-11 00:00 | AMLODIPINE BESYLATE | [facility] | + + + + | 2022-03-10 00:00 | AMLODIPINE BESYLATE | [facility] | + + + + | 2022-09-28 00:00 | AMLODIPINE BESYLATE | [facility] | + + + + | 2022-10-05 00:00 | AMLODIPINE BESYLATE | [facility] | + + + + | 2022-10-27 00:00 | AMLODIPINE BESYLATE | [facility] | + + + + | 2022-12-01 00:00 | AMLODIPINE BESYLATE | [facility] | + + + + | 2023-01-12 00:00 | AMLODIPINE BESYLATE | [facility] | + + + + | 2023-01-30 00:00 | AMLODIPINE BESYLATE | [facility] | + + + + | 2023-02-15 00:00 | AMLODIPINE BESYLATE | [facility] | + + + + | 2023-03-06 00:00 | AMLODIPINE BESYLATE | [facility] | + + + + | 2022-02-11 00:00 | MAGNESIUM OXIDE | [facility] | + + + + | 2022-03-10 00:00 | MAGNESIUM OXIDE | [facility] | + + + + | 2022-09-28 00:00 | MAGNESIUM OXIDE | [facility] | + + + + | 2022-10-05 00:00 | MAGNESIUM OXIDE | [facility] | + + + + | 2022-10-27 00:00 | MAGNESIUM OXIDE | [facility] | + + + + | 2022-12-01 00:00 | MAGNESIUM OXIDE | [facility] | + + + + | 2023-01-12 00:00 | MAGNESIUM OXIDE | [facility] | + + + + | 2023-01-30 00:00 | MAGNESIUM OXIDE | [facility] | + + + + | 2023-02-15 00:00 | MAGNESIUM OXIDE | [facility] | + + + + | 2023-03-06 00:00 | MAGNESIUM OXIDE | [facility] | + + + + | 2022-02-11 00:00 | CALCIUM CARBONATE | [facility] | + + + + | 2022-03-10 00:00 | CALCIUM CARBONATE | [facility] | + + + + | 2022-09-28 00:00 | CALCIUM CARBONATE | [facility] | + + + + | 2022-10-05 00:00 | CALCIUM CARBONATE | [facility] | + + + + | 2022-10-27 00:00 | CALCIUM CARBONATE | [facility] | + + + + | 2022-12-01 00:00 | CALCIUM CARBONATE | [facility] | + + + + | 2023-01-12 00:00 | CALCIUM CARBONATE | [facility] | + + + + | 2023-01-30 00:00 | CALCIUM CARBONATE | [facility] | + + + + | 2023-02-15 00:00 | CALCIUM CARBONATE | [facility] | + + + + | 2023-03-06 00:00 | CALCIUM CARBONATE | [facility] | + + + + | 2014-05-19 00:00 | PANTOPRAZOLE SODIUM | [facility] | + + + + | 2022-02-11 00:00 | ASPIRIN | [facility] | + + + + | 2022-03-10 00:00 | ASPIRIN | [facility] | + + + + | 2022-09-28 00:00 | ASPIRIN | [facility] | + + + + | 2022-10-05 00:00 | ASPIRIN | [facility] | + + + + | 2022-10-27 00:00 | ASPIRIN | [facility] | + + + + | 2022-12-01 00:00 | ASPIRIN | [facility] | + + + + | 2023-01-12 00:00 | ASPIRIN | [facility] | + + + + | 2023-01-30 00:00 | ASPIRIN | [facility] | + + + + | 2023-02-15 00:00 | ASPIRIN | [facility] | + + + + | 2023-03-06 00:00 | ASPIRIN | [facility] | + + + + | 2022-10-05 00:00 | AZITHROMYCIN | [facility] | + + + + | 2022-10-27 00:00 | AZITHROMYCIN | [facility] | + + + + | 2020-08-21 00:00 | CEPHALEXIN | [facility] | + + + + | 2022-02-11 00:00 | FUROSEMIDE | [facility] | + + + + | 2022-03-10 00:00 | FUROSEMIDE | [facility] | + + + + | 2022-09-28 00:00 | FUROSEMIDE | [facility] | + + + + | 2022-10-05 00:00 | FUROSEMIDE | [facility] | + + + + | 2022-10-27 00:00 | FUROSEMIDE | [facility] | + + + + | 2022-12-01 00:00 | FUROSEMIDE | [facility] | + + + + | 2023-01-12 00:00 | FUROSEMIDE | [facility] | + + + + | 2023-01-30 00:00 | FUROSEMIDE | [facility] | + + + + | 2023-02-15 00:00 | FUROSEMIDE | [facility] | + + + + | 2023-03-06 00:00 | FUROSEMIDE | [facility] | + + + + | 2022-02-11 00:00 | METRONIDAZOLE | [facility] | + + + + | 2022-03-10 00:00 | METRONIDAZOLE | [facility] | + + + + | 2022-09-28 00:00 | METRONIDAZOLE | [facility] | + + + + | 2022-10-05 00:00 | METRONIDAZOLE | [facility] | + + + + | 2022-10-27 00:00 | METRONIDAZOLE | [facility] | + + + + | 2022-12-01 00:00 | METRONIDAZOLE | [facility] | + + + + | 2023-01-12 00:00 | METRONIDAZOLE | [facility] | + + + + | 2023-01-30 00:00 | METRONIDAZOLE | [facility] | + + + + | 2023-02-15 00:00 | METRONIDAZOLE | [facility] | + + + + | 2023-03-06 00:00 | METRONIDAZOLE | [facility] | + + + + | 2020-08-06 00:00 | NYSTATIN | [facility] | + + + + | 2017-07-26 00:00 | predniSONE | [facility] | + + + + | 2022-02-11 00:00 | RANITIDINE HCL | [facility] | + + + + | 2022-03-10 00:00 | RANITIDINE HCL | [facility] | + + + + | 2022-09-28 00:00 | RANITIDINE HCL | [facility] | + + + + | 2022-10-05 00:00 | RANITIDINE HCL | [facility] | + + + + | 2022-10-27 00:00 | RANITIDINE HCL | [facility] | + + + + | 2022-12-01 00:00 | RANITIDINE HCL | [facility] | + + + + | 2023-01-12 00:00 | RANITIDINE HCL | [facility] | + + + + | 2023-01-30 00:00 | RANITIDINE HCL | [facility] | + + + + | 2023-02-15 00:00 | RANITIDINE HCL | [facility] | + + + + | 2023-03-06 00:00 | RANITIDINE HCL | [facility] | + + + + | 2022-02-11 00:00 | SERTRALINE HCL | [facility] | + + + + | 2022-03-10 00:00 | SERTRALINE HCL | [facility] | + + + + | 2022-09-28 00:00 | SERTRALINE HCL | [facility] | + + + + | 2022-10-05 00:00 | SERTRALINE HCL | [facility] | + + + + | 2022-10-27 00:00 | SERTRALINE HCL | [facility] | + + + + | 2022-12-01 00:00 | SERTRALINE HCL | [facility] | + + + + | 2023-01-12 00:00 | SERTRALINE HCL | [facility] | + + + + | 2023-01-30 00:00 | SERTRALINE HCL | [facility] | + + + + | 2023-02-15 00:00 | SERTRALINE HCL | [facility] | + + + + | 2023-03-06 00:00 | SERTRALINE HCL | [facility] | + + + + | 2020-08-30 00:00 | SODIUM CHLORIDE | [facility] | + + + + | 2022-02-11 00:00 | SPIRONOLACTONE | [facility] | + + + + | 2022-03-10 00:00 | SPIRONOLACTONE | [facility] | + + + + | 2022-09-28 00:00 | SPIRONOLACTONE | [facility] | + + + + | 2022-10-05 00:00 | SPIRONOLACTONE | [facility] | + + + + | 2022-10-27 00:00 | SPIRONOLACTONE | [facility] | + + + + | 2022-12-01 00:00 | SPIRONOLACTONE | [facility] | + + + + | 2023-01-12 00:00 | SPIRONOLACTONE | [facility] | + + + + | 2023-01-30 00:00 | SPIRONOLACTONE | [facility] | + + + + | 2023-02-15 00:00 | SPIRONOLACTONE | [facility] | + + + + | 2023-03-06 00:00 | SPIRONOLACTONE | [facility] | + + + + | 2022-02-11 00:00 | SUCRALFATE | [facility] | + + + + | 2022-03-10 00:00 | SUCRALFATE | [facility] | + + + + | 2022-09-28 00:00 | SUCRALFATE | [facility] | + + + + | 2022-10-05 00:00 | SUCRALFATE | [facility] | + + + + | 2022-10-27 00:00 | SUCRALFATE | [facility] | + + + + | 2022-12-01 00:00 | SUCRALFATE | [facility] | + + + + | 2023-01-12 00:00 | SUCRALFATE | [facility] | + + + + | 2023-01-30 00:00 | SUCRALFATE | [facility] | + + + + | 2023-02-15 00:00 | SUCRALFATE | [facility] | + + + + | 2023-03-06 00:00 | SUCRALFATE | [facility] | + + + + | 2020-08-21 00:00 | VANCOMYCIN HCL | [facility] | + + + + | 2022-02-11 00:00 | VANCOMYCIN HCL | [facility] | + + + + | 2022-03-10 00:00 | VANCOMYCIN HCL | [facility] | + + + + | 2022-09-28 00:00 | VANCOMYCIN HCL | [facility] | + + + + | 2022-10-05 00:00 | VANCOMYCIN HCL | [facility] | + + + + | 2022-10-27 00:00 | VANCOMYCIN HCL | [facility] | + + + + | 2022-12-01 00:00 | VANCOMYCIN HCL | [facility] | + + + + | 2023-01-12 00:00 | VANCOMYCIN HCL | [facility] | + + + + | 2023-01-30 00:00 | VANCOMYCIN HCL | [facility] | + + + + | 2023-02-15 00:00 | VANCOMYCIN HCL | [facility] | + + + + | 2023-03-06 00:00 | VANCOMYCIN HCL | [facility] | + + + + | 2023-02-15 00:00 | DULOXETINE HCL | [facility] | + + + + | 2023-03-06 00:00 | DULOXETINE HCL | [facility] | + + + + | 2022-02-11 00:00 | POTASSIUM CHLORIDE | [facility] | + + + + | 2022-03-10 00:00 | POTASSIUM CHLORIDE | [facility] | + + + + | 2022-09-28 00:00 | POTASSIUM CHLORIDE | [facility] | + + + + | 2022-10-05 00:00 | POTASSIUM CHLORIDE | [facility] | + + + + | 2022-10-27 00:00 | POTASSIUM CHLORIDE | [facility] | + + + + | 2022-12-01 00:00 | POTASSIUM CHLORIDE | [facility] | + + + + | 2023-01-12 00:00 | POTASSIUM CHLORIDE | [facility] | + + + + | 2023-01-30 00:00 | POTASSIUM CHLORIDE | [facility] | + + + + | 2023-02-15 00:00 | POTASSIUM CHLORIDE | [facility] | + + + + | 2023-03-06 00:00 | POTASSIUM CHLORIDE | [facility] | + + + + | 2022-02-11 00:00 | SITAGLIPTIN PHOSPHATE | [facility] | + + + + | 2022-03-10 00:00 | SITAGLIPTIN PHOSPHATE | [facility] | + + + + | 2022-09-28 00:00 | SITAGLIPTIN PHOSPHATE | [facility] | + + + + | 2022-10-05 00:00 | SITAGLIPTIN PHOSPHATE | [facility] | + + + + | 2022-10-27 00:00 | SITAGLIPTIN PHOSPHATE | [facility] | + + + + | 2022-12-01 00:00 | SITAGLIPTIN PHOSPHATE | [facility] | + + + + | 2023-01-12 00:00 | SITAGLIPTIN PHOSPHATE | [facility] | + + + + | 2023-01-30 00:00 | SITAGLIPTIN PHOSPHATE | [facility] | + + + + | 2023-02-15 00:00 | SITAGLIPTIN PHOSPHATE | [facility] | + + + + | 2023-03-06 00:00 | SITAGLIPTIN PHOSPHATE | [facility] | + + + + | 2017-07-26 00:00 | ALBUTEROL SULFATE MDI | [facility] | | | (HFA) | | + + + + | 2022-10-05 00:00 | Diclofenac Sodium | [facility] | + + + + | 2022-10-27 00:00 | Diclofenac Sodium | [facility] | + + + + | 2022-12-01 00:00 | Diclofenac Sodium | [facility] | + + + + | 2023-01-12 00:00 | Diclofenac Sodium | [facility] | + + + + | 2023-01-30 00:00 | Diclofenac Sodium | [facility] | + + + + | 2023-02-15 00:00 | Diclofenac Sodium | [facility] | + + + + | 2023-03-06 00:00 | Diclofenac Sodium | [facility] | + + + + | 2022-02-11 00:00 | HYDROCODONE | [facility] | | | BIT/ACETAMINOPHEN | | + + + + | 2022-03-10 00:00 | HYDROCODONE | [facility] | | | BIT/ACETAMINOPHEN | | + + + + | 2022-09-28 00:00 | HYDROCODONE | [facility] | | | BIT/ACETAMINOPHEN | | + + + + | 2022-10-05 00:00 | HYDROCODONE | [facility] | | | BIT/ACETAMINOPHEN | | + + + + | 2022-10-27 00:00 | HYDROCODONE | [facility] | | | BIT/ACETAMINOPHEN | | + + + + | 2022-12-01 00:00 | HYDROCODONE | [facility] | | | BIT/ACETAMINOPHEN | | + + + + | 2023-01-12 00:00 | HYDROCODONE | [facility] | | | BIT/ACETAMINOPHEN | | + + + + | 2023-01-29 00:00 | HYDROCODONE | [facility] | | | BIT/ACETAMINOPHEN | | + + + + | 2023-01-30 00:00 | HYDROCODONE | [facility] | | | BIT/ACETAMINOPHEN | | + + + + | 2023-02-15 00:00 | HYDROCODONE | [facility] | | | BIT/ACETAMINOPHEN | | + + + + | 2023-03-06 00:00 | HYDROCODONE | [facility] | | | BIT/ACETAMINOPHEN | | + + + + | 2013-08-17 00:00 | HYDROCODONE | [facility] | | | BIT/ACETAMINOPHEN | | + + + + | 2022-10-05 00:00 | ALBUTEROL SULFATE | [facility] | + + + + | 2022-02-11 00:00 | METFORMIN HCL | [facility] | + + + + | 2022-03-10 00:00 | METFORMIN HCL | [facility] | + + + + | 2022-09-28 00:00 | METFORMIN HCL | [facility] | + + + + | 2022-10-05 00:00 | METFORMIN HCL | [facility] | + + + + | 2022-10-27 00:00 | METFORMIN HCL | [facility] | + + + + | 2022-12-01 00:00 | METFORMIN HCL | [facility] | + + + + | 2023-01-12 00:00 | METFORMIN HCL | [facility] | + + + + | 2023-01-30 00:00 | METFORMIN HCL | [facility] | + + + + | 2023-02-15 00:00 | METFORMIN HCL | [facility] | + + + + | 2023-03-06 00:00 | METFORMIN HCL | [facility] | + + + + | 2022-02-11 00:00 | OXYBUTYNIN CHLORIDE | [facility] | + + + + | 2022-03-10 00:00 | OXYBUTYNIN CHLORIDE | [facility] | + + + + | 2022-09-28 00:00 | OXYBUTYNIN CHLORIDE | [facility] | + + + + | 2022-10-05 00:00 | OXYBUTYNIN CHLORIDE | [facility] | + + + + | 2022-10-27 00:00 | OXYBUTYNIN CHLORIDE | [facility] | + + + + | 2022-12-01 00:00 | OXYBUTYNIN CHLORIDE | [facility] | + + + + | 2023-01-12 00:00 | OXYBUTYNIN CHLORIDE | [facility] | + + + + | 2023-01-30 00:00 | OXYBUTYNIN CHLORIDE | [facility] | + + + + | 2023-02-15 00:00 | OXYBUTYNIN CHLORIDE | [facility] | + + + + | 2023-03-06 00:00 | OXYBUTYNIN CHLORIDE | [facility] | + + + + | 2022-02-11 00:00 | CLONIDINE HCL | [facility] | + + + + | 2022-03-10 00:00 | CLONIDINE HCL | [facility] | + + + + | 2022-09-28 00:00 | CLONIDINE HCL | [facility] | + + + + | 2022-10-05 00:00 | CLONIDINE HCL | [facility] | + + + + | 2022-10-27 00:00 | CLONIDINE HCL | [facility] | + + + + | 2022-12-01 00:00 | CLONIDINE HCL | [facility] | + + + + | 2023-01-12 00:00 | CLONIDINE HCL | [facility] | + + + + | 2023-01-30 00:00 | CLONIDINE HCL | [facility] | + + + + | 2023-02-15 00:00 | CLONIDINE HCL | [facility] | + + + + | 2023-03-06 00:00 | CLONIDINE HCL | [facility] | + + + + | 2022-02-11 00:00 | VERAPAMIL HCL | [facility] | + + + + | 2022-03-10 00:00 | VERAPAMIL HCL | [facility] | + + + + | 2022-09-28 00:00 | VERAPAMIL HCL | [facility] | + + + + | 2022-10-05 00:00 | VERAPAMIL HCL | [facility] | + + + + | 2022-10-27 00:00 | VERAPAMIL HCL | [facility] | + + + + | 2022-12-01 00:00 | VERAPAMIL HCL | [facility] | + + + + | 2023-01-12 00:00 | VERAPAMIL HCL | [facility] | + + + + | 2023-01-30 00:00 | VERAPAMIL HCL | [facility] | + + + + | 2023-02-15 00:00 | VERAPAMIL HCL | [facility] | + + + + | 2023-03-06 00:00 | VERAPAMIL HCL | [facility] | + + + + | 2022-02-11 00:00 | VERAPAMIL HCL | [facility] | + + + + | 2022-03-10 00:00 | VERAPAMIL HCL | [facility] | + + + + | 2022-09-28 00:00 | VERAPAMIL HCL | [facility] | + + + + | 2022-10-05 00:00 | VERAPAMIL HCL | [facility] | + + + + | 2022-10-27 00:00 | VERAPAMIL HCL | [facility] | + + + + | 2022-12-01 00:00 | VERAPAMIL HCL | [facility] | + + + + | 2023-01-12 00:00 | VERAPAMIL HCL | [facility] | + + + + | 2023-01-30 00:00 | VERAPAMIL HCL | [facility] | + + + + | 2023-02-15 00:00 | VERAPAMIL HCL | [facility] | + + + + | 2023-03-06 00:00 | VERAPAMIL HCL | [facility] | + + + + | 2022-02-11 00:00 | VERAPAMIL HCL | [facility] | + + + + | 2022-03-10 00:00 | VERAPAMIL HCL | [facility] | + + + + | 2022-09-28 00:00 | VERAPAMIL HCL | [facility] | + + + + | 2022-10-05 00:00 | VERAPAMIL HCL | [facility] | + + + + | 2022-10-27 00:00 | VERAPAMIL HCL | [facility] | + + + + | 2022-12-01 00:00 | VERAPAMIL HCL | [facility] | + + + + | 2023-01-12 00:00 | VERAPAMIL HCL | [facility] | + + + + | 2023-01-30 00:00 | VERAPAMIL HCL | [facility] | + + + + | 2023-02-15 00:00 | VERAPAMIL HCL | [facility] | + + + + | 2023-03-06 00:00 | VERAPAMIL HCL | [facility] | + + + + | 2020-08-06 00:00 | BENAZEPRIL HCL | [facility] | + + + + | 2022-02-11 00:00 | BENAZEPRIL HCL | [facility] | + + + + | 2022-03-10 00:00 | BENAZEPRIL HCL | [facility] | + + + + | 2022-09-28 00:00 | BENAZEPRIL HCL | [facility] | + + + + | 2022-10-05 00:00 | BENAZEPRIL HCL | [facility] | + + + + | 2022-10-27 00:00 | BENAZEPRIL HCL | [facility] | + + + + | 2022-12-01 00:00 | BENAZEPRIL HCL | [facility] | + + + + | 2023-01-12 00:00 | BENAZEPRIL HCL | [facility] | + + + + | 2023-01-30 00:00 | BENAZEPRIL HCL | [facility] | + + + + | 2023-02-15 00:00 | BENAZEPRIL HCL | [facility] | + + + + | 2023-03-06 00:00 | BENAZEPRIL HCL | [facility] | + + + + | 2022-02-11 00:00 | BENAZEPRIL HCL | [facility] | + + + + | 2022-03-10 00:00 | BENAZEPRIL HCL | [facility] | + + + + | 2022-09-28 00:00 | BENAZEPRIL HCL | [facility] | + + + + | 2022-10-05 00:00 | [facility] | [facility] | + + + + | 2022-10-27 00:00 | [facility] | [facility] | + + + + | 2022-12-01 00:00 | [facility] | [facility] | + + + + | 2023-01-12 00:00 | [facility] | [facility] | + + + + | 2023-01-30 00:00 | [facility] | [facility] | + + + + | 2023-02-15 00:00 | [facility] | [facility] | + + + + | 2023-03-06 00:00 | [facility] | [facility] | + + + + | 2020-08-30 00:00 | [facility] | [facility] | + + + + | 2022-03-08 00:00 | [facility] | [facility] | + + + + Problems + + + + | date | description | facility | + + + + | 2014-05-19 00:00 | Abdominal pain | [facility] | + + + + | 2015-07-20 00:00 | Paroxysmal atrial | [facility] | | | fibrillation | | + + + + | 2015-07-24 00:00 | Benign hypertension | [facility] | + + + + | 2015-09-28 00:00 | Low back pain | [facility] | + + + + | 2016-07-13 00:00 | Gastrointestinal | [facility] | | | hemorrhage | | + + + + | 2016-11-01 00:00 | Adverse reaction to drug | [facility] | + + + + | 2016-11-02 00:00 | Adverse reaction to drug | [facility] | + + + + | 2017-01-11 00:00 | Diastolic congestive heart | [facility] | | | failure | | + + + + | 2017-02-16 00:00 | Nonspecific chest pain | [facility] | + + + + | 2017-07-26 00:00 | Acute bronchitis due to | [facility] | | | chemical | | + + + + | 2017-09-12 00:00 | Bradycardia | [facility] | + + + + | 2020-02-22 00:00 | Chest pain due to | [facility] | | | gastrointestinal reflux | | | | disease | | + + + + | 2020-08-04 00:00 | Hyponatremia | [facility] | + + + + | 2020-08-21 00:00 | Colitis due to | [facility] | | | Clostridioides difficile | | + + + + | 2020-08-21 00:00 | Urinary tract infection | [facility] | + + + + | 2020-08-30 00:00 | Increased frequency of [facility] | | [facility]ination | | + + + + | 2020-08-30 00:00 | Dizziness | [facility] | + + + + | 2020-10-20 00:00 | Palpitations | [facility] | + + + + | 2021-03-15 00:00 | Gastroesophageal reflux | St. [facility] | | | disease | | + + + + | 2021-03-15 00:00 | Chest pain | [facility] | + + + + | 2021-05-24 00:00 | Chronic atrial | [facility] | | | fibrillation | | + + + + | 2021-05-24 00:00 | Atrial fibrillation | [facility] | + + + + | 2021-05-24 00:00 | Chronic gastroesophageal | [facility] | | | reflux disease | | + + + + | 2021-08-06 00:00 | Gastroenteritis | [facility] | + + + + | 2021-10-30 00:00 | Hypomagnesemia | [facility] | + + + + | 2021-10-30 00:00 | Hypokalemia | [facility] | + + + + | 2022-03-08 00:00 | Congestive heart failure | [facility] | + + + + | 2022-03-08 00:00 | Vertigo | [facility] | + + + + | 2022-03-08 [...] + + | 2022-03-08 00:25 | OTHER TESTING AND REGULATING TECHNICIAN (CURRENT) | [facility] | | | DRUG [...] + + + | 2022-09-27 19:47 | CARE HOME (CURRENT) USE OF | [facility] | | | ANTICOAGULANTS | | + + + + | 2022-09-27 19:47 | OTHER TESTING AND REGULATING TECHNICIAN (CURRENT) | [facility] | | | DRUG [...] | 2022-09-28 00:00 | Acute bronchitis | [facility] | + + + + | 2022-10-05 [...] + + | 2022-10-05 12:37 | OTHER CARE HOME (CURRENT) | [facility] | | | DRUG [...] + + | 2022-10-27 21:54 | OTHER TESTING AND REGULATING TECHNICIAN (CURRENT) | [facility] | | | DRUG [...] | Pain in both lower | [facility] | | | extremities | | + [...] + + + | 2022-12-01 11:52 | CARE HOME (CURRENT) USE OF | [facility] | | | ANTICOAGULANTS | | + + + + | 2022-12-01 11:52 | OTHER CARE HOME (CURRENT) | [facility] | | | DRUG [...] 00:00 | Spinal stenosis of lumbar | [facility] | | | region at multiple levels [...] + + + | 2023-01-12 19:45 | CARE HOME (CURRENT) USE OF | [facility] | | | ANTICOAGULANTS | | + + + + | 2023-01-12 19:45 | OTHER CARE HOME (CURRENT) | [facility] | | | DRUG [...] 2023-01-29 00:00 | Back pain | [facility] | + + + + | 2023-01-29 [...] + + + | 2023-01-29 22:19 | TESTING AND REGULATING TECHNICIAN (CURRENT) USE OF | [facility] | | | ANTICOAGULANTS | | + + + + | 2023-01-29 22:19 | OTHER CARE HOME (CURRENT) | [facility] | | | DRUG [...] + + + | 2023-02-14 20:38 | CARE HOME (CURRENT) USE OF | [facility] | | | ANTICOAGULANTS | | + + + + | 2023-02-14 20:38 | OTHER CARE HOME (CURRENT) | [facility] | | | DRUG [...] 2023-02-15 00:00 | Muscle strain | [facility] | + + + + Procedures No [...] (missing) | | (unavailable | 00:45:08 | [facility] | | | | | ) | [...] (missing) | | (unavailable | 00:45:08 | [facility] | | | | | [...] (missing) | | (unavailable | 00:45:08 | [facility] | | | | | ) | [...] (missing) | | (unavailable | 23:00:07 | [facility] | | | | | ) | [...]
[~2023-04-09 20:31] MED LIST changes: +CELECOXIB100 MG PO; +DULOXETINE HCL60 MG PO
--- OUTSIDE RECORDS SUMMARY | 2023-04-09 20:35 | XMS ---
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 Care History Medical/Surgical 08/09/2021 [facility] Patient spoke with Clinic nurse meat sales and storage manager, Patricio Valladares, on 08/05/2021 about nausea and diarrhea. Reported feeling better. Next follow up with PCP is 202105/25/2021 [facility] Patient advised by PCP, Dr. Salguero, to go to ER for chest pain. Follow visit on 06/02/2021. 08/23/2020 [facility] Patient has scheduled visit with Dr. Salguero on 08/26/2020. E.D. VISIT COUNT (12 MO.) 8 [facility] TOTAL 8 NOTE: Visits indicate total known visits. ED/UCC VISIT TRACKING (12 MO.) 04/09/2023 20:31 [facility] TYPE: Emergency COMPLAINT: - DIARRHEA 02/14/2023 20:38 [facility] TYPE: Emergency COMPLAINT: - FALL DIAGNOSES: - Allergy status to analgesic agent - Allergy status to narcotic agent - Allergy status to other drugs, medicaments and biological substances - Allergy status to penicillin - Allergy status to sulfonamides - Cervicalgia - Heart failure, unspecified - Hypertensive heart disease with heart failure - supervisor intermediates (current) use of anticoagulants - Other continuous churn buttermaker (current) drug therapy - Strain of muscle and tendon of back wall of thorax, initial encounter - Strain of muscle, fascia and tendon at neck level, initial encounter - Type 2 diabetes mellitus without complications - Unspecified atrial fibrillation - Unspecified fall, initial encounter 01/29/2023 22:19 [facility] TYPE: Emergency COMPLAINT: - LEG SWELLING DIAGNOSES: - Allergy status to narcotic agent - Allergy status to other drugs, medicaments and biological substances - Allergy status to sulfonamides - Dorsalgia, unspecified - Heart failure, unspecified - Hypertensive heart disease with heart failure - [facility] (current) use of anticoagulants - Other assisted (current) drug therapy - [...] Hypertensive heart disease with heart failure - [facility] (current) use of anticoagulants - Low back pain, unspecified - Other continuous churn buttermaker (current) drug therapy - Spinal stenosis, lumbar [...] Hypertensive heart disease with heart failure - [facility] (current) use of anticoagulants - Other continuous churn buttermaker (current) drug therapy - Pain in left [...] heart disease with heart failure - Other assisted (current) drug therapy - Shortness of breath [...] heart disease with heart failure - Other continuous churn buttermaker (current) drug therapy - Type 2 diabetes [...] Hypertensive heart disease with heart failure - supervisor intermediates (current) use of anticoagulants - Other continuous churn buttermaker (current) drug therapy - Type 2 diabetes mellitus without complications - Unspecified atrial fibrillation INPATIENT VISIT TRACKING (12 MO.) [facility] DIAGNOSES: - Unilateral primary osteoarthritis, right knee [email or web address]
[2023-04-09 21:55] LABS: EOSINOPHILS 2.1 % (0-6); HEMATOCRIT 44.8 % (35.0-50.0); HEMOGLOBIN 14.2 g/dL (12.0-18.0); MCH 27.9 (27-36); MCHC 31.8 g/dl (30-36); MCV 87.9 fl (81-99); MONOCYTES 14.3 % (0-12); NEUTROPHILS 64.6 % (39-80); PLATELET COUNT 206 K/uL (140-440); RDW 16.1 (10.5-15.0)
[2023-04-09 22:04] LABS: ALBUMIN 3.5 g/dL (3.4-5.0); ALBUMIN/GLOBULIN RATIO 1.03 (1.1-2.4); ANION GAP 18.5 (7-21); BUN/CREATININE RATIO 25.45 (6.0-28.6); CALCIUM 9.3 mg/dL (8.5-10.1); CREATININE, SERUM 1.1 mg/dL (0.55-1.02); POTASSIUM 3.5 mmol/L (3.5-5.1); PROTEIN, TOTAL 6.9 g/dL (6.4-8.2)
[2023-04-09 23:11] VITALS: BP 126/78
== END 2023-04-09 23:12 | disposition home or self-care (01) ==
LOC: ED 20:31
PROVIDERS: Internal Medicine
DX: R19.7 Diarrhea, unspecified (principal); E11.9 Type 2 diabetes mellitus without complications; I48.91 Unspecified atrial fibrillation; I11.0 Hypertensive heart disease with heart failure; I50.9 Heart failure, unspecified; Z88.2 Allergy status to sulfonamides; Z88.5 Allergy status to narcotic agent; Z88.6 Allergy status to analgesic agent; Z88.0 Allergy status to penicillin; Z88.8 Allergy status to other drugs, medicaments and biological substances; Z79.899 Other long term (current) drug therapy; Z79.01 Long term (current) use of anticoagulants; Z79.84 Long term (current) use of oral hypoglycemic drugs
CPT/HCPCS: 80053; 85025

== ENCOUNTER 2024-04-05 15:28 | Emergency (ER) | payer MEDICARE, OTHER ==
[~2024-04-05] VITALS: Ht 152.4 cm; Wt 66.0 kg
[~2024-04-05 15:28] MED LIST changes: +CARAFATE1 GM PO; +OXYCODONE-ACET1 EAC1 PO
[2024-04-05 15:53] LABS: BASOPHILS 0.8 % (0-2); EOSINOPHILS 3.4 % (0-6); HEMATOCRIT 42.2 % (35.0-50.0); HEMOGLOBIN 14.3 g/dL (12.0-18.0); LYMPHOCYTES 24.6 % (24-44); MCH 31.6 (27-36); MCHC 33.8 g/dl (30-36); MCV 93.6 fl (81-99); MONOCYTES 9.5 % (0-12); NEUTROPHILS 61.7 % (39-80); PLATELET COUNT 292 K/uL (140-440); RBC 4.51 M/ul (4.3-5.7); RDW 13.7 (10.5-15.0)
[2024-04-05] MEDS ORDERED: SODIUM CHLORIDE 0.9% 1,000 ML IV ONE (16:00)
[2024-04-05] MEDS ORDERED: HYDROmorphone HCL 1 MG/ML SYR IV ONE (16:00)
[2024-04-05] MEDS ORDERED: ondansetron HCL 4 MG/2 ML VIAL IV ONE (16:00)
[2024-04-05 16:09] LABS: ALBUMIN 3.7 g/dL (3.4-5.0); ALBUMIN/GLOBULIN RATIO 1.12 (1.1-2.4); ANION GAP 17.3 (7-21); BILIRUBIN, TOTAL 0.9 ng/dL (0.2-1.0); BUN/CREATININE RATIO 8.03 (6.0-28.6); CREATININE, SERUM 1.12 mg/dL (0.55-1.02); POTASSIUM 3.3 mmol/L (3.5-5.1)
[2024-04-05 16:25] LABS: BILIRUBIN, URINE POSITIVE (negative); BLOOD/HGB, URINE NEGATIVE (Negative); KETONE, URINE SMALL (Negative); LEUK ESTERASE, URINE NEGATIVE (negative); NITRITE, URINE NEGATIVE (negative)
[2024-04-05] MEDS ORDERED: VANCOCIN HCL125 MG PO (17:35)
[2024-04-05 18:41] VITALS: BP 120/59
== END 2024-04-05 18:36 | disposition home or self-care (01) ==
LOC: ED 15:28
PROVIDERS: Emergency Medicine
DX: R10.9 Unspecified abdominal pain (principal); E86.0 Dehydration; R19.7 Diarrhea, unspecified; E11.9 Type 2 diabetes mellitus without complications; I48.91 Unspecified atrial fibrillation; I34.0 Nonrheumatic mitral (valve) insufficiency; I11.0 Hypertensive heart disease with heart failure; I50.9 Heart failure, unspecified; M32.0 Drug-induced systemic lupus erythematosus; Z88.2 Allergy status to sulfonamides; Z86.16 Personal history of COVID-19; Z88.5 Allergy status to narcotic agent; Z88.6 Allergy status to analgesic agent; Z88.0 Allergy status to penicillin; Z88.8 Allergy status to other drugs, medicaments and biological substances; Z79.01 Long term (current) use of anticoagulants; Z79.84 Long term (current) use of oral hypoglycemic drugs; Z79.1 Long term (current) use of non-steroidal anti-inflammatories (NSAID); Z86.19 Personal history of other infectious and parasitic diseases
CPT/HCPCS: 74176; 80053; 81003; 83690; 85025; 96374; 96375; 99284-25; J1170; J2405; J7030; U0002

== ENCOUNTER 2024-05-18 20:15 | Emergency (ER) | payer MEDICARE, OTHER ==
[~2024-05-18] VITALS: Ht 152.4 cm; Wt 67.5 kg
[~2024-05-18 20:15] MED LIST changes: +VANCOCIN HCL125 MG PO
[2024-05-18 21:10] LABS: BILIRUBIN, URINE NEGATIVE (negative); BLOOD/HGB, URINE NEGATIVE (Negative); KETONE, URINE NEGATIVE (Negative); LEUK ESTERASE, URINE NEGATIVE (negative); NITRITE, URINE NEGATIVE (negative); PH, URINE 5.5 (5-7)
[2024-05-18 21:10] LABS: BASOPHILS 0.7 % (0-2); EOSINOPHILS 3.5 % (0-6); HEMATOCRIT 42.9 % (35.0-50.0); HEMOGLOBIN 14.3 g/dL (12.0-18.0); LYMPHOCYTES 20.3 % (24-44); MCH 32.1 (27-36); MCHC 33.2 g/dl (30-36); MCV 96.5 fl (81-99); MONOCYTES 12.2 % (0-12); NEUTROPHILS 63.3 % (39-80); PLATELET COUNT 187 K/uL (140-440); RBC 4.44 M/ul (4.3-5.7); RDW 14.4 (10.5-15.0)
[2024-05-18 21:31] LABS: ALBUMIN 3.4 g/dL (3.4-5.0); ANION GAP 12.9 (7-21); BILIRUBIN, TOTAL 0.5 ng/dL (0.2-1.0); BUN/CREATININE RATIO 18.58 (6.0-28.6); CALCIUM 9.3 mg/dL (8.5-10.1); CREATININE, SERUM 1.13 mg/dL (0.55-1.02); POTASSIUM 3.9 mmol/L (3.5-5.1); PROTEIN, TOTAL 6.8 g/dL (6.4-8.2)
[2024-05-18] MEDS ORDERED: ACETAMINOPHEN 500 MG TAB PO ONE (22:00)
[2024-05-18] MEDS ORDERED: LIDODERM1 EACH TOP (22:40)
[2024-05-18] MEDS ORDERED: LIDOCAINE HCL 4% 1 EACH PATCH TD ONE (22:45)
[2024-05-18 23:07] VITALS: BP 118/76
--- NOTE | 2024-05-19 08:12 | EKG ---
[facility] [address] [facility] [place] [address] Signed Atrial fibrillation Low voltage QRS Cannot rule out Anterior infarct (cited on or before 04-OCT-2019) Abnormal ECG When compared with ECG of 19-AUG-2023 14:32, No significant change was found Confirmed by Susan Snyder MD () on 05/19/2024 8:12:22 AM Electronically Signed By: SUSAN SNYDER MD 05/19/2412 PATIENT NAME: DIANELYS POLLARD Electrocardiogram DATE OF : 44 PHYSICIAN: SUSAN SNYDER MD REPORT #: [id number] REPORT IS CONFIDENTIAL AND NOT TO BE RELEASED WITHOUT AUTHORIZATION
[2024-05-19] MEDS ORDERED: LIDOCAINE PATCH REMOVAL 1 EA TD SCH (21:00)
== END 2024-05-18 23:14 | disposition home or self-care (01) ==
LOC: ED 20:15
PROVIDERS: Internal Medicine
DX: S20.211A Contusion of right front wall of thorax, initial encounter (principal); E11.9 Type 2 diabetes mellitus without complications; I11.0 Hypertensive heart disease with heart failure; I50.9 Heart failure, unspecified; W18.30XA Fall on same level, unspecified, initial encounter; Z88.2 Allergy status to sulfonamides; Z88.5 Allergy status to narcotic agent; Z88.6 Allergy status to analgesic agent; Z79.899 Other long term (current) drug therapy; Z79.01 Long term (current) use of anticoagulants
CPT/HCPCS: 36415; 71045; 80053; 81003; 84484; 85025; 85379; 93005; 93010; 99284-25; A9270

== ENCOUNTER 2024-08-10 21:23 | Inpatient (IN) | payer MEDICARE, OTHER ==
[~2024-08-10] VITALS: Ht 152.4 cm; Wt 63.6 kg
[~2024-08-10 21:23] MED LIST changes: +LIDODERM1 EACH TOP
[2024-08-10] MEDS ORDERED: ENALAPRILAT DIHYDRATE 1.25 MG/ML VIAL IV ONE (22:00)
[2024-08-10 22:25] LABS: HEMATOCRIT 42.3 % (35.0-50.0); HEMOGLOBIN 14.1 g/dL (12.0-18.0); LYMPHOCYTES 22.6 % (24-44); MCH 32.2 (27-36); MCHC 33.4 g/dl (30-36); MCV 96.2 fl (81-99); MONOCYTES 12.9 % (0-12); NEUTROPHILS 59.5 % (39-80); PLATELET COUNT 196 K/uL (140-440); RDW 14.2 (10.5-15.0)
[2024-08-10 22:33] LABS: INR 1.04 (0.80-1.30); PROTIME 13.5 Sec (11.2-14.2)
[2024-08-10 22:45] LABS: ALBUMIN 3.2 g/dL (3.4-5.0); ALBUMIN/GLOBULIN RATIO 0.97 (1.1-2.4); ANION GAP 13.6 (7-21); BILIRUBIN, TOTAL 0.5 ng/dL (0.2-1.0); BUN/CREATININE RATIO 21.69 (6.0-28.6); CALCIUM 8.6 mg/dL (8.5-10.1); CREATININE, SERUM 1.06 mg/dL (0.55-1.02); POTASSIUM 3.6 mmol/L (3.5-5.1); PROTEIN, TOTAL 6.5 g/dL (6.4-8.2)
[2024-08-10] MEDS ORDERED: TRAMADOL HCL 50 MG TAB PO ONE (22:45)
[2024-08-11] MEDS ORDERED: LORazepam 1 MG TAB PO ONE (00:45)
[2024-08-11] MEDS ORDERED: ENALAPRILAT DIHYDRATE 1.25 MG/ML VIAL IV PRN ×2 (00:45)
[2024-08-11] MEDS ORDERED: ACETAMINOPHEN 325 MG TAB PO ONE (01:30)
[2024-08-11] MEDS ORDERED: LIDOCAINE 2% VISCOUS 6 ML SYR TOP ONE (02:00)
[2024-08-11] MEDS ORDERED: ENALAPRILAT DIHYDRATE 1.25 MG/ML VIAL IV ONE (02:30)
[2024-08-11] MEDS ORDERED: ondansetron HCL 4 MG/2 ML VIAL IV PRN ×3 (08:00→14:45)
[2024-08-11] MEDS ORDERED: ACETAMINOPHEN 325 MG TAB PO PRN ×3 (08:00→14:45)
[2024-08-11] MEDS ORDERED: LACTATED RINGER'S 1,000 ML IV SCH (08:00)
[2024-08-11] MEDS ORDERED: MORPHINE SULFATE 4 MG/ML VIAL IV PRN (08:00)
[2024-08-11] MEDS ORDERED: POTASSIUM CHLORIDE 10 MEQ TABCR PO ONE (08:15)
[2024-08-11] MEDS ORDERED: EMPAGLIFLOZIN 25 MG TAB PO ONE (08:15)
[2024-08-11] MEDS ORDERED: AMLODIPINE BESYLATE 5 MG TAB PO ONE (08:15)
[2024-08-11] MEDS ORDERED: TORSEMIDE 20 MG TAB PO ONE (08:15)
[2024-08-11] MEDS ORDERED: HYDROmorphone HCL 1 MG/ML SYR IV PRN (08:15)
[2024-08-11] MEDS ORDERED: lisinopriL 20 MG TAB PO ONE (08:15)
[2024-08-11] MEDS ORDERED: carvediloL 25 MG TAB PO ONE (08:30)
[2024-08-11] MEDS ORDERED: allopurinoL 100 MG TAB PO SCH (09:00)
[2024-08-11] MEDS ORDERED: OXYCODONE HCL 5 MG TAB PO PRN (12:30)
[2024-08-11 14:56] VITALS: BP 130/78
--- NOTE | 2024-08-11 16:03 | NUR ---
PT ARRIVES TO MED-SURG VIA [facility] ESCORTED BY BRE Haywood RN. PT IS ALERT AND ORIENTED. AMBULATES FROM GURNEY TO BED WITH STEADY GAIT. VSS. WEIGHT OBTAINED IN BED. PT AMBULATES TO TOILET WITH STEADY GAIT THEN BACK TO BED. SPOUSE, SAHRA, AT BEDSIDE. ADMISSION ASSESSMENT COMPLETE. PT ORIENTED TO ROOM, CALL LIGHT, PHONE AND BED. CALL LIGHT IN REACH. NO REQUESTS AT THIS TIME.
[2024-08-11] MEDS ORDERED: FAMOTIDINE40 MG PO (16:36)
[2024-08-11] MEDS ORDERED: OXYBUTYNIN CHLOR5 M1 PO (16:37)
--- NOTE | 2024-08-11 17:34 | NUR ---
PT RESTS IN BED WITH EYES CLOSED, RESP EVEN AND UNLABORED, ROUSES EASILY TO VOICE. PT AMBULATES TO BATHROOM AND VOIDS. DINNER TO ROOM. PT BACK TO BED, CALL LIGHT IN REACH, NO REQUESTS AT THIS TIME.
[2024-08-11 18:37] VITALS: BP 126/60
--- NOTE | 2024-08-11 19:28 | EKG ---
[facility] [address] [facility] [place] [address] Signed Atrial fibrillation with slow ventricular response Septal infarct (cited on or before 04-OCT-2019) Abnormal ECG When compared with ECG of 18-MAY-2024 21:13, Questionable change in initial forces of Anterior leads Confirmed by Irineo Beck MD ([id number]) on 08/11/2024 7:28:17 PM Electronically Signed By: IRINEO BECK MD 08/11/24 1928 PATIENT NAME: DIANELYS POLLARD Electrocardiogram DATE OF : 44 PHYSICIAN: IRINEO BECK MD REPORT #: [id number] REPORT IS CONFIDENTIAL AND NOT TO BE RELEASED WITHOUT AUTHORIZATION
[2024-08-11] MEDS ORDERED: TRAMADOL HCL 50 MG TAB PO PRN (19:30)
--- NOTE | 2024-08-11 19:43 | NUR ---
REPORT RECEIVED FROM DAY SHIFT RN. PT LYING IN BED ALERT AND ORIENTED. DENIES NEEDS. WHITE BOARD UPDATED. CALL LIGHT IN REACH. VISITOR AT BEDSIDE.
[2024-08-11 19:51] VITALS: BP 125/69
[2024-08-11 20:11] VITALS: BP 125/69
--- NOTE | 2024-08-11 20:13 | NUR ---
EVENING ASSESSMENT COMPLETE. SCHEDULED MEDS ADMIN PER EMAR. PT REPORTS HEADACHE PAIN /10. PRN FOR PAIN ADMIN PER EMAR. PT DENIES NAUSEA. PT REPORTS SLIGHT DIZZINESS WITH GETTING OUT OF BED. ENCOURAGED TO USE CALL LIGHT WHEN GETTING UP. NEURO CHECK WNL. PT REPORTS PALPITATIONS AND "HEART RACING." MD NOTIFIED BY MORTGAGE COUNSELOR. TELE PLACED. VS WNL. HR IRREGULAR. PT DENIES FURTHER NEEDS. CALL LIGHT IN REACH. BED ALARM FOR SAFETY.
[2024-08-11] MEDS ORDERED: SHARK OIL PR PRN (20:15)
[2024-08-11] MEDS ORDERED: MINERAL OIL PR PRN (20:15)
[2024-08-11] MEDS ORDERED: PETROLATUM PR PRN (20:15)
[2024-08-11] MEDS ORDERED: PHENYLEPHRINE PR PRN (20:15)
--- NOTE | 2024-08-11 20:15 | NUR ---
IN pt ROOM AFTER REPORTS OF HEMMORHOIDS, pt COMPLAINS OF PALPITATIONS, FEELING DIZZY AND HAVING A HEADACHE. VSS. HR NOTED 60S-133 ON ROOM PULSE OX. PRIMARY RN IN ROOM. MD AT NURSES STATION, UPDATED ON SYMPTOMS. VERBAL ORDER FOR TELEMETY AND PREPARATION H OINTMENT. ORDERS REPEATED BACK AND UPDATED. PRIMARY RN NOTIFIED. TELE 2 PLACED ON pt. HR 55-60S, AFIB RHYTHM.
--- NOTE | 2024-08-11 20:25 | NUR ---
COMMISSARY STEWARD PUT PT ON TELE #2, HELPED PT THE BATHROOM AND BACK TO BED. COMMISSARY STEWARD GAVE PT A WARM BLANKET AND LEFT PT WITH CALL LIGHT WITHIN REACH.
--- NOTE | 2024-08-11 20:35 | NUR ---
CCU NOTIFIES HR LOW 37, 2.2 SECOND PAUSE. PHONE CALL TO MD, PHONE TRANSFERRED TO CCU TO DISCUSS PAUSES. WILL CONTINUE TO MONITOR. PLASTER LATHER UPDATED. NO NEW ORDERS AT THIS TIME. pt RESTING IN BED.
[2024-08-11] MEDS ORDERED: carvediloL 25 MG TAB PO SCH (21:00)
--- NOTE | 2024-08-11 21:16 | NUR ---
PT RESTING IN BED WITH EYES CLOSED. RESPIRATIONS EVEN. CALL LIGHT IN REACH. BED ALARM FOR SAFETY.
--- NOTE | 2024-08-11 23:29 | NUR ---
PT RESTING IN BED WITH EYES CLOSED. RESPIRATIONS EVEN. TELE #[address] AFIB. HR 50-60'S. BED ALARM IN PLACE. CALL LIGHT IN REACH.
[2024-08-12] VITALS (10 sets, daily range): BP systolic 125–149; BP diastolic 62–75
--- NOTE | 2024-08-12 01:17 | NUR ---
BED ALARM SOUNDING. PT SITTING ON SIDE OF BED DRINKING WATER. SBA TO BR TO VOID. GAIT STEADY. BACK TO BED, OVI WELL. VS AND I&O OBTAINED. PT REPORTS SLIGHT HEADACHE AND DIZZINESS UPON STANDING. OFFERED PRN FOR PAIN, PT REFUSED AT THIS TIME AND REQUESTS TO WAIT FOR ULTRAM. NO FURTHER NEEDS. BED ALARM FOR SAFETY. CALL LIGHT IN REACH.
--- NOTE | 2024-08-12 01:49 | NUR ---
PT REPORTS RIGHT SIDE MUSLIM PAIN 01/13. PRN FOR PAIN ADMIN PER EMAR. PT REPORTS PALPITATIONS. SBP 138. HR 60'S. NO FURTHER NEEDS. CALL LIGHT IN REACH. BED ALARM IN PLACE.
--- NOTE | 2024-08-12 04:23 | NUR ---
PT RESTING IN BED WITH EYES CLOSED. RESPIRATIONS EVEN. CALL LIGHT IN REACH. BED ALARM FOR SAFETY.
[2024-08-12 05:31] LABS: BASOPHILS 0.7 % (0-2); EOSINOPHILS 3.5 % (0-6); HEMOGLOBIN 13.7 g/dL (12.0-18.0); LYMPHOCYTES 23.8 % (24-44); MCH 32.2 (27-36); MCHC 33.4 g/dl (30-36); MCV 96.3 fl (81-99); MONOCYTES 10.9 % (0-12); NEUTROPHILS 61.1 % (39-80); PLATELET COUNT 188 K/uL (140-440); RBC 4.26 M/ul (4.3-5.7); RDW 14.5 (10.5-15.0)
[2024-08-12 05:42] LABS: ANION GAP 10.9 (7-21); BUN/CREATININE RATIO 18.36 (6.0-28.6); CALCIUM 8.8 mg/dL (8.5-10.1); CREATININE, SERUM 0.98 mg/dL (0.55-1.02); POTASSIUM 3.9 mmol/L (3.5-5.1)
--- NOTE | 2024-08-12 05:47 | NUR ---
PT RESTING WITH EYES CLOSED ON LEFT SIDE. TELE LEADS FIXED. PT UP TO BR WITH SBA TO VOID. GAIT STEADY. BACK TO BED, OVI WELL. REPORTS BOWMAN PAIN IMPROVED. VS AND I&O OBTAINED. PT DENIES FURTHER NEEDS. BED ALARM IN PLACE. CALL LIGHT IN REACH.
--- NOTE | 2024-08-12 07:06 | NUR ---
VERBAL REPORT RECEIVED FROM HSASHI URIOSTEGUI. PT ESCORTED OFF UNIT VIA WHEELCHAIR TO CT.
--- NOTE | 2024-08-12 07:28 | NUR ---
UR CLINICAL REVIEW: 2 MN FOR [facility]-MEETS OBS CRITERIA MEDICARE OBS 08/11/24 @ 1216 ORDER MATCHES REG NO AUTH REQUIRED PER MEDICARE GUIDELINES DISCHARGE TODAY FOLLOWING REPEAT CT 08/13/23
--- NOTE | 2024-08-12 08:01 | NUR ---
PATIENT IN BED AT THIS TIME.
[2024-08-12] MEDS ORDERED: EMPAGLIFLOZIN 25 MG TAB PO SCH (09:00)
[2024-08-12] MEDS ORDERED: TORSEMIDE 20 MG TAB PO SCH (09:00)
[2024-08-12] MEDS ORDERED: AMLODIPINE BESYLATE 5 MG TAB PO SCH (09:00)
[2024-08-12] MEDS ORDERED: lisinopriL 20 MG TAB PO SCH (09:30)
--- NOTE | 2024-08-12 09:59 | NUR ---
PATIENT ALERT AND ORIENTED IN BED. PATIENT LIVES IN HOUSE WITH . HAS A BASEMENT, SHE DOES NOT GO DOWNSTAIRS DUE TO PREVIOUS FALL ON STAIRS. STATES SHE HAS 2 WALKERS AND 1 CANE AT HOME. NO OTHER DME AT THIS TIME. PATIENT DRIVES. SEES DR. BELL FOR CARDIOLOGY AND SEES A SPECIALIST IN [place] FOR HER CHRONIC BACK PAIN. DENIES ANY FINANCIAL HARDSHIP. PATIENT STATES WITH HER BACK ISSUES, SHE DOES NEED SOME ASSISTANCE WITH HER HOUSE DUTIES. INFORMED HER OF NEED TO EITHER ADVERTISE AND HIRE PRIVATE CARE. FAMILY RESOURCES INFORMATION PROVIDED WELL. PATIENT'S SPOUSE IS A AND HAS [facility] COVERAGE AND SHE STATES HE HAS DEMENTIA AND HE ALSO CAN NOT HEAR. REQUESTING SOME RECORDS SO SHE KNOWS WHAT IS GOING ON WITH HER. VOICES GOOD UNDERSTANDING OF HER DIAGNOSIS AND WHAT HER CARDIAC HISTORY IS. WILL PROVIDE HIPPA RELEASE FOR HER ALONG WITH H&P PER REQUEST.
--- NOTE | 2024-08-12 11:37 | NUR ---
PATIENT IN BED AT THIS TIME. FITNESS SPECIALIST ASSISTED PATIENT INTO BATHROOM AND THEN BACK TO BED. FITNESS SPECIALIST CHARTED PATIENTS VOIDINGS IN ROOM. CALL LIGHT WITHIN REACH, NO FURTHER NEEDS AT THIS TIME.
[2024-08-12] MEDS ORDERED: PHARMACY RENAL DOSE ADJUSTMENT 1 DOSE MISC PO SCH (12:00)
--- NOTE | 2024-08-12 13:22 | NUR ---
SPOKE WITH PATIENT ABOUT FAMILY RESOURCES, PAMPHLET PROVIDED. H&P PROVIDED PER REQUEST AFTER PATIENT SIGNED RELEASE OF INFORMATION.
--- NOTE | 2024-08-12 14:21 | NUR ---
PATIENT LINENS FRESHENED, ICE WATER AND WARM BLANKET PROVIDED. PATIENT WOULD LIKE A SHOWER TODAY, SHAMPOO TO BATHROOM. NO OTHER NEEDS AT THIS TIME.
--- NOTE | 2024-08-12 14:27 | NUR ---
PT SITS UP IN BED, AWAKE AND ALERT. VISITOR IN ROOM. CALL LIGHT IN REACH. NO REQUESTS AT THIS TIME.
--- NOTE | 2024-08-12 18:00 | NUR ---
PT RESTS IN BED WITH ICE PACK ON HEAD. PT EXPRESSES ANXIETY OVER NEW MEDICATION CHANGES. REVIEWED POC, VSS AND NEURO ASSESSMENT WITH PT. ENCOURAGED PT TO REPORT NEW OR WORSENING SYMPTOMS.
[2024-08-12] MEDS ORDERED: hydrALAZINE HCL 20 MG/ML VIAL IV PRN (18:45)
--- NOTE | 2024-08-12 19:19 | NUR ---
PATIENT IN BED. AIRCRAFT INSTRUMENT ENGINEER CHARTED VITALS AND I&O'S. CALL LIGHT WITHIN REACH, NO FURTHER NEEDS AT THIS TIME.
--- NOTE | 2024-08-12 19:45 | NUR ---
REPORT RECEIVED FROM DAY SHIFT RN. PT LYING IN BED ALERT AND ORIENTED. DENIES NEEDS. WHITE BOARD UPDATED. CALL LIGHT IN REACH.
--- NOTE | 2024-08-12 21:01 | NUR ---
EVENING ASSESSMENT COMPLETE. VS AND I&O OBTAINED. PT REPORTS HEADACHE PAIN 01/13. PRN FOR PAIN ADMIN PER EMAR. FRESH ICE PACK PROVIDED FOR FOREHEAD. TELE #[address] AFIB. HR 60-70'S. PT DENIES FEELING LIGHTHEADED AT THIS TIME. DENIES CHEST PAIN OR SOB. NO FURTHER NEEDS. BED ALARM FOR SAFETY. CALL LIGHT IN REACH.
--- NOTE | 2024-08-12 23:20 | NUR ---
BED ALARMING. PATIENT WAS SITTING AT THE EDGE OF THE BED PUTTING ON HER SOCKS. SBA TO THE BATHROOM AND BACK TO BED. NO FURTHER NEEDS AT THIS TIME. BED ALARM ON FOR SAFETY.
[2024-08-13] VITALS (12 sets, daily range): BP systolic 112–148; BP diastolic 57–86
--- NOTE | 2024-08-13 01:56 | NUR ---
PT UP TO BR WITH MINIMAL SBA TO VOID. GAIT STEADY. BACK TO BED, OVI WELL. VS OBTAINED, WNL. PT REPORTS HEADACHE PAIN /. PRN FOR PAIN ADMIN PER EMAR. ICE PACK PROVIDED FOR FOREHEAD PER REQUEST. NO FURTHER NEEDS. CALL LIGHT IN REACH.
--- NOTE | 2024-08-13 03:27 | NUR ---
PT IN BED RESTING WITH EYES CLOSED. RESPIRATIONS EVEN. CALL LIGHT IN REACH. BED ALARM FOR SAFETY.
--- NOTE | 2024-08-13 03:38 | NUR ---
PT UP TO BR WITH MINIMAL SBA TO VOID. GAIT STEADY. BACK TO BED, OVI WELL. NO FURTHER NEEDS.
[2024-08-13 05:35] LABS: BASOPHILS 0.9 % (0-2); EOSINOPHILS 3.4 % (0-6); HEMATOCRIT 44.3 % (35.0-50.0); HEMOGLOBIN 14.8 g/dL (12.0-18.0); LYMPHOCYTES 26.8 % (24-44); MCH 32.3 (27-36); MCHC 33.5 g/dl (30-36); MCV 96.3 fl (81-99); MONOCYTES 14.2 % (0-12); NEUTROPHILS 54.7 % (39-80); PLATELET COUNT 208 K/uL (140-440); RDW 13.9 (10.5-15.0)
--- NOTE | 2024-08-13 05:44 | NUR ---
LAB IN FOR MORNING DRAW. PT UP TO BR TO VOID 100 ML CLEAR YELLOW URINE. BACK TO BED. VS AND I&O OBTAINED. PT REPORTS HEADACHE PAIN IMPROVED. NO C/O BLURRED VISION OR FEELING LIGHTHEADED. NO FURTHER NEEDS. CALL LIGHT IN REACH.
[2024-08-13 05:45] LABS: ANION GAP 10.5 (7-21); BUN/CREATININE RATIO 19.49 (6.0-28.6); CALCIUM 9.1 mg/dL (8.5-10.1); CREATININE, SERUM 1.18 mg/dL (0.55-1.02); MAGNESIUM 1.8 mg/dL (1.8-2.4); POTASSIUM 3.5 mmol/L (3.5-5.1)
--- NOTE | 2024-08-13 07:20 | NUR ---
UR CLINICAL REVIEW: 2 MN FOR VERSALUS- MEET INPT FOR BRADYCARDIA MEDICARE OBS TO INPT 08/12/24 @ 0923 ORDER MATCHES REG NO AUTH REQUIRED PER MEDICARE GUIDELINES DISCHARGE TO HOME WHEN STABLE
--- NOTE | 2024-08-13 08:07 | NUR ---
PT RESTING IN BED RESTING, AWAKE AT THIS TIME. PT IS VERY CONCERNED AND QUESTIONING ABOUT HER MEDICATIONS AT THIS TIME, INFORMED I WILL REVIEW AND WE WILL COME UP WITH EDUCATION AND A PLAN THROUGHOUT THE DAY, PT VERBALIZED UNDERSTANDING. BED ALARM IN PLACE, PT STATES SHE TRIED TO GET UP THIS MORNING AND ABOUT FELL, INFORMED THAT DUE TO HER DIZZINES AND UNSTEADINESS I WOULD LIKE HER TO CALL FOR SOMEONE TO ASSIST HER AND WAIT UNTIL SOMEONE ARRIVES, NOT TO GET OUT OF BED ON HER OWN, VERBALIZED UNDERSTANDING. PT DENIES ANY FURTHER NEEDS AT THIS TIME. ICE PACK IN PLACE TO HEADACHE. ALL PT CARE NEEDS MET AT THIS TIME.
--- NOTE | 2024-08-13 08:57 | NUR ---
PATIENT IN BED AT THIS TIME. PHYSICAL GEOGRAPHER WENT INTO PATIENTS ROOM FOR HOURLY ROUND. CALL LIGHT WITHIN REACH, NO FURTHER NEEDS AT THIS TIME.
--- NOTE | 2024-08-13 09:27 | NUR ---
PT TOLERATED ORAL MEDS WITHOUT ANY ISSUES, VERY ANXIOUS ABOUT HER MEDICATIONS WHEN SHE GOES HOME SHE HAS NOBODY TO HELP HER. HER DAUGHTER WILL BE COMING TO HELP WHEN SHE GETS HOME, EDUCATED WE WILL HIGHLIGHT THE CHANGES SO SHE CAN MAKE ADJUSTMENTS THAT ARE NEEDED ON DISCHARGE. PT STATES HER HEADACHE HAS SLIGHTLY IMPROVED 4/10 FROM 5/10, OFFERED TYLENOL AND PT AGREES AT THIS TIME. CALL LIGHT WITHIN REACH, VS STABLE.
--- NOTE | 2024-08-13 09:49 | NUR ---
IN TO SPEAK WITH PATIENT. SHE IS CONTINUING TO HAVE HEADACHES, WHICH MAKES HER NERVOUS. STATES SHE SPOKE WITH HER SAFETY RELIEF VALVE TECHNICIAN YESTERDAY. HE IS AWARE OF HER INPATIENT STATUS AND WILL REVIEW NOTES WHEN HE RECEIVES THEM. PATIENT IS NERVOUS ABOUT GOING HOME BECAUSE OF HER CONTINUED HEADACHE. DISCUSSED WITH HER THE SYMPTOMS TO BE AWARE OF AT HOME FOR WORSENING BLEED. DID DISCUSS THAT THE BLEED IS SMALL AND STABLE ON CT PER REPORTS AND DISCUSSION WITH DR. QUINN YESTERDAY. VERBALIZES UNDERSTANDING. DENIES CM NEEDS AT THIS TIME.
--- NOTE | 2024-08-13 10:20 | NUR ---
PT NOT AVAILABLE FOR VISIT. PROVIDED PRAYER.
--- NOTE | 2024-08-13 12:02 | NUR ---
PT STILL C/O HEADACHE, FRESH ICE PACK PROVIDED TO PATIENT. FRESH ICE WATER PROVIDED. PT STATES SHE CANNOT FULLY EXPLAIN THE HEADACHE BUT "IT FEELS LIKE PRESSURE ABOVE HER EYES/BELOW HER EYES AND IN HER EYES", DENIES BLURRY VISION. STILL IS UNSTEADY WITH AMBULATION, REMINDED PT SHE NEEDS TO USE CALL LIGHT WHEN GETTING UP AND TO WAIT FOR ASSISTANCE SO SHE DOES NOT HAVE A FALL. INFORMED MD IS UPDATED ON HER STATUS AND HE IS MAKING ROUNDS AND WILL HOPEFULLY BE IN SHORTLY TO SEE HER. PRESENT AT BEDSIDE, IS VERY [place]. CALL LIGHT WITHIN REACH, DENIES ANY FURTHER NEEDS. VERY CHATTY
--- NOTE | 2024-08-13 12:59 | NUR ---
PATIENT IN BED AT THIS TIME. DIRECTOR OF INTERCOLLEGIATE ATHLETICS ASSISTED PATIENT INTO BATHROOM AND THEN BACK TO BED. VITALS AND I&O'S CHARTED. CALL LIGHT WITHIN REACH, NO FURTHER NEEDS AT THIS TIME.
--- NOTE | 2024-08-13 13:17 | NUR ---
PATIENT GIVEN IV HYDRALAZINE FOR SYSTOLIC 148.
[2024-08-13] MEDS ORDERED: NIFEdipine 10 MG CAP PO ONE (14:15)
--- NOTE | 2024-08-13 14:44 | NUR ---
PRESENT WITH MD ROUNDING ON PT. AFTER MD VISIT, ASSISTED PT TO BATHROOM, SBA SHE WAS REPORTING DIZZINESS AND 5/10 HEADACHE. PRN OXYCODONE GIVEN - SEE OCT. PT STATES SHE WASNT FEELING VERY GOOD, DIETARY CALLED AND ORDER FOR CHICKEN NOODLE SOUP PER PATIENT REQUEST, DID NOT HAVE APPETITE FOR THE LUNCH TAHT WAS DELIVERED. PT BACK IN BED, BED ALARM IN PLACE. DENIES ANY FURTHER NEEDS, FRESH ICE PACK WAS PROVIDED FOR COMFORT. ALL PT CARE NEEDS MET, CALL LIGHT WITHIN REACH.
--- NOTE | 2024-08-13 15:45 | NUR ---
PATIENT IN BED AT THIS TIME. SCHOOL CROSSING GUARD SUPERVISOR ASSISTED PATIENT TO BATHROOM AND THEN BACK TO BED. CALL LIGHT WITHIN REACH, NO FURTHER NEEDS AT THIS TIME.
--- NOTE | 2024-08-13 16:57 | NUR ---
PT BLADIMIR GIVEN - SEE OCT. BP HAS IMPROVED THIS EVENING 118/60'S AT THIS TIME, PT STATES HER HEADACHE HAS IMPROVED, 3/10 PAIN SCALE WHICH SHE SAID IS VERY TOLERABLE AND PT IS IN HER ROOM. SHE DOES NOT APPEAR TO BE IN SUCH PAIN. SPENT ABOUT 20 MINUTES JUST TALKING WITH PATIENT ABOUT LIFE/TRAVEL AND HER LIFE STORY. TOLERATED MEDS WITHOUT ISSUES. ALL PT CARE NEEDS MET, CALL LIGHT WITHIN REACH. REGULAR MENU DELIVERED SO PATIENT COULD ORDER HER OWN FOOD FOR THE MORNING.
--- NOTE | 2024-08-13 19:20 | NUR ---
REPORT RECEIVED FROM HALINA DANIELLE. pt RESTING IN THE BED. RR EVEN AND UNLABORED. CALL LIGHT WITHIN REACH.
--- NOTE | 2024-08-13 21:05 | NUR ---
CALL LIGHT ANSWERED. PT NEEDED TO USE BATHROOM. ROTARY SOIL STABILIZER SBA TO BATHROOM. PT VOIDED AND BRUSHED TEETH AND ASSISTED BACK TO BED. ROTARY SOIL STABILIZER OBTAINED VITALS AND I&O. PT COMPLAINING OF HEADACHE. RN NOTIFED. PT STATES NO FURTHER NEEDS AT THIS TIME. CALL LIGHT WITHIN REACH.
--- NOTE | 2024-08-13 21:45 | NUR ---
ASSESSMENT DONE. pt ASKING ABOUT GETTING ANOTHER CT. THIS RN DICUSSED PLAN WITH pt ABOUT TALKING WITH DR IF HE COME AROUND ON THE FLOOR OR TALKING TO THE DAY SHIFT NURSES IN THE MORNING WHEN THEY COME ON. pt FELT BETTER ABOUT THAT. PRN PAIN MEDS ADMINISTERED FOR 5/10 HEADEACHE. pt DENIES ANY OTHER NEEDS AT THIS TIME.
--- NOTE | 2024-08-13 22:15 | NUR ---
DICUSSED pt CONCERNS WITH . DR. SNYDER AWARE OF pt CONCERNS ABOUT ANOTHER CT. STATES HE WILL TALK TO THE pt IN THE MORNING.
--- NOTE | 2024-08-13 23:11 | NUR ---
IN RM TO ADMINISTER PRN ANTINAUSEA MEDS. pt BACK TO BED AFTER GETTING UP TO THE BR. pt STILL HAS CONCERNS ABOUT HEAD AND WANTS CT. THIS RN DISCUSSED WHAT MD SAID ABOUT ROUNDING IN THE MORNING AND pt FEELS BETTER. pt DENIES ANY OTHER NEEDS AT THIS TIME. CALL LIGHT WITHIN REACH.
[2024-08-14] VITALS (7 sets, daily range): BP systolic 117–131; BP diastolic 57–79
--- NOTE | 2024-08-14 03:10 | NUR ---
GREASE WORKER TOOK V.S. aT 0130 AFTER ASSISTING PT TO BATHROOM. PT BP WAS 131/79 PULSE 71. PT HAD NO COMPLAINS OF BEING DIZZY OR BEING UNSTEADY.
--- NOTE | 2024-08-14 03:36 | NUR ---
pt RESTING IN THE BED WITH EYES CLOSED. RR EVEN AND UNLABORED. CALL LIGHT WITHIN REACH.
--- NOTE | 2024-08-14 04:32 | NUR ---
MAINTENANCE JOURNEYMAN TOOK PT TO BATHROOM AND BACK TO BED. PT DENIES ANY COMPLAINTS. MAINTENANCE JOURNEYMAN TOOK VITALS AND PROVIDED FRESH ICE WATER.
[2024-08-14 05:33] LABS: EOSINOPHILS 2.9 % (0-6); HEMATOCRIT 43.5 % (35.0-50.0); HEMOGLOBIN 14.6 g/dL (12.0-18.0); LYMPHOCYTES 24.8 % (24-44); MCH 32.3 (27-36); MCHC 33.6 g/dl (30-36); MCV 96.2 fl (81-99); MONOCYTES 14.5 % (0-12); NEUTROPHILS 56.8 % (39-80); PLATELET COUNT 192 K/uL (140-440); RBC 4.52 M/ul (4.3-5.7); RDW 14.2 (10.5-15.0)
--- NOTE | 2024-08-14 05:34 | NUR ---
CALL LIGHT ANSWERED. PT NEEDED TO USE BATHROOM. POST HOLE DIGGER SBA TO BATHROOM. PT VOIDED AND ASSISTED BACK TO BED. OUTPUT MEASURED. PT STATES NO FURTHER NEEDS AT THIS TIME. CALL LIGHT WITHIN REACH AND BED ALARM ON.
[2024-08-14 05:44] LABS: ANION GAP 11.1 (7-21); BUN/CREATININE RATIO 19.82 (6.0-28.6); CALCIUM 9.2 mg/dL (8.5-10.1); CREATININE, SERUM 1.16 mg/dL (0.55-1.02); MAGNESIUM 1.7 mg/dL (1.8-2.4); POTASSIUM 3.1 mmol/L (3.5-5.1)
--- NOTE | 2024-08-14 06:00 | NUR ---
pt RESTING IN THE BED. FINANCIAL ADVISER DID VS. ASSESSMENT DONE. NO NEEDS AT THIS TIME. SBP REMAINED BELOW 140. CALL LIGHT WITHIN REACH.
--- NOTE | 2024-08-14 07:27 | NUR ---
REPORT RECEIVED FROM DIRECT SUPPORT PROFESSIONAL HOME HEALTH RN FRANKLIN. BARREL ROLLER ENTERED THE ROOM AT THIS TIME TO ASSIST PATIENT.
--- NOTE | 2024-08-14 07:55 | NUR ---
MD NOTIFIED OF PATIENT WANTING TO GET ANOTHER CT. MD ALSO NOTIFIED OF PATIENT STATING SHE "ONLY HAD TWO TURDS TWO DAYS AGO". RN TO PUT IN BOWEL REGIMEN PER MD ORDER. NO FURTHER NEEDS AT THIS TIME. CALL LIGHT AND PERSONBAL BELONGINGS ARE WITHIN REACH.
--- NOTE | 2024-08-14 08:45 | NUR ---
FULL ASSESSMENT COMPLETE AT THIS TIME. PATIENT IS ALERT AND ORIENTED TIMES FOUR. PATIENT IS ON ROOM AIR AND LUNG SOUNDS ARE CLEAR BILATERALLY. PATIENT IS ON TELEMETRY NUMBER 2 AND IS IN ATRIAL FIBRILLATION. HEART TONES ARE IRREGULAR ON AUSCULTATION. RADIAL PULSES ARE STRONG BILATERALLY. CAPILLARY REFILL IS LESS THAN 3 SECONDS IN THE UPPER AND LOWER EXTRMETIES BILATERALLY. SENSATION INTACT WITH NO COMPLAINTS OF NUMBNESS OR TINGLING. PATIENT IS ON A REGULAR DIET. BOWEL TONES ARE ACTIVE IN ALL FOUR QUADRANTS. LAST BM WAS 08/13/24. IV SITE FLUSHED WITH 10 ML NORMAL SALINE AND IS SALINE LOCKED. IV DRESSING IS CLEAN, DRY, AND INTACT. PATIENT WITH NO COMPLAINTS OF HEADACHE OR DIZZINESS. PATIENT WITH PAIN RATED 5/10 IN THE BACK WHICH IS CHRONIC FOR THE PATIENT. PATIENT IS REQUESTING PAIN MEDICATION WITH RN BRINGS REMAINING MORNING MEDICATION. PATIENT BREAKFAST TRAY SET UP AT THE BEDSIDE. PATIENT EXPRESSED CONCERNS REGARDING CT SCAN. MD AWARE. PATIENT STATED NO FURTHER NEEDS AT THIS TIME. CALL LIGHT AND PERSONAL BELONGINGS ARE WITHIN REACH.
[2024-08-14] MEDS ORDERED: POTASSIUM CHLORIDE 40 MEQ,LIDOCAINE HCL 1% 40 MG in DEXTROSE 5% 250 ML IV ONE (09:00)
[2024-08-14] MEDS ORDERED: SENNOSIDES/DOCUSATE 1 EA TAB PO SCH (09:00)
[2024-08-14] MEDS ORDERED: MAGNESIUM CHLORIDE 64 MG TABCR PO ONE (09:00)
[2024-08-14] MEDS ORDERED: POLYETHYLENE GLYCOL 3350 1 PACKET PO SCH (09:00)
--- NOTE | 2024-08-14 09:50 | NUR ---
In to see patient and explain her IMM letter to her. La Nena is aware that she will discharge today, I asked her if she was comfortable with her discharge and she stated "No" I then shared that she has the right to appeal her discharge if she does not feel ready to go home and feels like her discharge is not safe. She stated that "I want to appeal" She then asked what the process is, stating "I have never had a brain bleed before and I don't know what to do." Incidentally, at this time, Dr. Burgos did entered the room. I explained to him that we were discussing the IMM letter and that La Nena was considering appealing her discharge. Dr. Marley then asked what her concerns were and very carefully went through all of her discharge information, and the plan for her discharge. La Nena then said to me "Never mind, I am not going to appeal, I feel better now." She signed the letter and a copy of the signed letter was provided to her. She expressed no other questions or concerns at this time.
--- NOTE | 2024-08-14 10:00 | NUR ---
SHASHI Baeza and pharmacist in room
[2024-08-14] MEDS ORDERED: NIFEDIPINE ER30 M1 PO (10:06)
--- NOTE | 2024-08-14 10:23 | NUR ---
CREW CALLER FAXED PATIENTS DISCHARGE SUMMARY TO PCP.
--- NOTE | 2024-08-14 10:50 | NUR ---
NADEEM THE PHARMACIST IS IN THE ROOM AT THIS TIME.
--- NOTE | 2024-08-14 11:48 | NUR ---
DISCHARGE INSTRUCTIONS AND EDUCATION REVIEWED WITH THE PATIENT. PATIENT WITH NO FURTHER QUESTIONS OR CONCERNS. PATIENT SIGNED THE DISCHARGE FORM. FRESH ICE PACK AND ICE WATER PROVIDED TO THE PATIENT. PATIENT WITH SIGNIFICANT OTHER IN THE CHAIR AT BEDSIDE. PATIENT STATED NO FURTHER NEEDS AT THIS TIME. CALL LIGHT AND PERSONAL BELONGINGS ARE WITHIN REACH.
--- NOTE | 2024-08-14 12:12 | NUR ---
Patient called for bathroom assist. Returned to bed once done. SHASHI Baeza entered for discharge instructions. in room.
--- NOTE | 2024-08-14 12:20 | NUR ---
PATIENT IS SITTING UPRIGHT IN BED WITH HER SIGNIFICANT OTHER IN THE CHAIR AND HE IS EATING LUNCH. PATIENT GIVEN A NEW PEN. PATIENT STATED NO FURTHER NEEDS AT THIS TIME. CALL LIGHT AND PERSONAL BELONGINGS ARE WITHIN REACH.
--- NOTE | 2024-08-14 13:23 | NUR ---
ALERT AND ORIENTED. DISCUSSED DC PLAN TO GO HOME TODAY. SHE IS NERVOUS ABOUT GOING HOME BUT FURTHER EDUCATION REGARDING BLOOD PRESSURE MANAGEMENT WELL SYMPTOMS TO BE AWARE OF DISCUSSED. SHE IS READY TO DC TO GO HOME.
== END 2024-08-14 14:25 | disposition home or self-care (01) | DRG 66 ==
LOC: ED 21:23 → MS 08-11 11:00
PROVIDERS: Family Medicine; ADMIT Student in an Organized Health Care Education/Training Program; ATTEND Family Medicine
DX: I61.8 Other nontraumatic intracerebral hemorrhage (principal); I48.91 Unspecified atrial fibrillation; R00.1 Bradycardia, unspecified; E11.9 Type 2 diabetes mellitus without complications; I50.9 Heart failure, unspecified; I11.0 Hypertensive heart disease with heart failure; Z96.651 Presence of right artificial knee joint; Z79.01 Long term (current) use of anticoagulants; Z88.2 Allergy status to sulfonamides; Z88.5 Allergy status to narcotic agent; Z88.6 Allergy status to analgesic agent; Z88.0 Allergy status to penicillin; Z85.828 Personal history of other malignant neoplasm of skin; Z79.84 Long term (current) use of oral hypoglycemic drugs; Z79.891 Long term (current) use of opiate analgesic
CPT/HCPCS: 36415; 51702; 70450; 80048; 80053; 83735; 83880; 84484; 85025; 85610; 93005; 93010; 99285-25; A9270; A9270-GY; G0378; J0360; J1171; J2405; J3480; J3490; J7060; J7121

== ENCOUNTER 2024-08-16 15:49 | Emergency (ER) | payer MEDICARE, OTHER ==
[~2024-08-16] VITALS: Ht 152.4 cm; Wt 63.5 kg
[~2024-08-16 15:49] MED LIST changes: +NIFEDIPINE ER30 M1 PO; +OXYBUTYNIN CHLOR5 M1 PO
[2024-08-16 16:25] LABS: BASOPHILS 0.7 % (0-2); EOSINOPHILS 1.3 % (0-6); HEMOGLOBIN 16.5 g/dL (12.0-18.0); LYMPHOCYTES 17.2 % (24-44); MCH 32.6 (27-36); MCHC 34.4 g/dl (30-36); MCV 94.9 fl (81-99); MONOCYTES 10.3 % (0-12); NEUTROPHILS 70.5 % (39-80); PLATELET COUNT 232 K/uL (140-440); RBC 5.05 M/ul (4.3-5.7); RDW 13.9 (10.5-15.0)
[2024-08-16 16:43] LABS: ALBUMIN 3.5 g/dL (3.4-5.0); ALBUMIN/GLOBULIN RATIO 0.95 (1.1-2.4); ANION GAP 12.5 (7-21); BILIRUBIN, TOTAL 0.9 ng/dL (0.2-1.0); BUN/CREATININE RATIO 17.26 (6.0-28.6); CALCIUM 9.2 mg/dL (8.5-10.1); CREATININE, SERUM 1.39 mg/dL (0.55-1.02); MAGNESIUM 1.9 mg/dL (1.8-2.4); POTASSIUM 3.5 mmol/L (3.5-5.1); PROTEIN, TOTAL 7.2 g/dL (6.4-8.2); TSH, 3RD GENERATION 1.844 uIU/mL (0.358-3.740)
[2024-08-16] MEDS ORDERED: CARVEDILOL3.125 MG PO (17:42)
[2024-08-16] MEDS ORDERED: carvediloL 6.25 MG TAB PO ONE (17:45)
[2024-08-16 17:52] VITALS: BP 128/98
--- NOTE | 2024-08-16 22:59 | EKG ---
[facility] [address] [place] [address] Signed Atrial fibrillation Anterior infarct (cited on or before 04-OCT-2019) Abnormal ECG When compared with ECG of 10-AUG-2024 22:09, Vent. rate has increased BY 39 BPM Questionable change in initial forces of Anterior leads Nonspecific T wave abnormality now evident in Inferior leads Nonspecific T wave abnormality now evident in Anterolateral leads Confirmed by Susan Snyder MD () on 08/16/2024 10:59:02 PM Electronically Signed By: SUSAN SNYDER MD 08/16/24 2259 PATIENT NAME: DIANELYS POLLARD Electrocardiogram DATE OF : 44 PHYSICIAN: SUSAN SNYDER MD REPORT #: [id number] REPORT IS CONFIDENTIAL AND NOT TO BE RELEASED WITHOUT AUTHORIZATION
== END 2024-08-16 17:52 | disposition home or self-care (01) ==
LOC: ED 15:49
PROVIDERS: Emergency Medicine
DX: I48.91 Unspecified atrial fibrillation (principal); I11.0 Hypertensive heart disease with heart failure; I50.9 Heart failure, unspecified; E11.9 Type 2 diabetes mellitus without complications; Z88.2 Allergy status to sulfonamides; Z88.5 Allergy status to narcotic agent; Z88.6 Allergy status to analgesic agent; Z88.0 Allergy status to penicillin; Z88.8 Allergy status to other drugs, medicaments and biological substances; Z79.899 Other long term (current) drug therapy
CPT/HCPCS: 36415; 80053; 83735; 84436; 84439; 84443; 84484; 85025; 93005; 93010; 99285

== ENCOUNTER 2024-09-11 18:18 | Emergency (ER) | payer MEDICARE, OTHER ==
[~2024-09-11] VITALS: Ht 152.4 cm; Wt 65.3 kg
[~2024-09-11 18:18] MED LIST changes: +CARVEDILOL3.125 MG PO
[2024-09-11] MEDS ORDERED: ENALAPRILAT DIHYDRATE 1.25 MG/ML VIAL IV ONE ×2 (19:30→21:00)
[2024-09-11 19:36] LABS: BASOPHILS 0.9 % (0-2); HEMATOCRIT 48.1 % (35.0-50.0); HEMOGLOBIN 16.2 g/dL (12.0-18.0); LYMPHOCYTES 23.6 % (24-44); MCH 32.3 (27-36); MCHC 33.7 g/dl (30-36); MONOCYTES 13.1 % (0-12); NEUTROPHILS 59.4 % (39-80); PLATELET COUNT 244 K/uL (140-440); RBC 5.01 M/ul (4.3-5.7); RDW 13.7 (10.5-15.0)
[2024-09-11 19:45] LABS: ALBUMIN 3.9 g/dL (3.4-5.0); BILIRUBIN, TOTAL 0.6 ng/dL (0.2-1.0); BUN/CREATININE RATIO 12.4 (6.0-28.6); CALCIUM 9.4 mg/dL (8.5-10.1); CREATININE, SERUM 1.29 mg/dL (0.55-1.02); MAGNESIUM 1.9 mg/dL (1.8-2.4); PROTEIN, TOTAL 7.8 g/dL (6.4-8.2)
[2024-09-11] MEDS ORDERED: LOTENSIN40 MG PO (22:13)
[2024-09-11] MEDS ORDERED: fentaNYL citrate 100 MCG/2 ML VIAL IV ONE (22:15)
[2024-09-11] MEDS ORDERED: OXYCODONE/APAP 5/325 TAB PO ONE (22:45)
[2024-09-11 23:20] VITALS: BP 136/95
== END 2024-09-11 23:21 | disposition home or self-care (01) ==
LOC: ED 18:18
PROVIDERS: Family Medicine
DX: I11.0 Hypertensive heart disease with heart failure (principal); I50.9 Heart failure, unspecified; I48.91 Unspecified atrial fibrillation; E11.9 Type 2 diabetes mellitus without complications; Z79.01 Long term (current) use of anticoagulants; Z79.899 Other long term (current) drug therapy; Z88.2 Allergy status to sulfonamides; Z88.5 Allergy status to narcotic agent; Z88.6 Allergy status to analgesic agent; Z88.0 Allergy status to penicillin; Z88.8 Allergy status to other drugs, medicaments and biological substances
CPT/HCPCS: 36415; 70450; 80053; 83735; 85025; 96374; 96376; 99284-25

== ENCOUNTER 2024-09-14 22:13 | Emergency (ER) | payer MEDICARE, OTHER ==
[~2024-09-14] VITALS: Ht 152.4 cm; Wt 65.3 kg
[2024-09-15] MEDS ORDERED: ACETAMINOPHEN 500 MG TAB PO ONE (00:15)
[2024-09-15 01:30] VITALS: BP 142/91
== END 2024-09-15 01:30 | disposition home or self-care (01) ==
LOC: ED 22:13
DX: I11.0 Hypertensive heart disease with heart failure (principal); I50.9 Heart failure, unspecified; R51.9 Headache, unspecified; E11.9 Type 2 diabetes mellitus without complications; I48.91 Unspecified atrial fibrillation; Z88.6 Allergy status to analgesic agent; Z88.5 Allergy status to narcotic agent; Z88.2 Allergy status to sulfonamides; Z88.0 Allergy status to penicillin; Z88.8 Allergy status to other drugs, medicaments and biological substances; Z79.84 Long term (current) use of oral hypoglycemic drugs; Z79.899 Other long term (current) drug therapy
CPT/HCPCS: 70450; 99283-25; A9270

== ENCOUNTER 2025-02-01 20:39 | Emergency (ER) | payer MEDICARE, OTHER ==
[~2025-02-01] VITALS: Ht 152.4 cm; Wt 65.5 kg
[2025-02-01 20:58] LABS: BASOPHILS 0.9 % (0.1-1.2); EOSINOPHILS 7.8 % (0.7-5.8); HEMATOCRIT 43.1 % (34.1-44.9); HEMOGLOBIN 13.7 g/dL (11.2-15.7); LYMPHOCYTES 27.8 % (19.3-51.7); MCH 29.9 PG (25.6-32.2); MCHC 31.8 g/dL (32.2-35.5); MCV 94.1 fL (79.4-94.8); MONOCYTES 13.8 % (4.7-12.5); NEUTROPHILS 48.6 % (34.0-71.1); PLATELET COUNT 272 K/uL (182-369); RBC 4.58 M/uL (3.93-5.22)
[2025-02-01 21:28] LABS: ALBUMIN 3.4 g/dL (3.4-5.0); ALBUMIN/GLOBULIN RATIO 0.87 (1.1-2.4); ALCOHOL, MEDICAL <3 ng/dL (<3); ALKALINE PHOSPHATASE 100 U/L (46-116); ALT (SGPT) 22 U/L (14-59); ANION GAP 14.1 (7-21); AST (SGOT) 16 U/L (15-37); BILIRUBIN, TOTAL 0.2 mg/dL (0.2-1.0); BUN/CREATININE RATIO 13.55 (6.0-28.6); CALCIUM 8.7 mg/dL (8.5-10.1); CARBON DIOXIDE 27 mmol/L (21-32); CHLORIDE 103 mmol/L (98-107); CREATININE, SERUM 1.18 mg/dL (0.55-1.02); GLOMERULAR FILTRATION RATE,EST 46 mL/min (>60); POTASSIUM 4.1 mmol/L (3.5-5.1); PROTEIN, TOTAL 7.3 g/dL (6.4-8.2); TSH, 3RD GENERATION 2.796 uIU/mL (0.358-3.740); UREA NITROGEN 16 mg/dL (7-18)
[2025-02-01 21:29] LABS: BILIRUBIN, URINE NEGATIVE (negative); BLOOD/HGB, URINE NEGATIVE (Negative); KETONE, URINE NEGATIVE (Negative); LEUK ESTERASE, URINE NEGATIVE (negative); NITRITE, URINE NEGATIVE (negative)
[2025-02-01 22:24] VITALS: BP 152/74
--- NOTE | 2025-02-02 19:36 | EKG ---
[facility] [address] [facility] [place] [address] Signed Atrial fibrillation Cannot rule out Anterior infarct (cited on or before 04-OCT-2019) Abnormal ECG When compared with ECG of 16-AUG-2024 16:23, Nonspecific T wave abnormality, improved in Inferior leads Nonspecific T wave abnormality no longer evident in Anterior leads Confirmed by Don Mathis DO ([id number]) on 02/02/2025 7:36:10 PM Electronically Signed By: DON MATHIS DO 02/02/25 193 PATIENT NAME: DIANELYS POLLARD Electrocardiogram DATE OF : 44 PHYSICIAN: DON MATHIS DO REPORT #: [id number] REPORT IS CONFIDENTIAL AND NOT TO BE RELEASED WITHOUT AUTHORIZATION
== END 2025-02-01 22:25 | disposition home or self-care (01) ==
LOC: ED 20:39
PROVIDERS: Family Medicine
DX: R41.3 Other amnesia (principal); Z88.2 Allergy status to sulfonamides; Z88.5 Allergy status to narcotic agent; Z88.1 Allergy status to other antibiotic agents; Z79.899 Other long term (current) drug therapy
CPT/HCPCS: 36415; 70450; 80053; 81003; 84443; 85025; 93005; 93010; 99285-25; G0480

== ENCOUNTER 2025-05-08 14:27 | Emergency (ER) | payer MEDICARE, OTHER ==
[~2025-05-08] VITALS: Ht 152.4 cm; Wt 68.8 kg
[2025-05-08 16:09] LABS: BLOOD/HGB, URINE NEGATIVE (Negative); KETONE, URINE NEGATIVE (Negative); LEUK ESTERASE, URINE NEGATIVE (negative); NITRITE, URINE NEGATIVE (negative)
[2025-05-08] MEDS ORDERED: OXYCODONE HCL 5 MG TAB PO ONE (16:15)
[2025-05-08 16:55] LABS: BASOPHILS 0.9 % (0.1-1.2); EOSINOPHILS 3.9 % (0.7-5.8); LYMPHOCYTES 21.1 % (19.3-51.7); MCH 29.8 PG (25.6-32.2); MCHC 32.5 g/dL (32.2-35.5); MCV 91.9 fL (79.4-94.8); MONOCYTES 15.9 % (4.7-12.5); NEUTROPHILS 57.3 % (34.0-71.1); RBC 4.56 M/uL (3.93-5.22)
[2025-05-08 17:15] LABS: ALT (SGPT) 19.0 U/L (14-59); AST (SGOT) 18.0 U/L (15-37); GLOMERULAR FILTRATION RATE,EST 43.0 mL/min (>60); PROTEIN, TOTAL 6.8 g/dL (6.4-8.2); UREA NITROGEN 23.0 mg/dL (7-18)
[2025-05-08 19:05] VITALS: BP 123/79
== END 2025-05-08 19:04 | disposition home or self-care (01) ==
LOC: ED 14:27
PROVIDERS: Emergency Medicine
DX: G89.29 Other chronic pain (principal); I48.91 Unspecified atrial fibrillation; I11.0 Hypertensive heart disease with heart failure; I50.9 Heart failure, unspecified; E11.9 Type 2 diabetes mellitus without complications; Z79.01 Long term (current) use of anticoagulants; Z79.899 Other long term (current) drug therapy
CPT/HCPCS: 36415; 80053; 81003; 83690; 85025; 99284; A9270

== ENCOUNTER 2025-05-09 15:17 | Emergency (ER) | payer MEDICARE, OTHER ==
[~2025-05-09] VITALS: Ht 152.4 cm; Wt 68.0 kg
[2025-05-09 18:38] VITALS: BP 113/76
== END 2025-05-09 18:27 | disposition home or self-care (01) ==
LOC: ED 15:17
DX: M25.552 Pain in left hip (principal); M25.562 Pain in left knee; G89.29 Other chronic pain; I11.0 Hypertensive heart disease with heart failure; I50.9 Heart failure, unspecified; E11.9 Type 2 diabetes mellitus without complications; I48.91 Unspecified atrial fibrillation; Z79.01 Long term (current) use of anticoagulants; Z79.899 Other long term (current) drug therapy; Z88.2 Allergy status to sulfonamides; Z88.5 Allergy status to narcotic agent; Z88.6 Allergy status to analgesic agent; Z88.8 Allergy status to other drugs, medicaments and biological substances
CPT/HCPCS: 73502; 73560; 99283

== ENCOUNTER 2025-05-22 03:08 | Emergency (ER) | payer OTHER, MEDICARE ==
[2025-05-22] MEDS ORDERED: DIPHTH,PERTUSS(ACELL),TET VAC 0.5 ML SYRINGE IM ONE (03:15)
[2025-05-22] MEDS ORDERED: fentaNYL citrate 100 MCG/2 ML VIAL IV PRN (03:15)
[2025-05-22 03:25] LABS: BASOPHILS 0.6 % (0.1-1.2); EOSINOPHILS 6.3 % (0.7-5.8); LYMPHOCYTES 28.7 % (19.3-51.7); MCH 30.2 PG (25.6-32.2); MCHC 32.8 g/dL (32.2-35.5); MCV 92.0 fL (79.4-94.8); MONOCYTES 15.5 % (4.7-12.5); NEUTROPHILS 47.4 % (34.0-71.1); RBC 4.37 M/uL (3.93-5.22)
[2025-05-22 04:13] LABS: ALT (SGPT) 16 U/L (14-59); AST (SGOT) 13 U/L (15-37); GLOMERULAR FILTRATION RATE,EST 38 mL/min (>60); PROTEIN, TOTAL 6.3 g/dL (6.4-8.2); UREA NITROGEN 18 mg/dL (7-18)
[2025-05-22 04:19] LABS: ALCOHOL, MEDICAL <3 ng/dL (<3)
[2025-05-22 04:34] LABS: ABO O; ANTIBODY SCREEN NEGATIVE; RH NEGATIVE
[2025-05-22 04:34] LABS: BLOOD/HGB, URINE TRACE-I (Negative); KETONE, URINE NEGATIVE (Negative); LEUK ESTERASE, URINE NEGATIVE (negative); NITRITE, URINE NEGATIVE (negative)
[2025-05-22 04:40] LABS: BACTERIA, URINE RARE /hpf (negative); CASTS, URINE NONE SEEN \\lpf; CRYSTALS, URINE NONE SEEN (0-1+); REFLEX CULTURE, URINE No (No)
[2025-05-22] MEDS ORDERED: PERCOCET 5-3251 EACH PO (04:57)
[2025-05-22] MEDS ORDERED: TORSEMIDE10 MG PO (05:00)
[2025-05-22] MEDS ORDERED: OXYCODONE/ACETAMINOPHEN 1 TAB HOME.PACK PO ONE (05:00)
[2025-05-22 05:50] VITALS: BP 120/75
--- NOTE | 2025-05-22 13:18 | EKG ---
[facility] [address] [facility] [place], [place] [address] Signed Atrial fibrillation Abnormal ECG When compared with ECG of 01-FEB-2025 21:24, No significant change was found Confirmed by NILES BECKWITH MD ([id number]) on 05/22/2025 1:18:43 PM Electronically Signed By: NILES BECKWITH 05/22/25 1318 PATIENT NAME: DIANELYS POLLARD SKYLERFarhan Electrocardiogram DATE OF : 44 PHYSICIAN: NILES BECKWITH REPORT #: [id number] REPORT IS CONFIDENTIAL AND NOT TO BE RELEASED WITHOUT AUTHORIZATION
== END 2025-05-22 05:50 | disposition home or self-care (01) ==
LOC: ED 03:08
PROVIDERS: Family Medicine
DX: S22.32XA Fracture of one rib, left side, initial encounter for closed fracture (principal); E11.9 Type 2 diabetes mellitus without complications; I11.0 Hypertensive heart disease with heart failure; I48.91 Unspecified atrial fibrillation; I50.9 Heart failure, unspecified; Z88.2 Allergy status to sulfonamides; Z88.5 Allergy status to narcotic agent; Z88.6 Allergy status to analgesic agent; Z88.0 Allergy status to penicillin; Z88.8 Allergy status to other drugs, medicaments and biological substances; Z79.01 Long term (current) use of anticoagulants; Z79.84 Long term (current) use of oral hypoglycemic drugs; Z79.899 Other long term (current) drug therapy; W01.190A Fall on same level from slipping, tripping and stumbling with subsequent striking against furniture, initial encounter
CPT/HCPCS: 36415; 70450; 71260; 72125; 80053; 81001; 85025; 86850; 86900; 86901; 90471; 90715; 93005; 93010; 96374; 96375; 99284-25; G0480; J2405; J3010; Q9967

== ENCOUNTER 2025-06-25 21:14 | Emergency (ER) | payer MEDICARE, OTHER ==
[~2025-06-25] VITALS: Ht 152.4 cm; Wt 68.7 kg
[~2025-06-25 21:14] MED LIST changes: +PERCOCET 5-3251 EACH PO; +TORSEMIDE10 MG PO
[2025-06-25 21:57] LABS: BASOPHILS 0.4 % (0.1-1.2); EOSINOPHILS 0.1 % (0.7-5.8); LYMPHOCYTES 13.3 % (19.3-51.7); MCH 30.2 PG (25.6-32.2); MCHC 32.5 g/dL (32.2-35.5); MCV 93.1 fL (79.4-94.8); MONOCYTES 2.5 % (4.7-12.5); NEUTROPHILS 82.9 % (34.0-71.1); RBC 4.47 M/uL (3.93-5.22)
[2025-06-25 22:07] LABS: ALCOHOL, MEDICAL <3 ng/dL (<3); ALT (SGPT) 23 U/L (14-59); AST (SGOT) 22 U/L (15-37); GLOMERULAR FILTRATION RATE,EST 36 mL/min (>60); PROTEIN, TOTAL 7.4 g/dL (6.4-8.2); UREA NITROGEN 15 mg/dL (7-18)
[2025-06-25] MEDS ORDERED: ACETAMINOPHEN 325 MG TAB PO ONE (23:15)
[2025-06-25] MEDS ORDERED: CYCLOBENZAPRINE10 MG PO (23:37)
[2025-06-25] MEDS ORDERED: CYCLOBENZAPRINE HCL 10 MG HOME.PACK PO ONE (23:45)
[2025-06-25 23:54] LABS: ABO O; ANTIBODY SCREEN NEGATIVE; RH NEGATIVE
[2025-06-26 00:09] VITALS: BP 124/70
== END 2025-06-26 00:09 | disposition home or self-care (01) ==
LOC: ED 21:14
DX: S00.83XA Contusion of other part of head, initial encounter (principal); S80.212A Abrasion, left knee, initial encounter; S80.211A Abrasion, right knee, initial encounter; S00.31XA Abrasion of nose, initial encounter; I11.0 Hypertensive heart disease with heart failure; I50.9 Heart failure, unspecified; E11.9 Type 2 diabetes mellitus without complications; W01.0XXA Fall on same level from slipping, tripping and stumbling without subsequent striking against object, initial encounter; Z79.899 Other long term (current) drug therapy; Z88.2 Allergy status to sulfonamides; Z88.5 Allergy status to narcotic agent; Z88.0 Allergy status to penicillin; Z88.6 Allergy status to analgesic agent; Z88.1 Allergy status to other antibiotic agents
CPT/HCPCS: 36415; 70450; 70486; 73560; 80053; 80307; 85025; 86850; 86900; 86901; 99284-25; A9270; G0480